=== PATIENT | male | born 1945 | race Caucasian/White ===

== ENCOUNTER → 2016-05-30 | Outpatient (CLI) | payer MEDICARE ==
[2016-05-30 09:57] LABS: Basophils % (A) 1 %; CH 32.1; CHCM 35.1; Eosinophils # (A) 0.1 k/uL (0-0.7); Eosinophils % (A) 2 %; HCT 46.6 % (39.0-53.0); HDW 2.97; HGB 15.7 gm/dL (13.0-17.5); Luc % (Auto) 1; Lymphocytes # (A) 0.8 k/uL (1.0-4.8); Lymphocytes % (A) 10 %; MCHC 33.7 g/dL (31.0-37.0); MCV 91.9 fL (80.0-100.0); Mean Platelet Volume 7.3; Monocytes # (A) 0.6 k/uL (0-1.0); Monocytes % (A) 8 %; Neutrophils # (A) 6.4 k/uL (1.3-7.7); Neutrophils % (A) 80 %; RBC 5.07 m/uL (4.30-5.90); RDW 12.8 % (11.5-15.5); WBC (Perox) 8.31
[2016-05-30 10:47] LABS: ALT 45 U/L (21-72); AST 29 U/L (17-59); Alkaline Phosphatase 106 U/L (38-126); Anion Gap 12 mmol/L; Blood Urea Nitrogen 11 mg/dL (9-20); Calcium 9.7 mg/dL (8.4-10.2); Carbon Dioxide 28 mmol/L (22-30); Chloride 104 mmol/L (98-107); Cholesterol 230 mg/dL (<200); Glucose 112 mg/dL (74-99); HDL Cholesterol 33 mg/dL (40-60); Non-African American GFR(MDRD) >60 (>60 ml/min/1.73 sqM); Potassium 4.7 mmol/L (3.5-5.1); Sodium 144 mmol/L (137-145); Total Bilirubin 1.1 mg/dL (0.2-1.3); Total Protein 6.9 g/dL (6.3-8.2); Triglycerides 235 mg/dL (<150)
[2016-05-30 10:53] LABS: Hemoglobin A1C 4.7 % (4.2-6.1)
[2016-05-30 11:18] LABS: Prostate Specific Antigen 2.89 ng/mL (0.00-4.00)
== END | disposition home or self-care (01) ==
LOC: LABWHC1 09:35
PROVIDERS: ATTEND Internal Medicine Critical Care Medicine
DX: Z00.00 Encounter for general adult medical examination without abnormal findings (principal); J45.909 Unspecified asthma, uncomplicated; Z12.5 Encounter for screening for malignant neoplasm of prostate
CPT/HCPCS: 36415; 80053; 80061; 82306; 83036; 84153; 84439; 84443; 84480; 85025

== ENCOUNTER → 2016-12-09 | Outpatient (CLI) | payer MEDICARE | END | disposition home or self-care (01) | LOC: LABWHC1 11:11 | PROVIDERS: ATTEND Internal Medicine Critical Care Medicine | DX: E03.9 Hypothyroidism, unspecified (principal) | CPT/HCPCS: 36415; 84439; 84443 ==

== ENCOUNTER → 2017-07-10 | Outpatient (CLI) | payer MEDICARE ==
[~2017-07-10] MED LIST: OMALIZUMAB 150 MG VIAL SQ NR
[2017-07-10 11:13] VITALS: BP 159/80; PULSE 73; RESP 16; TEMP 97.6
== END | disposition home or self-care (01) ==
LOC: PROCWHC3 10:57
PROVIDERS: ATTEND Internal Medicine Critical Care Medicine
DX: J45.40 Moderate persistent asthma, uncomplicated (principal)
CPT/HCPCS: 96372; J2357

== ENCOUNTER → 2017-08-21 | Outpatient (CLI) | payer MEDICARE ==
[2017-08-21 11:37] LABS: Basophils % (A) 0 %; Eosinophils # (A) 0.1 k/uL (0-0.7); Eosinophils % (A) 2 %; HCT 44.1 % (39.0-53.0); HGB 15.3 gm/dL (13.0-17.5); Lymphocytes # (A) 1.2 k/uL (1.0-4.8); Lymphocytes % (A) 15 %; MCHC 34.6 g/dL (31.0-37.0); MCV 86.9 fL (80.0-100.0); Mean Platelet Volume 6.9; Monocytes # (A) 0.5 k/uL (0-1.0); Monocytes % (A) 6 %; Neutrophils # (A) 6.2 k/uL (1.3-7.7); Neutrophils % (A) 76 %; Platelet Count 243 k/uL (150-450); RBC 5.08 m/uL (4.30-5.90); RDW 12.9 % (11.5-15.5); WBC 8.2 k/uL (3.8-10.6)
[2017-08-21 12:10] LABS: Albumin 4.2 g/dL (3.5-5.0); Calcium 9.9 mg/dL (8.4-10.2); Potassium 4.5 mmol/L (3.5-5.1); Total Bilirubin 0.9 mg/dL (0.2-1.3); Total Protein 6.8 g/dL (6.3-8.2)
[2017-08-21 12:19] LABS: T4, Free (Free Thyroxine) 1.18 ng/dL (0.78-2.19)
[2017-08-21 12:33] LABS: PSA Annual Screen 3.43 ng/mL (0.00-4.00)
== END | disposition home or self-care (01) ==
LOC: LABWHC1 10:44
PROVIDERS: ATTEND Internal Medicine Critical Care Medicine
DX: I10 Essential (primary) hypertension (principal); E55.9 Vitamin D deficiency, unspecified; E03.9 Hypothyroidism, unspecified; N40.1 Benign prostatic hyperplasia with lower urinary tract symptoms; J45.21 Mild intermittent asthma with (acute) exacerbation
CPT/HCPCS: 84439; 80061; 80053; 84443; 85025; 36415; G0103

== ENCOUNTER → 2017-08-21 | Outpatient (CLI) | payer MEDICARE ==
[2017-08-21 11:57] VITALS: BP 151/82; PULSE 76; RESP 18; TEMP 98.2
== END | disposition home or self-care (01) ==
LOC: PROCWHC3 11:02
PROVIDERS: ATTEND Internal Medicine Critical Care Medicine
DX: J45.40 Moderate persistent asthma, uncomplicated (principal)
CPT/HCPCS: 96372; J2357

== ENCOUNTER → 2017-10-02 | Outpatient (CLI) | payer MEDICARE ==
[2017-10-02 11:48] VITALS: BP 165/84; PULSE 68; RESP 16; TEMP 97.8
== END | disposition home or self-care (01) ==
LOC: PROCWHC3 11:03
PROVIDERS: ATTEND Internal Medicine Critical Care Medicine
DX: J45.40 Moderate persistent asthma, uncomplicated (principal)
CPT/HCPCS: 96372; J2357

== ENCOUNTER → 2017-10-22 | Outpatient (CLI) | payer MEDICARE ==
[2017-10-22 11:10] LABS: Albumin 4.3 g/dL (3.5-5.0); Potassium 4.6 mmol/L (3.5-5.1); Total Bilirubin 0.8 mg/dL (0.2-1.3); Total Protein 6.5 g/dL (6.3-8.2)
== END | disposition home or self-care (01) ==
LOC: LABWHC1 09:35
PROVIDERS: ATTEND Internal Medicine Clinical Cardiac Electrophysiology
DX: E78.5 Hyperlipidemia, unspecified (principal)
CPT/HCPCS: 36415; 80053; 80061; 84443

== ENCOUNTER → 2017-11-13 | Outpatient (CLI) | payer MEDICARE ==
[~2017-11-13] MED LIST changes: -OMALIZUMAB 150 MG VIAL SQ NR; +OMALIZUMAB 150 MG VIAL SQ ONE
[2017-11-13 11:37] VITALS: BP 162/86; PULSE 78; RESP 16; TEMP 98.1
== END | disposition home or self-care (01) ==
LOC: PROCWHC3 10:47
PROVIDERS: ATTEND Internal Medicine Critical Care Medicine
DX: J45.40 Moderate persistent asthma, uncomplicated (principal)
CPT/HCPCS: 96372; J2357

== ENCOUNTER → 2017-12-24 | Outpatient (CLI) | payer MEDICARE ==
[~2017-12-24] MED LIST changes: +OMALIZUMAB 150 MG VIAL SQ NR; -OMALIZUMAB 150 MG VIAL SQ ONE
[2017-12-24 15:38] VITALS: BP 157/78; PULSE 75; RESP 16; TEMP 97.8
== END | disposition home or self-care (01) ==
LOC: PROCWHC3 14:28
PROVIDERS: ATTEND Internal Medicine Critical Care Medicine
DX: J45.40 Moderate persistent asthma, uncomplicated (principal)
CPT/HCPCS: 96372; J2357

== ENCOUNTER → 2018-02-04 | Outpatient (CLI) | payer MEDICARE ==
[2018-02-04 11:24] VITALS: BP 157/75; PULSE 71; RESP 18; TEMP 98
== END | disposition home or self-care (01) ==
LOC: PROCWHC3 10:49
PROVIDERS: ATTEND Internal Medicine Critical Care Medicine
DX: J45.40 Moderate persistent asthma, uncomplicated (principal)
CPT/HCPCS: 96372; J2357

== ENCOUNTER → 2018-03-18 | Outpatient (CLI) | payer MEDICARE ==
[~2018-03-18] MED LIST changes: -OMALIZUMAB 150 MG VIAL SQ NR; +OMALIZUMAB 150 MG VIAL SQ ONE
[2018-03-18 11:36] VITALS: BP 157/78; PULSE 76; RESP 18; TEMP 98.2
== END | disposition home or self-care (01) ==
LOC: PROCWHC3 10:52
PROVIDERS: ATTEND Internal Medicine Critical Care Medicine
DX: J45.40 Moderate persistent asthma, uncomplicated (principal)
CPT/HCPCS: 96372; J2357

== ENCOUNTER → 2018-04-29 | Outpatient (CLI) | payer MEDICARE ==
[~2018-04-29] MED LIST changes: +OMALIZUMAB 150 MG VIAL SQ NR; -OMALIZUMAB 150 MG VIAL SQ ONE
[2018-04-29 11:28] VITALS: BP 163/76; PULSE 84; RESP 16; TEMP 97.9
== END | disposition home or self-care (01) ==
LOC: PROCWHC3 10:45
PROVIDERS: ATTEND Internal Medicine Critical Care Medicine
DX: J45.40 Moderate persistent asthma, uncomplicated (principal)
CPT/HCPCS: 96372; J2357

== ENCOUNTER → 2018-06-11 | Outpatient (CLI) | payer MEDICARE ==
[~2018-06-11] MED LIST changes: -OMALIZUMAB 150 MG VIAL SQ NR; +OMALIZUMAB 150 MG/ML SYRINGE SQ NR; +OMALIZUMAB SQ NR
[2018-06-11 14:44] VITALS: BP 145/84; PULSE 76; RESP 16; TEMP 98.2
== END ==
LOC: PROCWHC3 14:27
PROVIDERS: ATTEND Internal Medicine Critical Care Medicine
DX: J45.40 Moderate persistent asthma, uncomplicated (principal)
CPT/HCPCS: 96372; J2357

== ENCOUNTER → 2018-07-29 | Outpatient (CLI) | payer MEDICARE ==
[~2018-07-29] MED LIST changes: -OMALIZUMAB SQ NR
[2018-07-29 11:11] VITALS: BP 161/74; PULSE 84; RESP 18; TEMP 98
== END ==
LOC: PROCWHC3 10:54
PROVIDERS: ATTEND Internal Medicine Critical Care Medicine
DX: J45.40 Moderate persistent asthma, uncomplicated (principal)
CPT/HCPCS: 96372; J2357

== ENCOUNTER → 2018-08-26 | Outpatient (CLI) | payer MEDICARE | END | disposition home or self-care (01) | LOC: LABWHC1 11:12 | PROVIDERS: ATTEND Psychiatry & Neurology Neurology | DX: R25.1 Tremor, unspecified (principal) | CPT/HCPCS: 36415; 82565; 84520 ==

== ENCOUNTER → 2018-09-01 | Outpatient (CLI) | payer MEDICARE ==
--- NOTE | 2018-09-01 11:34 | MR ---
EXAMINATION TYPE: MR brain wo/w con DATE OF EXAM: 09/01/2018 11:29 AM COMPARISON: NONE HISTORY: Brain tumor / Tremors CONTRAST: Patient received 9 mL intravenous Gadavist gadolinium contrast. Multiplanar and multispin-echo imaging of the brain was performed . Pre and post contrast enhanced i mages are obtained. The ventricles, basal cisterns and sulci overlying the cerebral convexities are mildly enlarged. There is evidence of mild periventricular white matter ischemic demyelination. Remote deep white matter insults are also noted. No acute edema is seen on diffusion weighted imaging. There is no evidence for midline shift or mass effect. Acute intracranial hemorrhage or extra-axial collection is not evident. No enhancing lesions are seen. The paranasal sinuses and mastoid air cells are well-aerated. IMPRESSION: Age-related atrophic and chronic small vessel ischemic change. No acute intracranial process at this time. No enhancing lesions are seen.
== END | disposition home or self-care (01) ==
LOC: RADMRIMAIN 10:34
PROVIDERS: ATTEND Psychiatry & Neurology Neurology
DX: G31.1 Senile degeneration of brain, not elsewhere classified (principal); I67.82 Cerebral ischemia
CPT/HCPCS: 70553

== ENCOUNTER → 2018-09-14 | Outpatient (CLI) | payer MEDICARE ==
[2018-09-14 11:27] VITALS: BP 158/78; PULSE 77; RESP 16; TEMP 97.6
== END | disposition home or self-care (01) ==
LOC: PROCWHC3 11:20
PROVIDERS: ATTEND Internal Medicine Critical Care Medicine
DX: J45.40 Moderate persistent asthma, uncomplicated (principal)
CPT/HCPCS: 96372; J2357

== ENCOUNTER → 2018-10-28 | Outpatient (CLI) | payer MEDICARE ==
[2018-10-28 11:27] VITALS: BP 131/74; RESP 18; TEMP 98.3
== END | disposition home or self-care (01) ==
LOC: PROCWHC3 11:15
PROVIDERS: ATTEND Internal Medicine Critical Care Medicine
DX: J45.40 Moderate persistent asthma, uncomplicated (principal)
CPT/HCPCS: 96372; J2357

== ENCOUNTER → 2018-12-09 | Outpatient (CLI) | payer MEDICARE ==
[2018-12-09 11:34] VITALS: BP 155/83; PULSE 92; RESP 24; TEMP 98.2
== END | disposition home or self-care (01) ==
LOC: PROCWHC3 11:16
PROVIDERS: ATTEND Internal Medicine Critical Care Medicine
DX: J45.40 Moderate persistent asthma, uncomplicated (principal)
CPT/HCPCS: 96372; J2357

== ENCOUNTER 2019-01-07 06:54 | Emergency (ER) | payer MEDICARE ==
[2019-01-07 07:00] VITALS: TEMP 97.3
[2019-01-07] MEDS ORDERED: IPRATROPIUM 0.5 MG/2.5 ML NEBU INHALATION STA (07:25)
[2019-01-07] MEDS ORDERED: ALBUTEROL NEBULIZED 2.5 MG/3 ML INHALATION STA (07:25)
[2019-01-07] MEDS ORDERED: methylPREDNISolone SOD SUCCI 125 MG/2 ML VIAL IV STA (07:25)
--- NOTE | 2019-01-07 07:45 | ED ---
General Adult HPI - General Chief complaint: Chest Pain Stated complaint: SOB, chest tightness Time Seen by Provider: 01/07/19 07:00 Source: patient, family, RN notes reviewed Mode of arrival: ambulatory Limitations: no limitations - History of Present Illness Initial comments: This is a 73-year-old male with past medical history significant for asthma. Patient states he has been having intermittent exacerbations of asthma he has seen his electronic heat seal operator as well as visiting multiple ERs and he states every time he believes he feels a little better but it comes right back. Patient states he cannot continue to go in and out of ERs and/or doctor's offices without significant resolution of his symptoms. Patient denies any chest pain or pressure. Patient denies any fever chills or cough. Patient denies any leg swelling or calf tenderness. Patient denies any abdominal pain patient denies nausea vomiting diarrhea. Patient states being outside seems to exacerbate it. Patient states in his own home he has the symptoms as well as [place]. The reason I mention this is his thinks that somebody may be poisoning them. The patient himself says his has some mental illness and he does not believe that is occurring. - Related Data Home Medications Medication Instructions Recorded Confirmed Xolair 150 mg SQ DIRECTED 09/21/13 01/07/19 Albuterol Sulfate 1.25 mg INHALATION RT-TID PRN 03/18/18 01/07/19 ALPRAZolam [Xanax] 0.25 mg PO TID PRN 12/09/18 01/07/19 Atorvastatin [Lipitor] 20 mg PO DAILY 12/09/18 01/07/19 Gabapentin [Neurontin] 300 mg PO DAILY 12/09/18 01/07/19 Hydroxychloroquine Sulfate 200 mg PO BID 12/09/18 01/07/19 [Plaquenil] Irbesartan [Avapro] 150 mg PO DAILY 12/09/18 01/07/19 Levothyroxine Sodium [Synthroid] 100 mcg PO DAILY 12/09/18 01/07/19 amLODIPine [Norvasc] 5 mg PO DAILY 12/09/18 01/07/19 Fluticasone/Salmeterol [Advair 1 puff INHALATION RT-BID 01/07/19 01/07/19 500-50 Diskus] Montelukast [Singulair] 10 mg PO DAILY 01/07/19 01/07/19 Previous Rx's Medication Instructions Recorded predniSONE 40 mg PO DAILY #10 tab 01/07/19 Allergies Allergy/AdvReac Type Severity Reaction Status Date / Time No Known Allergies Allergy Verified 01/07/19 08:36 Review of Systems ROS Statement: Those systems with pertinent positive or pertinent negative responses have been documented in the HPI. ROS Other: All systems not noted in ROS Statement are negative. Past Medical History Past Medical History: Asthma Additional Past Medical History / Comment(s): Hx. "urination is slow" Dx. bronchitis november 2014 History of Any Multi-Drug Resistant Organisms: None Reported Past Surgical History: Orthopedic Surgery Additional Past Surgical History / Comment(s): Hx. Left knee arthroscopic, urethral surgery Past Anesthesia/Blood Transfusion Reactions: No Reported Reaction Past Psychological History: No Psychological Hx Reported Smoking Status: Never smoker Past Alcohol Use History: None Reported Past Drug Use History: None Reported General Exam - General Exam Comments Initial Comments: GENERAL: Patient is well-developed and well-nourished. Patient is nontoxic and well-hy drated and is in mild distress. ENT: Neck is soft and supple. No significant lymphadenopathy is noted. Oropharynx is clear. Moist mucous membranes. Neck has full range of motion without eliciting any pain. EYES: The sclera were anicteric and conjunctiva were pink and moist. Extraocular move ments were intact and pupils were equal round and reactive to light. Eyelids were unremarkable. PULMONARY: Unlabored respirations. Good breath sounds bilaterally. No audible rales rhonchi or wheezing was noted. CARDIOVASCULAR: There is a regular rate and rhythm without any murmurs gallops or rubs. ABDOMEN: Soft and nontender with normal bowel sounds. SKIN: Skin is clear with no lesions or rashes and otherwise unremarkable. NEUROLOGIC: Patient is alert and oriented x3. Cranial nerves II through XII are grossly intact. Motor and sensory are also intact. Normal speech, volume and content. Symmetrical smile. MUSCULOSKELETAL: Normal extremities with adequate strength and full range of motion. No lower extremity swelling or edema. No calf tenderness. LYMPHATICS: No significant lymphadenopathy is noted PSYCHIATRIC: Normal psychiatric evaluation. Limitations: no limitations Course Vital Signs 01/07/19 01/07/19 01/07/19 06:55 06:59 08:07 Temperature 97.3 F L Pulse Rate 97 79 Respiratory 18 20 Rate Blood Pressure 137/74 O2 Sat by Pulse 97 Oximetry 01/07/19 01/07/19 01/07/19 08:22 08:37 08:56 Temperature Pulse Rate 79 81 84 Respiratory Rate Blood Pressure O2 Sat by Pulse Oximetry Medical Decision Making - Medical Decision Making EKG shows normal sinus rhythm at 80 bpm NE interval 184 QRS is 86 QT interval 362 QTC is 417. Patient's EKG shows no ST segment elevation or depression. Patient's chest x-ray shows no acute abnormality. Patient received 3 breathing treatments and steroids I went back in to listen to home after the treatments were done and he was completely clear and stated he felt back to his baseline. Patient will be discharged home to follow-up with his electronic heat seal operator. - Lab Data Result diagrams: 01/07/19 07:30 01/07/19 07:30 Lab Results 01/07/19 01/07/19 01/07/19 Range/Units 07:30 07:30 07:30 WBC 8.2 (3.8-10.6) k/uL RBC 4.85 (4.30-5.90) m/uL Hgb 14.7 (13.0-17.5) gm/dL Hct 43.2 (39.0-53.0) % MCV 88.9 (80.0-100.0) fL MCH 30.4 (25.0-35.0) pg MCHC 34.2 (31.0-37.0) g/dL RDW 13.0 (11.5-15.5) % Plt Count 224 (150-450) k/uL Neutrophils % 76 % Lymphocytes % 13 % Monocytes % 7 % Eosinophils % 1 % Basophils % 0 % Neutrophils # 6.2 (1.3-7.7) k/uL Lymphocytes # 1.1 (1.0-4.8) k/uL Monocytes # 0.6 (0-1.0) k/uL Eosinophils # 0.1 (0-0.7) k/uL Basophils # 0.0 (0-0.2) k/uL PT 9.8 (9.0-12.0) sec INR 0.9 (<1.2) APTT 22.3 (22.0-30.0) sec D-Dimer 0.44 (<0.60) mg/L FEU Carbon Monoxide, Quant (<10.0) % Sodium 140 (137-145) mmol/L Potassium 4.4 (3.5-5.1) mmol/L Chloride 106 (98-107) mmol/L Carbon Dioxide 24 (22-30) mmol/L Anion Gap 10 mmol/L BUN 16 (9-20) mg/dL Creatinine 1.04 (0.66-1.25) mg/dL Est GFR (CKD-EPI)AfAm 82 (>60 ml/min/1.73 sqM) Est GFR (CKD-EPI)NonAf 71 (>60 ml/min/1.73 sqM) Glucose 107 H (74-99) mg/dL Calcium 9.9 (8.4-10.2) mg/dL Magnesium 2.1 (1.6-2.3) mg/dL Total Bilirubin 1.0 (0.2-1.3) mg/dL AST 22 (17-59) U/L ALT 32 (21-72) U/L Alkaline Phosphatase 74 (38-126) U/L Troponin I (0.000-0.034) ng/mL Total Protein 6.5 (6.3-8.2) g/dL Albumin 4.0 (3.5-5.0) g/dL 01/07/19 01/07/19 Range/Units 07:30 09:30 WBC (3.8-10.6) k/uL RBC (4.30-5.90) m/uL Hgb (13.0-17.5) gm/dL Hct (39.0-53.0) % MCV (80.0-100.0) fL MCH (25.0-35.0) pg MCHC (31.0-37.0) g/dL RDW (11.5-15.5) % Plt Count (150-450) k/uL Neutrophils % % Lymphocytes % % Monocytes % % Eosinophils % % Basophils % % Neutrophils # (1.3-7.7) k/uL Lymphocytes # (1.0-4.8) k/uL Monocytes # (0-1.0) k/uL Eosinophils # (0-0.7) k/uL Basophils # (0-0.2) k/uL PT (9.0-12.0) sec INR (<1.2) APTT (22.0-30.0) sec D-Dimer (<0.60) mg/L FEU Carbon Monoxide, Quant 2.0 (<10.0) % Sodium (137-145) mmol/L Potassium (3.5-5.1) mmol/L Chloride (98-107) mmol/L Carbon Dioxide (22-30) mmol/L Anion Gap mmol/L BUN (9-20) mg/dL Creatinine (0.66-1.25) mg/dL Est GFR (CKD-EPI)AfAm (>60 ml/min/1.73 sqM) Est GFR (CKD-EPI)NonAf (>60 ml/min/1.73 sqM) Glucose (74-99) mg/dL Calcium (8.4-10.2) mg/dL Magnesium (1.6-2.3) mg/dL Total Bilirubin (0.2-1.3) mg/dL AST (17-59) U/L ALT (21-72) U/L Alkaline Phosphatase (38-126) U/L Troponin I <0.012 (0.000-0.034) ng/mL Total Protein (6.3-8.2) g/dL Albumin (3.5-5.0) g/dL Disposition Clinical Impression: Exacerbation of asthma Disposition: HOME SELF-CARE Condition: Good Instructions (If sedation given, give patient instructions): Asthma (ED) Prescriptions: predniSONE 40 mg PO DAILY #10 tab Is patient prescribed a controlled substance at d/c from ED?: No Referrals: Chris Gatica DO [Primary Care Provider] - 1-2 days Time of Disposition: 11:05
[2019-01-07 07:54] LABS: Basophils % (A) 0 %; Eosinophils # (A) 0.1 k/uL (0-0.7); Eosinophils % (A) 1 %; HCT 43.2 % (39.0-53.0); HGB 14.7 gm/dL (13.0-17.5); Lymphocytes # (A) 1.1 k/uL (1.0-4.8); Lymphocytes % (A) 13 %; MCH 30.4 pg (25.0-35.0); MCHC 34.2 g/dL (31.0-37.0); MCV 88.9 fL (80.0-100.0); Mean Platelet Volume 6.2; Monocytes # (A) 0.6 k/uL (0-1.0); Monocytes % (A) 7 %; Neutrophils # (A) 6.2 k/uL (1.3-7.7); Neutrophils % (A) 76 %; Platelet Count 224 k/uL (150-450); RBC 4.85 m/uL (4.30-5.90); WBC 8.2 k/uL (3.8-10.6)
[2019-01-07 08:00] LABS: Calcium 9.9 mg/dL (8.4-10.2); Magnesium 2.1 mg/dL (1.6-2.3); Potassium 4.4 mmol/L (3.5-5.1); Total Protein 6.5 g/dL (6.3-8.2)
--- NOTE | 2019-01-07 08:02 | XR ---
EXAMINATION TYPE: XR chest 2V DATE OF EXAM: 01/07/2019 COMPARISON: NONE HISTORY: Shortness of breath with history of asthma. Cortical steroid use for 6 months TECHNIQUE: Frontal and lateral views of the chest are obtained. FINDINGS: There is no focal air space opacity, pleural effusion, or pneumothorax seen. There is red emonstration of elevation noted, chronicity unknown. Slight pulmonary hyperinflation is compatible wi th this patient's known asthma/COPD. The cardiac silhouette size is within normal limits. The osseo us structures are intact. Mild multilevel degenerative changes of the spine. IMPRESSION: 1. No acute cardiopulmonary process. 2. Unknown chronicity of an elevated right hemidiaphragm. If there is concern for diaphragmatic pares is fluoroscopic sniff test could be performed on a nonemergent basis.
[2019-01-07 08:09] LABS: D-Dimer 0.44 mg/L FEU (<0.60); INR 0.9 (<1.2); Partial Thromboplastin Time 22.3 sec (22.0-30.0); Prothrombin Time 9.8 sec (9.0-12.0)
[2019-01-07 11:20] VITALS: RESP 16
[2019-01-07 11:22] VITALS: BP 121/75; PULSE 88
== END 2019-01-07 11:10 | disposition home or self-care (01) ==
LOC: EC 06:54
DX: J45.901 Unspecified asthma with (acute) exacerbation (principal); Z79.890 Hormone replacement therapy; Z79.899 Other long term (current) drug therapy
CPT/HCPCS: 36415; 94644; 93005; 85379; 80053; 82375; 83735; 84484; 85025; 85610; 85730; 71046; 99285; 96374; J2930

== ENCOUNTER → 2019-01-20 | Outpatient (CLI) | payer MEDICARE ==
[2019-01-20 11:29] VITALS: BP 164/83; PULSE 85; RESP 18; TEMP 97.9
== END ==
LOC: PROCWHC3 11:17
PROVIDERS: ATTEND Internal Medicine Critical Care Medicine
DX: J45.40 Moderate persistent asthma, uncomplicated (principal)
CPT/HCPCS: 96372; J2357

== ENCOUNTER → 2019-03-03 | Outpatient (CLI) | payer MEDICARE ==
[2019-03-03 10:55] VITALS: BP 153/71; PULSE 90; RESP 18; TEMP 97.9
== END | disposition home or self-care (01) ==
LOC: PROCWHC3 10:38
PROVIDERS: ATTEND Internal Medicine Critical Care Medicine
DX: J45.40 Moderate persistent asthma, uncomplicated (principal)
CPT/HCPCS: 96372; J2357

== ENCOUNTER → 2019-04-06 | Outpatient (CLI) | payer MEDICARE ==
[2019-04-06 11:34] VITALS: BP 142/90; PULSE 81; RESP 16; TEMP 97.9
== END | disposition home or self-care (01) ==
LOC: PROCWHC3 11:17
PROVIDERS: ATTEND Internal Medicine Critical Care Medicine
DX: J45.40 Moderate persistent asthma, uncomplicated (principal)
CPT/HCPCS: 96372; J2357

== ENCOUNTER → 2019-06-27 | Outpatient (CLI) | payer MEDICARE ==
--- NOTE | 2019-06-27 22:49 | CT ---
EXAMINATION TYPE: CT chest w con DATE OF EXAM: 06/27/2019 COMPARISON: Chest x-ray January 07, 2019 HISTORY: followup lung nodule CT DLP: 441.9 mGycm. Automated Exposure Control for Dose Reduction was Utilized. TECHNIQUE: CT scan of the thorax is performed following with IV Contrast, patient injected with 80 m L of Isovue 300. FINDINGS: LUNGS: Redemonstration of elevated and eventrated anterior aspect right hemidiaphragm. Mild biapical pleural/parenchymal scarring. Mild right basilar linear scarring and/or atelectasis near diaphragm. N o suspicious greater than 4 mm pulmonary nodules or masses. No pleural effusion or pneumothorax curre ntly. MEDIASTINUM: There are no greater than 1 cm hilar or mediastinal lymph nodes. No cardiomegaly or pe ricardial effusion is seen. OTHER: Mild splenomegaly measuring 13.5 cm long axis coronal image 60. [id number] anomaly nonca lcified plaque in the thoracic aorta with more severe noncalcified plaque in the visualized portion o f abdominal aorta. Small degree of subareolar gynecomastia bilaterally. Moderate multilevel anterior and lateral spurring in the lower thoracic spine. IMPRESSION: No suspicious nodules or adenopathy.
== END | disposition home or self-care (01) ==
LOC: RADCTMAIN 16:05
PROVIDERS: ATTEND Internal Medicine Critical Care Medicine
DX: R06.02 Shortness of breath (principal)
CPT/HCPCS: 82565; 84520; 71260; 36415; Q9967

== ENCOUNTER → 2019-07-01 | Outpatient (CLI) | payer MEDICARE ==
[2019-07-01 10:49] VITALS: BP 153/80; PULSE 87; RESP 20; TEMP 97.9
== END | disposition home or self-care (01) ==
LOC: PROCWHC3 10:37
PROVIDERS: ATTEND Internal Medicine Critical Care Medicine
DX: J45.40 Moderate persistent asthma, uncomplicated (principal)
CPT/HCPCS: 96372; J2357

== ENCOUNTER → 2019-09-15 | Outpatient (CLI) | payer MEDICARE ==
[2019-09-15 10:40] VITALS: BP 146/81; PULSE 82; RESP 18; TEMP 98
== END | disposition home or self-care (01) ==
LOC: PROCWHC3 10:22
PROVIDERS: ATTEND Internal Medicine Critical Care Medicine
DX: J45.40 Moderate persistent asthma, uncomplicated (principal)
CPT/HCPCS: 96372; J2357

== ENCOUNTER → 2019-10-27 | Outpatient (CLI) | payer MEDICARE ==
[2019-10-27 10:22] VITALS: BP 159/83; PULSE 86; RESP 16; TEMP 98.3
== END | disposition home or self-care (01) ==
LOC: PROCWHC3 10:13
PROVIDERS: ATTEND Internal Medicine Critical Care Medicine
DX: J45.40 Moderate persistent asthma, uncomplicated (principal)
CPT/HCPCS: 96372; J2357

== ENCOUNTER → 2019-12-08 | Outpatient (CLI) | payer MEDICARE ==
[~2019-12-08] MED LIST changes: -OMALIZUMAB 150 MG/ML SYRINGE SQ NR; +OMALIZUMAB 150 MG/ML SYRINGE SQ ONE
[2019-12-08 14:42] VITALS: BP 152/76; PULSE 81; RESP 16; TEMP 98.1
== END | disposition home or self-care (01) ==
LOC: PROCWHC3 14:13
PROVIDERS: ATTEND Internal Medicine Critical Care Medicine
DX: J45.40 Moderate persistent asthma, uncomplicated (principal)
CPT/HCPCS: 96372; J2357

== ENCOUNTER → 2020-01-19 | Outpatient (CLI) | payer MEDICARE ==
[2020-01-19 10:32] VITALS: BP 155/85; PULSE 81; RESP 16; TEMP 98.2
== END | disposition home or self-care (01) ==
LOC: PROCWHC3 10:21
PROVIDERS: ATTEND Internal Medicine Critical Care Medicine
DX: J45.40 Moderate persistent asthma, uncomplicated (principal)
CPT/HCPCS: 96372; J2357

== ENCOUNTER → 2020-03-01 | Outpatient (CLI) | payer MEDICARE ==
[~2020-03-01] MED LIST changes: +OMALIZUMAB 150 MG/ML SYRINGE SQ NR; -OMALIZUMAB 150 MG/ML SYRINGE SQ ONE
[2020-03-01 10:21] VITALS: BP 163/86; PULSE 79; RESP 16; TEMP 98.6
== END | disposition home or self-care (01) ==
LOC: PROCWHC3 10:02
PROVIDERS: ATTEND Internal Medicine Critical Care Medicine
DX: J45.40 Moderate persistent asthma, uncomplicated (principal)
CPT/HCPCS: 96372; J2357

== ENCOUNTER → 2020-04-12 | Outpatient (CLI) | payer MEDICARE ==
[2020-04-12 09:20] VITALS: BP 168/83; PULSE 85; RESP 16; TEMP 97.8
== END | disposition home or self-care (01) ==
LOC: PROCWHC3 09:03
PROVIDERS: ATTEND Internal Medicine Critical Care Medicine
DX: J45.40 Moderate persistent asthma, uncomplicated (principal)
CPT/HCPCS: 96372; J2357

== ENCOUNTER 2020-05-07 14:50 | Inpatient (IN) | payer MEDICARE ==
[2020-05-07 15:12] LABS: Glucose,Whole Blood 94 mg/dL (75-99)
--- NOTE | 2020-05-07 15:31 | ED ---
Neuro HPI - General Chief Complaint: Neuro Symptoms/Deficit Stated Complaint: Back Pain/Pinched Nerve/Neuro Time Seen by Provider: 05/07/20 15:10 Source: patient, RN notes reviewed Mode of arrival: ambulatory Limitations: no limitations - History of Present Illness Is the patient presenting with stroke symptoms?: Yes Initial Comments: Is a 74-year-old male with no prior history of stroke. A long history of asthma who states he had the onset around 13:30 this afternoon of left-sided upper lower. Numbness and weakness. He states he was on a stool eating any trauma to go from his leg wouldn't support him. He was brought in by EMS. He states he now has resolution of the left upper extremity and left lower extremity weakness he still has a little bit of numbness and left leg. Note, no headache no loss of vision no other loss of function no fevers chills nausea vomiting sweats or other symptoms - Related Data Home Medications: Home Medications Medication Instructions Recorded Confirmed Xolair 150 mg SQ DIRECTED 09/21/13 04/12/20 Albuterol Sulfate 1.25 mg INHALATION RT-TID PRN 03/18/18 04/12/20 ALPRAZolam [Xanax] 0.25 mg PO TID PRN 12/09/18 04/12/20 Atorvastatin [Lipitor] 20 mg PO DAILY 12/09/18 04/12/20 Gabapentin [Neurontin] 150 mg PO DAILY 12/09/18 04/12/20 Hydroxychloroquine Sulfate 200 mg PO BID 12/09/18 04/12/20 [Plaquenil] Irbesartan [Avapro] 75 mg PO DAILY 12/09/18 04/12/20 Levothyroxine Sodium [Synthroid] 100 mcg PO DAILY 12/09/18 04/12/20 amLODIPine [Norvasc] 5 mg PO DAILY 12/09/18 04/12/20 Fluticasone/Salmeterol [Advair 1 puff INHALATION RT-BID 01/07/19 04/12/20 500-50 Diskus] Montelukast [Singulair] 10 mg PO DAILY 01/07/19 04/12/20 Fluticasone/Salmeterol [Advair 1 inhalation PO BID 01/20/19 04/12/20 500-50 Diskus] Allergies/Adverse Reactions: Allergies Allergy/AdvReac Type Severity Reaction Status Date / Time No Known Allergies Allergy Verified 05/07/20 14:57 Review of Systems ROS Statement: Those systems with pertinent positive or pertinent negative responses have been documented in the HPI. ROS Other: All systems not noted in ROS Statement are negative. General Exam - General Exam Comments Initial Comments: This is a well-developed well-nourished awake alert oriented times 3 male Limitations: no limitations General appearance: alert, in no apparent distress Head exam: Present: atraumatic, normocephalic, normal inspection Eye exam: Present: normal appearance, PERRL, EOMI. Absent: scleral icterus, conjunctival injection, periorbital swelling ENT exam: Present: normal exam, mucous membranes moist Neck exam: Present: normal inspection, full ROM, other (No stridor JVD or bruits). Absent: tenderness, meningismus, lymphadenopathy Respiratory exam: Present: normal lung sounds bilaterally. Absent: respiratory distress, wheezes, rales, rhonchi, stridor Cardiovascular Exam: Present: regular rate, normal rhythm, normal heart sounds. Absent: systolic murmur, diastolic murmur, rubs, gallop, clicks GI/Abdominal exam: Present: soft, normal bowel sounds. Absent: distended, tenderness, guarding, rebound, rigid Extremities exam: Present: normal inspection, full ROM, normal capillary refill. Absent: tenderness, pedal edema, joint swelling, calf tenderness Back exam: Present: normal inspection Neurological exam: Present: alert, oriented X3, CN II-XII intact Psychiatric exam: Present: normal affect, normal mood Skin exam: Present: warm, dry, intact, normal color. Absent: rash Stroke MDM - Lab Data Result diagrams: 05/07/20 15:34 05/07/20 15:34 Lab Results 05/07/20 05/07/20 05/07/20 Range/Units 15:10 15:34 15:34 WBC 10.7 H (3.8-10.6) k/uL RBC 5.23 (4.30-5.90) m/uL Hgb 16.3 (13.0-17.5) gm/dL Hct 46.3 (39.0-53.0) % MCV 88.5 (80.0-100.0) fL MCH 31.1 (25.0-35.0) pg MCHC 35.1 (31.0-37.0) g/dL RDW 12.0 (11.5-15.5) % Plt Count 233 (150-450) k/uL MPV 6.8 Neutrophils % 80 % Lymphocytes % 10 % Monocytes % 6 % Eosinophils % 2 % Basophils % 1 % Neutrophils # 8.6 H (1.3-7.7) k/uL Lymphocytes # 1.1 (1.0-4.8) k/uL Monocytes # 0.7 (0-1.0) k/uL Eosinophils # 0.2 (0-0.7) k/uL Basophils # 0.1 (0-0.2) k/uL PT 10.0 (9.0-12.0) sec INR 1.0 (<1.2) APTT 23.1 (22.0-30.0) sec Sodium (137-145) mmol/L Potassium (3.5-5.1) mmol/L Chloride (98-107) mmol/L Carbon Dioxide (22-30) mmol/L Anion Gap mmol/L BUN (9-20) mg/dL Creatinine (0.66-1.25) mg/dL Est GFR (CKD-EPI)AfAm (>60 ml/min/1.73 sqM) Est GFR (CKD-EPI)NonAf (>60 ml/min/1.73 sqM) Glucose (74-99) mg/dL POC Glucose (mg/dL) 94 (75-99) mg/dL POC Glu Weigh Box Tender ID Donnie Rosen Calcium (8.4-10.2) mg/dL Magnesium (1.6-2.3) mg/dL Total Bilirubin (0.2-1.3) mg/dL AST (17-59) U/L ALT (4-49) U/L Alkaline Phosphatase (38-126) U/L Creatine Kinase (55-170) U/L Troponin I (0.000-0.034) ng/mL Total Protein (6.3-8.2) g/dL Albumin (3.5-5.0) g/dL 05/07/20 05/07/20 Range/Units 15:34 15:34 WBC (3.8-10.6) k/uL RBC (4.30-5.90) m/uL Hgb (13.0-17.5) gm/dL Hct (39.0-53.0) % MCV (80.0-100.0) fL MCH (25.0-35.0) pg MCHC (31.0-37.0) g/dL RDW (11.5-15.5) % Plt Count (150-450) k/uL MPV Neutrophils % % Lymphocytes % % Monocytes % % Eosinophils % % Basophils % % Neutrophils # (1.3-7.7) k/uL Lymphocytes # (1.0-4.8) k/uL Monocytes # (0-1.0) k/uL Eosinophils # (0-0.7) k/uL Basophils # (0-0.2) k/uL PT (9.0-12.0) sec INR (<1.2) APTT (22.0-30.0) sec Sodium 138 (137-145) mmol/L Potassium 4.1 (3.5-5.1) mmol/L Chloride 107 (98-107) mmol/L Carbon Dioxide 25 (22-30) mmol/L Anion Gap 6 mmol/L BUN 16 (9-20) mg/dL Creatinine 1.24 (0.66-1.25) mg/dL Est GFR (CKD-EPI)AfAm 66 (>60 ml/min/1.73 sqM) Est GFR (CKD-EPI)NonAf 57 (>60 ml/min/1.73 sqM) Glucose 100 H (74-99) mg/dL POC Glucose (mg/dL) (75-99) mg/dL POC Glu Weigh Box Tender ID Calcium 9.8 (8.4-10.2) mg/dL Magnesium 2.1 (1.6-2.3) mg/dL Total Bilirubin 0.7 (0.2-1.3) mg/dL AST 28 (17-59) U/L ALT 26 (4-49) U/L Alkaline Phosphatase 99 (38-126) U/L Creatine Kinase 99 (55-170) U/L Troponin I <0.012 (0.000-0.034) ng/mL Total Protein 6.7 (6.3-8.2) g/dL Albumin 4.3 (3.5-5.0) g/dL - NIH Stroke Scale 1a. Level of Consciousness: (0) alert 1b. LOC Questions: (0) answers correctly 1c. LOC Commands: (0) performs tasks correctly 2. Best Gaze: (0) normal 3. Visual: (0) no visual loss 4. Facial Palsy: (0) normal symmetrical movement 5a. Motor Arm Left: (0) no drift 5b. Motor Arm Right: (0) no drift 6a. Motor Leg Left: (0) no drift 6b. Motor Leg Right: (0) no drift 7. Limb Ataxia: (0) absent 8. Sensory: (0) normal 9. Best Language: (0) no aphasia 10. Dysarthria: (0) normal 11. Extinction/Inattention: (0) no abnormality - Medical Decision Making Imaging reviewed no evidence of acute findings or is evidence of stenosis of the internal carotid arteries less than 50%. I did discuss findings the patient's as well as Dr. Fields the patient is seen by Dr. Ronald Tamez outpatient. Patient be admitted with neurology consultation also echocardiogram. - EKG Data -: EKG Interpreted by Me EKG shows normal: sinus rhythm, axis, intervals, QRS complexes, ST-T waves (Normal sinus rhythm a 79. Interval 198 QRS duration 82 QT since QTC 360/421 st-t wave changes) Past Medical History Past Medical History: Asthma Additional Past Medical History / Comment(s): Hx. "urination is slow" Dx. bronchitis november 2014 History of Any Multi-Drug Resistant Organisms: None Reported Past Surgical History: Orthopedic Surgery Additional Past Surgical History / Comment(s): Hx. Left knee arthroscopic, urethral surgery Past Anesthesia/Blood Transfusion Reactions: No Reported Reaction Past Psychological History: No Psychological Hx Reported Smoking Status: Never smoker, Second hand smoke exposure Course Vital Signs 05/07/20 14:52 Temperature 98.6 F Pulse Rate 82 Respiratory 16 Rate Blood Pressure 148/86 O2 Sat by Pulse 98 Oximetry - Reevaluation(s) Reevaluation #1: 05/07/20 16:54 I did reevaluate patient several occasions he is feeling back to he believes normal. Disposition Clinical Impression: Cerebrovascular accident (CVA) Disposition: ADMITTED IP TO THIS [facility] Condition: Fair Referrals: Nonstaff,Physician [Primary Care Provider] - 1-2 days
[2020-05-07 15:47] LABS: Basophils # (A) 0.1 k/uL (0-0.2); Basophils % (A) 1 %; Eosinophils # (A) 0.2 k/uL (0-0.7); Eosinophils % (A) 2 %; HCT 46.3 % (39.0-53.0); HGB 16.3 gm/dL (13.0-17.5); Lymphocytes # (A) 1.1 k/uL (1.0-4.8); Lymphocytes % (A) 10 %; MCH 31.1 pg (25.0-35.0); MCHC 35.1 g/dL (31.0-37.0); MCV 88.5 fL (80.0-100.0); Mean Platelet Volume 6.8; Monocytes # (A) 0.7 k/uL (0-1.0); Monocytes % (A) 6 %; Neutrophils # (A) 8.6 k/uL (1.3-7.7); Neutrophils % (A) 80 %; Platelet Count 233 k/uL (150-450); RBC 5.23 m/uL (4.30-5.90); WBC 10.7 k/uL (3.8-10.6)
[2020-05-07 15:55] LABS: Partial Thromboplastin Time 23.1 sec (22.0-30.0)
[2020-05-07 15:57] LABS: Albumin 4.3 g/dL (3.5-5.0); Calcium 9.8 mg/dL (8.4-10.2); Magnesium 2.1 mg/dL (1.6-2.3); Potassium 4.1 mmol/L (3.5-5.1); Total Bilirubin 0.7 mg/dL (0.2-1.3); Total Protein 6.7 g/dL (6.3-8.2)
--- NOTE | 2020-05-07 16:03 | XR ---
EXAMINATION TYPE: XR chest 2V DATE OF EXAM: 05/07/2020 COMPARISON: Chest x-ray January 07, 2019. CT chest June 27, 2019 HISTORY: Altered mental status and weakness. TECHNIQUE: Frontal and lateral views of the chest are obtained. FINDINGS: Elevated and eventrated anterior aspect right hemidiaphragm redemonstrated. There is no foc al air space opacity, pleural effusion, or pneumothorax seen. The cardiac silhouette size remains wi thin normal limits. The osseous structures are intact. IMPRESSION: No acute cardiopulmonary process. No significant change from prior studies.
--- NOTE | 2020-05-07 16:06 | CT ---
EXAMINATION TYPE: CT brain wo con for TPA DATE OF EXAM: 05/07/2020 HISTORY: Left sided tingling. CT DLP: 1089 mGycm. Automated Exposure Control for Dose Reduction was Utilized. TECHNIQUE: CT scan of the head is performed without contrast. COMPARISON: None. FINDINGS: There is no acute intracranial hemorrhage or midline shift identified. There is diffuse v entricular and sulcal prominence consistent with diffuse age-related cerebral atrophy. There is low- attenuation in the periventricular white matter consistent with chronic small vessel ischemic change. The globes are intact and the visualized sinuses are clear. IMPRESSION: No acute intracranial hemorrhage or midline shift. There is mild to moderate diffuse ag e-related cerebral atrophy and mild chronic small vessel ischemic change noted.
--- NOTE | 2020-05-07 16:12 | CT ---
EXAMINATION TYPE: CT angio head neck DATE OF EXAM: 05/07/2020 HISTORY: Left sided tingling. Acute onset neuro deficit. COMPARISON: None. CT DLP: 588.1 mGycm. Automated Exposure Control for Dose Reduction was Utilized. TECHNIQUE: CTA scan of the head and neck are performed with IV Contrast, patient injected with 75 mL of Isovue 370, axial images are obtained, coronal and sagittal reformatted images are reviewed. Thre e-D reconstructed images are created on an independent workstation and reviewed. FINDINGS: Carotid/Vascular Structures: Normal three-vessel origin from aortic arch. Normal origin right common carotid artery from brachiocephalic artery. Suboptimal evaluation right proximal common carotid arter y due to marked streak artifact from adjacent injected right brachiocephalic vein. Remainder right co mmon carotid artery shows no significant plaque or stenosis. There is moderate to severe noncalcified plaque in the proximal internal carotid artery just after carotid bulb causing stenosis approaching but under 50%. No significant plaque or stenosis in the right external carotid artery. Mild scattered plaque along the left common carotid artery without significant stenosis. Moderate mix ed plaque left carotid bulb extends into proximal internal carotid artery causing stenosis under 50%. Tortuous course to the internal carotid arteries bilaterally. No significant plaque or stenosis in t he left external carotid artery. Dominant left vertebral artery. Vertebral arteries are patent to basilar junction. Hypoplastic left P 1 segment with filling of the P2 segment due to patent left posterior communicating artery. Hypoplast ic right posterior communicating artery. No significant focal stenosis or aneurysm in the posterior c irculation. Patent anterior communicating artery. No significant focal stenosis or aneurysmal change in the anterior circulation Other: Moderate to severe disc space narrowing and spurring C3-C4 level. Moderate spurring and disc s pace narrowing C5-C6 and C6-C7 levels. Multilevel uncovertebral facet degenerative changes on axial i mages. IMPRESSION: Moderate to severe plaque proximal internal carotid arteries bilaterally without hemodyna mically significant stenosis in either common or internal carotid artery. No significant focal stenos is or aneurysm at the level of the [place].
[2020-05-07] MEDS ORDERED: ASPIRIN 325 MG TAB PO STA (17:20)
[2020-05-07] MEDS ORDERED: ALBUTEROL NEBULIZED 1.25 MG/3 ML INHALATION PRN (17:24)
--- NOTE | 2020-05-07 17:26 | ED ---
Medical Decision Making - Medical Decision Making Addendum to the physical exam the patient did not have clear lung sounds he did have bilateral wheezing which she states is normal for him. He is not dyspneic a more than his usual. - Lab Data Result diagrams: 05/07/20 15:34 05/07/20 15:34 Lab Results 05/07/20 05/07/20 05/07/20 Range/Units 15:10 15:34 15:34 WBC 10.7 H (3.8-10.6) k/uL RBC 5.23 (4.30-5.90) m/uL Hgb 16.3 (13.0-17.5) gm/dL Hct 46.3 (39.0-53.0) % MCV 88.5 (80.0-100.0) fL MCH 31.1 (25.0-35.0) pg MCHC 35.1 (31.0-37.0) g/dL RDW 12.0 (11.5-15.5) % Plt Count 233 (150-450) k/uL MPV 6.8 Neutrophils % 80 % Lymphocytes % 10 % Monocytes % 6 % Eosinophils % 2 % Basophils % 1 % Neutrophils # 8.6 H (1.3-7.7) k/uL Lymphocytes # 1.1 (1.0-4.8) k/uL Monocytes # 0.7 (0-1.0) k/uL Eosinophils # 0.2 (0-0.7) k/uL Basophils # 0.1 (0-0.2) k/uL PT 10.0 (9.0-12.0) sec INR 1.0 (<1.2) APTT 23.1 (22.0-30.0) sec Sodium (137-145) mmol/L Potassium (3.5-5.1) mmol/L Chloride (98-107) mmol/L Carbon Dioxide (22-30) mmol/L Anion Gap mmol/L BUN (9-20) mg/dL Creatinine (0.66-1.25) mg/dL Est GFR (CKD-EPI)AfAm (>60 ml/min/1.73 sqM) Est GFR (CKD-EPI)NonAf (>60 ml/min/1.73 sqM) Glucose (74-99) mg/dL POC Glucose (mg/dL) 94 (75-99) mg/dL POC Glu Automatic [employer] ID Donnie Rosen Calcium (8.4-10.2) mg/dL Magnesium (1.6-2.3) mg/dL Total Bilirubin (0.2-1.3) mg/dL AST (17-59) U/L ALT (4-49) U/L Alkaline Phosphatase (38-126) U/L Creatine Kinase (55-170) U/L Troponin I (0.000-0.034) ng/mL Total Protein (6.3-8.2) g/dL Albumin (3.5-5.0) g/dL 05/07/20 05/07/20 Range/Units 15:34 15:34 WBC (3.8-10.6) k/uL RBC (4.30-5.90) m/uL Hgb (13.0-17.5) gm/dL Hct (39.0-53.0) % MCV (80.0-100.0) fL MCH (25.0-35.0) pg MCHC (31.0-37.0) g/dL RDW (11.5-15.5) % Plt Count (150-450) k/uL MPV Neutrophils % % Lymphocytes % % Monocytes % % Eosinophils % % Basophils % % Neutrophils # (1.3-7.7) k/uL Lymphocytes # (1.0-4.8) k/uL Monocytes # (0-1.0) k/uL Eosinophils # (0-0.7) k/uL Basophils # (0-0.2) k/uL PT (9.0-12.0) sec INR (<1.2) APTT (22.0-30.0) sec Sodium 138 (137-145) mmol/L Potassium 4.1 (3.5-5.1) mmol/L Chloride 107 (98-107) mmol/L Carbon Dioxide 25 (22-30) mmol/L Anion Gap 6 mmol/L BUN 16 (9-20) mg/dL Creatinine 1.24 (0.66-1.25) mg/dL Est GFR (CKD-EPI)AfAm 66 (>60 ml/min/1.73 sqM) Est GFR (CKD-EPI)NonAf 57 (>60 ml/min/1.73 sqM) Glucose 100 H (74-99) mg/dL POC Glucose (mg/dL) (75-99) mg/dL POC Glu Automatic Riveting Machine Operator ID Calcium 9.8 (8.4-10.2) mg/dL Magnesium 2.1 (1.6-2.3) mg/dL Total Bilirubin 0.7 (0.2-1.3) mg/dL AST 28 (17-59) U/L ALT 26 (4-49) U/L Alkaline Phosphatase 99 (38-126) U/L Creatine Kinase 99 (55-170) U/L Troponin I <0.012 (0.000-0.034) ng/mL Total Protein 6.7 (6.3-8.2) g/dL Albumin 4.3 (3.5-5.0) g/dL Disposition Clinical Impression: Cerebrovascular accident (CVA) Disposition: ADMITTED IP TO THIS [facility] Condition: Fair Referrals: Nonstaff,Physician [Primary Care Provider] - 1-2 days
[2020-05-07] MEDS: SODIUM CHLORIDE 0.9% 1,000 ML IV SCH (18:39)
[2020-05-07] MEDS: SYMBICORT 160-4.5 MCG INHALER INHALATION SCH (20:42)
[2020-05-07] MEDS ORDERED: FLUTICASONE PO SCH (21:00)
[2020-05-07] MEDS ORDERED: SALMETEROL PO SCH (21:00)
[2020-05-07] MEDS: ALPRAZolam 0.25 MG TAB PO PRN (21:53)
[2020-05-07] MEDS ORDERED: ALBUTEROL NEBULIZED 2.5 MG/3 ML INHALATION PRN (22:43)
[2020-05-07] MEDS: HYDROXYCHLOROQUINE SULFATE 200 MG TAB PO SCH (22:50)
--- NOTE | 2020-05-07 22:57 | P.HPIM ---
History of Present Illness H&P Date: 05/07/20 Chief Complaint: CVA with left-sided weakness, hypertension, hyperlipidemia and severe asthm 74-year-old male who started seen Dr. Ronald Tamez recently was seen Dr. Randolph jones primary care physician for long time and switched recently to Dr. Clare abad. Patient presented to demurs department at [facility] an hour after developed to have significant sign and symptom of left-sided weakness according to him eating lunch add Dilantin his condition when he felt his left leg is going numb and sleep he tried tested up and almost lost his balance completely than he realizes he has having weakness of the left upper and lower extremity with severe weakness and burning sensation. His ended up bringing him to the emergency department where he was seen and evaluated his blood pressure was moderately elevated patient by the time was exam his left-sided weakness almost back to his normal baseline with slight residual left mostly in the upper extremity compared to the lower extremity. Patient described no episode like this in the past never been treated for stroke or mini stroke never had any cardiovascular event in the past who is known to have history of advance asthma with FEV1 50% only but has been under better control her medication. Review of Systems CONSTITUTIONAL: Well-developed no acute respiratory distress. EYES: No icterus sclerae, no conjunctivitis. EARS, NOSE, MOUTH, THROAT, and FACE: No sore throat, lymphadenopathy, carotid bruits or deformity. RESPIRATORY: Significant shortness of breath cough wheezes with history of asthma CARDIOVASCULAR: Positive CP, Palpitation, PND, Orthopnea, no angina. GASTROINTESTINAL: No Abd pain, Nausea or vomiting, no Diarrhea or constipation, No GI Bleed, no distention or masses. GENITOURINARY: Negative for Hematuria or UTI, no kidney stones. INTEGUMENT/BREAST: Negative for any muscular injury with mild osteoarthritis.. HEMATOLOGIC/LYMPHATIC: Negative for bleed or purpura. MUSCULOSKELTAL: Negative for Myalgia or arthralgia. Significant lower spine discomfort and left hip mild irritation and limitation NEURLOGICAL: No LOC, Sz or syncope, blurred vision dizziness or abnormality.. BEHAVIORAL/PSYCH: Negative. ENDOCRINE: Negative. Past Medical History Past Medical History: Asthma Additional Past Medical History / Comment(s): Hx. "urination is slow" Dx. bronchitis november 2014 History of Any Multi-Drug Resistant Organisms: None Reported Past Surgical History: Orthopedic Surgery Additional Past Surgical History / Comment(s): Hx. Left knee arthroscopic, urethral surgery Past Anesthesia/Blood Transfusion Reactions: No Reported Reaction Past Psychological History: No Psychological Hx Reported Smoking Status: Never smoker, Second hand smoke exposure Medications and Allergies Home Medications Medication Instructions Recorded Confirmed Type Xolair 150 mg SQ Q42D 09/21/13 05/07/20 History ALPRAZolam [Xanax] 0.25 mg PO BID PRN 12/09/18 05/07/20 History Gabapentin [Neurontin] 300 mg PO HS PRN 12/09/18 05/07/20 History Hydroxychloroquine Sulfate 200 mg PO BID 12/09/18 05/07/20 History [Plaquenil] amLODIPine [Norvasc] 5 mg PO DAILY 12/09/18 05/07/20 History Fluticasone/Salmeterol [Advair 1 puff INHALATION RT-BID 01/07/19 05/07/20 History 500-50 Diskus] Montelukast [Singulair] 10 mg PO DAILY 01/07/19 05/07/20 History Albuterol Inhaler [Ventolin Hfa 2 puff INHALATION RT-Q6H PRN 05/07/20 05/07/20 History Inhaler] Albuterol Nebulized [Ventolin 2.5 mg INHALATION RT-TID PRN 05/07/20 05/07/20 History Nebulized] Ascorbic Acid [Vitamin C] 1,500 mg PO DAILY 05/07/20 05/07/20 History Calcium Carbonate [Calcium] 1,200 mg PO DAILY 05/07/20 05/07/20 History Allergies Allergy/AdvReac Type Severity Reaction Status Date / Time No Known Allergies Allergy Verified 05/07/20 18:50 Physical Exam Vitals: Vital Signs Temp Pulse Resp BP Pulse Ox 05/07/20 17:30 78 19 156/94 98 05/07/20 17:00 72 22 143/86 05/07/20 16:30 75 20 162/87 98 05/07/20 16:00 75 19 149/83 98 05/07/20 15:30 75 17 144/93 97 05/07/20 15:04 81 22 05/07/20 14:52 98.6 F 82 16 148/86 98 Intake and Output 05/07/20 05/07/20 05/07/20 06:59 14:59 22:59 Other: Weight 90.718 kg General Appearance: Alert, cooperative, no distress, appears stated age. Neck HEENT: Supple, no lymphadenopathy, no thyroid enlargement, no carotid bruits. Lungs: Decrease breath sound bilaterally with fine rhonchi mild expiratory wheezes Chest Wall: Decrease expansion with deep inspiration no tenderness and no deformity was found on exam, no costochondral pain or discomfort. Heart: Regular rate and rhythm, S1, S2 normal, no murmur, rub or gallop. Back: Symmetric, no curvature, ROM normal, no CVA tenderness. Abdomen: Soft, non-tender, bowel sounds active all four quadrants, no masses, no organomegaly. Extremities: Extremities normal, atraumatic, no cyanosis or edema. Pulses: 2+ and symmetric. Skin: Skin color, texture, tugor normal, no rashes or lesions. Neurologic: Alert oriented x3 cranial nerves II through XII intact, significant weakness in the left side compared to the right side not been able to do gait exam or coordination. Results CBC & Chem 7: 05/07/20 15:34 05/07/20 15:34 Labs: Abnormal Lab Results - Last 24 Hours (Table) 05/07/20 05/07/20 Range/Units 15:34 15:34 WBC 10.7 H (3.8-10.6) k/uL Neutrophils # 8.6 H (1.3-7.7) k/uL Glucose 100 H (74-99) mg/dL Assessment and Plan Assessment: 1 CVA/TIA: With weakness in the left side with reverse mostly was still have slight residual only, CT of the neck failed to show any major abnormality of the carotid artery, heart monitor still showing sinus rhythm with no abnormal arrhythmia yet. We'll consult neurology refer patient for MRI of the brain also technicality of carotid ultrasound can be done for better view. 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 3 Hypertension: Remain on amlodipine 5 mg a day, irbesartan 75 mg a day with good result so far. 4 hypothyroidism: Remain on levothyroxine 100 g daily. 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 6 chronic neuropathy: Remain on gabapentin 150 mg daily. 7 GI prophylaxis: Patient can benefit from being on alprazolam. 8 DVT prophylaxis: Patient will continue early mobilization and knee-high MARLEN hose. CODE STATUS: Full code. Admit patient to the inpatient service for 1-2 nights stay.
[2020-05-08 03:26] LABS: Cholesterol 212 mg/dL (<200); HDL Cholesterol 29 mg/dL (40-60); LDL Cholesterol,Calculated 137 mg/dL (0-99); Triglycerides 230 mg/dL (<150)
[2020-05-08] MEDS: ALPRAZolam 0.25 MG TAB PO PRN ×2 (03:35→18:45)
[2020-05-08] MEDS: ALBUTEROL NEBULIZED 2.5 MG/3 ML INHALATION PRN ×2 (03:36→12:12)
[2020-05-08] MEDS: LEVOTHYROXINE 100 MCG TAB PO SCH (06:04)
[2020-05-08] MEDS: HYDROXYCHLOROQUINE SULFATE 200 MG TAB PO SCH ×2 (08:16→20:03)
[2020-05-08] MEDS: amLODIPine 5 MG TAB PO SCH (08:16)
[2020-05-08] MEDS: ATORVASTATIN 20 MG TAB PO SCH (08:17)
[2020-05-08] MEDS: MONTELUKAST 10 MG TAB PO SCH (08:17)
[2020-05-08] MEDS: CLOPIDOGREL 75 MG TAB PO SCH (08:17)
[2020-05-08] MEDS: LOSARTAN 25 MG TAB PO SCH (08:17)
[2020-05-08] MEDS: ASCORBIC ACID 500 MG TAB PO SCH (08:18)
[2020-05-08] MEDS: GABAPENTIN 150 MG PO SCH (08:20)
[2020-05-08] MEDS: SYMBICORT 160-4.5 MCG INHALER INHALATION SCH ×2 (08:43→21:58)
[2020-05-08] MEDS ORDERED: NON FORMULARY DRUG (Calcium Carbonate [Calcium] 600 MG Tablet) PO SCH (09:00)
[2020-05-08] MEDS ORDERED: ASPIRIN 325 MG TAB PO SCH (09:00)
--- NOTE | 2020-05-08 10:41 | P.PN ---
Subjective Progress Note Date: 05/08/20 HISTORY OF PRESENT ILLNESS 74-year-old male who started seen Dr. Ronald Tamez recently was seen Dr. Randolph jones primary care physician for long time and switched recently to Dr. Matt monterroso pulmonary. Patient presented to demurs department at [facility] an hour after developed to have significant sign and symptom of left-sided weakness according to him eating lunch add Dilantin his condition when he felt his left leg is going numb and sleep he tried tested up and almost lost his balance completely than he realizes he has having weakness of the left upper and lower extremity with severe weakness and burning sensation. His ended up bringing him to the emergency department where he was seen and evaluated his blood pressure was moderately elevated patient by the time was exam his left- sided weakness almost back to his normal baseline with slight residual left mostly in the upper extremity compared to the lower extremity. Patient described no episode like this in the past never been treated for stroke or mini stroke never had any cardiovascular event in the past who is known to have history of advance asthma with FEV1 50% only but has been under better control her medication. 05/08: Patient remains awake and alert, strength is equal. He is scheduled for MRI of the brain and will be seen by neurology today. athletic monitor has been a sinus rhythm with no arrhythmias. He has been afebrile, heart rate 82, blood pressure 163/82, pulse ox 97. Troponins have been negative on 3 draws. Triglycerides 230, cholesterol 212, LDL 137, HDL 29. Patient is currently on Plavix, full strength aspirin, Lipitor. REVIEW OF SYSTEMS CONSTITUTIONAL: Well-developed no acute respiratory distress. EYES: No icterus sclerae, no conjunctivitis. EARS, NOSE, MOUTH, THROAT, and FACE: No sore throat, lymphadenopathy, carotid bruits or deformity. RESPIRATORY: Significant shortness of breath cough wheezes with history of asthma CARDIOVASCULAR: Positive CP, Palpitation, PND, Orthopnea, no angina. GASTROINTESTINAL: No Abd pain, Nausea or vomiting, no Diarrhea or constipation, No GI Bleed, no distention or masses. GENITOURINARY: Negative for Hematuria or UTI, no kidney stones. INTEGUMENT/BREAST: Negative for any muscular injury with mild osteoarthritis.. HEMATOLOGIC/LYMPHATIC: Negative for bleed or purpura. MUSCULOSKELTAL: Negative for Myalgia or arthralgia. Significant lower spine discomfort and left hip mild irritation and limitation NEURLOGICAL: No LOC, Sz or syncope, blurred vision dizziness or abnormality.. BEHAVIORAL/PSYCH: Negative. ENDOCRINE: Negative. PHYSICAL EXAMINATION General Appearance: Alert, cooperative, no distress, appears stated age. Neck HEENT: Supple, no lymphadenopathy, no thyroid enlargement, no carotid bruits. Lungs: Decrease breath sound bilaterally with fine rhonchi mild expiratory wheezes Chest Wall: Decrease expansion with deep inspiration no tenderness and no de formity was found on exam, no costochondral pain or discomfort. Heart: Regular rate and rhythm, S1, S2 normal, no murmur, rub or gallop. Back: Symmetric, no curvature, ROM normal, no CVA tenderness. Abdomen: Soft, non-tender, bowel sounds active all four quadrants, no masses, no organomegaly. Extremities: Extremities normal, atraumatic, no cyanosis or edema. Pulses: 2+ and symmetric. Skin: Skin color, texture, tugor normal, no rashes or lesions. Neurologic: Alert oriented x3 cranial nerves II through XII intact, significant weakness in the left side compared to the right side not been able to do gait exam or coordination. ASSESSMENT AND PLAN 1 CVA/TIA: With weakness in the left side with reverse mostly was still have slight residual only. Consult neurology, MRI of the brain today. Continue full-strength aspirin, Plavix and Lipitor. 2 moderate intermittent asthma with FEV1 of 50% only: Patient remain on albuterol via nebulizer along with Advair continue Singulair as well and O2. 3 Hypertension: Remain on amlodipine 5 mg a day, irbesartan 75 mg a day with good result so far. 4 hypothyroidism: Remain on levothyroxine 100 g daily. 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 6 chronic neuropathy: Remain on gabapentin 150 mg daily. 7 GI prophylaxis: Patient can benefit from being on alprazolam. 8 DVT prophylaxis: Patient will continue early mobilization and knee-high MARLEN hose. CODE STATUS: Full code. DISCHARGE PLAN home on Thursday. Impression and plan of care have been directed as dictated by the signing physi cian. Josee Mayer nurse practitioner acting as scribe for signing physician. Objective - Vital Signs Vital signs: Vital Signs Temp 97.7 F 05/08/20 08:00 Pulse 82 05/08/20 08:00 Resp 16 05/08/20 08:00 BP 163/82 05/08/20 08:00 Pulse Ox 97 05/08/20 08:00 Intake & Output 05/07/20 05/08/20 05/08/20 18:59 06:59 18:59 Weight 90.718 kg 90.2 kg Other: Voiding Method Toilet # Voids 1 1 - Labs CBC & Chem 7: 05/07/20 15:34 05/07/20 15:34 Labs: Abnormal Lab Results - Last 24 Hours (Table) 05/07/20 05/07/20 05/07/20 Range/Units 15:34 15:34 15:34 WBC 10.7 H (3.8-10.6) k/uL Neutrophils # 8.6 H (1.3-7.7) k/uL Glucose 100 H (74-99) mg/dL Triglycerides 230 H (<150) mg/dL Cholesterol 212 H (<200) mg/dL LDL Cholesterol, Calc 137 H (0-99) mg/dL HDL Cholesterol 29 L (40-60) mg/dL
--- NOTE | 2020-05-08 13:54 | MR ---
EXAMINATION TYPE: MR brain wo/w con DATE OF EXAM: 05/08/2020 COMPARISON: CT brain from yesterday. MRI brain September 01, 2018 HISTORY: Left-sided weakness. Code stroke, acute onset no definite one day earlier. TECHNIQUE: Multiplanar, multisequence images of the brain and brainstem is performed without and with IV contras t, utilizing 9 mL intravenous Gadavist . FINDINGS: Exam is suboptimal due to motion artifact degradation. Diffusion weighted images demonstrat e no evidence of a recent infarct or other diffusion abnormality. There is no worrisome extra-axial fluid collection. Mild ventricular and sulcal prominence redemonstrated. Occasional scattered tiny fo cus of T2 hyperintensity throughout the white matter bilaterally. Midline structures demonstrate normal morphology. The craniocervical junction appears within normal limits. Post contrast images demonstrate no abnormal enhancement. The dural venous sinuses appear pa tent. The visualized sinuses are clear and the globes are intact. IMPRESSION: No MRI evidence for a recent infarct. Mild diffuse age-related cerebral atrophy and chron ic small vessel ischemic changes redemonstrated. No significant change from most recent MRI.
--- NOTE | 2020-05-08 14:55 | P.CNNES ---
History of Present Illness Consult date: 05/08/20 Requesting physician: Chris Rebolledo Reason for Consult: TIA History of Present Illness: Patient is a 74-year-old male came to the hospital yesterday at 2:50 PM for possible TIA. Patient states that at 1:30 PM he had his lunch, sitting in [place] and on a barstool. Once he was done, he got up from the stool, and not iced his left leg was not cooperating. It felt asleep, weak and uncontrollable. He stood there for a few seconds and then sat down in the chair. His left arm was also weak, not cooperating with him. He had no slurred speech or droopy face or problem with the vision. Patient lives 40 minutes away from the hospital. His family brought him to the hospital. Patient states that when he arrived to the hospital he still had symptoms, and was taken to computed tomography scan shortly afterwards. Once he came back from computed tomography scan, and all symptoms completely went away. He is now back to baseline. He was not a candidate for TPA as symptoms had resolved. Patient states that ove rall his symptoms lasted for about 2 hours. Patient's vitals on arrival was blood pressure 148/86, pulse rate [address] head showed no acute intracranial hemorrhage or midline shift. There is mild to moderate diffuse age-related cerebral atrophy and mild chronic small vessel ischemic change. CTA of head and neck showed moderate to severe plaque proximal internal carotid arteries bilaterally without hemodynamically significant stenosis in either common or internal carotid artery. No significant focal stenosis or aneurysm at the level of lower [place]. EKG shows normal sinus rhythm. CBC with WBC 10.7, normal hemoglobin. PT/PTT normal. Chem-20 is normal. Total cholesterol 212, LDL 137, HDL 29 and triglycerides 230. Patient's last hemoglobin A1c 4.7 on 05/30/2016. Telemetry monitoring so far showing normal sinus rhythm with PVCs and PACs. Patient has hypertension, denies diabetes. He does not take any antiplatelet medication at home. Patient has exposure to passive smoking and did bowl 3 times a week for long time. He does have asthma. Patient states that when he used to bowl, he is to drink heavily 3 times a week in the past. Denies any previous history of strokes TIA. Review of Systems Patient has asthma, some shortness of breath. Otherwise denies headache problem with the vision, hoarseness, sore throat, dysphagia. Denies chest pain, abdominal pain. Denies problem with control of bowels or bladder. Denies any r alirio, loss of hearing or loss of vision. Denies anxiety or depression. All other 14 review of systems unremarkable. Past Medical History Past Medical History: Asthma Additional Past Medical History / Comment(s): Hx. "urination is slow" Dx. bronchitis november 2014 History of Any Multi-Drug Resistant Organisms: None Reported Past Surgical History: Orthopedic Surgery Additional Past Surgical History / Comment(s): Hx. Left knee arthroscopic, urethral surgery Past Anesthesia/Blood Transfusion Reactions: No Reported Reaction Past Psychological History: No Psychological Hx Reported Smoking Status: Never smoker, Second hand smoke exposure Medications and Allergies Home Medications Medication Instructions Recorded Confirmed Type Xolair 150 mg SQ Q42D 09/21/13 05/07/20 History ALPRAZolam [Xanax] 0.25 mg PO BID PRN 12/09/18 05/07/20 History Gabapentin [Neurontin] 300 mg PO HS PRN 12/09/18 05/07/20 History Hydroxychloroquine Sulfate 200 mg PO BID 12/09/18 05/07/20 History [Plaquenil] amLODIPine [Norvasc] 5 mg PO DAILY 12/09/18 05/07/20 History Fluticasone/Salmeterol [Advair 1 puff INHALATION RT-BID 01/07/19 05/07/20 History 500-50 Diskus] Montelukast [Singulair] 10 mg PO DAILY 01/07/19 05/07/20 History Albuterol Inhaler [Ventolin Hfa 2 puff INHALATION RT-Q6H PRN 05/07/20 05/07/20 History Inhaler] Albuterol Nebulized [Ventolin 2.5 mg INHALATION RT-TID PRN 05/07/20 05/07/20 History Nebulized] Ascorbic Acid [Vitamin C] 1,500 mg PO DAILY 05/07/20 05/07/20 History Calcium Carbonate [Calcium] 1,200 mg PO DAILY 05/07/20 05/07/20 History Allergies Allergy/AdvReac Type Severity Reaction Status Date / Time No Known Allergies Allergy Verified 05/07/20 18:50 Physical Examination - Vital Signs Vital Signs: Vital Signs Temp Pulse Pulse Resp BP BP BP 05/08/20 08:00 97.7 F 82 16 163/82 05/08/20 03:50 72 05/08/20 03:37 72 05/08/20 03:14 75 20 162/87 191/73 05/08/20 02:00 79 20 05/07/20 23:14 79 20 179/86 05/07/20 21:30 98.2 F 75 18 168/91 05/07/20 20:54 73 18 132/87 05/07/20 20:00 98.6 F 76 18 05/07/20 17:30 78 19 156/94 05/07/20 17:00 72 22 143/86 05/07/20 16:30 75 20 162/87 05/07/20 16:00 75 19 149/83 05/07/20 15:30 75 17 144/93 05/07/20 15:04 81 22 05/07/20 14:52 98.6 F 82 16 148/86 Pulse Ox 05/08/20 08:00 97 05/08/20 03:50 05/08/20 03:37 05/08/20 03:14 97 05/08/20 02:00 05/07/20 23:14 97 05/07/20 21:30 98 05/07/20 20:54 96 05/07/20 20:00 97 05/07/20 17:30 98 05/07/20 17:00 05/07/20 16:30 98 05/07/20 16:00 98 05/07/20 15:30 97 05/07/20 15:04 05/07/20 14:52 98 Intake and Output 05/07/20 05/08/20 05/08/20 22:59 06:59 14:59 Other: Voiding Method Toilet Toilet # Voids 1 1 Weight 90.2 kg 90.2 kg On examination patient is an elderly male, in no acute distress. Patient is alert awake oriented to time place and person. Speech and language functions are normal. Attention, concentration and fund of knowledge is adequate. On cranial nerve examination pupils are round and reactive to light, visual baltazar are full on confrontation, extraocular muscles are intact with no nystagmus. Face is symmetric, tongue protrudes to the midline. Palatal elevation and sensation normal, hearing is slightly decreased and shoulder shrug normal. Facial sensation is normal. On muscle strength testing there is no pronator drift and the strength is normal in arms and legs distally and proximally. Reflexes are 1+ to 2+ and plantars downgoing. Sensory touch is equal. No ataxia for [id number] testing tone and bulk of muscles normal. Gait appears fairly steady and normal. On general exam, there no carotid bruit, S1 and S2 audible, abdomen soft nontender, chest is clear, peripheral pulses present. No edema. Results - Laboratory Findings CBC and BMP: 05/07/20 15:34 05/07/20 15:34 Abnormal Lab Findings: Abnormal Labs 05/07/20 05/07/20 05/07/20 15:34 15:34 15:34 WBC 10.7 H Neutrophils # 8.6 H Glucose 100 H Triglycerides 230 H Cholesterol 212 H LDL Cholesterol, Calc 137 H HDL Cholesterol 29 L Assessment and Plan Assessment: * TIA, manifesting with left arm and leg weakness, resolved in a couple hours. * Hypertension * Hyperlipidemia Plan: * Patient was not taking antiplatelet medication at home. Patient has been placed on dual antiplatelet medications Plavix 75 mg daily and aspirin 81 mg. After 3 weeks may maintain on single antiplatelet agent aspirin 325 mg. * 2-D echo has been completed, results pending. * Lipid panel with cholesterol 212, LDL 137, HDL 29 and triglycerides 230. Patient has been started on Lipitor 20 mg (previously not on statins at home). * MRI of brain negative for any acute stroke. Mild diffuse age-related cerebral atrophy and chronic small vessel ischemic changes. * Telemetry monitoring only showing sinus rhythm. * Check hemoglobin A1c.
[2020-05-08] MEDS: SODIUM CHLORIDE 0.9% 1,000 ML IV SCH (18:34)
[2020-05-09 01:18] LABS: Hemoglobin A1C 5.1 % (4.0-6.0)
[2020-05-09 04:09] VITALS: RESP 16
[2020-05-09] MEDS: ALBUTEROL NEBULIZED 2.5 MG/3 ML INHALATION PRN (04:22)
[2020-05-09] MEDS: LEVOTHYROXINE 100 MCG TAB PO SCH (06:11)
--- NOTE | 2020-05-09 07:48 | ECHOF ---
Referral Reason:Thrombus MEASUREMENTS -------- HEIGHT: 182.9 cm WEIGHT: 89.8 kg BP: IVSd: 0.8 cm (0.6 - 1.1) LVIDd: 4.7 cm (3.9 - 5.3) LVPWd: 0.9 cm (0.6 - 1.1) IVSs: 0.9 cm LVIDs: 2.9 cm LVPWs: 1.6 cm LAESV Index (A-L): 14.54 ml/m Ao Diam: 3.5 cm (2.0 - 3.7) AV Cusp: 1.7 cm (1.5 - 2.6) MV EXCURSION: 21.866 mm (> 18.000) MV EF SLOPE: 130 mm/s (70 - 150) EPSS: 0.8 cm MV E Tacho: 0.77 m/s MV DecT: 235 ms MV A Tacho: 1.02 m/s MV E/A Ratio: 0.76 RAP: 5.00 mmHg RVSP: 18.61 mmHg FINDINGS -------- Sinus rhythm. This was a technically good study. LV size, wall thickness and systolic function are normal, with an EF greater than 55%. The left yusef tricular size is normal. The right ventricle is normal in size. Normal LA size by volume 22+/-6 ml/m2. The right atrial size is normal. The aortic valve is trileaflet, and appears structurally normal. No aortic stenosis or regurgitation. Mild mitral regurgitation is present. Mild tricuspid regurgitation present. Right ventricular systolic pressure is normal at < 35 mmHg. There is no pulmonic regurgitation present. The aortic root size is normal. There is no pericardial effusion. CONCLUSIONS -------- 1. LV size, wall thickness and systolic function are normal, with an EF greater than 55%. 2. The left ventricular size is normal. 3. The right ventricle is normal in size. 4. Normal LA size by volume 22+/-6 ml/m2. 5. The right atrial size is normal. 6. Mild mitral regurgitation is present. 7. Mild tricuspid regurgitation present. 8. The aortic root size is normal. 9. There is no pericardial effusion. CARBONATOR: Flower Farris RDCS
[2020-05-09] MEDS: amLODIPine 5 MG TAB PO SCH (08:32)
[2020-05-09] MEDS: ASCORBIC ACID 500 MG TAB PO SCH (08:32)
[2020-05-09] MEDS: ATORVASTATIN 20 MG TAB PO SCH (08:32)
[2020-05-09] MEDS: HYDROXYCHLOROQUINE SULFATE 200 MG TAB PO SCH (08:32)
[2020-05-09] MEDS: MONTELUKAST 10 MG TAB PO SCH (08:32)
[2020-05-09] MEDS: LOSARTAN 25 MG TAB PO SCH (08:32)
[2020-05-09] MEDS: ALPRAZolam 0.25 MG TAB PO PRN (08:32)
[2020-05-09] MEDS: CLOPIDOGREL 75 MG TAB PO SCH (08:32)
[2020-05-09] MEDS: GABAPENTIN 150 MG PO SCH (08:33)
[2020-05-09 08:38] VITALS: PULSE 80; TEMP 98.1
[2020-05-09] MEDS ORDERED: ASPIRIN 81 MG PO SCH (09:00)
--- NOTE | 2020-05-09 09:13 | P.DS ---
Providers Date of admission: 05/07/20 17:20 Expected date of discharge: 05/09/20 Attending physician: Gee Fields Consults: 05/07/20 17:23 Consult Physician Routine Consulting Provider: Morris Gatica Consult Reason/Comments: TIA Do you want consulting provider notified?: Yes Primary care physician: Physician Nonstaff Hospital Course: HISTORY OF PRESENT ILLNESS 74-year-old male who started seen Dr. Ronald Tamez recently was seen Dr. Randolph jones primary care physician for long time and switched recently to Dr. Clare abad. Patient presented to demurs department at [facility] an hour after developed to have significant sign and symptom of left-sided weakness according to him eating lunch add Dilantin his condition when he felt his left leg is going numb and sleep he tried tested up and almost lost his balance completely than he realizes he has having weakness of the left upper and lower extremity with severe weakness and burning sensation. His ended up bringing him to the emergency department where he was seen and evaluated his blood pressure was moderately elevated patient by the time was exam his left- sided weakness almost back to his normal baseline with slight residual left mostly in the upper extremity compared to the lower extremity. Patient described no episode like this in the past never been treated for stroke or mini stroke never had any cardiovascular event in the past who is known to have history of advance asthma with FEV1 50% only but has been under better control her medication. 05/08: Patient remains awake and alert, strength is equal. He is scheduled for MRI of the brain and will be seen by neurology today. vice provost has been a sinus rhythm with no arrhythmias. He has been afebrile, heart rate 82, blood pressure 163/82, pulse ox 97. Troponins have been negative on 3 draws. Triglycerides 230, cholesterol 212, LDL 137, HDL 29. Patient is currently on Plavix, full strength aspirin, Lipitor. 05/09: Patient states he woke up this morning had nausea about 2 hours ago which subsequently resolved. He states he felt his abdomen was sore and did not feel like eating breakfast. Monitor has shown no episodes of atrial fibrillation. He denies having any fever or chills. Repeat carotid testing ordered and is negative. Neurology has recommended Plavix and aspirin 81 mg daily for 3 weeks and then aspirin 325 mg daily. Patient denies any new complaints. Symptoms have resolved. vice provost will be arranged prior to discharge. Patient will be discharged home today in stable condition. ASSESSMENT AND PLAN 1 TIA 2 moderate intermittent asthma with FEV1 of 50% 3 Hypertension 4 hypothyroidism 5 severe advance arthralgia most likely rheumatoid was seen rheumatology 6 chronic neuropathy DISCHARGE PLAN home Impression and plan of care have been directed as dictated by the signing physician. Josee Mayer nurse practitioner acting as scribe for signing physician. Patient Condition at Discharge: Good Plan - Discharge Summary Discharge Rx Participant: No New Discharge Prescriptions: New Aspirin 81 mg PO DAILY #21 chew Losartan [Cozaar] 25 mg PO DAILY #30 tab Atorvastatin [Lipitor] 20 mg PO DAILY #30 tab Clopidogrel [Plavix] 75 mg PO DAILY #21 tab Levothyroxine Sodium [Synthroid] 100 mcg PO DAILY@0630 #30 tab Continue Xolair 150 mg SQ Q42D amLODIPine [Norvasc] 5 mg PO DAILY Gabapentin [Neurontin] 300 mg PO HS PRN PRN Reason: Peripheral neuropathy ALPRAZolam [Xanax] 0.25 mg PO BID PRN PRN Reason: Anxiety Hydroxychloroquine Sulfate [Plaquenil] 200 mg PO BID Fluticasone/Salmeterol [Advair 500-50 Diskus] 1 puff INHALATION RT-BID Montelukast [Singulair] 10 mg PO DAILY Albuterol Nebulized [Ventolin Nebulized] 2.5 mg INHALATION RT-TID PRN PRN Reason: Shortness Of Breath Ascorbic Acid [Vitamin C] 1,500 mg PO DAILY Albuterol Inhaler [Ventolin Hfa Inhaler] 2 puff INHALATION RT-Q6H PRN PRN Reason: Shortness Of Breath Calcium Carbonate [Calcium] 1,200 mg PO DAILY Discharge Medication List Xolair 150 mg SQ Q42D 09/21/13 [History] ALPRAZolam [Xanax] 0.25 mg PO BID PRN 12/09/18 [History] Gabapentin [Neurontin] 300 mg PO HS PRN 12/09/18 [History] Hydroxychloroquine Sulfate [Plaquenil] 200 mg PO BID 12/09/18 [History] amLODIPine [Norvasc] 5 mg PO DAILY 12/09/18 [History] Fluticasone/Salmeterol [Advair 500-50 Diskus] 1 puff INHALATION RT-BID 01/07/19 [History] Montelukast [Singulair] 10 mg PO DAILY 01/07/19 [History] Albuterol Inhaler [Ventolin Hfa Inhaler] 2 puff INHALATION RT-Q6H PRN 05/07/20 [History] Albuterol Nebulized [Ventolin Nebulized] 2.5 mg INHALATION RT-TID PRN 05/07/20 [History] Ascorbic Acid [Vitamin C] 1,500 mg PO DAILY 05/07/20 [History] Calcium Carbonate [Calcium] 1,200 mg PO DAILY 05/07/20 [History] Aspirin 81 mg PO DAILY #21 chew 05/09/20 [Rx] Atorvastatin [Lipitor] 20 mg PO DAILY #30 tab 05/09/20 [Rx] Clopidogrel [Plavix] 75 mg PO DAILY #21 tab 05/09/20 [Rx] Levothyroxine Sodium [Synthroid] 100 mcg PO DAILY@0630 #30 tab 05/09/20 [Rx] Losartan [Cozaar] 25 mg PO DAILY #30 tab 05/09/20 [Rx] Follow up Appointment(s)/Referral(s): Ronald Tamez MD [REFERRING] - 05/15/20 10:30 am Roman Conway DO [STAFF PHYSICIAN] - 2 Weeks Patient Instructions/Handouts: Transient Ischemic Attack (DC) Discharge Disposition: HOME SELF-CARE
[2020-05-09 12:57] VITALS: BP 134/82
[2020-05-09] MEDS: SYMBICORT 160-4.5 MCG INHALER INHALATION SCH (13:05)
== END 2020-05-09 13:56 | disposition home or self-care (01) | DRG 69 ==
LOC: EC 14:50 → 3SCARD 17:20
PROVIDERS: ADMIT Internal Medicine Geriatric Medicine; ATTEND Internal Medicine Geriatric Medicine
DX: G45.9 Transient cerebral ischemic attack, unspecified (principal); G81.94 Hemiplegia, unspecified affecting left nondominant side; E03.9 Hypothyroidism, unspecified; E78.5 Hyperlipidemia, unspecified; I10 Essential (primary) hypertension; J44.9 Chronic obstructive pulmonary disease, unspecified; J45.20 Mild intermittent asthma, uncomplicated; Z20.828 Contact with and (suspected) exposure to other viral communicable diseases; I49.3 Ventricular premature depolarization; G58.9 Mononeuropathy, unspecified; M06.9 Rheumatoid arthritis, unspecified; Z79.899 Other long term (current) drug therapy; Z79.890 Hormone replacement therapy; Z98.890 Other specified postprocedural states
CPT/HCPCS: 36415; 70450; 70496; 70498; 70553; 71046; 80053; 80061; 82550; 83036; 83735; 84484; 85025; 85610; 85730; 87635; 93005; 93306; 94640; 99285

== ENCOUNTER → 2020-05-23 | Outpatient (CLI) | payer MEDICARE ==
[2020-05-23 09:47] VITALS: BP 158/85; PULSE 59; RESP 16; TEMP 97.9
== END | disposition home or self-care (01) ==
LOC: PROCWHC3 09:37
PROVIDERS: ATTEND Internal Medicine Critical Care Medicine
DX: J45.40 Moderate persistent asthma, uncomplicated (principal)
CPT/HCPCS: 96372; J2357

== ENCOUNTER → 2020-07-04 | Outpatient (CLI) | payer MEDICARE ==
[~2020-07-04] MED LIST changes: +OMALIZUMAB 150 MG VIAL SQ ONE; -OMALIZUMAB 150 MG/ML SYRINGE SQ NR
[2020-07-04 10:42] VITALS: BP 169/73; PULSE 79; RESP 16; TEMP 98.2
== END | disposition home or self-care (01) ==
LOC: PROCWHC3 09:57
PROVIDERS: ATTEND Internal Medicine Critical Care Medicine
DX: J45.40 Moderate persistent asthma, uncomplicated (principal)
CPT/HCPCS: 96372; J2357

== ENCOUNTER 2020-07-09 14:41 | Emergency (ER) | payer MEDICARE ==
[2020-07-09 14:48] VITALS: TEMP 98.9
[2020-07-09] MEDS ORDERED: methylPREDNISolone SOD SUCCI 125 MG/2 ML VIAL IV STA (14:58)
[2020-07-09] MEDS ORDERED: IPRATROPIUM-ALBUTEROL 3 ML NEB INHALATION STA ×2 (14:58→17:16)
[2020-07-09] MEDS ORDERED: ASPIRIN 81 MG PO STA (14:59)
--- NOTE | 2020-07-09 15:02 | ED ---
SOB HPI - General Chief Complaint: Shortness of Breath Stated Complaint: SOB Time Seen by Provider: 07/09/20 14:51 Source: patient Mode of arrival: ambulatory Limitations: no limitations - History of Present Illness Initial Comments: 74yo male with history of moderate persistent asthma with states "50% lung capacity" presenting today for cc of dyspnea. patient states since 4AM has had been short of breath, at times nauseated. He states he has done a total of 3 breathing treatments since 4am without much improvement in the dyspnea. Admits to wheezing, denies chest pain, pain with deep inspiration hemoptysis leg pain and swelling history of cancer denies fevers cough congestion. Patient denies jaw or arm pain, abdominal pain, back pain. patient has no additional complaints. upon arrival patient appears well nontoxic in no acute distress. Patient 98% on RA, initialy HR elevated however repeat performed personally while obtaining history and physical ~84BPM. - Related Data Home Medications Medication Instructions Recorded Confirmed Xolair 150 mg SQ Q42D 09/21/13 07/09/20 ALPRAZolam [Xanax] 0.25 mg PO BID PRN 12/09/18 07/09/20 Hydroxychloroquine Sulfate 200 mg PO BID 12/09/18 07/09/20 [Plaquenil] Montelukast [Singulair] 10 mg PO DAILY 01/07/19 07/09/20 Albuterol Nebulized [Ventolin 2.5 mg INHALATION RT-QID PRN 05/07/20 07/09/20 Nebulized] Aspirin 325 mg PO DAILY 07/04/20 07/09/20 Levothyroxine Sodium [Euthyrox] 100 mcg PO DAILY 07/04/20 07/09/20 Albuterol Sulfate [Proair Hfa] 1 - 2 puff INHALATION RT-Q6H PRN 07/09/20 07/09/20 amLODIPine [Norvasc] 5 mg PO DAILY 07/09/20 07/09/20 traZODone HCL [Desyrel] 50 mg PO HS 07/09/20 07/09/20 Previous Rx's Medication Instructions Recorded Atorvastatin [Lipitor] 20 mg PO DAILY #30 tab 05/09/20 Losartan [Cozaar] 25 mg PO DAILY #30 tab 05/09/20 predniSONE 50 mg PO DAILY 4 Days #4 tab 07/09/20 Allergies Allergy/AdvReac Type Severity Reaction Status Date / Time No Known Allergies Allergy Verified 07/09/20 16:37 Review of Systems ROS Statement: Those systems with pertinent positive or pertinent negative responses have been documented in the HPI. ROS Other: All systems not noted in ROS Statement are negative. Past Medical History Past Medical History: Asthma Additional Past Medical History / Comment(s): Hx. "urination is slow" Dx. bronchitis november 2014 History of Any Multi-Drug Resistant Organisms: None Reported Past Surgical History: Orthopedic Surgery Additional Past Surgical History / Comment(s): Hx. Left knee arthroscopic, urethral surgery Past Anesthesia/Blood Transfusion Reactions: No Reported Reaction Past Psychological History: No Psychological Hx Reported Smoking Status: Never smoker Past Alcohol Use History: None Reported Past Drug Use History: None Reported General Exam Limitations: no limitations Course Vital Signs 07/09/20 07/09/20 07/09/20 14:43 15:16 16:00 Temperature 98.9 F Pulse Rate 107 H Respiratory 24 Rate Blood Pressure 137/85 162/88 156/103 O2 Sat by Pulse 100 96 95 Oximetry 07/09/20 07/09/20 07/09/20 16:09 16:20 16:30 Temperature Pulse Rate 77 78 Respiratory Rate Blood Pressure 132/79 O2 Sat by Pulse 97 Oximetry 07/09/20 07/09/20 07/09/20 17:00 17:27 18:22 Temperature Pulse Rate 89 78 88 Respiratory 18 18 Rate Blood Pressure 148/96 158/86 O2 Sat by Pulse 98 95 Oximetry - Reevaluation(s) Reevaluation #1: On reevaluation after initial treatment significant improvement states he is starting to feel better 07/09/20 Reevaluation #2: After second treatment clear lungs sounds, no longer SOB 07/09/20 Medical Decision Making - Medical Decision Making 74-year-old male with history of moderate persistent asthma who sees chancery clerk outpatient presenting for dyspnea/wheezing. wheezing on exam, expiratory with diminished lung sounds. no leg swelling. Dimer (-). Troponin negative no chest pain. EKG no acute changes. Patient's neck improvement after 2 treatments as well as intravenous Solu-Medrol and at this time feel he stated for discharge with outpatient oral steroids pulmonology follow-up return for any increasing or worsening shortness of breath patient is agreeable to this care plan prefers discharge at this time. Case was discussed by attending pr darin Kern Ventricular rate 76 bpm, IA interval 194 ms, QRS duration 78 ms, QT/QTC 374/420 ms. This is normal sinus there is no ST elevation or depression appreciated. Normal R-wave progression. - Lab Data Result diagrams: 07/09/20 15:20 07/09/20 15:20 Lab Results 07/09/20 07/09/20 07/09/20 Range/Units 15:15 15:18 15:20 WBC 10.0 (3.8-10.6) k/uL RBC 4.89 (4.30-5.90) m/uL Hgb 14.8 (13.0-17.5) gm/dL Hct 43.6 (39.0-53.0) % MCV 89.1 (80.0-100.0) fL MCH 30.3 (25.0-35.0) pg MCHC 34.1 (31.0-37.0) g/dL RDW 12.3 (11.5-15.5) % Plt Count 227 (150-450) k/uL MPV 7.0 Neutrophils % 81 % Lymphocytes % 10 % Monocytes % 6 % Eosinophils % 2 % Basophils % 1 % Neutrophils # 8.0 H (1.3-7.7) k/uL Lymphocytes # 1.0 (1.0-4.8) k/uL Monocytes # 0.6 (0-1.0) k/uL Eosinophils # 0.2 (0-0.7) k/uL Basophils # 0.1 (0-0.2) k/uL PT (9.0-12.0) sec INR (<1.2) APTT (22.0-30.0) sec D-Dimer (<0.60) mg/L FEU Carbon Monoxide, Quant 2.1 (<10.0) % Sodium (137-145) mmol/L Potassium (3.5-5.1) mmol/L Chloride (98-107) mmol/L Carbon Dioxide (22-30) mmol/L Anion Gap mmol/L BUN (9-20) mg/dL Creatinine (0.66-1.25) mg/dL Est GFR (CKD-EPI)AfAm (>60 ml/min/1.73 sqM) Est GFR (CKD-EPI)NonAf (>60 ml/min/1.73 sqM) Glucose (74-99) mg/dL Plasma Lactic Acid Siva (0.7-2.0) mmol/L Calcium (8.4-10.2) mg/dL Magnesium (1.6-2.3) mg/dL Total Bilirubin (0.2-1.3) mg/dL AST (17-59) U/L ALT (4-49) U/L Alkaline Phosphatase (38-126) U/L Troponin I (0.000-0.034) ng/mL NT-Pro-B Natriuret Pep pg/mL Total Protein (6.3-8.2) g/dL Albumin (3.5-5.0) g/dL Coronavirus (PCR) Not Detected (Not Detectd) 07/09/20 07/09/20 07/09/20 Range/Units 15:20 15:20 15:20 WBC (3.8-10.6) k/uL RBC (4.30-5.90) m/uL Hgb (13.0-17.5) gm/dL Hct (39.0-53.0) % MCV (80.0-100.0) fL MCH (25.0-35.0) pg MCHC (31.0-37.0) g/dL RDW (11.5-15.5) % Plt Count (150-450) k/uL MPV Neutrophils % % Lymphocytes % % Monocytes % % Eosinophils % % Basophils % % Neutrophils # (1.3-7.7) k/uL Lymphocytes # (1.0-4.8) k/uL Monocytes # (0-1.0) k/uL Eosinophils # (0-0.7) k/uL Basophils # (0-0.2) k/uL PT 10.7 (9.0-12.0) sec INR 1.0 (<1.2) APTT 22.1 (22.0-30.0) sec D-Dimer 0.43 (<0.60) mg/L FEU Carbon Monoxide, Quant (<10.0) % Sodium 139 (137-145) mmol/L Potassium 4.7 (3.5-5.1) mmol/L Chloride 106 (98-107) mmol/L Carbon Dioxide 24 (22-30) mmol/L Anion Gap 9 mmol/L BUN 13 (9-20) mg/dL Creatinine 1.24 (0.66-1.25) mg/dL Est GFR (CKD-EPI)AfAm 66 (>60 ml/min/1.73 sqM) Est GFR (CKD-EPI)NonAf 57 (>60 ml/min/1.73 sqM) Glucose 104 H (74-99) mg/dL Plasma Lactic Acid Siva 1.5 (0.7-2.0) mmol/L Calcium 9.6 (8.4-10.2) mg/dL Magnesium 2.1 (1.6-2.3) mg/dL Total Bilirubin 0.7 (0.2-1.3) mg/dL AST 24 (17-59) U/L ALT 24 (4-49) U/L Alkaline Phosphatase 110 (38-126) U/L Troponin I (0.000-0.034) ng/mL NT-Pro-B Natriuret Pep pg/mL Total Protein 6.5 (6.3-8.2) g/dL Albumin 4.1 (3.5-5.0) g/dL Coronavirus (PCR) (Not Detectd) 07/09/20 07/09/20 Range/Units 15:20 15:20 WBC (3.8-10.6) k/uL RBC (4.30-5.90) m/uL Hgb (13.0-17.5) gm/dL Hct (39.0-53.0) % MCV (80.0-100.0) fL MCH (25.0-35.0) pg MCHC (31.0-37.0) g/dL RDW (11.5-15.5) % Plt Count (150-450) k/uL MPV Neutrophils % % Lymphocytes % % Monocytes % % Eosinophils % % Basophils % % Neutrophils # (1.3-7.7) k/uL Lymphocytes # (1.0-4.8) k/uL Monocytes # (0-1.0) k/uL Eosinophils # (0-0.7) k/uL Basophils # (0-0.2) k/uL PT (9.0-12.0) sec INR (<1.2) APTT (22.0-30.0) sec D-Dimer (<0.60) mg/L FEU Carbon Monoxide, Quant (<10.0) % Sodium (137-145) mmol/L Potassium (3.5-5.1) mmol/L Chloride (98-107) mmol/L Carbon Dioxide (22-30) mmol/L Anion Gap mmol/L BUN (9-20) mg/dL Creatinine (0.66-1.25) mg/dL Est GFR (CKD-EPI)AfAm (>60 ml/min/1.73 sqM) Est GFR (CKD-EPI)NonAf (>60 ml/min/1.73 sqM) Glucose (74-99) mg/dL Plasma Lactic Acid Siva (0.7-2.0) mmol/L Calcium (8.4-10.2) mg/dL Magnesium (1.6-2.3) mg/dL Total Bilirubin (0.2-1.3) mg/dL AST (17-59) U/L ALT (4-49) U/L Alkaline Phosphatase (38-126) U/L Troponin I <0.012 (0.000-0.034) ng/mL NT-Pro-B Natriuret Pep 54 pg/mL Total Protein (6.3-8.2) g/dL Albumin (3.5-5.0) g/dL Coronavirus (PCR) (Not Detectd) Disposition Clinical Impression: Reactive airway disease, Asthma exacerbation, Dyspnea Disposition: HOME SELF-CARE Condition: Good Instructions (If sedation given, give patient instructions): Asthma (ED) Additional Instructions: Please use medication as discussed. Please follow-up with family doctor in the next 2 days.. Please return to emergency room if the symptoms increase or worsen or for any other concerns. Prescriptions: predniSONE 50 mg PO DAILY 4 Days #4 tab Is patient prescribed a controlled substance at d/c from ED?: No Referrals: Ronald Tamez MD [Primary Care Provider] - 1-2 days Chris Gatica DO [Doctor of Osteopathic Medicine] - 1-2 days Time of Disposition: 18:01
[2020-07-09 15:32] LABS: Basophils # (A) 0.1 k/uL (0-0.2); Basophils % (A) 1 %; Eosinophils # (A) 0.2 k/uL (0-0.7); Eosinophils % (A) 2 %; HCT 43.6 % (39.0-53.0); HGB 14.8 gm/dL (13.0-17.5); Lymphocytes % (A) 10 %; MCH 30.3 pg (25.0-35.0); MCHC 34.1 g/dL (31.0-37.0); MCV 89.1 fL (80.0-100.0); Monocytes # (A) 0.6 k/uL (0-1.0); Monocytes % (A) 6 %; Neutrophils % (A) 81 %; Platelet Count 227 k/uL (150-450); RBC 4.89 m/uL (4.30-5.90); RDW 12.3 % (11.5-15.5)
--- NOTE | 2020-07-09 15:40 | XR ---
EXAMINATION TYPE: XR chest 2V DATE OF EXAM: 07/09/2020 COMPARISON: 05/07/2020 HISTORY: 74 year-old male shortness of breath, difficulty breathing TECHNIQUE: PA and lateral views FINDINGS: The cardiomediastinal silhouette, aorta, and pulmonary vasculature are within normal limits. Redemons trated is eventration anterior right hemidiaphragm. Otherwise, lungs and pleural spaces are clear. IMPRESSION: No acute cardiopulmonary process.
[2020-07-09 15:43] LABS: Albumin 4.1 g/dL (3.5-5.0); Calcium 9.6 mg/dL (8.4-10.2); Magnesium 2.1 mg/dL (1.6-2.3); Potassium 4.7 mmol/L (3.5-5.1); Total Bilirubin 0.7 mg/dL (0.2-1.3); Total Protein 6.5 g/dL (6.3-8.2)
[2020-07-09 15:45] LABS: D-Dimer 0.43 mg/L FEU (<0.60); Partial Thromboplastin Time 22.1 sec (22.0-30.0); Prothrombin Time 10.7 sec (9.0-12.0)
[2020-07-09 17:20] VITALS: RESP 18
--- NOTE | 2020-07-09 17:22 | XR ---
EXAMINATION TYPE: XR Hip Complete LT DATE OF EXAM: 07/09/2020 COMPARISON: NONE HISTORY: Left hip pain for 10 days TECHNIQUE: 2 views FINDINGS: I see no fracture nor dislocation. Joint spaces are normal. Sacroiliac joint appears normal . Proximal left femur is intact. IMPRESSION: Normal left hip exam.
[2020-07-09 18:24] VITALS: BP 158/86; PULSE 88
== END 2020-07-09 18:35 | disposition home or self-care (01) ==
LOC: EC 14:41
DX: J45.901 Unspecified asthma with (acute) exacerbation (principal); Z20.822 Contact with and (suspected) exposure to COVID-19; Z95.1 Presence of aortocoronary bypass graft; Z79.899 Other long term (current) drug therapy
CPT/HCPCS: 99285; 96374; 36415; 94640 ×2; 93005; 85379; 83880; 80053; 82375; 83605; 83735; 84484; 85025; 85610; 85730; 87635; 73502; 71046; J2930

== ENCOUNTER 2020-12-15 17:43 | Observation (INO) | payer MEDICARE ==
[2020-12-15] MEDS ORDERED: DEXAMETHASONE SOD PHOSPHATE 10 MG/ML 1 ML VIAL IV STA (18:13)
[2020-12-15] MEDS ORDERED: IPRATROPIUM-ALBUTEROL 3 ML NEB INHALATION STA (18:13)
--- NOTE | 2020-12-15 18:16 | ED ---
General Adult HPI - General Chief complaint: Chest Pain Stated complaint: SOB, chest discomfort Time Seen by Provider: 12/15/20 17:55 Source: patient Mode of arrival: ambulatory Limitations: no limitations - History of Present Illness Initial comments: Dictation was produced using [employer] dictation software. please excuse any grammatical, word or spelling errors. Chief Complaint: 75-year-old male presents to the emergency department for 1 week of chest ache, nausea and shortness of breath History of Present Illness: Is 75-year-old male who presents today with chest sensation. He refuses to call the pain. States that it's like a very mild ache without radiation to his jaw or arm. No associated nausea or diaphoresis. Patient has any history of coronary artery disease. Patient has a history of asthma, hypertension and dyslipidemia. States his been short of breath. No history of DVT. No loud from any swelling or symptoms. He states that his pain does not get worse with deep inspiration. It is not severe. The ROS documented in this emergency department record has been reviewed and confirmed by me. Those systems with pertinent positive or negative responses have been documented in the HPI. All other systems are other negative and/or noncontributory. PHYSICAL EXAM: General Impression: Alert and oriented x3, not in acute distress HEENT: Normocephalic atraumatic, extra-ocular movements intact, pupils equal and reactive to light bilaterally, mucous membranes moist. Cardiovascular: Heart regular rate and rhythm Chest: Able to complete full sentences, no retractions, no tachypnea Abdomen: abdomen soft, non-tender, non-distended, no organomegaly Musculoskeletal: Pulses present and equal in all extremities, no peripheral edema Motor: no focal deficits noted Neurological: CN II-XII grossly intact, no focal motor or sensory deficits noted Skin: Intact with no visualized rashes Psych: Normal affect and mood ED course: 75-year-old well-appearing male presents to the emergency department for chest discomfort, shortness of breath and nausea vital signs upon arrival are within acceptable limits. EKG shows no signs of ischemia or infarction. Laboratory evaluation obtained. CBC, coag panel, metabolic panel is unremarkable. First troponin is negative. Chest x-ray shows no acute processes. Disposition options were discussed with patient. Patient is agreeable for waiting in the emergency department for second troponin. He wants to be discharge if possible. Does not want to be admitted observation for serial troponins, cardiac monitoring or cardiology consultation. Patient care is signed out to Dr. Dobson. Patient states that he takes aspirin daily 360 mg. Patient refusing aspirin administration from nursing staff Patient reevaluated at bedside at 850. He now wants to be admitted for observation, cardiac technologist, surgeon for the cartilage consultation with possible stress tests tomorrow morning. Patient be admitted to Dr. Arroyo. EKG interpretation: Ventricular rate 74, normal sinus rhythm,. 192, care is 84, QTC 4:15. No IL prolongation, no QTC prolongation, no ST or T-wave changes noted. EKG compared to 07/09/2020 showing no changes. Overall, this EKG is unremarkable - Related Data Home Medications Medication Instructions Recorded Confirmed Xolair 150 mg SQ Q42D 09/21/13 07/09/20 ALPRAZolam [Xanax] 0.25 mg PO BID PRN 12/09/18 07/09/20 Hydroxychloroquine Sulfate 200 mg PO BID 12/09/18 07/09/20 [Plaquenil] Montelukast [Singulair] 10 mg PO DAILY 01/07/19 07/09/20 Albuterol Nebulized [Ventolin 2.5 mg INHALATION RT-QID PRN 05/07/20 07/09/20 Nebulized] Aspirin 325 mg PO DAILY 07/04/20 07/09/20 Levothyroxine Sodium [Euthyrox] 100 mcg PO DAILY 07/04/20 07/09/20 Albuterol Sulfate [Proair Hfa] 1 - 2 puff INHALATION RT-Q6H PRN 07/09/20 07/09/20 amLODIPine [Norvasc] 5 mg PO DAILY 07/09/20 07/09/20 traZODone HCL [Desyrel] 50 mg PO HS 07/09/20 07/09/20 Previous Rx's Medication Instructions Recorded Atorvastatin [Lipitor] 20 mg PO DAILY #30 tab 05/09/20 Losartan [Cozaar] 25 mg PO DAILY #30 tab 05/09/20 predniSONE 50 mg PO DAILY 4 Days #4 tab 07/09/20 Allergies Allergy/AdvReac Type Severity Reaction Status Date / Time No Known Allergies Allergy Verified 12/15/20 17:54 Review of Systems ROS Statement: Those systems with pertinent positive or pertinent negative responses have been documented in the HPI. ROS Other: All systems not noted in ROS Statement are negative. Past Medical History Past Medical History: Asthma Additional Past Medical History / Comment(s): Hx. "urination is slow" Dx. bronchitis november 2014 History of Any Multi-Drug Resistant Organisms: None Reported Past Surgical History: Orthopedic Surgery Additional Past Surgical History / Comment(s): Hx. Left knee arthroscopic, urethral surgery Past Anesthesia/Blood Transfusion Reactions: No Reported Reaction Past Psychological History: Depression Smoking Status: Never smoker Past Alcohol Use History: None Reported Past Drug Use History: None Reported General Exam Limitations: no limitations Course Vital Signs 12/15/20 12/15/20 12/15/20 17:51 18:46 19:19 Temperature 98.6 F Pulse Rate 71 69 79 Respiratory 16 18 Rate Blood Pressure 173/88 164/94 O2 Sat by Pulse 95 98 Oximetry 12/15/20 19:30 Temperature Pulse Rate 80 Respiratory Rate Blood Pressure O2 Sat by Pulse Oximetry Medical Decision Making - Lab Data Result diagrams: 12/15/20 18:36 12/15/20 18:36 Lab Results 12/15/20 12/15/20 12/15/20 Range/Units 18:36 18:36 18:36 WBC 9.2 (3.8-10.6) k/uL RBC 4.94 (4.30-5.90) m/uL Hgb 15.5 (13.0-17.5) gm/dL Hct 43.7 (39.0-53.0) % MCV 88.5 (80.0-100.0) fL MCH 31.4 (25.0-35.0) pg MCHC 35.5 (31.0-37.0) g/dL RDW 12.1 (11.5-15.5) % Plt Count 207 (150-450) k/uL MPV 7.2 Neutrophils % 76 % Lymphocytes % 13 % Monocytes % 6 % Eosinophils % 3 % Basophils % 1 % Neutrophils # 7.0 (1.3-7.7) k/uL Lymphocytes # 1.2 (1.0-4.8) k/uL Monocytes # 0.5 (0-1.0) k/uL Eosinophils # 0.3 (0-0.7) k/uL Basophils # 0.0 (0-0.2) k/uL PT 10.3 (9.0-12.0) sec INR 1.0 (<1.2) APTT 22.6 (22.0-30.0) sec Sodium 140 (137-145) mmol/L Potassium 4.3 (3.5-5.1) mmol/L Chloride 107 (98-107) mmol/L Carbon Dioxide 25 (22-30) mmol/L Anion Gap 8 mmol/L BUN 18 (9-20) mg/dL Creatinine 1.22 (0.66-1.25) mg/dL Est GFR (CKD-EPI)AfAm 66 (>60 ml/min/1.73 sqM) Est GFR (CKD-EPI)NonAf 58 (>60 ml/min/1.73 sqM) Glucose 104 H (74-99) mg/dL Calcium 10.1 (8.4-10.2) mg/dL Magnesium 2.3 (1.6-2.3) mg/dL Troponin I (0.000-0.034) ng/mL 12/15/20 Range/Units 18:36 WBC (3.8-10.6) k/uL RBC (4.30-5.90) m/uL Hgb (13.0-17.5) gm/dL Hct (39.0-53.0) % MCV (80.0-100.0) fL MCH (25.0-35.0) pg MCHC (31.0-37.0) g/dL RDW (11.5-15.5) % Plt Count (150-450) k/uL MPV Neutrophils % % Lymphocytes % % Monocytes % % Eosinophils % % Basophils % % Neutrophils # (1.3-7.7) k/uL Lymphocytes # (1.0-4.8) k/uL Monocytes # (0-1.0) k/uL Eosinophils # (0-0.7) k/uL Basophils # (0-0.2) k/uL PT (9.0-12.0) sec INR (<1.2) APTT (22.0-30.0) sec Sodium (137-145) mmol/L Potassium (3.5-5.1) mmol/L Chloride (98-107) mmol/L Carbon Dioxide (22-30) mmol/L Anion Gap mmol/L BUN (9-20) mg/dL Creatinine (0.66-1.25) mg/dL Est GFR (CKD-EPI)AfAm (>60 ml/min/1.73 sqM) Est GFR (CKD-EPI)NonAf (>60 ml/min/1.73 sqM) Glucose (74-99) mg/dL Calcium (8.4-10.2) mg/dL Magnesium (1.6-2.3) mg/dL Troponin I <0.012 (0.000-0.034) ng/mL Disposition Clinical Impression: Chest pain Disposition: ADMITTED IP TO THIS HOSP Condition: Fair Referrals: Ronald Tamez MD [Primary Care Provider] - 1-2 days
[2020-12-15] MEDS ORDERED: ASPIRIN 81 MG PO STA (18:26)
[2020-12-15 18:48] LABS: Basophils % (A) 1 %; Eosinophils # (A) 0.3 k/uL (0-0.7); Eosinophils % (A) 3 %; HCT 43.7 % (39.0-53.0); HGB 15.5 gm/dL (13.0-17.5); Lymphocytes # (A) 1.2 k/uL (1.0-4.8); Lymphocytes % (A) 13 %; MCH 31.4 pg (25.0-35.0); MCHC 35.5 g/dL (31.0-37.0); MCV 88.5 fL (80.0-100.0); Mean Platelet Volume 7.2; Monocytes # (A) 0.5 k/uL (0-1.0); Monocytes % (A) 6 %; Neutrophils % (A) 76 %; Platelet Count 207 k/uL (150-450); RBC 4.94 m/uL (4.30-5.90); RDW 12.1 % (11.5-15.5); WBC 9.2 k/uL (3.8-10.6)
[2020-12-15 18:58] LABS: Calcium 10.1 mg/dL (8.4-10.2); Magnesium 2.3 mg/dL (1.6-2.3); Potassium 4.3 mmol/L (3.5-5.1)
[2020-12-15 19:28] LABS: Partial Thromboplastin Time 22.6 sec (22.0-30.0); Prothrombin Time 10.3 sec (9.0-12.0)
--- NOTE | 2020-12-15 20:39 | XR ---
EXAMINATION TYPE: XR chest 2V DATE OF EXAM: 12/15/2020 COMPARISON: 07/09/2020 HISTORY: Short of breath TECHNIQUE: FINDINGS: Heart and mediastinum are normal. Lungs are clear. Costophrenic angles are clear. There are chest leads. IMPRESSION: Normal chest. No adverse change.
[2020-12-15] MEDS ORDERED: NITROGLYCERIN SL TABS 0.4 MG TAB SUBLINGUAL PRN (20:52)
[2020-12-15] MEDS ORDERED: IPRATROPIUM-ALBUTEROL 3 ML NEB INHALATION PRN (23:51)
[2020-12-16] MEDS: ACETAMINOPHEN TAB 500 MG TAB PO SCH ×4 (00:17→22:20)
[2020-12-16] MEDS: ALPRAZolam 0.5 MG TAB PO SCH ×3 (00:17→22:17)
[2020-12-16] MEDS: HYDROXYCHLOROQUINE SULFATE 200 MG TAB PO SCH ×3 (00:17→22:17)
[2020-12-16] MEDS: GABAPENTIN 300 MG CAP PO SCH ×2 (00:17→22:17)
[2020-12-16] MEDS: ONDANSETRON 4 MG/2 ML VIAL IVP PRN (00:29)
[2020-12-16] MEDS: LEVOTHYROXINE 100 MCG TAB PO SCH (06:14)
[2020-12-16] MEDS: ALBUTEROL NEBULIZED 2.5 MG/3 ML INHALATION SCH ×4 (08:06→20:08)
[2020-12-16] MEDS: SYMBICORT 160-4.5 MCG INHALER INHALATION SCH ×2 (08:06→20:08)
--- NOTE | 2020-12-16 08:50 | XR ---
EXAMINATION TYPE: XR KUB DATE OF EXAM: 12/16/2020 COMPARISON: Chest x-ray dated 12/15/2020 HISTORY: 75 years Male. STUDY INDICATION GIVEN: Abdominal discomfort TECHNIQUE: Upright abdominal radiographs FINDINGS AND IMPRESSION: Large amount of stool seen in the colon mostly on the right side with no evidence of bowel obstructio n. No evidence of free abdominal air or portal venous gas. No evidence of organomegaly. Right hemidiaphragm eventration. Lung bases are suboptimally evaluated. Degenerative changes are seen in the lower lumbar spine. No acute osseous abnormality seen.
[2020-12-16] MEDS ORDERED: IOPAMIDOL CONTRAST (ORAL USE) VIAL PO PRN (09:00)
[2020-12-16] MEDS ORDERED: ASPIRIN 325 MG TAB PO SCH (09:00)
[2020-12-16] MEDS ORDERED: bisacodyL 5 MG TABLET.DR PO STA (09:04)
[2020-12-16] MEDS ORDERED: polyethylene glycoL 3350 17 GM POWD.PACK PO STA (09:04)
[2020-12-16] MEDS: LOSARTAN 25 MG TAB PO SCH (09:15)
[2020-12-16] MEDS: amLODIPine 5 MG TAB PO SCH (09:16)
[2020-12-16] MEDS: SERTRALINE 25 MG TAB PO SCH (09:16)
[2020-12-16 10:10] LABS: Amylase 40 U/L (23-121); Lipase 34 U/L (14-60)
[2020-12-16 10:18] LABS: Chol/HDL Ratio 3.67
--- NOTE | 2020-12-16 10:32 | P.CRDCN ---
History of Present Illness Consult date: 12/16/20 Requesting physician: Meggan Arroyo Reason for Consult (text): chest pain Chief complaint: abdominal pain and bloating, nausea, chest tightness, shortness of breath History of present illness: This is a pleasant 75-year-old gentleman who previously followed with Dr. Hernandez in the office but has not been seen in a few years. He has a history of hypertension, COPD, asthma, hypothyroidism, TIA in April 2020 at which time he was found to have moderate to severe plaque bilateral internal carotid arteries without hemodynamically significant stenosis.. He's been experiencing some anxiety due to increased amounts of stress at home as his has schizophrenia and has a lot of difficulties at times. He has not been feeling well over the past week but delayed coming to the emergency room because he was out of town. He has been having multiple complaints. His main concern at this time is nausea with abdominal discomfort and bloating that seems to be unrelated to eating and at times he says eating actually makes him feel better. He's also been having some shortness of breath that may be somewhat worse compared to his baseline. He follows with Dr. carlson in and according to him has an FEV1 of 60% predicted which is up from 40% in the last year or so. He's also been having episodes of chest tightness that is unrelated to activity. He feels it may be related to the stress of dealing with his as he notices that when he is having difficulties with her and it is typically relieved when he takes his Xanax. Laboratory values on admission show normal CBC, potassium 4.3, BUN 18, creatinine 1.22 and troponins negative 3. Chest x-ray showed normal chest, no adverse change. EKG shows normal sinus rhythm with no evidence of ischemia. KUB x-ray showed large amount of stool seen in the colon mostly on the right side with no evidence of bowel obstruction. He is scheduled for computed tomography scan of the abdomen and pelvis to be done today. Amylase and lipase are pending. Upon examination patient is resting comfortably in bed he currently denies any complaints of chest discomfort, abdominal discomfort, nausea or shortness of breath. Past Medical History Past Medical History: Asthma, CVA/TIA, Hearing Disorder / Deafness, Hyperlipidemia, Hypertension, Prostate Disorder Additional Past Medical History / Comment(s): Hx. "urination is slow" Dx. bronchitis,TIA in april 2020. arthritis back, History of Any Multi-Drug Resistant Organisms: None Reported Past Surgical History: Orthopedic Surgery Additional Past Surgical History / Comment(s): Hx. Left knee arthroscopic, urethral surgery Past Anesthesia/Blood Transfusion Reactions: No Reported Reaction Past Psychological History: Depression Smoking Status: Never smoker Past Alcohol Use History: None Reported Past Drug Use History: None Reported - Past Family History Father History Unknown: Yes Medications and Allergies Home Medications Medication Instructions Recorded Confirmed Type Hydroxychloroquine Sulfate 200 mg PO BID 12/09/18 12/15/20 History [Plaquenil] Montelukast [Singulair] 10 mg PO DAILY@1200 01/07/19 12/15/20 History Losartan [Cozaar] 25 mg PO DAILY #30 tab 05/09/20 12/15/20 Rx Aspirin 325 mg PO DAILY@1200 07/04/20 12/15/20 History Levothyroxine Sodium [Euthyrox] 100 mcg PO DAILY 07/04/20 12/15/20 History Albuterol Sulfate [Proair Hfa] 2 puff INHALATION RT-BID 07/09/20 12/15/20 History amLODIPine [Norvasc] 5 mg PO DAILY 07/09/20 12/15/20 History ALPRAZolam [Xanax] 0.5 mg PO BID 12/15/20 12/15/20 History Acetaminophen Tab [Tylenol Tab] 500 mg PO TID 12/15/20 12/15/20 History Atorvastatin [Lipitor] 20 mg PO DAILY@1200 12/15/20 12/15/20 History Fluticasone/Salmeterol [Advair 1 puff INHALATION RT-BID 12/15/20 12/15/20 History 500-50 Diskus] Gabapentin 300 mg PO HS 12/15/20 12/15/20 History Ipratropium-Albuterol Nebulize 3 ml INHALATION RT-QID PRN 12/15/20 12/15/20 Hi story [Duoneb 0.5 mg-3 mg/3 ml Soln] Sertraline HCl [Zoloft] 25 mg PO DAILY 12/15/20 12/15/20 History Umeclidinium [place] [Incruse 1 puff INHALATION DAILY@1200 12/15/20 12/15/20 History Ellipta] Allergies Allergy/AdvReac Type Severity Reaction Status Date / Time No Known Allergies Allergy Verified 12/15/20 21:00 Physical Exam Vitals: Vital Signs Temp Pulse Pulse Pulse Resp BP BP 12/16/20 07:00 98.1 F 102 H 18 136/78 12/16/20 02:03 98.4 F 93 14 142/81 12/15/20 23:01 97.8 F 87 18 151/84 12/15/20 21:45 98.2 F 88 16 160/95 12/15/20 21:00 98.0 F 81 16 160/89 12/15/20 20:00 79 18 155/91 12/15/20 19:30 80 12/15/20 19:19 79 12/15/20 18:46 69 18 164/94 12/15/20 17:51 98.6 F 71 16 173/88 Pulse Ox 12/16/20 07:00 96 12/16/20 02:03 94 L 12/15/20 23:01 97 12/15/20 21:45 97 12/15/20 21:00 96 12/15/20 20:00 98 12/15/20 19:30 12/15/20 19:19 12/15/20 18:46 98 12/15/20 17:51 95 Intake and Output 12/15/20 12/16/20 12/16/20 22:59 06:59 14:59 Other: Voiding Method Toilet # Voids 1 # Bowel Movements 1 Weight 92.986 kg 92.986 kg PHYSICAL EXAMINATION: This is a 75-year-old gentleman in no apparent distress at the time of my examination. VITAL SIGNS: Blood pressure 136/78, heart rate 102, respirations 18, temp 98.1F. Patient is 96 % on room air. HEENT: Head is atraumatic, normocephalic. Pupils are equal, round. Sclerae anicteric. Conjunctivae are clear. Mucous membranes of the mouth are moist. Neck is supple. There is no elevated jugular venous pressure. Carotid bruit is heard. CHEST EXAMINATION: Lungs reveal diminished air entry bilaterally. No wheezes rales or rhonchi. Respirations even and nonlabored. HEART EXAMINATION: Heart regular, positive S1 and S2. No S3. No S4. No clicks, rubs or murmurs. ABDOMEN: Soft, nontender. Bowel sounds are heard. No organomegaly noted. EXTREMITIES: 2+ peripheral pulses with no evidence of peripheral edema and no calf tenderness noted. NEUROLOGIC EXAMINATION: Patient is awake, alert and oriented x3. Results 12/15/20 18:36 12/15/20 18:36 Cardiac Enzymes 12/15/20 12/15/20 12/16/20 Range/Units 18:36 21:31 00:50 Troponin I <0.012 <0.012 <0.012 (0.000-0.034) ng/mL Coagulation 12/15/20 Range/Units 18:36 PT 10.3 (9.0-12.0) sec APTT 22.6 (22.0-30.0) sec CBC 12/15/20 Range/Units 18:36 WBC 9.2 (3.8-10.6) k/uL RBC 4.94 (4.30-5.90) m/uL Hgb 15.5 (13.0-17.5) gm/dL Hct 43.7 (39.0-53.0) % Plt Count 207 (150-450) k/uL Comprehensive Metabolic Panel 12/15/20 Range/Units 18:36 Sodium 140 (137-145) mmol/L Potassium 4.3 (3.5-5.1) mmol/L Chloride 107 (98-107) mmol/L Carbon Dioxide 25 (22-30) mmol/L BUN 18 (9-20) mg/dL Creatinine 1.22 (0.66-1.25) mg/dL Glucose 104 H (74-99) mg/dL Calcium 10.1 (8.4-10.2) mg/dL Current Medications Generic Name Dose Route Start Last Admin Trade Name Freq PRN Reason Stop Dose Admin Acetaminophen 500 mg 12/15/20 23:45 12/16/20 09:15 Acetaminophen Tab 500 Mg Tab PO 500 mg TID MISAEL Administration Albuterol Sulfate 2.5 mg 12/16/20 08:00 Albuterol Nebulized 2.5 Mg/3 Ml INHALATION RT-BID MISAEL Albuterol/Ipratropium 3 ml 12/15/20 23:51 Ipratropium-Albuterol 3 Ml Neb INHALATION RT-QID PRN Shortness Of Breath Alprazolam 0.5 mg 12/15/20 23:45 12/16/20 09:16 Alprazolam 0.5 Mg Tab PO 0.5 mg BID MISAEL Administration Amlodipine Besylate 5 mg 12/16/20 09:00 12/16/20 09:16 Amlodipine 5 Mg Tab PO 5 mg DAILY MISAEL Administration Aspirin 325 mg 12/16/20 09:00 12/16/20 09:16 Aspirin 325 Mg Tab PO 325 mg DAILY MISAEL Administration Atorvastatin Calcium 20 mg 12/16/20 12:00 Atorvastatin 20 Mg Tab PO DAILY@1200 ON LICENSE OF [facility] Budesonide/Formoterol Fumarate 2 puff 12/16/20 08:00 12/16/20 08:06 Symbicort 160-4.5 Mcg Inhaler INHALATION 2 puff RT-BID MISAEL Administration Gabapentin 300 mg 12/15/20 23:45 12/16/20 00:17 Gabapentin 300 Mg Cap PO 300 mg HS MISAEL Administration Hydroxychloroquine Sulfate 200 mg 12/15/20 23:45 12/16/20 09:16 Hydroxychloroquine Sulfate 200 Mg Tab PO 200 mg BID MISAEL Administration Iopamidol 30 ml 12/16/20 09:00 Iopamidol Contrast (Oral Use) Vial PO 12/17/20 09:[address] Scan Levothyroxine Sodium 100 mcg 12/16/20 06:30 12/16/20 06:14 Levothyroxine 100 Mcg Tab PO 100 mcg DAILY@0630 ON LICENSE OF [facility] Administration Losartan Potassium 25 mg 12/16/20 09:00 12/16/20 09:15 Losartan 25 Mg Tab PO 25 mg DAILY MISAEL Administration Montelukast Sodium 10 mg 12/16/20 12:00 Montelukast 10 Mg Tab PO DAILY@1200 ON LICENSE OF [facility] Nitroglycerin 0.4 mg 12/15/20 20:52 Nitroglycerin Sl Tabs 0.4 Mg Tab SUBLINGUAL Q5M PRN Chest Pain Ondansetron HCl 4 mg 12/16/20 00:00 12/16/20 00:29 Ondansetron 4 Mg/2 Ml Vial IVP 4 mg Q6HR PRN Administration Nausea And Vomiting Sertraline HCl 25 mg 12/16/20 09:00 12/16/20 09:16 Sertraline 25 Mg Tab PO 25 mg DAILY MISAEL Administration Intake and Output 12/15/20 12/16/20 12/16/20 22:59 06:59 14:59 Other: Voiding Method Toilet # Voids 1 # Bowel Movements 1 Weight 92.986 kg 92.986 kg 12/15/20 18:36 12/15/20 18:36 Assessment and Plan Assessment: #1 symptoms of nausea, abdominal pain and bloating, computed tomography scan pending #2 symptoms of chest tightness, and acute coronary event has been ruled out, EKG shows no evidence of ischemia and troponins have been negative 3 #3 hypertension #4 history of TIA #5 bilateral carotid artery disease #6 hyperlipidemia #7 anxiety with increased stress at home #8 asthma and COPD Plan: From production shift supervisor perspective and acute coronary event has been ruled out. Will tentatively schedule the patient for echocardiogram with Doppler studies to assess cardiac structure and function as well as a Lexiscan Cardiolite to be done in the morning. Further recommendations to follow. [employer] note has been reviewed, I agree with a documented findings and plan of care. Patient was seen and examined.
--- NOTE | 2020-12-16 11:48 | P.HPIM ---
History of Present Illness H&P Date: 12/16/20 Chief Complaint: chest pain This is a 75-year-old male patient of Dr. Tamez with a past medical history of hypertension, hyperlipidemia, TIA, asthma, hypothyroidism, and polymyalgia rheumatica. Patient presented to the emergency department with intermittent chest pressure. Although he also complains of abdominal discomfort with bloating and nausea. Patient reports abdominal pain gets better after eating, he also has changes in bowel habits that has been occurring for the last week or so. He has never had a colonoscopy. He has occasional shortness of breath but h e does have an underlying history of asthma. Patient states he has episodes of chest tightness but has been under a great deal of stress at home. Laboratory values show WBC 9.2, hemoglobin 15.5, sodium 140, potassium 4.3, BUN 18, creatinine 1.2, serial troponins 3 have been all negative. Lipase was 34, amylase 40, cholesterol was total 158, LDL was 90, HDL 43. His vital signs are stable, he is afebrile temperature 98.1, pulse is 102, he is 96% on room air, blood pressure 136/78. Chest x-ray was clear. KUB x-ray showed large amount of stool on the right side with no evidence of bowel obstruction. Cardiology has been consulted, echocardiogram and Lexiscan scheduled for tomorrow morning. CT of the abdomen was ordered for his abdominal discomfort. Dulcolax along with MiraLAX have been ordered for the constipation. Review of Systems Constitutional: Denies chills, Denies chronic pain, Denies fever, Denies poor appetite, Denies weakness Ears, nose, mouth and throat: Denies dental pain, Denies dysphagia, Denies head ache, Denies nasal congestion, Denies nasal discharge, Denies sinus pain, Denies sinus pressure, Denies swelling in mouth, Denies swelling in throat, Denies sore throat, Denies voice changes Cardiovascular: Reports chest pain, Denies dyspnea on exertion, Denies edema, Denies irregular heart beat, Denies palpitations, Denies shortness of breath, Denies syncope Respiratory: Denies congestion, Denies cough, Denies dyspnea, Denies pain, Denies sleep apnea, Denies wheezing Gastrointestinal: Reports abdominal pain, Reports bloating, Reports dyspepsia, Reports nausea, Denies constipation, Denies diarrhea, Denies heartburn, Denies loss of appetite, Denies vomiting Genitourinary: Denies discharge, Denies dysuria, Denies hematuria, Denies urinary hesitancy, Denies urinary retention Neurological: Denies burning pain, Denies gait dysfunction, Denies headaches, Denies numbness, Denies paralysis, Denies paresthesias, Denies syncope, Denies vertigo Psychiatric: Reports anxiety, Denies confusion, Denies depression, Denies insomnia, Denies memory loss, Denies mood swings, Denies suicidal ideation Past Medical History Past Medical History: Asthma, CVA/TIA, Hearing Disorder / Deafness, Hyperlipidemia, Hypertension, Prostate Disorder Additional Past Medical History / Comment(s): Hx. "urination is slow" Dx. bronchitis,TIA in april 2020. arthritis back, History of Any Multi-Drug Resistant Organisms: None Reported Past Surgical History: Orthopedic Surgery Additional Past Surgical History / Comment(s): Hx. Left knee arthroscopic, urethral surgery Past Anesthesia/Blood Transfusion Reactions: No Reported Reaction Past Psychological History: Depression Smoking Status: Never smoker Past Alcohol Use History: None Reported Past Drug Use History: None Reported - Past Family History Father History Unknown: Yes Medications and Allergies Home Medications Medication Instructions Recorded Confirmed Type Hydroxychloroquine Sulfate 200 mg PO BID 12/09/18 12/15/20 History [Plaquenil] Montelukast [Singulair] 10 mg PO DAILY@1200 01/07/19 12/15/20 History Losartan [Cozaar] 25 mg PO DAILY #30 tab 05/09/20 12/15/20 Rx Aspirin 325 mg PO DAILY@1200 07/04/20 12/15/20 History Levothyroxine Sodium [Euthyrox] 100 mcg PO DAILY 07/04/20 12/15/20 History Albuterol Sulfate [Proair Hfa] 2 puff INHALATION RT-BID 07/09/20 12/15/20 History amLODIPine [Norvasc] 5 mg PO DAILY 07/09/20 12/15/20 History ALPRAZolam [Xanax] 0.5 mg PO BID 12/15/20 12/15/20 History Acetaminophen Tab [Tylenol Tab] 500 mg PO TID 12/15/20 12/15/20 History Atorvastatin [Lipitor] 20 mg PO DAILY@1200 12/15/20 12/15/20 History Fluticasone/Salmeterol [Advair 1 puff INHALATION RT-BID 12/15/20 12/15/20 History 500-50 Diskus] Gabapentin 300 mg PO HS 12/15/20 12/15/20 History Ipratropium-Albuterol Nebulize 3 ml INHALATION RT-QID PRN 12/15/20 12/15/20 History [Duoneb 0.5 mg-3 mg/3 ml Soln] Sertraline HCl [Zoloft] 25 mg PO DAILY 12/15/20 12/15/20 History Umeclidinium [place] [Incruse 1 puff INHALATION DAILY@1200 12/15/20 12/15/20 History Ellipta] Allergies Allergy/AdvReac Type Severity Reaction Status Date / Time No Known Allergies Allergy Verified 12/15/20 21:00 Physical Exam Vitals: Vital Signs Temp Pulse Pulse Pulse Resp BP BP 12/16/20 07:00 98.1 F 102 H 18 136/78 12/16/20 02:03 98.4 F 93 14 142/81 12/15/20 23:01 97.8 F 87 18 151/84 12/15/20 21:45 98.2 F 88 16 160/95 12/15/20 21:00 98.0 F 81 16 160/89 12/15/20 20:00 79 18 155/91 12/15/20 19:30 80 12/15/20 19:19 79 12/15/20 18:46 69 18 164/94 12/15/20 17:51 98.6 F 71 16 173/88 Pulse Ox 12/16/20 07:00 96 12/16/20 02:03 94 L 12/15/20 23:01 97 12/15/20 21:45 97 12/15/20 21:00 96 12/15/20 20:00 98 12/15/20 19:30 12/15/20 19:19 12/15/20 18:46 98 12/15/20 17:51 95 Intake and Output 12/15/20 12/16/20 12/16/20 22:59 06:59 14:59 Other: Voiding Method Toilet # Voids 1 # Bowel Movements 1 Weight 92.986 kg 92.986 kg - Constitutional General appearance: cooperative, no acute distress - EENT Eyes: EOMI, PERRLA, normal appearance ENT: hard of hearing, normal oropharynx, no pharyngeal erythema, no thrush - Neck Neck: no lymphadenopathy, normal ROM, no stridor, no thyromegaly - Respiratory Respiratory: right: CTA, bilateral: diminished, dullness, rales, rhonchi, wheezing - Cardiovascular Rhythm: regular Heart sounds: normal: S1, S2 Abnormal Heart Sounds: no systolic murmur, no diastolic murmur - Gastrointestinal General gastrointestinal: distended, no hepatomegaly, normal bowel sounds, no organomegaly, tenderness - Neurologic Neurologic: CNII-XII intact - Musculoskeletal Musculoskeletal: gait normal, strength equal bilaterally - Psychiatric Psychiatric: A&O x's 3, appropriate affect, intact judgment & insight Results CBC & Chem 7: 12/15/20 18:36 12/15/20 18:36 Labs: Abnormal Lab Results - Last 24 Hours (Table) 12/15/20 Range/Units 18:36 Glucose 104 H (74-99) mg/dL Thrombosis Risk Factor Assmnt - Choose All That Apply Any of the Below Risk Factors Present?: Yes Each Factor Represents 1 point: Obesity (BMI >25) Other Risk Factors: Yes Each Risk Factor Represents 3 Points: Age 75 years or older Other congenital or acquired thrombophilia - If yes, enter type in comment: No Thrombosis Risk Factor Assessment Total Risk Factor Score: 4 Thrombosis Risk Factor Assessment Level: Moderate Risk Assessment and Plan Plan: 1. Chest pain. Serial troponins were negative, cardiology on consult plans for Lexiscan and echocardiogram tomorrow 2. Abdominal pain and constipation. CT abdomen was ordered, Dulcolax along with MiraLAX and Zofran as needed 3. History of TIA. Continue aspirin 4. History of asthma. Continue albuterol and DuoNeb's, along with Symbicort and Singulair. 5. Hypertension. Continue losartan 25 mg daily and Norvasc 5 mg daily. 6. Polymyalgia rheumatica. Continue Plaquenil 200 mg twice a day along with Neurontin 300 mg at at bedtime. 7. Hypothyroidism. Continue levothyroxine 100 g daily. 8. Hyperlipidemia. Continue Lipitor 20 mg at at bedtime. 9. History of depression and anxiety. Continue Zoloft 25 mg daily along with Xanax as needed 10. DVT prophylaxis. Heparin subcu 11. GI prophylaxis. Pantoprazole The above impression and plan of care have been discussed and directed by signing physician. Africa Chadwick nurse practitioner acting as scribe for signing physician.
[2020-12-16] MEDS: MONTELUKAST 10 MG TAB PO SCH (14:45)
[2020-12-16] MEDS: ATORVASTATIN 20 MG TAB PO SCH (14:45)
--- NOTE | 2020-12-16 14:45 | CT ---
EXAMINATION TYPE: CT abdomen pelvis w con DATE OF EXAM: 12/16/2020 COMPARISON: None HISTORY: Abdominal pain CT DLP: 1111.50 mGycm, Automated Exposure Control for Dose Reduction was Utilized. CONTRAST: CT scan of the abdomen and pelvis is performed with oral and with IV Contrast, patient injected with 100 ml mL of Isovue 300. FINDINGS: LUNG BASES: No significant abnormality is appreciated. INCLUDED CARDIAC STRUCTURES: Unremarkable LIVER: No significant abnormality is appreciated. GALLBLADDER : Contracted gallbladder BILIARY TREE: No abnormal biliary tree dilation. PANCREAS: No significant abnormality is seen. SPLEEN: No significant abnormality is seen. ADRENALS: No significant abnormality is seen. KIDNEYS AND URETERS: No significant abnormality is seen. URINARY BLADDER: No significant abnormality is appreciated. PROSTATE: Prominent in size ESOPHAGUS: No significant abnormality is seen. STOMACH: No significant abnormality is seen. SMALL BOWEL: No significant abnormality is seen. LARGE BOWEL: There is significant circumferential thickening involving the cecum. There is descending and sigmoid diverticulosis, no evidence of acute diverticulitis. There is no evidence of bowel obstr uction. APPENDIX: Normal. HERNIAS: No significant herniation seen. PERITONEUM/MESENTRY: No pneumoperitoneum or ascites. LYMPH NODES: No enlarged retroperitoneal or pelvic lymph nodes are appreciated. MAJOR VASCULAR STRUCTURES: The aorta is nonaneurysmal. There is a soft plaque involving the supra and infrarenal abdominal aorta. There is a moderate degree of aortic lumen stenosis secondary to soft pl aque which extends into the bilateral common iliac arteries. OSSEOUS STRUCTURES: Mild scoliotic curvature is seen in the spine. There is generalized osteopenia. N o acute osseous abnormality. Moderate-severe degenerative changes seen in the lumbar spine. IMPRESSION: 1. Significant masslike circumferential thickening of the cecum, findings could be infectious, inflam matory or malignant clinical correlation with consideration for direct visualization recommended to r ule out underlying malignancy. 2. Left colonic diverticulosis with no evidence of acute diverticulitis. 3. Moderate narrowing of the renal abdominal aorta secondary to soft plaque.
[2020-12-16] MEDS: HEPARIN SODIUM,PORCINE/PF 5,000 UNIT/0.5 ML SYRINGE SQ SCH (22:16)
[2020-12-16 23:26] VITALS: RESP 18
[2020-12-17] MEDS: ONDANSETRON 4 MG/2 ML VIAL IVP PRN (02:50)
[2020-12-17 03:08] VITALS: TEMP 98
[2020-12-17] MEDS: LEVOTHYROXINE 100 MCG TAB PO SCH (05:58)
[2020-12-17] MEDS ORDERED: AMINOPHYLLINE 500 MG/20 ML VIAL IV PRN (06:00)
[2020-12-17] MEDS ORDERED: CAFFEINE CITRATE 60 MG/3 ML VIAL IV PRN (06:00)
[2020-12-17] MEDS ORDERED: REGADENOSON 0.4 MG/5 ML SYRINGE IV PRN (07:00)
[2020-12-17] MEDS ORDERED: PANTOPRAZOLE 40 MG TABLET PO SCH (07:30)
[2020-12-17] MEDS: ALBUTEROL NEBULIZED 2.5 MG/3 ML INHALATION SCH (07:54)
[2020-12-17] MEDS: SYMBICORT 160-4.5 MCG INHALER INHALATION SCH (07:54)
[2020-12-17 08:01] VITALS: BP 136/75
[2020-12-17] MEDS: HYDROXYCHLOROQUINE SULFATE 200 MG TAB PO SCH (08:28)
[2020-12-17] MEDS: SERTRALINE 25 MG TAB PO SCH (08:29)
[2020-12-17] MEDS: LOSARTAN 25 MG TAB PO SCH (08:29)
[2020-12-17] MEDS: ACETAMINOPHEN TAB 500 MG TAB PO SCH (08:29)
[2020-12-17] MEDS: ALPRAZolam 0.5 MG TAB PO SCH (08:29)
[2020-12-17] MEDS: amLODIPine 5 MG TAB PO SCH (08:29)
[2020-12-17] MEDS: HEPARIN SODIUM,PORCINE/PF 5,000 UNIT/0.5 ML SYRINGE SQ SCH (08:29)
[2020-12-17] MEDS ORDERED: ASPIRIN 81 MG PO SCH (09:00)
[2020-12-17 09:14] LABS: Basophils # (A) 0.02 X 10*3/uL (0.00-0.10); Basophils % (A) 0.1 %; Eosinophils # (A) 0.01 X 10*3/uL (0.04-0.35); Eosinophils % (A) 0.1 %; HCT 43.9 % (39.6-50.0); HGB 15.1 g/dL (13.0-17.0); Lymphocytes # (A) 1.08 X 10*3/uL (0.90-5.00); Lymphocytes % (A) 7.4 %; MCH 30.8 pg (27.0-32.0); MCHC 34.4 g/dL (32.0-37.0); MCV 89.6 fL (80.0-97.0); Mean Platelet Volume 9.7 fL (9.5-12.2); Monocytes # (A) 0.83 X 10*3/uL (0.20-1.00); Monocytes % (A) 5.7 %; Neutrophils # (A) 12.51 X 10*3/uL (1.80-7.70); Neutrophils % (A) 86.1 %; Platelet Count 222 X 10*3/uL (140-440); RDW 11.9 % (11.5-14.5); WBC 14.54 X 10*3/uL (4.50-10.00)
[2020-12-17 09:44] LABS: African American GFR (CKD) 61.4 (60.0-200.0); Albumin 4.3 g/dL (3.80-4.90); Albumin/Globulin Ratio 2.15 (1.60-3.17); Anion Gap 12.2 mmol/L (4.00-12.00); BUN/Creat Ratio 22.31 Ratio (12.00-20.00); Calcium 9.7 mg/dL (8.7-10.3); Carbon Dioxide 21.8 mmol/L (21.6-31.8); Potassium 4.6 mmol/L (3.5-5.5); Total Bilirubin 0.6 mg/dL (0.2-1.2); Total Protein 6.3 g/dL (6.2-8.2)
--- NOTE | 2020-12-17 09:53 | ECHOF ---
Referral Reason:chest tightness MEASUREMENTS -------- HEIGHT: 182.9 cm WEIGHT: 93.0 kg BP: 137/84 RVIDd: 4.1 cm (< 3.3) IVSd: 1.3 cm (0.6 - 1.1) LVIDd: 3.9 cm (3.9 - 5.3) LVPWd: 1.3 cm (0.6 - 1.1) IVSs: 1.8 cm LVIDs: 2.6 cm LVPWs: 1.4 cm LAESV Index (A-L): 18.52 ml/m Ao Diam: 3.6 cm (2.0 - 3.7) AV Cusp: 2.0 cm (1.5 - 2.6) LA Diam: 4.0 cm (2.7 - 3.8) MV EXCURSION: 21.333 mm (> 18.000) MV EF SLOPE: 110 mm/s (70 - 150) EPSS: 0.7 cm MV E Tacho: 0.86 m/s MV DecT: 215 ms MV A Tacho: 1.01 m/s MV E/A Ratio: 0.86 RAP: 5.00 mmHg RVSP: 14.17 mmHg FINDINGS -------- Sinus rhythm. This was a technically adequate study. The left ventricular size is normal. There is mild concentric left ventricular hypertrophy. Overa ll left ventricular systolic function is normal with, an EF between 55 - 60 %. The diastolic fillin g pattern is normal for the age of the patient 10.91. The right ventricle is normal in size. Normal LA size by volume 22+/-6 ml/m2. The right atrial size is normal. Interatrial and interventricular septum intact. The aortic valve is trileaflet and appears structurally normal. There is no evidence of aortic regu rgitation. There is no evidence of aortic stenosis. No mitral regurgitation. Mild tricuspid regurgitation present. There is no evidence of pulmonary hypertension. The right v entricular systolic pressure, as measured by Doppler, is 14.17mmHg. There is no pulmonic regurgitation present. The aortic root size is normal. Normal inferior vena cava with normal inspiratory collapse consistent with estimated right atrial pre ssure of 5 mmHg. There is no pericardial effusion. CONCLUSIONS -------- 1. The left ventricular size is normal. 2. There is mild concentric left ventricular hypertrophy. 3. Overall left ventricular systolic function is normal with, an EF between 55 - 60 %. 4. The diastolic filling pattern is normal for the age of the patient 10.91 5. Mild tricuspid regurgitation present. [employer]: Marilu Styles RDCS
--- NOTE | 2020-12-17 10:45 | NM ---
EXAMINATION TYPE: NM stress lexiscan cardiolite DATE OF EXAM: 12/17/2020 COMPARISON: None HISTORY: 75-year-old male with chest pain TECHNIQUE: After the intravenous administration of 10.3 mCi Tc 99m Sestamibi - Cardiolite resting SP ECT images acquired 45 minutes post injection. The patient received 0.4mg Lexiscan, 24.4 mCi Tc 99m Sestamibi - Stress images obtained [address] injection FINDINGS: Review of stress and rest SPECT images demonstrates a large fixed defect along the inferior wall. The re is some additional decreased perfusion along the mid to basal anterior wall that accentuates sligh tly on stress images into the mid segment. Polar maps only show a small fixed defect along the mid in ferior wall. Gated analysis shows overall normal wall motion with an estimated left ventricular eject ion fraction of 60 %. TID is calculated at 1.09, upper limits of normal. IMPRESSION: Large fixed defect along the inferior wall. Additional fixed defect along the mid to basal anterior w all that accentuates on stress images. However, the corresponding polar maps show only a small fixed defect within the mid inferior wall raising the possibility of extensive attenuation artifact on the SPECT images. We are unable to exclude areas of old infarct and some ra-infarct ischemia along the mid anterior wall. Further workup as clinically indicated.
--- NOTE | 2020-12-17 12:00 | EST ---
EXERCISE STRESS AGE: 75 SEX: M HT: 6" WT: 205 lbs. PROTOCOL: Lexiscan STAGE: N/A DURATION OF EXERCISE: 5 minutes HEART RATE REST: 77 BLOOD PRESSURE REST: 148/81 MAXIMUM HEART RATE ACHIEVED: 89 MAXIMUM BLOOD PRESSURE: 148/81 85% MPHR: 122 100% MPHR: 144 METS: N/A INDICATIONS: Chest pain STRESS DATA: Heart rate is 77, pressure is 148/81 mmHg. Baseline EKG showed sinus mechanism 0.4 mg of Lexiscan given over 15 seconds per protocol. Max heart rate was 88 beats per minute. Maximum pressure was 148/81 mmHg. Clinically, the patient did not have any symptoms of chest pain or chest discomfort and the EKG did not show any significant ST or T-wave abnormalities concerning for ischemia. CONCLUSION: 1. Nondiagnostic electrocardiogram stress testing in response to Lexiscan. 2. Please follow up on the Cardiolite portion on separate report from radiology department. MMODL / IJN: [id number] /
[2020-12-17 12:05] VITALS: PULSE 92
--- NOTE | 2020-12-17 12:17 | P.PN ---
Subjective Progress Note Date: 12/17/20 HISTORY OF PRESENT ILLNESS: This is a pleasant 75-year-old gentleman who previously followed with Dr. Hernandez in the office but has not been seen in a few years. He has a history of hypertension, COPD, asthma, hypothyroidism, TIA in April 2020 at which time he was found to have moderate to severe plaque bilateral internal carotid arteries without hemodynamically significant stenosis.. He's been experiencing some anxiety due to increased amounts of stress at home as his has schizophrenia and has a lot of difficulties at times. He has not been feeling well over the past week but delayed coming to the emergency room because he was out of town. He has been having multiple complaints. His main concern at this time is nausea with abdominal discomfort and bloating that seems to be unrelated to eating and at times he says eating actually makes him feel better. He's also been having some shortness of breath that may be somewhat worse compared to his baseline. He follows with Dr. carlson in and according to him has an FEV1 of 60% predicted which is up from 40% in the last year or so. He's also been having episodes of chest tightness that is unrelated to activity. He feels it may be related to the stress of dealing with his as he notices that when he is having difficulties with her and it is typically relieved when he takes his Xanax. Laboratory values on admission show normal CBC, potassium 4.3, BUN 18, creatinine 1.22 and troponins negative 3. Chest x-ray showed normal chest, no adverse change. EKG shows normal sinus rhythm with no evidence of ischemia. KUB x-ray showed large amount of stool seen in the colon mostly on the right side with no evidence of bowel obstruction. He is scheduled for computed tomography scan of the abdomen and pelvis to be done today. Amylase and lipase are pending. Upon examination patient is resting comfortably in bed he currently denies any complaints of chest discomfort, abdominal discomfort, nausea or shortness of breath. 12/17/2020 Patient examined this morning. He denies chest pain or pressure. Denies SOB. Patient underwent CT abdomen and pelvis significant masslike circumferential thickening of the cecum. Direct visualization recommended to rule out underlying malignancy. Left colonic diverticulosis with no evidence of acute diverticulitis. Moderate narrowing of the renal abdominal aorta secondary to soft plaque. Echocardiogram completed revealed ejection fraction 55-60% with mild tricuspid regurgitation. Lexiscan stress test performed today reveals large fixed defect along the inferior wall. Additional fixed defect along the mid to basal anterior wall that essentially gone stress images. However the corresponding pulmonary after only a small fixed defect within the mid inferior wall raising the possibility of extensive attenuation artifact on the SPECT images. Unable to exclude areas of old infarct and some. Infarct ischemia along the mid anterior wall. PHYSICAL EXAM: VITAL SIGNS: Reviewed. GENERAL: Well-developed in no acute distress. NECK: Supple. No JVD or thyromegaly LUNGS: Respirations even and unlabored. Lungs essentially clear to auscultation bilaterally. HEART: Regular rate and rhythm. S1 and S2 heard. EXTREMITIES: Normal range of motion. No clubbing or cyanosis. Peripheral pulses intact. No lower extremity edema ASSESSMENT: Abdominal pain, nausea, and bloating, CT reveals possible mass Chest tightness, ACS ruled out Hypertension History of TIA Bilateral carotid artery disease Hyperlipidemia Anxiety Asthma COPD PLAN: Continue current cardiac medications Per Dr. Schmidt, no plans for cardiac cath at this time. Surgery is planning colonoscopy tomorrow. No absolute contraindications to undergo colonoscopy from a cardiac standpoint Further recommendations pending patient course Nurse practitioner note has been reviewed by physician. Signing provider agrees with the documented findings, assessment, and plan of care. Objective - Vital Signs Vital signs: Vital Signs Temp 98.0 F 12/17/20 07:00 Pulse 92 12/17/20 12:04 Resp 18 12/17/20 07:00 BP 136/75 12/17/20 07:00 Pulse Ox 96 12/17/20 07:00 Intake & Output 12/16/20 12/17/20 12/17/20 18:59 06:59 18:59 Weight 92.99 kg Other: # Voids 2 1 - Labs CBC & Chem 7: 12/17/20 05:59 12/17/20 05:59 Labs: Abnormal Lab Results - Last 24 Hours (Table) 12/17/20 12/17/20 Range/Units 05:59 05:59 WBC 14.54 H (4.50-10.00) X 10*3/uL Immature Gran # 0.09 H (0.00-0.04) X 10*3/uL Neutrophils # 12.51 H (1.80-7.70) X 10*3/uL Eosinophils # 0.01 L (0.04-0.35) X 10*3/uL Anion Gap 12.20 H (4.00-12.00) mmol/L BUN 29.0 H (9.0-27.0) mg/dL Est GFR (CKD-EPI)NonAf 53.0 L (60.0-200.0) BUN/Creatinine Ratio 22.31 H (12.00-20.00) Ratio Glucose 114 H (70-110) mg/dL
--- NOTE | 2020-12-17 13:06 | P.PN ---
Subjective Progress Note Date: 12/17/20 HISTORY OF PRESENT ILLNESS This is a 75-year-old male patient of Dr. Tamez with a past medical history of hypertension, hyperlipidemia, TIA, asthma, hypothyroidism, and polymyalgia rheumatica. Patient presented to the emergency department with intermittent chest pressure. Although he also complains of abdominal discomfort with bloating and nausea. Patient reports abdominal pain gets better after eating, he also has changes in bowel habits that has been occurring for the last week or so. He has never had a colonoscopy. He has occasional shortness of breath but he does have an underlying history of asthma. Patient states he has episodes of chest tightness but has been under a great deal of stress at home. Laboratory values show WBC 9.2, hemoglobin 15.5, sodium 140, potassium 4.3, BUN 18, creatinine 1.2, serial troponins 3 have been all negative. Lipase was 34, amylase 40, cholesterol was total 158, LDL was 90, HDL 43. His vital signs are stable, he is afebrile temperature 98.1, pulse is 102, he is 96% on room air, blood pressure 136/78. Chest x-ray was clear. KUB x-ray showed large amount of stool on the right side with no evidence of bowel obstruction. Cardiology has been consulted, echocardiogram and Lexiscan scheduled for tomorrow morning. CT of the abdomen was ordered for his abdominal discomfort. Dulcolax along with MiraLAX have been ordered for the constipation. 12/17: Patient is seen in the stress lab is currently having no complaints of chest pain. Patient states that he did have a decent bowel movement after medications yesterday. He has been seen by Dr. Carrera with plan for colonoscopy tomorrow. Dr. Schmidt has reviewed the stress test and cleared for colonoscopy. Patient denies having any chest pain or shortness of breath. No lightheadedness or dizziness. He has been afebrile, heart rate 74, blood pressure 136/75, pulse ox 96% on room air. Repeat blood work reveals WBC 14.5, hemoglobin 15.1, platelet count 222. Electrolytes are normal. BUN 29 and creatinine 1.3. Blood sugar 114. Liver function tests were normal. CEA 0.6. Most likely, patient will be ready for discharge tomorrow following colonoscopy. Review of Systems Constitutional: Denies chills, Denies chronic pain, Denies fever, Denies poor appetite, Denies weakness Ears, nose, mouth and throat: Denies dental pain, Denies dysphagia, Denies headache, Denies nasal congestion, Denies nasal discharge, Denies sinus pain, Denies sinus pressure, Denies swelling in mouth, Denies swelling in throat, Denies sore throat, Denies voice changes Cardiovascular: Reports chest pain, Denies dyspnea on exertion, Denies edema, Denies irregular heart beat, Denies palpitations, Denies shortness of breath, Denies syncope Respiratory: Denies congestion, Denies cough, Denies dyspnea, Denies pain, Denies sleep apnea, Denies wheezing Gastrointestinal: Reports abdominal pain, Reports bloating, Reports dyspepsia, Reports nausea, Denies constipation, Denies diarrhea, Denies heartburn, Denies loss of appetite, Denies vomiting Genitourinary: Denies discharge, Denies dysuria, Denies hematuria, Denies urinary hesitancy, Denies urinary retention Neurological: Denies burning pain, Denies gait dysfunction, Denies headaches, Denies numbness, Denies paralysis, Denies paresthesias, Denies syncope, Denies v ertigo Psychiatric: Reports anxiety, Denies confusion, Denies depression, Denies insomnia, Denies memory loss, Denies mood swings, Denies suicidal ideation PHYSICAL EXAMINATION Gen: This is a 75-year-old male. HEENT: Head is atraumatic, normocephalic. Pupils equal, round. Sclerae is anicteric. NECK: Supple. No JVD. No lymphadenopathy. No thyromegaly. LUNGS: Clear to auscultation. No wheezes or rhonchi. No intercostal retractions. HEART: Regular rate and rhythm. No murmur. ABDOMEN: Soft. Bowel sounds are present. No masses. No tenderness. EXTREMITIES: No pedal edema. No calf tenderness. NEUROLOGICAL: Patient is awake, alert and oriented x3. Cranial nerves 2 through 12 are grossly intact. ASSESSMENT AND PLAN 1. Chest pain. Status post Lexiscan stress test. Echocardiogram report is pending. 2. Abdominal pain and constipation with mass found at the cecum on CAT scan. Consult with Dr. Carrera appreciated. Patient is scheduled for colonoscopy tomorrow. 3. History of TIA. Continue aspirin 4. History of asthma. Continue albuterol and DuoNeb's, along with Symbicort and Singulair. 5. Hypertension. Continue losartan 25 mg daily and Norvasc 5 mg daily. 6. Polymyalgia rheumatica. Continue Plaquenil 200 mg twice a day along with Neurontin 300 mg at at bedtime. 7. Hypothyroidism. Continue levothyroxine 100 g daily. 8. Hyperlipidemia. Continue Lipitor 20 mg at at bedtime. 9. History of depression and anxiety. Continue Zoloft 25 mg daily along with Xanax as needed 10. DVT prophylaxis. Heparin subcu 11. GI prophylaxis. Pantoprazole DISCHARGE PLAN Home tomorrow following colonoscopy. Impression and plan of care have been directed as dictated by the signing physician. Josee Mayer nurse practitioner acting as scribe for signing physician. Objective - Vital Signs Vital signs: Vital Signs Temp 98.0 F 12/17/20 07:00 Pulse 92 12/17/20 12:04 Resp 18 12/17/20 07:00 BP 136/75 12/17/20 07:00 Pulse Ox 96 12/17/20 07:00 Intake & Output 12/16/20 12/17/20 12/17/20 18:59 06:59 18:59 Weight 92.99 kg Other: # Voids 2 1 - Labs CBC & Chem 7: 12/17/20 05:59 12/17/20 05:59 Labs: Abnormal Lab Results - Last 24 Hours (Table) 12/17/20 12/17/20 Range/Units 05:59 05:59 WBC 14.54 H (4.50-10.00) X 10*3/uL Immature Gran # 0.09 H (0.00-0.04) X 10*3/uL Neutrophils # 12.51 H (1.80-7.70) X 10*3/uL Eosinophils # 0.01 L (0.04-0.35) X 10*3/uL Anion Gap 12.20 H (4.00-12.00) mmol/L BUN 29.0 H (9.0-27.0) mg/dL Est GFR (CKD-EPI)NonAf 53.0 L (60.0-200.0) BUN/Creatinine Ratio 22.31 H (12.00-20.00) Ratio Glucose 114 H (70-110) mg/dL
[2020-12-17] MEDS: ATORVASTATIN 20 MG TAB PO SCH (13:26)
[2020-12-17] MEDS: MONTELUKAST 10 MG TAB PO SCH (13:26)
--- NOTE | 2020-12-17 14:22 | P.DS ---
<EnidDebi abarcay A - Last Filed: 12/17/20 14:20> Providers Expected date of discharge: 12/17/20 Hospital Course: HISTORY OF PRESENT ILLNESS This is a 75-year-old male patient of Dr. Tamez with a past medical history of hypertension, hyperlipidemia, TIA, asthma, hypothyroidism, and polymyalgia rheumatica. Patient presented to the emergency department with intermittent chest pressure. Although he also complains of abdominal discomfort with bloating and nausea. Patient reports abdominal pain gets better after eating, he also has changes in bowel habits that has been occurring for the last week or so. He has never had a colonoscopy. He has occasional shortness of breath but he does have an underlying history of asthma. Patient states he has episodes of chest tightness but has been under a great deal of stress at home. Laboratory values show WBC 9.2, hemoglobin 15.5, sodium 140, potassium 4.3, BUN 18, creatinine 1.2, serial troponins 3 have been all negative. Lipase was 34, amylase 40, cholesterol was total 158, LDL was 90, HDL 43. His vital signs are stable, he is afebrile temperature 98.1, pulse is 102, he is 96% on room air, blood pressure 136/78. Chest x-ray was clear. KUB x-ray showed large amount of stool on the right side with no evidence of bowel obstruction. Cardiology has been consulted, echocardiogram and Lexiscan scheduled for tomorrow morning. CT of the abdomen was ordered for his abdominal discomfort. Dulcolax along with MiraLAX have been ordered for the constipation. 12/17: Patient is seen in the stress lab is currently having no complaints of chest pain. Patient states that he did have a decent bowel movement after medications yesterday. He has been seen by Dr. Carrera with plan for colonoscopy tomorrow. Dr. Schmidt has reviewed the stress test and cleared for colonoscopy. Patient denies having any chest pain or shortness of breath. No lightheadedness or dizziness. He has been afebrile, heart rate 74, blood pressure 136/75, pulse ox 96% on room air. Repeat blood work reveals WBC 14.5, hemoglobin 15.1, platelet count 222. Electrolytes are normal. BUN 29 and creatinine 1.3. Blood sugar 114. Liver function tests were normal. CEA 0.6. Most likely, patient will be ready for discharge tomorrow following colonoscopy. Plans have been changed to outpatient colonoscopy. Patient will be discharged home today in stable condition. ASSESSMENT AND PLAN 1. Chest pain. 2. Abdominal pain and constipation with mass found at the cecum on CAT scan. 3. History of TIA. 4. Mild intermittent asthma. 5. Hypertension. 6. Polymyalgia rheumatica. 7. Hypothyroidism. 8. Hyperlipidemia. 9. Recurrent depression and generalized anxiety disorder DISCHARGE PLAN Home Impression and plan of care have been directed as dictated by the signing physician. Josee Mayer nurse practitioner acting as scribe for signing garry mendozaian. Patient Condition at Discharge: Fair Plan - Discharge Summary New Discharge Prescriptions: New Metoclopramide HCl [Reglan] 10 mg PO BID 1 Days #2 tablet Sodium, Potassium,Mag Sulfates [Suprep Bowel Prep Kit] 354 ml PO DIRECTED #1 kit Continue Hydroxychloroquine Sulfate [Plaquenil] 200 mg PO BID Montelukast [Singulair] 10 mg PO DAILY@1200 Losartan [Cozaar] 25 mg PO DAILY #30 tab Aspirin 325 mg PO DAILY@1200 Levothyroxine Sodium [Euthyrox] 100 mcg PO DAILY Albuterol Sulfate [Proair Hfa] 2 puff INHALATION RT-BID amLODIPine [Norvasc] 5 mg PO DAILY Fluticasone/Salmeterol [Advair 500-50 Diskus] 1 puff INHALATION RT-BID Acetaminophen Tab [Tylenol] 500 mg PO TID Sertraline HCl [Zoloft] 25 mg PO DAILY Ipratropium-Albuterol Nebulize [Duoneb 0.5 mg-3 mg/3 ml Soln] 3 ml INHALATION RT-QID PRN PRN Reason: Shortness Of Breath Gabapentin 300 mg PO HS Atorvastatin [Lipitor] 20 mg PO DAILY@1200 ALPRAZolam [Xanax] 0.5 mg PO BID Umeclidinium Spade [Incruse Ellipta] 1 puff INHALATION DAILY@1200 Discharge Medication List Hydroxychloroquine Sulfate [Plaquenil] 200 mg PO BID 12/09/18 [History] Montelukast [Singulair] 10 mg PO DAILY@1200 01/07/19 [History] Losartan [Cozaar] 25 mg PO DAILY #30 tab 05/09/20 [Rx] Aspirin 325 mg PO DAILY@1200 07/04/20 [History] Levothyroxine Sodium [Euthyrox] 100 mcg PO DAILY 07/04/20 [History] Albuterol Sulfate [Proair Hfa] 2 puff INHALATION RT-BID 07/09/20 [History] amLODIPine [Norvasc] 5 mg PO DAILY 07/09/20 [History] ALPRAZolam [Xanax] 0.5 mg PO BID 12/15/20 [History] Acetaminophen Tab [Tylenol] 500 mg PO TID 12/15/20 [History] Atorvastatin [Lipitor] 20 mg PO DAILY@1200 12/15/20 [History] Fluticasone/Salmeterol [Advair 500-50 Diskus] 1 puff INHALATION RT-BID 12/15/20 [History] Gabapentin 300 mg PO HS 12/15/20 [History] Ipratropium-Albuterol Nebulize [Duoneb 0.5 mg-3 mg/3 ml Soln] 3 ml INHALATION RT-QID PRN 12/15/20 [History] Sertraline HCl [Zoloft] 25 mg PO DAILY 12/15/20 [History] Umeclidinium Spade [Incruse Ellipta] 1 puff INHALATION DAILY@1200 12/15/20 [History] Metoclopramide HCl [Reglan] 10 mg PO BID 1 Days #2 tablet 12/17/20 [Rx] Sodium, Potassium,Mag Sulfates [Suprep Bowel Prep Kit] 354 ml PO DIRECTED #1 kit 12/17/20 [Rx] Follow up Appointment(s)/Referral(s): Luis Hernandez MD [STAFF PHYSICIAN] - 1 Week (Office will call with appointment and time.) Zenaida Carrera DO [Doctor of Osteopathic Medicine] - 1 Week (Scheduled colonoscopy for Thursday12/18/[address] [facility] ) Ronald Tamez MD [Primary Care Provider] - 1 Week Patient Instructions/Handouts: Chest Pain (GEN), Acute Abdominal Pain (GEN) Discharge Disposition: HOME SELF-CARE <Meggan Arroyo - Last Filed: 12/27/20 19:14> Providers Date of admission: 12/15/20 20:52 Attending physician: Meggan Arroyo Consults: 12/15/20 20:52 Consult Physician Urgent Consulting Provider: Ravinder Winters Consult Reason/Comments: chest pain Do you want consulting provider notified?: Yes 12/16/20 17:41 Consult Physician Routine Consulting Provider: Shane Jay Consult Reason/Comments: ct results of abd, possible malignancy cecum area, diverticulosis Do you want consulting provider notified?: Yes Primary care physician: Ronald Tamez
--- NOTE | 2020-12-17 14:30 | P.GSCN ---
History of Present Illness Consult date: 12/17/20 Reason for Consult: Abnormal CT scan of the cecum History of present illness: The patient is a 75-year-old man who presented to the emergency department because of chest pain and concerns of heart issues . He has had some nausea and shortness of breath. Some abdominal pain after eating. He is admitted for a cardiac work-up. Because of the abdominal discomfort a CT scan of the abdomen was performed showing thickening of the cecum. His abdominal discomfort is nonspecific. He has no vomiting. He has been eating fairly normally. Stooling normally. No evidence of blood in the stool or dark tarry stool. Denies any prior colonoscopies. No family history of GI malignancy or inflammatory bowel disease. Review of Systems All systems: negative - Genitourinary Genitourinary Comment(s): Cyst on his testicle for many years Past Medical History Past Medical History: Asthma, CVA/TIA, Hearing Disorder / Deafness, Hyperlipidemia, Hypertension, Prostate Disorder Additional Past Medical History / Comment(s): Hx. "urination is slow" Dx. bronchitis,TIA in april 2020. arthritis back, History of Any Multi-Drug Resistant Organisms: None Reported Past Surgical History: Orthopedic Surgery Additional Past Surgical History / Comment(s): Hx. Left knee arthroscopic, urethral surgery Past Anesthesia/Blood Transfusion Reactions: No Reported Reaction Past Psychological History: Depression Smoking Status: Never smoker Past Alcohol Use History: None Reported Past Drug Use History: None Reported - Past Family History Father History Unknown: Yes Medications and Allergies Home Medications Medication Instructions Recorded Confirmed Type Hydroxychloroquine Sulfate 200 mg PO BID 12/09/18 12/15/20 History [Plaquenil] Montelukast [Singulair] 10 mg PO DAILY@1200 01/07/19 12/15/20 History Losartan [Cozaar] 25 mg PO DAILY #30 tab 05/09/20 12/15/20 Rx Aspirin 325 mg PO DAILY@1200 07/04/20 12/15/20 History Levothyroxine Sodium [Euthyrox] 100 mcg PO DAILY 07/04/20 12/15/20 History Albuterol Sulfate [Proair Hfa] 2 puff INHALATION RT-BID 07/09/20 12/15/20 History amLODIPine [Norvasc] 5 mg PO DAILY 07/09/20 12/15/20 History ALPRAZolam [Xanax] 0.5 mg PO BID 12/15/20 12/15/20 History Acetaminophen Tab [Tylenol Tab] 500 mg PO TID 12/15/20 12/15/20 History Atorvastatin [Lipitor] 20 mg PO DAILY@1200 12/15/20 12/15/20 History Fluticasone/Salmeterol [Advair 1 puff INHALATION RT-BID 12/15/20 12/15/20 History 500-50 Diskus] Gabapentin 300 mg PO HS 12/15/20 12/15/20 History Ipratropium-Albuterol Nebulize 3 ml INHALATION RT-QID PRN 12/15/20 12/15/20 History [Duoneb 0.5 mg-3 mg/3 ml Soln] Sertraline HCl [Zoloft] 25 mg PO DAILY 12/15/20 12/15/20 History Umeclidinium [place]ube [Incruse 1 puff INHALATION DAILY@1200 12/15/20 12/15/20 History Ellipta] Allergies Allergy/AdvReac Type Severity Reaction Status Date / Time No Known Allergies Allergy Verified 12/15/20 21:00 Surgical - Exam Osteopathic Statement: *. No significant issues noted on an osteopathic structural exam other than those noted in the History and Physical/Consult. Vital Signs Temp Pulse Resp BP Pulse Ox 98.6 F 71 16 173/88 95 12/15/20 17:51 12/15/20 17:51 12/15/20 17:51 12/15/20 17:51 12/15/20 17:51 - General well developed, well nourished, no distress - Eyes normal ocular movement - Neck trachea midline - Respiratory normal expansion, clear to auscultation - Cardiovascular Rhythm: regular - Abdomen Abdomen: soft, non tender, bowel sounds, no guarding, no rigid, no rebound, no distended - Genitourinary Right hydrocele which is soft Results - Labs 12/17/20 05:59 12/17/20 05:59 Abnormal Lab Results - Last 24 Hours (Table) 12/17/20 12/17/20 Range/Units 05:59 05:59 WBC 14.54 H (4.50-10.00) X 10*3/uL Immature Gran # 0.09 H (0.00-0.04) X 10*3/uL Neutrophils # 12.51 H (1.80-7.70) X 10*3/uL Eosinophils # 0.01 L (0.04-0.35) X 10*3/uL Anion Gap 12.20 H (4.00-12.00) mmol/L BUN 29.0 H (9.0-27.0) mg/dL Est GFR (CKD-EPI)NonAf 53.0 L (60.0-200.0) BUN/Creatinine Ratio 22.31 H (12.00-20.00) Ratio Glucose 114 H (70-110) mg/dL Diabetes panel 12/17/20 Range/Units 05:59 Sodium 140 (135-145) mmol/L Potassium 4.6 (3.5-5.5) mmol/L Chloride 106 (96-109) mmol/L Carbon Dioxide 21.8 (21.6-31.8) mmol/L BUN 29.0 H (9.0-27.0) mg/dL Creatinine 1.3 (0.6-1.5) mg/dL Glucose 114 H (70-110) mg/dL Calcium 9.7 (8.7-10.3) mg/dL AST 23 (14-35) U/L ALT 29 (10-49) U/L Alkaline Phosphatase 101 (41-126) U/L Total Protein 6.3 (6.2-8.2) g/dL Albumin 4.30 (3.80-4.90) g/dL Calcium panel 12/17/20 Range/Units 05:59 Calcium 9.7 (8.7-10.3) mg/dL Albumin 4.30 (3.80-4.90) g/dL Pituitary panel 12/17/20 Range/Units 05:59 Sodium 140 (135-145) mmol/L Potassium 4.6 (3.5-5.5) mmol/L Chloride 106 (96-109) mmol/L Carbon Dioxide 21.8 (21.6-31.8) mmol/L BUN 29.0 H (9.0-27.0) mg/dL Creatinine 1.3 (0.6-1.5) mg/dL Glucose 114 H (70-110) mg/dL Calcium 9.7 (8.7-10.3) mg/dL Adrenal panel 12/17/20 Range/Units 05:59 Sodium 140 (135-145) mmol/L Potassium 4.6 (3.5-5.5) mmol/L Chloride 106 (96-109) mmol/L Carbon Dioxide 21.8 (21.6-31.8) mmol/L BUN 29.0 H (9.0-27.0) mg/dL Creatinine 1.3 (0.6-1.5) mg/dL Glucose 114 H (70-110) mg/dL Calcium 9.7 (8.7-10.3) mg/dL Total Bilirubin 0.6 (0.2-1.2) mg/dL AST 23 (14-35) U/L ALT 29 (10-49) U/L Alkaline Phosphatase 101 (41-126) U/L Total Protein 6.3 (6.2-8.2) g/dL Albumin 4.30 (3.80-4.90) g/dL - Imaging CT scan - abdomen: report reviewed, image reviewed Assessment and Plan (1) Abnormal CT scan, colon Current Visit: Yes Status: Acute Code(s): R93.3 - ABNORMAL FINDINGS ON DX IMAGING OF PRT DIGESTIVE TRACT SNOMED Code(s): 594579118 (2) Hydrocele Current Visit: Yes Status: Acute Code(s): N43.3 - HYDROCELE, UNSPECIFIED SNOMED Code(s): 71583831 (3) Chest pain Current Visit: Yes Status: Acute Code(s): R07.9 - CHEST PAIN, UNSPECIFIED SNOMED Code(s): 78937550 (4) History of TIA (transient ischemic attack) Current Visit: Yes Status: Acute Code(s): Z86.73 - PRSNL HX OF TIA (TIA), AND CEREB INFRC W/O RESID DEFICITS SNOMED Code(s): 306632145 (5) Hypertension Current Visit: Yes Status: Acute Code(s): I10 - ESSENTIAL (PRIMARY) HYPERTENSION SNOMED Code(s): 96984851 (6) Polymyalgia rheumatica Current Visit: Yes Status: Acute Code(s): M35.3 - POLYMYALGIA RHEUMATICA SNOMED Code(s): 19814376 (7) Hypothyroidism Current Visit: Yes Status: Acute Code(s): E03.9 - HYPOTHYROIDISM, UNSPECIFIED SNOMED Code(s): 10841760 (8) Hyperlipidemia Current Visit: Yes Status: Acute Code(s): E78.5 - HYPERLIPIDEMIA, UNSPECIFIED SNOMED Code(s): 50431786 Plan: I discussed the case with Dr. Arroyo via phone. The patient will be set up for an outpatient colonoscopy. Discussed the procedure, risk and complications with patient and his . Further recommendations will be based on colonoscopy findings. Questions were encouraged and answered.
== END 2020-12-17 15:41 | disposition home or self-care (01) ==
LOC: EC 17:43 → 6NMEDSUR 20:52
PROVIDERS: ADMIT Family Medicine; ATTEND Family Medicine
DX: R07.89 Other chest pain (principal); R10.9 Unspecified abdominal pain; R93.3 Abnormal findings on diagnostic imaging of other parts of digestive tract; R11.0 Nausea; K59.00 Constipation, unspecified; E78.5 Hyperlipidemia, unspecified; F06.4 Anxiety disorder due to known physiological condition; F33.9 Major depressive disorder, recurrent, unspecified; E03.9 Hypothyroidism, unspecified; F41.1 Generalized anxiety disorder; H91.90 Unspecified hearing loss, unspecified ear; I10 Essential (primary) hypertension; I25.10 Atherosclerotic heart disease of native coronary artery without angina pectoris; J44.9 Chronic obstructive pulmonary disease, unspecified; J45.20 Mild intermittent asthma, uncomplicated; K57.30 Diverticulosis of large intestine without perforation or abscess without bleeding; M35.3 Polymyalgia rheumatica; N43.3 Hydrocele, unspecified; Z79.82 Long term (current) use of aspirin; Z79.890 Hormone replacement therapy; Z79.899 Other long term (current) drug therapy; Z86.73 Personal history of transient ischemic attack (TIA), and cerebral infarction without residual deficits
CPT/HCPCS: 93306; 78452; 93017; 99285; 96376; 96372 ×2; 96375; 96374; 36415; 94640 ×4; 93005; 80061; 80053; 80048; 82378; 82150; 83690; 83735; 84484 ×2; 85025 ×2; 85610; 85730; 71046; 74018; 74177; G0378 ×3; A9500; J1100; J2405 ×2; Q9967; J1644 ×2

== ENCOUNTER 2020-12-29 07:30 | Inpatient (IN) | payer MEDICARE ==
[2020-12-29] MEDS ORDERED: SODIUM CHLORIDE 0.9% 500 ML 500 ML IV STA (08:06)
--- NOTE | 2020-12-29 08:28 | ED ---
General Adult HPI - General Chief complaint: Abdominal Pain Stated complaint: abd pain, nausea, chest tightness Time Seen by Provider: 12/29/20 07:40 Source: patient, RN notes reviewed, old records reviewed Mode of arrival: wheelchair Limitations: no limitations - History of Present Illness Initial comments: 75-year-old male presenting for evaluation of epigastric abdominal pain. Patient has some associated nausea without vomiting. No fever. He had a colonoscopy approximately 2 weeks ago. He was told at that time that he would need an evaluation of his gallbladder. He denies current chest pain. States that he did have some dark stools recently but his had this in the past. - Related Data Home Medications Medication Instructions Recorded Confirmed Hydroxychloroquine Sulfate 200 mg PO BID 12/09/18 12/29/20 [Plaquenil] Montelukast [Singulair] 10 mg PO AC-LUNCH 01/07/19 12/29/20 Aspirin 325 mg PO AC-LUNCH 07/04/20 12/29/20 Levothyroxine Sodium [Euthyrox] 100 mcg PO AC-BRKFST 07/04/20 12/29/20 Albuterol Sulfate [Proair Hfa] 2 puff INHALATION RT-BID 07/09/20 12/29/20 amLODIPine [Norvasc] 5 mg PO DAILY 07/09/20 12/29/20 ALPRAZolam [Xanax] 0.5 mg PO BID 12/15/20 12/29/20 Acetaminophen Tab [Tylenol] 500 mg PO TID 12/15/20 12/29/20 Atorvastatin [Lipitor] 20 mg PO AC-LUNCH 12/15/20 12/29/20 Fluticasone/Salmeterol [Advair 1 puff INHALATION RT-BID 12/15/20 12/29/20 500-50 Diskus] Gabapentin 300 mg PO HS 12/15/20 12/29/20 Ipratropium-Albuterol Nebulize 3 ml INHALATION RT-QID PRN 12/15/20 12/29/20 [Duoneb 0.5 mg-3 mg/3 ml Soln] Sertraline HCl [Zoloft] 25 mg PO DAILY 12/15/20 12/29/20 Umeclidinium [place] [Incruse 1 puff INHALATION RT-DAILY@1200 12/15/20 12/29/20 Ellipta] Previous Rx's Medication Instructions Recorded Losartan [Cozaar] 25 mg PO DAILY #30 tab 05/09/20 Allergies Allergy/AdvReac Type Severity Reaction Status Date / Time No Known Allergies Allergy Verified 12/15/20 21:00 Review of Systems ROS Statement: Those systems with pertinent positive or pertinent negative responses have been documented in the HPI. ROS Other: All systems not noted in ROS Statement are negative. Past Medical History Past Medical History: Asthma, CVA/TIA, Hearing Disorder / Deafness, Hyperlipidemia, Hypertension, Prostate Disorder Additional Past Medical History / Comment(s): Hx. "urination is slow" Dx. bronchitis,TIA in april 2020. arthritis back, History of Any Multi-Drug Resistant Organisms: None Reported Past Surgical History: Orthopedic Surgery Additional Past Surgical History / Comment(s): Hx. Left knee arthroscopic, urethral surgery Past Anesthesia/Blood Transfusion Reactions: No Reported Reaction Past Psychological History: Depression Smoking Status: Never smoker Past Alcohol Use History: None Reported Past Drug Use History: None Reported - Past Family History Father History Unknown: Yes General Exam Limitations: no limitations General appearance: alert, in no apparent distress Head exam: Present: atraumatic, normocephalic Eye exam: Present: normal appearance, PERRL ENT exam: Present: normal exam Neck exam: Present: normal inspection. Absent: tenderness, meningismus Respiratory exam: Present: normal lung sounds bilaterally. Absent: respiratory distress, wheezes Cardiovascular Exam: Present: regular rate, normal rhythm GI/Abdominal exam: Present: soft, tenderness (Mild epigastric). Absent: distended Extremities exam: Present: normal inspection, normal capillary refill. Absent: pedal edema Neurological exam: Present: alert, oriented X3, CN II-XII intact. Absent: motor sensory deficit Psychiatric exam: Present: normal affect, normal mood Skin exam: Present: warm, dry, intact. Absent: cyanosis, diaphoretic Course Vital Signs 12/29/20 07:35 Temperature 98.2 F Pulse Rate 83 Respiratory 18 Rate Blood Pressure 151/90 O2 Sat by Pulse 96 Oximetry EKG Findings - EKG Comments: EKG Findings:: EKG: Normal sinus rhythm, rate of 75 [place] interval 190, QRS duration 80, QTC 419, no ST segment elevation. Medical Decision Making - Medical Decision Making 75 presenting with epigastric pain, right upper quadrant pain, nausea. He was told by Dr. Carrera that he should have an outpatient ultrasound to rule out his gallbladder. Given the worsening of his symptoms ultrasound is obtained and does have a positive Man sign as well as cholelithiasis. There is concern that his abdominal pain may be related to a acute cholecystitis. I discussed case with Dr. Jay covering for Dr. Carrera. We will admit to Dr. Fields with surgery on consult. IV antibiotics have been initiated. - Lab Data Result diagrams: 12/29/20 08:15 12/29/20 08:15 Lab Results 12/29/20 12/29/20 12/29/20 Range/Units 08:15 08:15 08:15 WBC 11.4 H (3.8-10.6) k/uL RBC 5.08 (4.30-5.90) m/uL Hgb 16.3 (13.0-17.5) gm/dL Hct 45.4 (39.0-53.0) % MCV 89.4 (80.0-100.0) fL MCH 32.1 (25.0-35.0) pg MCHC 35.9 (31.0-37.0) g/dL RDW 11.9 (11.5-15.5) % Plt Count 232 (150-450) k/uL MPV 7.1 Neutrophils % 85 % Lymphocytes % 8 % Monocytes % 5 % Eosinophils % 1 % Basophils % 0 % Neutrophils # 9.7 H (1.3-7.7) k/uL Lymphocytes # 0.9 L (1.0-4.8) k/uL Monocytes # 0.5 (0-1.0) k/uL Eosinophils # 0.1 (0-0.7) k/uL Basophils # 0.0 (0-0.2) k/uL PT 10.7 (9.0-12.0) sec INR 1.0 (<1.2) APTT 22.4 (22.0-30.0) sec Sodium (137-145) mmol/L Potassium (3.5-5.1) mmol/L Chloride (98-107) mmol/L Carbon Dioxide (22-30) mmol/L Anion Gap mmol/L BUN (9-20) mg/dL Creatinine (0.66-1.25) mg/dL Est GFR (CKD-EPI)AfAm (>60 ml/min/1.73 sqM) Est GFR (CKD-EPI)NonAf (>60 ml/min/1.73 sqM) Glucose (74-99) mg/dL POC Glucose (mg/dL) (75-99) mg/dL POC Glu Instrument Lens Generator ID Calcium (8.4-10.2) mg/dL Total Bilirubin (0.2-1.3) mg/dL AST (17-59) U/L ALT (4-49) U/L Alkaline Phosphatase (38-126) U/L Troponin I (0.000-0.034) ng/mL Total Protein (6.3-8.2) g/dL Albumin (3.5-5.0) g/dL Amylase (30-110) U/L Lipase (23-300) U/L Urine Color Yellow Urine Appearance Clear (Clear) Urine pH 7.0 (5.0-8.0) Ur Specific [place] 1.015 (1.001-1.035) Urine Protein Trace H (Negative) Urine Glucose (UA) Negative (Negative) Urine Ketones Negative (Negative) Urine Blood Negative (Negative) Urine Nitrite Negative (Negative) Urine Bilirubin Negative (Negative) Urine Urobilinogen <2.0 (<2.0) mg/dL Ur Leukocyte Esterase Negative (Negative) 12/29/20 12/29/20 12/29/20 Range/Units 08:15 08:15 09:47 WBC (3.8-10.6) k/uL RBC (4.30-5.90) m/uL Hgb (13.0-17.5) gm/dL Hct (39.0-53.0) % MCV (80.0-100.0) fL MCH (25.0-35.0) pg MCHC (31.0-37.0) g/dL RDW (11.5-15.5) % Plt Count (150-450) k/uL MPV Neutrophils % % Lymphocytes % % Monocytes % % Eosinophils % % Basophils % % Neutrophils # (1.3-7.7) k/uL Lymphocytes # (1.0-4.8) k/uL Monocytes # (0-1.0) k/uL Eosinophils # (0-0.7) k/uL Basophils # (0-0.2) k/uL PT (9.0-12.0) sec INR (<1.2) APTT (22.0-30.0) sec Sodium 140 (137-145) mmol/L Potassium 4.3 (3.5-5.1) mmol/L Chloride 110 H (98-107) mmol/L Carbon Dioxide 18 L (22-30) mmol/L Anion Gap 12 mmol/L BUN 12 (9-20) mg/dL Creatinine 1.05 (0.66-1.25) mg/dL Est GFR (CKD-EPI)AfAm 80 (>60 ml/min/1.73 sqM) Est GFR (CKD-EPI)NonAf 69 (>60 ml/min/1.73 sqM) Glucose 124 H (74-99) mg/dL POC Glucose (mg/dL) 111 H (75-99) mg/dL POC Glu Instrument Lens Generator ID Jaquelin Renee Calcium 10.2 (8.4-10.2) mg/dL Total Bilirubin 1.1 (0.2-1.3) mg/dL AST 24 (17-59) U/L ALT 26 (4-49) U/L Alkaline Phosphatase 112 (38-126) U/L Troponin I <0.012 (0.000-0.034) ng/mL Total Protein 6.5 (6.3-8.2) g/dL Albumin 4.3 (3.5-5.0) g/dL Amylase 53 (30-110) U/L Lipase 126 (23-300) U/L Urine Color Urine Appearance (Clear) Urine pH (5.0-8.0) Ur Specific [place] (1.001-1.035) Urine Protein (Negative) Urine Glucose (UA) (Negative) Urine Ketones (Negative) Urine Blood (Negative) Urine Nitrite (Negative) Urine Bilirubin (Negative) Urine Urobilinogen (<2.0) mg/dL Ur Leukocyte Esterase (Negative) Disposition Clinical Impression: Abdominal pain Disposition: ADMITTED IP TO THIS HOSP Condition: Stable Is patient prescribed a controlled substance at d/c from ED?: No Referrals: Ronald Tamez MD [Primary Care Provider] - 1-2 days Decision to Admit Reason: Admit from EC Decision Date: 12/29/20 Decision Time: 10:19
[2020-12-29] MEDS ORDERED: ONDANSETRON 4 MG/2 ML VIAL IVP STA (08:37)
[2020-12-29 08:41] LABS: Basophils % (A) 0 %; Eosinophils # (A) 0.1 k/uL (0-0.7); Eosinophils % (A) 1 %; HCT 45.4 % (39.0-53.0); HGB 16.3 gm/dL (13.0-17.5); Lymphocytes # (A) 0.9 k/uL (1.0-4.8); Lymphocytes % (A) 8 %; MCH 32.1 pg (25.0-35.0); MCHC 35.9 g/dL (31.0-37.0); MCV 89.4 fL (80.0-100.0); Mean Platelet Volume 7.1; Monocytes # (A) 0.5 k/uL (0-1.0); Monocytes % (A) 5 %; Neutrophils # (A) 9.7 k/uL (1.3-7.7); Neutrophils % (A) 85 %; Platelet Count 232 k/uL (150-450); RBC 5.08 m/uL (4.30-5.90); RDW 11.9 % (11.5-15.5); WBC 11.4 k/uL (3.8-10.6)
[2020-12-29 08:46] LABS: Albumin 4.3 g/dL (3.5-5.0); Calcium 10.2 mg/dL (8.4-10.2); Potassium 4.3 mmol/L (3.5-5.1); Total Bilirubin 1.1 mg/dL (0.2-1.3); Total Protein 6.5 g/dL (6.3-8.2)
[2020-12-29 08:50] LABS: Appearance,Urine Clear (Clear); Bilirubin,Urine Negative (Negative); Blood,Urine Negative (Negative); Color,Urine Yellow; Glucose,Urine (UA) Negative (Negative); Ketones,Urine Negative (Negative); Leukocyte Esterase,Urine Negative (Negative); Nitrite,Urine Negative (Negative); Protein,Urine Trace (Negative); Specific Gravity,Urine 1.015 (1.001-1.035); Urobilinogen,Urine <2.0 mg/dL (<2.0)
[2020-12-29 08:56] LABS: Partial Thromboplastin Time 22.4 sec (22.0-30.0); Prothrombin Time 10.7 sec (9.0-12.0)
--- NOTE | 2020-12-29 09:26 | XR ---
EXAMINATION TYPE: XR KUB DATE OF EXAM: 12/29/2020 COMPARISON: 12/16/2020 INDICATION: Abdomen pain with nausea TECHNIQUE: Single view abdomen upright view FINDINGS: There is elevation of the right diaphragm. Normal colonic bowel gas is present. Some fecal debris is in the ascending colon. No suspicious air-fluid levels or differential air-fluid levels are present. No free air is evident. Psoas margins are normal. No organomegaly is present. IMPRESSION: 1. Unremarkable Abdomen
--- NOTE | 2020-12-29 09:28 | US ---
EXAMINATION TYPE: US gallbladder DATE OF EXAM: 12/29/2020 COMPARISON: NONE CLINICAL HISTORY: ab pain. Nausea, abd and chest pain EXAM MEASUREMENTS: Liver Length: 16.4 cm Gallbladder Wall: 0.2 cm CBD: 0.4 cm Right Kidney: 10.6 x 4.3 x 4.8 cm bowel gas limits exam Pancreas: wnl Liver: intercostal imaging due to bowel gas, wnl Gallbladder: mobile debris noted with some possible small stones, no wall thickening Evidence for sonographic Man's sign: YES CBD: wnl Right Kidney: wnl IMPRESSION: 1. Hepatomegaly 2. Cholelithiasis. There is a positive Man's sign. Correlate for acute cholecystitis.
[2020-12-29] MEDS ORDERED: cefTRIAXone IN SWFI 1,000 MG/10 ML SYRINGE IVP STA (09:39)
[2020-12-29] MEDS ORDERED: METOCLOPRAMIDE 5 MG/ML 2 ML VIAL IVP STA (09:45)
[2020-12-29 09:50] LABS: Glucose,Whole Blood 111 mg/dL (75-99)
[2020-12-29] MEDS ORDERED: HYDROmorphone 0.5 MG/0.5 ML SYRINGE IVP PRN ×2 (09:54→10:13)
[2020-12-29] MEDS ORDERED: ACETAMINOPHEN TAB 325 MG TAB PO PRN (10:13)
[2020-12-29] MEDS ORDERED: NALOXONE 0.4 MG/ML 1 ML VIAL IV PRN (10:13)
[2020-12-29] MEDS ORDERED: metroNIDAZOLE-NS PMX 500 MG in SALINE 1 100ML.BAG IVPB STA (10:13)
[2020-12-29] MEDS: SODIUM CHLORIDE 0.9% 1,000 ML IV SCH ×2 (11:03→20:10)
[2020-12-29] MEDS ORDERED: IPRATROPIUM-ALBUTEROL 3 ML NEB INHALATION PRN (12:12)
--- NOTE | 2020-12-29 12:18 | P.HPIM ---
History of Present Illness H&P Date: 12/29/20 History of present illness: This is a 75-year-old male who presented to the emergency department for epigastric abdominal pain. This is a patient of Dr. Brown'lora with a past medical history of hypertension, hyperlipidemia, TIA, asthma, hypothyroidism, and polymyalgia rheumatica. the epigastric pain is associated with nausea without vomiting. No fever. Patient underwent a: Yosef approximately 2 weeks ago. He is followed with Dr. Carrera. Dr. Carrera told the patient that he would need to have an evaluation of his gallbladder. Patient is denying any current chest pain. He does have some dark stools however this was in the past and nothing recently. Patient was previously hospitalized approximately 2 weeks ago for atypical chest pain. At that time patient was co mplaining of intermittent chest pain and abdominal discomfort with bloating and nausea. He reported that the abdominal pain would get better after eating. He did have a change in bowel movement over the last few weeks. Patient did have occasional shortness of breath at that time. He was evaluated CT of the abdomen showed thickening of the cecum during his last admission. Ultrasound of the gallbladder shows hepatomegaly, cholelithiasis with positive Man's sign. At this time patient is found resting comfortably in bed with the at the bedside. Continues to have some abdominal discomfort however it has improved with the pain control. Patient denies any chest pain or shortness of breath at this time. Consult for Dr. Carrera to evaluate for possible cholecystectomy. Review Of Systems: Constitutional: No fever, no chills, no night sweats. No weight change. No weakness, fatigue or lethargy. No daytime sleepiness. EENT: No headache. No blurred vision or double vision, no loss of vision. No loss of Hearing, no ringing in the ears, no dizziness. No nasal drainage or congestion. No epistaxis. No sore throat. Lungs: No shortness of breath, cough, no sputum production. No wheezing. Cardiovascular: No chest pain, no lower extremity edema. No palpitations. No paroxysmal nocturnal dyspnea. No orthopnea. No lightheadedness or dizziness. No syncopal episodes. Abdominal: Reports abdominal discomfort. Reports nausea, no vomiting. no diarrhea. No constipation. No bloody or tarry stools. no loss of appetite. Genitourinary: No dysuria, increased frequency, urgency. No urinary retention. Musculoskeletal: No myalgias. No muscle weakness, no gait dysfunction, no frequent falls. No back pain. No neck pain. Integumentary: No wounds, no lesions. No rash or pruritus. No unusual bruising. No change in hair or nails. Neurologic: No aphasia. No facial droop. No change in mentation. No head injury. No headache. No paralysis. No paresthesia. Psychiatric: No depression. No anxiety. No mood swings. Endocrine: No abnormal blood sugars. No weight change. No excessive sweating or thirst. Social history: Lifelong nonsmoker, denies EtOH or recreational drug use. She is retired. Physical examination General Appearance: Alert, cooperative, no distress, appears stated age. Neck HEENT: Supple, no lymphadenopathy, no thyroid enlargement, no carotid bruits. Lungs: Clear to auscultation without crackles or wheezes no rhonchi, no deformity. Chest Wall: Chest wall normal expansion with deep inspiration no tenderness and no deformity was found on exam, no costochondral pain or discomfort. Heart: Regular rate and rhythm, S1, S2 normal, no murmur, rub or gallop. Back: Symmetric, no curvature, ROM normal, no CVA tenderness. Abdomen: Soft, non-tender, no rebound or rigidity, no hepatosplenomegaly. Extremities: Extremities normal, atraumatic, no cyanosis or edema. Pulses: 2+ and symmetric. Skin: Skin color, texture, tugor normal, no rashes or lesions. Neurologic: Alert oriented x3 cranial nerves II through XII intact, no motor deficit, no abnormal balance or gait Assessment and plan 1. Acute abdominal pain with nausea no vomiting: Ultrasound of gallbladder noted above, consult surgery, continue with pain control, 2. Cholelithiasis possible Cholecystitis. Consult Dr. Carrera, ultrasound positive cholelithiasis with positive Man sign, as noted above 3. Hypertension: Norvasc 5 mg by mouth daily, Cozaar 25 mg by mouth daily 4. Hyperlipidemia; Lipitor 20 mg by mouth at lunch 5. History of CVA/TIA, stable. 6. Arthritis: Continue plaquenil, Alupent 10 300 mg by mouth at bedtime 7. Hypothyroidism: Levothyroxine 100 MCG's by mouth before breakfast 8. Depression: Continue Zoloft 25 mg by mouth daily, Xanax 0.5 mg by mouth twice a day 9. Asthma: Continue DuoNeb, Singulair, pro-air, Advair 10. DVT prophylaxis: Protonix 11. GI prophylaxis: Subcu CODE STATUS: Full code Patient be admitted to the hospital minimum 2 nights day. Discharge plan: To be determined more than likely home Impression and plan of care have been directed as dictated by the signing physician. Amna Way nurse practitioner acting as scribe for signing physician. Past Medical History Past Medical History: Asthma, CVA/TIA, Hearing Disorder / Deafness, Hyperlipidemia, Hypertension, Prostate Disorder Additional Past Medical History / Comment(s): Hx. "urination is slow" Dx. bronchitis,TIA in april 2020. arthritis back, History of Any Multi-Drug Resistant Organisms: None Reported Past Surgical History: Orthopedic Surgery Additional Past Surgical History / Comment(s): Hx. Left knee arthroscopic, urethral surgery Past Anesthesia/Blood Transfusion Reactions: No Reported Reaction Past Psychological History: Depression Smoking Status: Never smoker Past Alcohol Use History: None Reported Past Drug Use History: None Reported - Past Family History Father History Unknown: Yes Family Medical History: CVA/TIA Medications and Allergies Home Medications Medication Instructions Recorded Confirmed Type Hydroxychloroquine Sulfate 200 mg PO BID 12/09/18 12/29/20 History [Plaquenil] Montelukast [Singulair] 10 mg PO AC-LUNCH 01/07/19 12/29/20 History Losartan [Cozaar] 25 mg PO DAILY #30 tab 05/09/20 12/29/20 Rx Aspirin 325 mg PO AC-LUNCH 07/04/20 12/29/20 History Levothyroxine Sodium [Euthyrox] 100 mcg PO AC-BRKFST 07/04/20 12/29/20 History Albuterol Sulfate [Proair Hfa] 2 puff INHALATION RT-BID 07/09/20 12/29/20 Hist ory amLODIPine [Norvasc] 5 mg PO DAILY 07/09/20 12/29/20 History ALPRAZolam [Xanax] 0.5 mg PO BID 12/15/20 12/29/20 History Acetaminophen Tab [Tylenol] 500 mg PO TID 12/15/20 12/29/20 History Atorvastatin [Lipitor] 20 mg PO AC-LUNCH 12/15/20 12/29/20 History Fluticasone/Salmeterol [Advair 1 puff INHALATION RT-BID 12/15/20 12/29/20 History 500-50 Diskus] Gabapentin 300 mg PO HS 12/15/20 12/29/20 History Ipratropium-Albuterol Nebulize 3 ml INHALATION RT-QID PRN 12/15/20 12/29/20 History [Duoneb 0.5 mg-3 mg/3 ml Soln] Sertraline HCl [Zoloft] 25 mg PO DAILY 12/15/20 12/29/20 History Umeclidinium [place] [Incruse 1 puff INHALATION RT-DAILY@1200 12/15/20 12/29/20 History Ellipta] Allergies Allergy/AdvReac Type Severity Reaction Status Date / Time No Known Allergies Allergy Verified 12/15/20 21:00 Physical Exam Vitals: Vital Signs Temp Pulse Pulse Resp BP BP Pulse Ox 12/29/20 11:22 98.1 F 80 18 152/75 97 12/29/20 11:18 98.2 F 87 18 144/88 96 12/29/20 10:51 87 18 144/88 96 12/29/20 07:35 98.2 F 83 18 151/90 96 Intake and Output 12/28/20 12/29/20 12/29/20 22:59 06:59 14:59 Other: Weight 88.451 kg Results CBC & Chem 7: 12/29/20 08:15 12/29/20 08:15 Labs: Abnormal Lab Results - Last 24 Hours (Table) 12/29/20 12/29/20 12/29/20 Range/Units 08:15 08:15 08:15 WBC 11.4 H (3.8-10.6) k/uL Neutrophils # 9.7 H (1.3-7.7) k/uL Lymphocytes # 0.9 L (1.0-4.8) k/uL Chloride 110 H (98-107) mmol/L Carbon Dioxide 18 L (22-30) mmol/L Glucose 124 H (74-99) mg/dL POC Glucose (mg/dL) (75-99) mg/dL Urine Protein Trace H (Negative) 12/29/20 Range/Units 09:47 WBC (3.8-10.6) k/uL Neutrophils # (1.3-7.7) k/uL Lymphocytes # (1.0-4.8) k/uL Chloride (98-107) mmol/L Carbon Dioxide (22-30) mmol/L Glucose (74-99) mg/dL POC Glucose (mg/dL) 111 H (75-99) mg/dL Urine Protein (Negative) Thrombosis Risk Factor Assmnt - Choose All That Apply Any of the Below Risk Factors Present?: Yes Each Factor Represents 1 point: Obesity (BMI >25) Other Risk Factors: Yes Each Risk Factor Represents 3 Points: Age 75 years or older Thrombosis Risk Factor Assessment Total Risk Factor Score: 4 Thrombosis Risk Factor Assessment Level: Moderate Risk
[2020-12-29] MEDS ORDERED: ASPIRIN 325 MG TAB PO SCH (12:30)
[2020-12-29] MEDS: HYDROXYCHLOROQUINE SULFATE 200 MG TAB PO SCH ×2 (12:47→20:09)
[2020-12-29] MEDS: MONTELUKAST 10 MG TAB PO SCH (12:48)
[2020-12-29] MEDS: ATORVASTATIN 20 MG TAB PO SCH (12:48)
[2020-12-29] MEDS: amLODIPine 5 MG TAB PO SCH (12:48)
--- NOTE | 2020-12-29 13:34 | P.GSCN ---
History of Present Illness Consult date: 12/29/20 History of present illness: 75yo Male presents to the ED with complaints of nausea/bloating and upper abdominal discomfort. He has had a recent admission fro atypical chest pain and has had a cardiology workup. Dr. Carrera did evaluate the patient at that time and did perform a colonoscopy with no significant acute findings. He was supposed to have gallbladder workup as an outpatient. He did have US performed in the ED today and was found to have small cholelithiasis and positive Man's sign. He does not have wall thickening or pericholecystic fluid. Currently on exam his abdominal pain is somewhat improved. He states that he did have a TIA/CVA in April of 2020 and was on P{lavix for a short period of time and is currently on full dose aspirin. He states he last took this yesterday. Review of Systems All systems: negative Past Medical History Past Medical History: Asthma, CVA/TIA, Hearing Disorder / Deafness, Hyperlipidemia, Hypertension, Prostate Disorder Additional Past Medical History / Comment(s): Hx. "urination is slow" Dx. bronchitis,TIA in april 2020. arthritis back, History of Any Multi-Drug Resistant Organisms: None Reported Past Surgical History: Orthopedic Surgery Additional Past Surgical History / Comment(s): Hx. Left knee arthroscopic, urethral surgery Past Anesthesia/Blood Transfusion Reactions: No Reported Reaction Past Psychological History: Depression Smoking Status: Never smoker Past Alcohol Use History: None Reported Past Drug Use History: None Reported - Past Family History Father History Unknown: Yes Family Medical History: CVA/TIA Medications and Allergies Home Medications Medication Instructions Recorded Confirmed Type Hydroxychloroquine Sulfate 200 mg PO BID 12/09/18 12/29/20 History [Plaquenil] Montelukast [Singulair] 10 mg PO AC-LUNCH 01/07/19 12/29/20 History Losartan [Cozaar] 25 mg PO DAILY #30 tab 05/09/20 12/29/20 Rx Aspirin 325 mg PO AC-LUNCH 07/04/20 12/29/20 History Levothyroxine Sodium [Euthyrox] 100 mcg PO AC-BRKFST 07/04/20 12/29/20 History Albuterol Sulfate [Proair Hfa] 2 puff INHALATION RT-BID 07/09/20 12/29/20 History amLODIPine [Norvasc] 5 mg PO DAILY 07/09/20 12/29/20 History ALPRAZolam [Xanax] 0.5 mg PO BID 12/15/20 12/29/20 History Acetaminophen Tab [Tylenol] 500 mg PO TID 12/15/20 12/29/20 History Atorvastatin [Lipitor] 20 mg PO AC-LUNCH 12/15/20 12/29/20 History Fluticasone/Salmeterol [Advair 1 puff INHALATION RT-BID 12/15/20 12/29/20 History 500-50 Diskus] Gabapentin 300 mg PO HS 12/15/20 12/29/20 History Ipratropium-Albuterol Nebulize 3 ml INHALATION RT-QID PRN 12/15/20 12/29/20 History [Duoneb 0.5 mg-3 mg/3 ml Soln] Sertraline HCl [Zoloft] 25 mg PO DAILY 12/15/20 12/29/20 History Umeclidinium [place] [Incruse 1 puff INHALATION RT-DAILY@1200 12/15/20 12/29/20 History Ellipta] Allergies Allergy/AdvReac Type Severity Reaction Status Date / Time No Known Allergies Allergy Verified 12/15/20 21:00 Surgical - Exam Osteopathic Statement: *. No significant issues noted on an osteopathic structural exam other than those noted in the History and Physical/Consult. Vital Signs Temp Pulse Resp BP Pulse Ox 98.2 F 83 18 151/90 96 12/29/20 07:35 12/29/20 07:35 12/29/20 07:35 12/29/20 07:35 12/29/20 07:35 - General well nourished, no distress - Eyes normal ocular movement - Neck trachea midline - Respiratory normal respiratory effort - Abdomen soft, some tenderness to palpation in the RUQ, nondistended, no rebound, no guarding - Psychiatric oriented to time, oriented to person, oriented to place Results - Labs 12/29/20 08:15 12/29/20 08:15 Abnormal Lab Results - Last 24 Hours (Table) 12/29/20 12/29/20 12/29/20 Range/Units 08:15 08:15 08:15 WBC 11.4 H (3.8-10.6) k/uL Neutrophils # 9.7 H (1.3-7.7) k/uL Lymphocytes # 0.9 L (1.0-4.8) k/uL Chloride 110 H (98-107) mmol/L Carbon Dioxide 18 L (22-30) mmol/L Glucose 124 H (74-99) mg/dL POC Glucose (mg/dL) (75-99) mg/dL Urine Protein Trace H (Negative) 12/29/20 Range/Units 09:47 WBC (3.8-10.6) k/uL Neutrophils # (1.3-7.7) k/uL Lymphocytes # (1.0-4.8) k/uL Chloride (98-107) mmol/L Carbon Dioxide (22-30) mmol/L Glucose (74-99) mg/dL POC Glucose (mg/dL) 111 H (75-99) mg/dL Urine Protein (Negative) Diabetes panel 12/29/20 Range/Units 08:15 Sodium 140 (137-145) mmol/L Potassium 4.3 (3.5-5.1) mmol/L Chloride 110 H (98-107) mmol/L Carbon Dioxide 18 L (22-30) mmol/L BUN 12 (9-20) mg/dL Creatinine 1.05 (0.66-1.25) mg/dL Glucose 124 H (74-99) mg/dL Calcium 10.2 (8.4-10.2) mg/dL AST 24 (17-59) U/L ALT 26 (4-49) U/L Alkaline Phosphatase 112 (38-126) U/L Total Protein 6.5 (6.3-8.2) g/dL Albumin 4.3 (3.5-5.0) g/dL Calcium panel 12/29/20 Range/Units 08:15 Calcium 10.2 (8.4-10.2) mg/dL Albumin 4.3 (3.5-5.0) g/dL Pituitary panel 12/29/20 Range/Units 08:15 Sodium 140 (137-145) mmol/L Potassium 4.3 (3.5-5.1) mmol/L Chloride 110 H (98-107) mmol/L Carbon Dioxide 18 L (22-30) mmol/L BUN 12 (9-20) mg/dL Creatinine 1.05 (0.66-1.25) mg/dL Glucose 124 H (74-99) mg/dL Calcium 10.2 (8.4-10.2) mg/dL Adrenal panel 12/29/20 Range/Units 08:15 Sodium 140 (137-145) mmol/L Potassium 4.3 (3.5-5.1) mmol/L Chloride 110 H (98-107) mmol/L Carbon Dioxide 18 L (22-30) mmol/L BUN 12 (9-20) mg/dL Creatinine 1.05 (0.66-1.25) mg/dL Glucose 124 H (74-99) mg/dL Calcium 10.2 (8.4-10.2) mg/dL Total Bilirubin 1.1 (0.2-1.3) mg/dL AST 24 (17-59) U/L ALT 26 (4-49) U/L Alkaline Phosphatase 112 (38-126) U/L Total Protein 6.5 (6.3-8.2) g/dL Albumin 4.3 (3.5-5.0) g/dL Assessment and Plan Plan: 75yo male with concern for acute cholecystitis. He has been started on IV abx. He currently is being followed by cardiology with a monitor in place for 30 days. He is also on full dose aspirin because of hx of TIA/CVA in April 2020. We will obtain cardiology risk stratification prior to surgical planning and hold the full dose aspirin for a few days. Will continue to follow and make recommendations based on patient's clinical progress.
[2020-12-29] MEDS: ONDANSETRON 4 MG/2 ML VIAL IVP PRN ×2 (14:22→21:18)
[2020-12-29] MEDS: ALBUTEROL NEBULIZED 2.5 MG/3 ML INHALATION SCH ×2 (16:48→20:42)
[2020-12-29] MEDS: SYMBICORT 160-4.5 MCG INHALER INHALATION SCH (16:56)
[2020-12-29] MEDS: HEPARIN SODIUM,PORCINE/PF 5,000 UNIT/0.5 ML SYRINGE SQ SCH (20:09)
[2020-12-29] MEDS: GABAPENTIN 300 MG CAP PO SCH (20:09)
[2020-12-29] MEDS: ALPRAZolam 0.5 MG TAB PO SCH (20:09)
[2020-12-30] MEDS: SODIUM CHLORIDE 0.9% 1,000 ML IV SCH ×3 (03:07→19:04)
[2020-12-30] MEDS: LEVOTHYROXINE 100 MCG TAB PO SCH (07:18)
[2020-12-30] MEDS: ONDANSETRON 4 MG/2 ML VIAL IVP PRN ×3 (07:19→23:26)
[2020-12-30] MEDS: SYMBICORT 160-4.5 MCG INHALER INHALATION SCH ×2 (08:04→20:41)
[2020-12-30] MEDS: ALBUTEROL NEBULIZED 2.5 MG/3 ML INHALATION SCH ×2 (08:04→20:41)
[2020-12-30] MEDS: ALPRAZolam 0.5 MG TAB PO SCH ×2 (08:12→19:31)
[2020-12-30] MEDS: LOSARTAN 25 MG TAB PO SCH (08:12)
[2020-12-30] MEDS: amLODIPine 5 MG TAB PO SCH (08:12)
[2020-12-30] MEDS: HYDROXYCHLOROQUINE SULFATE 200 MG TAB PO SCH ×2 (08:12→19:31)
[2020-12-30] MEDS: PANTOPRAZOLE 40 MG/10 ML VIAL IVP SCH (08:12)
[2020-12-30] MEDS: HEPARIN SODIUM,PORCINE/PF 5,000 UNIT/0.5 ML SYRINGE SQ SCH ×2 (08:12→19:31)
[2020-12-30] MEDS: SERTRALINE 25 MG TAB PO SCH (08:12)
--- NOTE | 2020-12-30 11:02 | P.PN ---
Subjective Progress Note Date: 12/30/20 Patient seen and examined at bedside. Complains of some abdominal bloating that has improved. Denies nausea or vomiting. Objective - Vital Signs Vital signs: Vital Signs Temp 98.1 F 12/30/20 07:00 Pulse 84 12/30/20 08:18 Resp 18 12/30/20 07:00 BP 139/87 12/30/20 07:00 Pulse Ox 95 12/30/20 07:00 Intake & Output 12/29/20 12/30/20 12/30/20 18:59 06:59 18:59 Intake Total 260 Balance 260 Weight 88.451 kg Intake: Intake, IV Titration 260 Amount Sodium Chloride 0.9% 1, 260 000 ml @ 130 mls/hr IV . Q7H42M [facility] Rx#:[id number] Other: Voiding Method Toilet Toilet # Voids 1 3 - Constitutional General appearance: Present: cooperative, no acute distress - Gastrointestinal Gastrointestinal Comment(s): Soft, nontender, mildly distended, no rebound, no guarding - Psychiatric Psychiatric: Present: A&O x's 3 - Labs CBC & Chem 7: 12/29/20 08:15 12/29/20 08:15 Assessment and Plan Plan: 75-year-old male with concern for cholecystitis. He is on IV antibiotics. Okay to continue clear liquid diet today and n.p.o. after midnight. Awaiting cardiac risk stratification. Continue to hold full dose aspirin. Case was discussed with Dr. Carrera, plan is for surgical intervention tomorrow, pending cardiology evaluation.
[2020-12-30] MEDS: MONTELUKAST 10 MG TAB PO SCH (11:52)
[2020-12-30] MEDS: ATORVASTATIN 20 MG TAB PO SCH (11:52)
--- NOTE | 2020-12-30 12:02 | P.PN ---
Subjective Progress Note Date: 12/30/20 History of present illness: This is a 75-year-old male who presented to the emergency department for epigastric abdominal pain. This is a patient of Dr. Brown'lora with a past medical history of hypertension, hyperlipidemia, TIA, asthma, hypothyroidism, and polymyalgia rheumatica. the epigastric pain is associated with nausea without vomiting. No fever. Patient underwent a: Yosef approximately 2 weeks ago. He is followed with Dr. Carrera. Dr. Carrera told the patient that he would need to have an evaluation of his gallbladder. Patient is denying any current chest pain. He does have some dark stools however this was in the past and nothing recently. Patient was previously hospitalized approximately 2 weeks ago for atypical chest pain. At that time patient was complaining of intermittent chest pain and abdominal discomfort with bloating and nausea. He reported that the abdominal pain would get better after eating. He did have a change in bowel movement over the last few weeks. Patient did have occasional shortness of breath at that time. He was evaluated CT of the abdomen showed thickening of the cecum during his last admission. Ultrasound of the gallbladder shows hepatomegaly, cholelithiasis with positive Man's sign. At this time patient is found resting comfortably in bed with the at the bedside. Continues to have some abdominal discomfort however it has improved with the pain control. Patient denies any chest pain or shortness of breath at this time. Consult for Dr. Carrera to evaluate for possible cholecystectomy. 12/30: Patient continues to have complaints of nausea and gas. Is being treated with Protonix and Zofran. Patient states that it helps a bit but he is still having episodes of it. He is scheduled to have surgery tomorrow. Clear liquids will be added for today. Continue with IV antibiotics. By mouth after midnigh t. Plan is for patient to have surgical intervention tomorrow pending cardiology evaluation. Patient remained afebrile, pulse rate 79, respirations 18, blood pressure 139/87 pulse ox a 95% on room air. Chen 11.4, potassium 4.3, BUN 12, creatinine 1.05. Review Of Systems: Constitutional: No fever, no chills, no night sweats. No weight change. No weakness, fatigue or lethargy. No daytime sleepiness. EENT: No headache. No blurred vision or double vision, no loss of vision. No loss of Hearing, no ringing in the ears, no dizziness. No nasal drainage or congestion. No epistaxis. No sore throat. Lungs: No shortness of breath, cough, no sputum production. No wheezing. Cardiovascular: No chest pain, no lower extremity edema. No palpitations. No paroxysmal nocturnal dyspnea. No orthopnea. No lightheadedness or dizziness. No syncopal episodes. Abdominal: Reports abdominal discomfort. Reports nausea, no vomiting. no diarrhea. No constipation. No bloody or tarry stools. no loss of appetite. Genitourinary: No dysuria, increased frequency, urgency. No urinary retention. Musculoskeletal: No myalgias. No muscle weakness, no gait dysfunction, no frequent falls. No back pain. No neck pain. Integumentary: No wounds, no lesions. No rash or pruritus. No unusual bruising. No change in hair or nails. Neurologic: No aphasia. No facial droop. No change in mentation. No head injury. No headache. No paralysis. No paresthesia. Psychiatric: No depression. No anxiety. No mood swings. Endocrine: No abnormal blood sugars. No weight change. No excessive sweating or thirst. Physical examination General Appearance: Alert, cooperative, no distress, appears stated age. Neck HEENT: Supple, no lymphadenopathy, no thyroid enlargement, no carotid bruits. Lungs: Clear to auscultation without crackles or wheezes no rhonchi, no deformity. Chest Wall: Chest wall normal expansion with deep inspiration no tenderness and no deformity was found on exam, no costochondral pain or discomfort. Heart: Regular rate and rhythm, S1, S2 normal, no murmur, rub or gallop. Back: Symmetric, no curvature, ROM normal, no CVA tenderness. Abdomen: Soft, non-tender, no rebound or rigidity, no hepatosplenomegaly. Extremities: Extremities normal, atraumatic, no cyanosis or edema. Pulses: 2+ and symmetric. Skin: Skin color, texture, tugor normal, no rashes or lesions. Neurologic: Alert oriented x3 cranial nerves II through XII intact, no motor deficit, no abnormal balance or gait Assessment and plan 1. Acute abdominal pain with nausea no vomiting: Ultrasound of gallbladder noted above, consult surgery - surgical intervention is scheduled for tomorrow once cleared by cardiology., continue with pain control, Levaquin 500 mg and Flagyl. 2. Cholelithiasis possible Cholecystitis. Consult Dr. Carrera pre-sheeted., ultrasound positive cholelithiasis with positive Man sign, as noted above, continue Zofran and Protonix. Advance to clear liquids today nothing by mouth after midnight. 3. Hypertension: Norvasc 5 mg by mouth daily, Cozaar 25 mg by mouth daily 4. Hyperlipidemia; Lipitor 20 mg by mouth at lunch 5. History of CVA/TIA, stable. 6. Arthritis: Continue plaquenil, Alupent 10 300 mg by mouth at bedtime 7. Hypothyroidism: Levothyroxine 100 MCG's by mouth before breakfast 8. Depression: Continue Zoloft 25 mg by mouth daily, Xanax 0.5 mg by mouth twice a day 9. Asthma: Continue DuoNeb, Singulair, pro-air, Advair 10. DVT prophylaxis: Protonix 11. GI prophylaxis: Subcu CODE STATUS: Full code Patient be admitted to the hospital minimum 2 nights day. Discharge plan: To be determined more than likely home Impression and plan of care have been directed as dictated by the signing physician. Amna Way nurse practitioner acting as scribe for signing physician. Objective - Vital Signs Vital signs: Vital Signs Temp 98.1 F 12/30/20 07:00 Pulse 84 12/30/20 08:18 Resp 18 12/30/20 07:00 BP 139/87 12/30/20 07:00 Pulse Ox 95 12/30/20 07:00 Intake & Output 12/29/20 12/30/20 12/30/20 18:59 06:59 18:59 Intake Total 260 Balance 260 Weight 88.451 kg Intake: Intake, IV Titration 260 Amount Sodium Chloride 0.9% 1, 260 000 ml @ 130 mls/hr IV . Q7H42M [facility] Rx#:[id number] Other: Voiding Method Toilet Toilet # Voids 1 3 - Labs CBC & Chem 7: 12/29/20 08:15 12/29/20 08:15
[2020-12-30] MEDS: LEVOFLOXACIN 500MG-D5W PMX 500 MG in DEXTROSE/WATER 1 100ML.BAG IVPB SCH (12:20)
--- NOTE | 2020-12-30 12:32 | P.CRDCN ---
History of Present Illness Consult date: 12/30/20 History of present illness: HISTORY OF PRESENT ILLNESS: This is a 75-year-old male with a past medical history significant for CVA, hypertension, hyperlipidemia, and anxiety. Patient follows in the office with Dr. Wallace. We have been asked to see the patient in consultation for cardiac clearance. Patient examined at the bedside. Patient presented to the hospital with abdominal pain. He was found to have acute cholecystitis. He is scheduled for surgical intervention tomorrow. The patient continues to report abdominal discomfort this morning. He denies any chest pain or pressure. He denies any shortness of breath. Patient states he is able to lay flat in bed without any dyspnea. Patient has been ambulating in his room without difficulty. He denies dizziness or lightheadedness. Patient does have an event monitor on [facility] Per patient, Dr. Wallace wanted to rule out a-fib due to history of TIA/CVA. Patient had an echocardiogram performed on 12/17/2020 revealing ejection fraction 55-60%. Mild tricuspid regurgitation. Lexiscan stress test performed on 12/17/2020 revealed large fixed defect along the inferior wall. Additional fixed defect along the mid to basal anterior wall that essentially done stress images. However the corresponding polar maps only show a small fixed defect within the mid anterior wall raising the possibility of extensive attenuation artifact on the SPECT images. We are unable to exclude areas of old infarct and some ra infarct ischemia along the mid anterior wall. EKG reveals sinus mechanism with no signs of acute ischemia Gallbladder ultrasound: Hepatomegaly. Cholelithiasis. Positive Man sign. Correlate for acute cholecystitis Laboratory data: WBC 11.4. Hemoglobin 16.3. Platelet count 232. Sodium 140. Potassium 4.3. BUN 12. Creatinine 1.05. Troponin negative 1. Current home cardiac medications include Norvasc 5 mg daily, losartan 25 mg daily, Lipitor 20mg daily, aspirin 325 mg daily REVIEW OF SYSTEMS: At the time of my exam: CONSTITUTIONAL: Denies fever or chills. HEENT: Denies blurred vision, vision changes, or eye pain. Denies hemoptysis CARDIOVASCULAR: Denies chest pain. Denies orthopnea. Denies PND. Denies palpitations RESPIRATORY: Denies shortness of breath. GASTROINTESTINAL: Denies abdominal pain. Denies nausea or vomiting. HEMATOLOGIC: Denies bleeding disorders. GENITOURINARY: Denies any blood in urine. SKIN: Denies pruitis. Denies rash. PHYSICAL EXAM: VITAL SIGNS: Reviewed. GENERAL: Well-developed in no acute distress. HEENT: Head is normocephalic. Pupils are equal, round. Sclerae anicteric. Mucous membranes of the mouth are moist. Neck supple. No JVD or thyromegaly LUNGS: Respirations even and unlabored. Lungs essentially clear to auscultation bilaterally. HEART: Regular rate and rhythm. S1 and S2 heard. ABDOMEN: Soft. Nondistended. Mild tenderness. EXTREMITIES: Normal range of motion. No clubbing or cyanosis. Peripheral pulses intact. No lower extremity edema NEUROLOGIC: Awake and alert. Oriented x 3. ASSESSMENT: Acute cholecystitis History of CVA, April 2020 Hypertension Hyperlipidemia PLAN: Patient has no complaints of angina. He is clinically euvolemic with no signs of heart failure Patient had recent Lexiscan stress test and echocardiogram performed last month There are no absolute contraindications from a cardiac standpoint to undergo surgical intervention Resume aspirin postoperatively when okay with general surgery Further recommendations pending patient course Nurse practitioner note has been reviewed by physician. Signing provider agrees with the documented findings, assessment, and plan of care. Past Medical History Past Medical History: Asthma, CVA/TIA, Hearing Disorder / Deafness, Hy perlipidemia, Hypertension, Prostate Disorder Additional Past Medical History / Comment(s): Hx. "urination is slow" Dx. bronchitis,TIA in april 2020. arthritis back, History of Any Multi-Drug Resistant Organisms: None Reported Past Surgical History: Orthopedic Surgery Additional Past Surgical History / Comment(s): Hx. Left knee arthroscopic, urethral surgery Past Anesthesia/Blood Transfusion Reactions: No Reported Reaction Past Psychological History: Depression Smoking Status: Never smoker Past Alcohol Use History: None Reported Past Drug Use History: None Reported - Past Family History Father History Unknown: Yes Family Medical History: CVA/TIA Medications and Allergies Home Medications Medication Instructions Recorded Confirmed Type Hydroxychloroquine Sulfate 200 mg PO BID 12/09/18 12/29/20 History [Plaquenil] Montelukast [Singulair] 10 mg PO AC-LUNCH 01/07/19 12/29/20 History Losartan [Cozaar] 25 mg PO DAILY #30 tab 05/09/20 12/29/20 Rx Aspirin 325 mg PO AC-LUNCH 07/04/20 12/29/20 History Levothyroxine Sodium [Euthyrox] 100 mcg PO AC-BRKFST 07/04/20 12/29/20 History Albuterol Sulfate [Proair Hfa] 2 puff INHALATION RT-BID 07/09/20 12/29/20 History amLODIPine [Norvasc] 5 mg PO DAILY 07/09/20 12/29/20 History ALPRAZolam [Xanax] 0.5 mg PO BID 12/15/20 12/29/20 History Acetaminophen Tab [Tylenol] 500 mg PO TID 12/15/20 12/29/20 History Atorvastatin [Lipitor] 20 mg PO AC-LUNCH 12/15/20 12/29/20 History Fluticasone/Salmeterol [Advair 1 puff INHALATION RT-BID 12/15/20 12/29/20 History 500-50 Diskus] Gabapentin 300 mg PO HS 12/15/20 12/29/20 History Ipratropium-Albuterol Nebulize 3 ml INHALATION RT-QID PRN 12/15/20 12/29/20 History [Duoneb 0.5 mg-3 mg/3 ml Soln] Sertraline HCl [Zoloft] 25 mg PO DAILY 12/15/20 12/29/20 History Umeclidinium [place] [Incruse 1 puff INHALATION RT-DAILY@1200 12/15/20 12/29/20 History Ellipta] Allergies Allergy/AdvReac Type Severity Reaction Status Date / Time No Known Allergies Allergy Verified 12/15/20 21:00 Physical Exam Vitals: Vital Signs Temp Pulse Pulse Resp BP Pulse Ox 12/30/20 08:18 84 12/30/20 08:04 84 12/30/20 07:00 98.1 F 79 18 139/87 95 12/30/20 02:00 98.3 F 82 17 136/80 98 12/29/20 20:00 97.9 F 86 17 150/84 98 12/29/20 16:58 86 12/29/20 14:49 98.1 F 75 18 136/77 99 Intake and Output 12/29/20 12/30/20 12/30/20 22:59 06:59 14:59 Other: Voiding Method Toilet # Voids 2 3 Results 12/29/20 08:15 08/07/21 08:15 Current Medications Generic Name Dose Route Start Last Admin Trade Name Freq PRN Reason Stop Dose Admin Acetaminophen 650 mg 12/29/20 10:13 Acetaminophen Tab 325 Mg Tab PO Q6HR PRN Mild Pain or Fever > 100.5 Albuterol Sulfate 2.5 mg 12/29/20 20:00 12/30/20 08:04 Albuterol Nebulized 2.5 Mg/3 Ml INHALATION 2.5 mg RT-BID [facility] Administration Albuterol/Ipratropium 3 ml 12/29/20 12:12 Ipratropium-Albuterol 3 Ml Neb INHALATION RT-QID PRN Shortness Of Breath Alprazolam 0.5 mg 12/29/20 21:00 12/30/20 08:12 Alprazolam 0.5 Mg Tab PO 0.5 mg BID [facility]EL Administration Amlodipine Besylate 5 mg 12/29/20 09:00 12/30/20 08:12 Amlodipine 5 Mg Tab PO 5 mg DAILY [facility] Administration Atorvastatin Calcium 20 mg 12/29/20 12:30 12/29/20 12:48 Atorvastatin 20 Mg Tab PO 20 mg AC-LUNCH [facility] Administration Budesonide/Formoterol Fumarate 2 puff 12/29/20 20:00 12/30/20 08:04 Symbicort 160-4.5 Mcg Inhaler INHALATION 2 puff RT-BID [facility] Administration Gabapentin 300 mg 12/29/20 21:00 12/29/20 20:09 Gabapentin 300 Mg Cap PO 300 mg HS [facility] Administration Heparin Sodium (Porcine) 5,000 unit 12/29/20 21:00 12/30/20 08:12 Heparin Sodium,Porcine/Pf 5,000 Unit/0.5 Ml Syringe SQ 5,000 unit Q12HR [facility] Administration Hydromorphone HCl 0.5 mg 12/29/20 09:54 12/29/20 09:54 Hydromorphone 0.5 Mg/0.5 Ml Syringe IVP 0.5 mg ONCE PRN Administration Pain Hydromorphone HCl 0.5 mg 12/29/20 10:13 Hydromorphone 0.5 Mg/0.5 Ml Syringe IVP Q3HR PRN Moderate Pain Hydroxychloroquine Sulfate 200 mg 12/29/20 12:15 12/30/20 08:12 Hydroxychloroquine Sulfate 200 Mg Tab PO 200 mg BID [facility]EL Administration Sodium Chloride 1,000 mls @ 130 mls/hr 12/29/20 10:15 12/30/20 03:07 Saline 0.9% IV 130 mls/hr .Q7H42M [facility] Administration Levothyroxine Sodium 100 mcg 12/30/20 07:30 12/30/20 07:18 Levothyroxine 100 Mcg Tab PO 100 mcg AC-BRKFST [facility] Administration Losartan Potassium 25 mg 12/30/20 09:00 12/30/20 08:12 Losartan 25 Mg Tab PO 25 mg DAILY [facility] Administration Montelukast Sodium 10 mg 12/29/20 12:30 12/29/20 12:48 Montelukast 10 Mg Tab PO 10 mg AC-LUNCH [facility] Administration Naloxone HCl 0.2 mg 12/29/20 10:13 Naloxone 0.4 Mg/Ml 1 Ml Vial IV Q2M PRN Opioid Reversal Ondansetron HCl 4 mg 12/29/20 10:13 12/30/20 07:19 Ondansetron 4 Mg/2 Ml Vial IVP 4 mg Q8HR PRN Administration Nausea And Vomiting Pantoprazole Sodium 40 mg 12/30/20 09:00 12/30/20 08:12 Pantoprazole 40 Mg/10 Ml Vial IVP 40 mg DAILY [facility] Administration Sertraline HCl 25 mg 12/30/20 09:00 12/30/20 08:12 Sertraline 25 Mg Tab PO 25 mg DAILY [facility]EL Administration Intake and Output 12/29/20 12/30/20 12/30/20 22:59 06:59 14:59 Other: Voiding Method Toilet # Voids 2 3 12/29/20 08:15 12/29/20 08:15
[2020-12-30] MEDS: metroNIDAZOLE-NS PMX 500 MG in SALINE 1 100ML.BAG IVPB SCH (15:12)
[2020-12-30] MEDS: GABAPENTIN 300 MG CAP PO SCH (19:31)
[2020-12-31] MEDS: metroNIDAZOLE-NS PMX 500 MG in SALINE 1 100ML.BAG IVPB SCH ×3 (00:12→16:01)
[2020-12-31] MEDS: SODIUM CHLORIDE 0.9% 1,000 ML IV SCH ×3 (02:44→15:57)
[2020-12-31] MEDS: SYMBICORT 160-4.5 MCG INHALER INHALATION SCH ×2 (07:22→18:55)
[2020-12-31] MEDS: ALBUTEROL NEBULIZED 2.5 MG/3 ML INHALATION SCH ×2 (07:23→18:55)
[2020-12-31] MEDS: LEVOTHYROXINE 100 MCG TAB PO SCH (07:43)
[2020-12-31] MEDS: amLODIPine 5 MG TAB PO SCH (07:44)
[2020-12-31] MEDS: HYDROXYCHLOROQUINE SULFATE 200 MG TAB PO SCH ×2 (07:44→21:08)
[2020-12-31] MEDS: LOSARTAN 25 MG TAB PO SCH (07:44)
[2020-12-31] MEDS: ALPRAZolam 0.5 MG TAB PO SCH ×2 (07:44→21:07)
[2020-12-31] MEDS: PANTOPRAZOLE 40 MG/10 ML VIAL IVP SCH (07:44)
[2020-12-31] MEDS: SERTRALINE 25 MG TAB PO SCH (07:44)
[2020-12-31] MEDS: HEPARIN SODIUM,PORCINE/PF 5,000 UNIT/0.5 ML SYRINGE SQ SCH ×2 (07:48→21:07)
[2020-12-31 09:35] LABS: Basophils # (A) 0.04 X 10*3/uL (0.00-0.10); Basophils % (A) 0.6 %; Eosinophils # (A) 0.08 X 10*3/uL (0.04-0.35); Eosinophils % (A) 1.2 %; HCT 40.7 % (39.6-50.0); HGB 14.2 g/dL (13.0-17.0); Lymphocytes % (A) 11.8 %; MCHC 34.9 g/dL (32.0-37.0); MCV 88.9 fL (80.0-97.0); Mean Platelet Volume 9.5 fL (9.5-12.2); Monocytes # (A) 0.52 X 10*3/uL (0.20-1.00); Monocytes % (A) 7.7 %; Neutrophils % (A) 78.3 %; Platelet Count 195 X 10*3/uL (140-440); RBC 4.58 X 10*6/uL (4.40-5.60); RDW 11.7 % (11.5-14.5); WBC 6.77 X 10*3/uL (4.50-10.00)
--- NOTE | 2020-12-31 10:01 | P.PN ---
Subjective This is a 75-year-old male with a past medical history significant for CVA, hypertension, hyperlipidemia, and anxiety. Patient follows in the office with Dr. Wallace. We have been asked to see the patient in consultation for cardiac clearance. Patient examined at the bedside. Patient presented to the hospital with abdominal pain. He was found to have acute cholecystitis. He is scheduled for surgical intervention today. Patient does have an event monitor on that [facility]. Per patient, Dr. Wallace wanted to rule out a-fib due to history of TIA/CVA. Patient had an echocardiogram performed on 12/17/2020 revealing ejection fraction 55-60%. Mild tricuspid regurgitation. Lexiscan stress test performed on 12/17/2020 revealed large fixed defect along the inferior wall. Additional fixed defect along the mid to basal anterior wall that essentially done stress images. However the corresponding polar maps only show a small fixed defect within the mid anterior wall raising the possibility of extensive attenuation artifact on the SPECT images. We are unable to exclude areas of old infarct and some ra infarct ischemia along the mid anterior wall. EKG reveals sinus mechanism with no signs of acute ischemia PHYSICAL EXAM: VITAL SIGNS: Reviewed. GENERAL: Well-developed in no acute distress. HEENT: Neck supple. No JVD LUNGS: Respirations even and unlabored. Lungs essentially clear to auscultation bilaterally. HEART: Regular rate and rhythm. S1 and S2 heard. ABDOMEN: Soft. Nondistended. Mild tenderness. EXTREMITIES: Normal range of motion. No clubbing or cyanosis. Peripheral pulses intact. No lower extremity edema NEUROLOGIC: Awake and alert. Oriented x 3. ASSESSMENT: Acute cholecystitis History of CVA, April 2020 Hypertension Hyperlipidemia PLAN: From a cardiology perspective, no further cardiac workup needed at this time. There are no absolute contraindiciations from a cardiac standpoint to undergo surgery. We will follow the patient as needed, please reach out with any questions or concerns. Patient to follow up as an outpatient with Dr. Wallace. Resume aspirin postoperatively when okay with general surgery Nurse practitioner note has been reviewed by physician. Signing provider agrees with the documented findings, assessment, and plan of care. Objective - Vital Signs Vital signs: Vital Signs Temp 98.1 F 12/31/20 07:00 Pulse 77 12/31/20 07:00 Resp 17 12/31/20 07:00 BP 157/68 12/31/20 07:00 Pulse Ox 98 12/31/20 07:00 Intake & Output 12/30/20 12/31/20 12/31/20 18:59 06:59 18:59 Intake Total 1240 200 Balance 1240 200 Intake: Intake, IV Titration 1240 Amount Levofloxacin 500Mg-D5w 100 Pmx 500 mg In Dextrose/ Water 1 100ml.bag @ 100 mls/hr IVPB Q24H [facility] Rx#: [id number] Sodium Chloride 0.9% 1, 1040 000 ml @ 130 mls/hr IV . Q7H42M [facility] Rx#:[id number] metroNIDAZOLE-NS PMX 500 100 mg In Saline 1 100ml.bag @ 100 mls/hr IVPB Q8HR [facility] Rx#:[id number] Oral 200 Other: Voiding Method Toilet # Voids 1 2 - Labs CBC & Chem 7: 12/31/20 06:26 12/29/20 08:15 Labs: Abnormal Lab Results - Last 24 Hours (Table) 12/31/20 Range/Units 06:26 Lymphocytes # 0.80 L (0.90-5.00) X 10*3/uL
[2020-12-31 10:03] LABS: African American GFR (CKD) 84.4 (60.0-200.0); Calcium 9.4 mg/dL (8.7-10.3); Non-African American GFR(CKD) 72.8 (60.0-200.0); Potassium 4.1 mmol/L (3.5-5.5)
[2020-12-31] MEDS: MONTELUKAST 10 MG TAB PO SCH (12:34)
[2020-12-31] MEDS: ATORVASTATIN 20 MG TAB PO SCH (12:35)
[2020-12-31] MEDS: LEVOFLOXACIN 500MG-D5W PMX 500 MG in DEXTROSE/WATER 1 100ML.BAG IVPB SCH (12:35)
[2020-12-31] MEDS: ONDANSETRON 4 MG/2 ML VIAL IVP PRN (12:50)
--- NOTE | 2020-12-31 15:21 | P.PN ---
Subjective Progress Note Date: 12/31/20 History of present illness: This is a 75-year-old male who presented to the emergency department for epigastric abdominal pain. This is a patient of Dr. Brown'lora with a past medical history of hypertension, hyperlipidemia, TIA, asthma, hypothyroidism, and polymyalgia rheumatica. the epigastric pain is associated with nausea without vomiting. No fever. Patient underwent a: Yosef approximately 2 weeks ago. He is followed with Dr. Carrera. Dr. Carrera told the patient that he would need to have an evaluation of his gallbladder. Patient is denying any current chest pain. He does have some dark stools however this was in the past and nothing recently. Patient was previously hospitalized approximately 2 weeks ago for atypical chest pain. At that time patient was complaining of intermittent chest pain and abdominal discomfort with bloating and nausea. He reported that the abdominal pain would get better after eating. He did have a change in bowel movement over the last few weeks. Patient did have occasional shortness of breath at that time. He was evaluated CT of the abdomen showed thickening of the cecum during his last admission. Ultrasound of the gallbladder shows hepatomegaly, cholelithiasis with positive Man's sign. At this time patient is found resting comfortably in bed with the at the bedside. Continues to have some abdominal discomfort however it has improved with the pain control. Patient denies any chest pain or shortness of breath at this time. Consult for Dr. Carrera to evaluate for possible cholecystectomy. 12/30: Patient continues to have complaints of nausea and gas. Is being treated with Protonix and Zofran. Patient states that it helps a bit but he is still having episodes of it. He is scheduled to have surgery tomorrow. Clear liquids will be added for today. Continue with IV antibiotics. By mouth after midnigh t. Plan is for patient to have surgical intervention tomorrow pending cardiology evaluation. Patient remained afebrile, pulse rate 79, respirations 18, blood pressure 139/87 pulse ox a 95% on room air. Chen 11.4, potassium 4.3, BUN 12, creatinine 1.05. 12/31: Patient is scheduled for gallbladder surgery today. He states he had a bowel movement this morning which was normal. He has been afebrile, heart rate in the 80s, blood pressure 157/68, pulse ox 90% on room air. Repeat blood work reveals normal WBC. If patient is cleared for discharge by Dr. Carrera, we will discharge patient home later today. Review Of Systems: Constitutional: No fever, no chills, no night sweats. No weight change. No weakness, fatigue or lethargy. No daytime sleepiness. EENT: No headache. No blurred vision or double vision, no loss of vision. No loss of Hearing, no ringing in the ears, no dizziness. No nasal drainage or congestion. No epistaxis. No sore throat. Lungs: No shortness of breath, cough, no sputum production. No wheezing. Cardiovascular: No chest pain, no lower extremity edema. No palpitations. No paroxysmal nocturnal dyspnea. No orthopnea. No lightheadedness or dizziness. No syncopal episodes. Abdominal: Reports abdominal discomfort improved . No nausea, no vomiting. no diarrhea. No constipation. No bloody or tarry stools. no loss of appetite. Genitourinary: No dysuria, increased frequency, urgency. No urinary retention. Musculoskeletal: No myalgias. No muscle weakness, no gait dysfunction, no frequent falls. No back pain. No neck pain. Integumentary: No wounds, no lesions. No rash or pruritus. No unusual bruising. No change in hair or nails. Neurologic: No aphasia. No facial droop. No change in mentation. No head injury. No headache. No paralysis. No paresthesia. Psychiatric: No depression. No anxiety. No mood swings. Endocrine: No abnormal blood sugars. No weight change. No excessive sweating or thirst. Physical examination General Appearance: Alert, cooperative, no distress, appears stated age. Neck HEENT: Supple, no lymphadenopathy, no thyroid enlargement, no carotid bruits. Lungs: Clear to auscultation without crackles or wheezes no rhonchi, no deformity. Chest Wall: Chest wall normal expansion with deep inspiration no tenderness and no deformity was found on exam, no costochondral pain or discomfort. Heart: Regular rate and rhythm, S1, S2 normal, no murmur, rub or gallop. Back: Symmetric, no curvature, ROM normal, no CVA tenderness. Abdomen: Soft, non-tender, no rebound or rigidity, no hepatosplenomegaly. Extremities: Extremities normal, atraumatic, no cyanosis or edema. Pulses: 2+ and symmetric. Skin: Skin color, texture, tugor normal, no rashes or lesions. Neurologic: Alert oriented x3 cranial nerves II through XII intact, no motor deficit, no abnormal balance or gait Assessment and plan 1. Acute abdominal pain with nausea no vomiting: Ultrasound of gallbladder noted above, consult surgery - cholecystectomy scheduled for today, continue with pain control, Levaquin 500 mg and Flagyl. 2. Cholelithiasis possible Cholecystitis. Consult Dr. Carrera pre-sheeted., ultrasound positive cholelithiasis with positive Man sign, as noted above, continue Zofran and Protonix. Advance to clear liquids today nothing by mouth after midnight. 3. Hypertension: Norvasc 5 mg by mouth daily, Cozaar 25 mg by mouth daily 4. Hyperlipidemia; Lipitor 20 mg by mouth at lunch 5. History of CVA/TIA, stable. 6. Arthritis: Continue plaquenil, Alupent 10 300 mg by mouth at bedtime 7. Hypothyroidism: Levothyroxine 100 MCG's by mouth before breakfast 8. Depression: Continue Zoloft 25 mg by mouth daily, Xanax 0.5 mg by mouth twice a day 9. Asthma: Continue DuoNeb, Singulair, pro-air, Advair 10. DVT prophylaxis: Protonix 11. GI prophylaxis: Subcu CODE STATUS: Full code Discharge plan: home Impression and plan of care have been directed as dictated by the signing physician. Josee Mayer nurse practitioner acting as scribe for signing physician. Objective - Vital Signs Vital signs: Vital Signs Temp 98.1 F 12/31/20 07:00 Pulse 77 12/31/20 07:00 Resp 17 12/31/20 07:00 BP 157/68 12/31/20 07:00 Pulse Ox 98 12/31/20 07:00 Intake & Output 12/30/20 12/31/20 12/31/20 18:59 06:59 18:59 Intake Total 1240 200 Balance 1240 200 Intake: Intake, IV Titration 1240 Amount Levofloxacin 500Mg-D5w 100 Pmx 500 mg In Dextrose/ Water 1 100ml.bag @ 100 mls/hr IVPB Q24H [facility] Rx#: [id number] Sodium Chloride 0.9% 1, 1040 000 ml @ 130 mls/hr IV . Q7H42M [facility] Rx#:[id number] metroNIDAZOLE-NS PMX 500 100 mg In Saline 1 100ml.bag @ 100 mls/hr IVPB Q8HR [facility] Rx#:[id number] Oral 200 Other: Voiding Method Toilet # Voids 1 2 - Labs CBC & Chem 7: 12/31/20 06:26 12/31/20 06:26
--- NOTE | 2020-12-31 15:28 | P.DS ---
Providers Date of admission: 12/31/20 10:06 Expected date of discharge: 01/01/21 Attending physician: Gee Fields Consults: 12/29/20 10:13 Consult Physician Routine Consulting Provider: Zenaida Carrera Consult Reason/Comments: Abdominal pain, rule out acute cholecystitis Do you want consulting provider notified?: Already Contacted 12/29/20 10:50 Consult Physician Routine Consulting Provider: Phil Wallace Consult Reason/Comments: Surgical clearance Do you want consulting provider notified?: Yes Primary care physician: [facility] Course: History of present illness: This is a 75-year-old male who presented to the emergency department for epigastric abdominal pain. This is a patient of Dr. Maxwell Tamez with a past medical history of hypertension, hyperlipidemia, TIA, asthma, hypothyroidism, and polymyalgia rheumatica. the epigastric pain is associated with nausea without vomiting. No fever. Patient underwent a: Yosef approximately 2 weeks ago. He is followed with Dr. Carrera. Dr. Carrera told the patient that he would need to have an evaluation of his gallbladder. Patient is denying any current chest pain. He does have some dark stools however this was in the past and nothing recently. Patient was previously hospitalized approximately 2 weeks ago for atypical chest pain. At that time patient was complaining of intermittent chest pain and abdominal discomfort with bloating and nausea. He reported that the abdominal pain would get better after eating. He did have a change in bowel movement over the last few weeks. Patient did have occasional shortness of breath at that time. He was evaluated CT of the abdomen showed thickening of the cecum during his last admission. Ultrasound of the gallbladder shows hepatomegaly, cholelithiasis with positive Man's sign. At this time patient is found resting comfortably in bed with the at the bedside. Continues to have some abdominal discomfort however it has improved with the pain control. Patient denies any chest pain or shortness of breath at this time. Consult for Dr. Carrera to evaluate for possible cholecystectomy. 12/30: Patient continues to have complaints of nausea and gas. Is being treated with Protonix and Zofran. Patient states that it helps a bit but he is still having episodes of it. He is scheduled to have surgery tomorrow. Clear liquids will be added for today. Continue with IV antibiotics. By mouth after midnight. Plan is for patient to have surgical intervention tomorrow pending cardiology evaluation. Patient remained afebrile, pulse rate 79, respirations 18, blood pressure 139/87 pulse ox a 95% on room air. Chen 11.4, potassium 4.3, BUN 12, creatinine 1.05. 12/31: Patient is scheduled for gallbladder surgery today. He states he had a bowel movement this morning which was normal. He has been afebrile, heart rate in the 80s, blood pressure 157/68, pulse ox 90% on room air. Repeat blood work reveals normal WBC. 01/01: Patient is status post left scopic cholecystectomy. He has had no postop complications. He is concerned that he may have difficulty urinating but does not wish for prescription for Flomax at this point. He has eaten breakfast this morning, no nausea or vomiting. He has been afebrile, heart rate 82, blood pressure 152/81, pulse ox 97% on room air. Patient will be discharged home today in stable condition Assessment and plan 1. Acute abdominal pain with nausea no vomiting 2. Cholelithiasis possible Cholecystitis status post laparoscopic cholecyste ctomy 3. Hypertension 4. Hyperlipidemia 5. History of CVA/TIA, stable. 6. Arthritis, generalized 7. Hypothyroidism 8. Recurrent Depression 9. Asthma, mild intermittent Discharge plan: home Impression and plan of care have been directed as dictated by the signing physician. Josee Mayer nurse practitioner acting as scribe for signing physician. Patient Condition at Discharge: Good Plan - Discharge Summary New Discharge Prescriptions: New traMADol HCL 1 - 2 mg PO Q6HR PRN #15 tablet PRN Reason: Pain Continue Hydroxychloroquine Sulfate [Plaquenil] 200 mg PO BID Montelukast [Singulair] 10 mg PO AC-LUNCH Losartan [Cozaar] 25 mg PO DAILY #30 tab Aspirin 325 mg PO AC-LUNCH Levothyroxine Sodium [Euthyrox] 100 mcg PO AC-BRKFST Albuterol Sulfate [Proair Hfa] 2 puff INHALATION RT-BID amLODIPine [Norvasc] 5 mg PO DAILY Fluticasone/Salmeterol [Advair 500-50 Diskus] 1 puff INHALATION RT-BID Acetaminophen Tab [Tylenol] 500 mg PO TID Sertraline HCl [Zoloft] 25 mg PO DAILY Ipratropium-Albuterol Nebulize [Duoneb 0.5 mg-3 mg/3 ml Soln] 3 ml INHALATION RT-QID PRN PRN Reason: Shortness Of Breath Gabapentin 300 mg PO HS Atorvastatin [Lipitor] 20 mg PO AC-LUNCH ALPRAZolam [Xanax] 0.5 mg PO BID Umeclidinium [place] [Incruse Ellipta] 1 puff INHALATION RT-DAILY@1200 Discharge Medication List Hydroxychloroquine Sulfate [Plaquenil] 200 mg PO BID 12/09/18 [History] Montelukast [Singulair] 10 mg PO AC-LUNCH 01/07/19 [History] Losartan [Cozaar] 25 mg PO DAILY #30 tab 05/09/20 [Rx] Aspirin 325 mg PO AC-LUNCH 07/04/20 [History] Levothyroxine Sodium [Euthyrox] 100 mcg PO AC-BRKFST 07/04/20 [History] Albuterol Sulfate [Proair Hfa] 2 puff INHALATION RT-BID 07/09/20 [History] amLODIPine [Norvasc] 5 mg PO DAILY 07/09/20 [History] ALPRAZolam [Xanax] 0.5 mg PO BID 12/15/20 [History] Acetaminophen Tab [Tylenol] 500 mg PO TID 12/15/20 [History] Atorvastatin [Lipitor] 20 mg PO AC-LUNCH 12/15/20 [History] Fluticasone/Salmeterol [Advair 500-50 Diskus] 1 puff INHALATION RT-BID 12/15/20 [History] Gabapentin 300 mg PO HS 12/15/20 [History] Ipratropium-Albuterol Nebulize [Duoneb 0.5 mg-3 mg/3 ml Soln] 3 ml INHALATION RT-QID PRN 12/15/20 [History] Sertraline HCl [Zoloft] 25 mg PO DAILY 12/15/20 [History] Umeclidinium [place] [Incruse Ellipta] 1 puff INHALATION RT-DAILY@1200 12/15/20 [History] traMADol HCL 1 - 2 mg PO Q6HR PRN #15 tablet 12/31/20 [Rx] Follow up Appointment(s)/Referral(s): Phil Wallace MD [STAFF PHYSICIAN] - 01/08/21 1:30 pm (Appointment will be at the [facility] [place]) Zenaida Carrera DO [Doctor of Osteopathic Medicine] - 01/15/21 9:45 am Ronald Tamez MD [Primary Care Provider] - 1 Week Patient Instructions/Handouts: *Surgery [facility] - Laparoscopic Cholecystectomy Discharge Instructions Activity/Diet/Wound Care/Special Instructions: Placed to the incision for 24 hours. Leave the bandages on until Thursday. They made then be removed and you may shower. No tub baths or swimming for 1 week. The butterfly Band-Aid should stay on for 1 week. Expect some bruising by the bellybutton. Low-fat diet for [address] Carrera in the office in 2 weeks. Call if questions or concerns Discharge Disposition: HOME SELF-CARE
[2020-12-31] MEDS ORDERED: LACTATED RINGERS 1,000 ML IV ONE ×2 (17:14→18:58)
[2020-12-31] MEDS ORDERED: DEXAMETHASONE SOD PHOSPHATE 4 MG/ML 1 ML VIAL IVP ONE (17:23)
[2020-12-31] MEDS ORDERED: LIDOCAINE 1% INJ 10MG/ML (20 ML MDV) ONE (18:02)
[2020-12-31] MEDS ORDERED: NEOSTIGMINE 1 MG/ML 10 ML VIAL ONE (18:02)
[2020-12-31] MEDS ORDERED: fentaNYL (PF) 50 MCG/ML 2 ML AMP ONE (18:02)
[2020-12-31] MEDS ORDERED: ROCURONIUM 10 MG/ML (5 ML VIAL) IV ONE (18:02)
[2020-12-31] MEDS ORDERED: HYDROmorphone (PF) 1 MG/ML ONE (18:02)
[2020-12-31] MEDS ORDERED: GLYCOPYRROLATE 0.2 MG/ML 2 ML VIAL ONE (18:02)
[2020-12-31] MEDS ORDERED: PROPOFOL 10 MG/ML 20 ML VIAL IV ONE (18:02)
[2020-12-31] MEDS ORDERED: SUCCINYLCHOLINE CHLORIDE 100 MG/5 ML SYR IV ONE (18:02)
--- NOTE | 2020-12-31 18:13 | P.PN ---
Subjective Progress Note Date: 12/31/20 The patient came in with abdominal pain and is found to have symptomatic cholelithiasis. His aspirin was held over the weekend. He was given medical clearance and now presents for surgery. Objective - Vital Signs Vital signs: Vital Signs Temp 97.6 F 12/31/20 17:08 Pulse 81 12/31/20 17:08 Resp 18 12/31/20 17:08 BP 168/81 12/31/20 17:08 Pulse Ox 97 12/31/20 17:08 Intake & Output 12/30/20 12/31/20 12/31/20 18:59 06:59 18:59 Intake Total 1240 200 Balance 1240 200 Intake: Intake, IV Titration 1240 Amount Levofloxacin 500Mg-D5w 100 Pmx 500 mg In Dextrose/ Water 1 100ml.bag @ 100 mls/hr IVPB Q24H [facility] Rx#: [id number] Sodium Chloride 0.9% 1, 1040 000 ml @ 130 mls/hr IV . Q7H42M [facility] Rx#:[id number] metroNIDAZOLE-NS PMX 500 100 mg In Saline 1 100ml.bag @ 100 mls/hr IVPB Q8HR [facility] Rx#:[id number] Oral 200 Other: Voiding Method Toilet # Voids 1 2 5 # Bowel Movements 3 - Constitutional General appearance: Present: cooperative, no acute distress - Gastrointestinal General gastrointestinal: Present: soft. Absent: tenderness - Labs CBC & Chem 7: 12/31/20 06:26 12/31/20 06:26 Labs: Abnormal Lab Results - Last 24 Hours (Table) 12/31/20 12/31/20 Range/Units 06:26 06:26 Lymphocytes # 0.80 L (0.90-5.00) X 10*3/uL Chloride 112 H (96-109) mmol/L BUN/Creatinine Ratio 10.00 L (12.00-20.00) Ratio Assessment and Plan (1) Cholelithiasis Current Visit: Yes Status: Acute Code(s): K80.20 - CALCULUS OF GALLBLADDER W/O CHOLECYSTITIS W/O OBSTRUCTION SNOMED Code(s): 421944945 (2) Cholecystitis Current Visit: Yes Status: Acute Code(s): K81.9 - CHOLECYSTITIS, UNSPECIFIED SNOMED Code(s): 69173547 Plan: Laparoscopic cholecystectomy possible open. The procedure, risk and complications were discussed. Usual postoperative course was discussed. Questions were encouraged and answered. We'll proceed with laparoscopic cholecystectomy. Due to the surgery being later in the day, we'll monitor him overnight and likely he can be discharged tomorrow
[2020-12-31] MEDS ORDERED: BUPIVACAINE (PF) 0.25% 30 ML VIAL SQ ONE (18:33)
[2020-12-31] MEDS ORDERED: LIDOCAINE 1%-EPI 1:100,000 20 ML VIAL SQ ONE (18:34)
--- NOTE | 2020-12-31 19:05 | P.OP ---
Date of Procedure: 12/31/20 Preoperative Diagnosis: Cholelithiasis, abdominal pain Postoperative Diagnosis: Cholelithiasis, abdominal pain Procedure(s) Performed: Laparoscopic cholecystectomy Anesthesia: HARESH Surgeon: Zenaida Carrera Estimated Blood Loss (ml): 10 Pathology: other Condition: stable Disposition: PACU Operative Findings: There were a few filmy adhesions of the omentum to the gallbladder. Otherwise the liver, diaphragm, large and small bowel were normal where they were seen. Description of Procedure: The patient is a 75-year-old male with abdominal pain. Ultrasound showed multiple gallstones. He received cardiac clearance and presents for surgery. This taken to the OR worrisome prepped and draped in the usual sterile manner under general endotracheal anesthetic. An infraumbilical incision was made and a Veress needle was placed into the abdominal cavity. Pneumoperitoneum was established with CO2 gas. Sites are chosen for accessory trochars needs are placed through small skin incisions. The gallbladder has some filmy adhesions of the omentum which were easily taken down. The cystic artery and cystic duct are dissected free they're triply clipped and cut. The gallbladder is then dissected free from the liver bed. Small bleeding points are controlled with electrocautery. The gallbladder is removed through the umbilical port site. The liver bed is reexamined and noted to be hemostatic. The pneumoperitoneum was released and the trochars were removed. At the umbilicus the fascia was closed with 0 Vicryl. The skin excisions were closed with 4-0 Vicryl in a subcuticular manner. Steri-Strips and Band-Aids were applied. He tolerated the procedure without difficulty and was taken to recovery room in satisfactory condition. According to or personnel, WERE correct.
[2020-12-31] MEDS ORDERED: KETOROLAC 15 MG/ML 1 ML VIAL IVP PRN (19:08)
[2020-12-31] MEDS ORDERED: traMADol 50 MG TAB PO PRN (19:09)
[2020-12-31] MEDS ORDERED: ALBUTEROL NEBULIZED 2.5 MG/3 ML INHALATION ONE (19:20)
[2020-12-31] MEDS: GABAPENTIN 300 MG CAP PO SCH (21:09)
[2021-01-01] MEDS: SODIUM CHLORIDE 0.9% 1,000 ML IV SCH ×2 (00:41→07:35)
[2021-01-01] MEDS: metroNIDAZOLE-NS PMX 500 MG in SALINE 1 100ML.BAG IVPB SCH ×2 (00:54→07:37)
[2021-01-01] MEDS: HYDROXYCHLOROQUINE SULFATE 200 MG TAB PO SCH ×2 (00:54→07:46)
[2021-01-01] MEDS: GABAPENTIN 300 MG CAP PO SCH (00:54)
[2021-01-01] MEDS: ALBUTEROL NEBULIZED 2.5 MG/3 ML INHALATION SCH (07:29)
[2021-01-01] MEDS: SYMBICORT 160-4.5 MCG INHALER INHALATION SCH (07:29)
[2021-01-01] MEDS: LEVOTHYROXINE 100 MCG TAB PO SCH (07:34)
[2021-01-01] MEDS: HEPARIN SODIUM,PORCINE/PF 5,000 UNIT/0.5 ML SYRINGE SQ SCH (07:45)
[2021-01-01] MEDS: LOSARTAN 25 MG TAB PO SCH (07:46)
[2021-01-01] MEDS: PANTOPRAZOLE 40 MG/10 ML VIAL IVP SCH (07:46)
[2021-01-01] MEDS: amLODIPine 5 MG TAB PO SCH (07:46)
[2021-01-01] MEDS: SERTRALINE 25 MG TAB PO SCH (07:47)
[2021-01-01] MEDS: ALPRAZolam 0.5 MG TAB PO SCH (07:47)
[2021-01-01 07:59] VITALS: BP 152/81; PULSE 82; RESP 18; TEMP 98.2
== END 2021-01-01 11:05 | disposition home or self-care (01) | DRG 418 ==
LOC: EC 07:30 → 6NMEDSUR 10:13 → OBSVTOIN 12-31 10:06
PROVIDERS: ADMIT Internal Medicine Geriatric Medicine; ATTEND Internal Medicine Geriatric Medicine
PROC: 0FT44ZZ Resection of Gallbladder, Percutaneous Endoscopic Approach (ICD-10-PCS; principal; 2020-12-31 08:55)
DX: K80.00 Calculus of gallbladder with acute cholecystitis without obstruction (principal); F33.9 Major depressive disorder, recurrent, unspecified; E03.9 Hypothyroidism, unspecified; E78.5 Hyperlipidemia, unspecified; H91.90 Unspecified hearing loss, unspecified ear; I10 Essential (primary) hypertension; J45.20 Mild intermittent asthma, uncomplicated; K66.0 Peritoneal adhesions (postprocedural) (postinfection); R07.89 Other chest pain; J40 Bronchitis, not specified as acute or chronic; R19.5 Other fecal abnormalities; M19.90 Unspecified osteoarthritis, unspecified site; M35.3 Polymyalgia rheumatica; Z79.890 Hormone replacement therapy; Z79.899 Other long term (current) drug therapy; Z86.73 Personal history of transient ischemic attack (TIA), and cerebral infarction without residual deficits; R16.0 Hepatomegaly, not elsewhere classified
CPT/HCPCS: 36415; 74018; 76705; 80048; 80053; 81003; 82150; 83690; 84484; 85025; 85610; 85730; 88304; 93005; 94640

== ENCOUNTER 2021-01-04 18:07 | Emergency (ER) | payer MEDICARE ==
[2021-01-04] MEDS ORDERED: IPRATROPIUM-ALBUTEROL 3 ML NEB INHALATION STA ×3 (18:49→22:03)
[2021-01-04] MEDS ORDERED: methylPREDNISolone SOD SUCCI 125 MG/2 ML VIAL IV STA (18:49)
--- NOTE | 2021-01-04 18:52 | ED ---
Chest Pain HPI - General Source: patient, family, RN notes reviewed Mode of arrival: wheelchair Limitations: no limitations - History of Present Illness MD Complaint: chest pain, other <Chris Rebolledo - Last Filed: 01/04/21 21:00> <Miguel A Judd - Last Filed: 01/04/21 22:43> - General Chief Complaint: Chest Pain Stated Complaint: SOB Time Seen by Provider: 01/04/21 18:26 - History of Present Illness Initial Comments: 75-year-old male who is status post cholecystectomy in the ninth of this month was a long history of asthmatic bronchitis with 60% lung function who presents with complaints of dizziness and lightheadedness today may be vertiginous in nature he did take some medication they get better but he now has shortness of breath exertional dyspnea and chest tightness. He states he's unable clear his throat he did start having a cough of white phlegm after the cholecystectomy. No other complaints or modifying factors at this time (Chris Rebolledo) - Related Data Home Medications Medication Instructions Recorded Confirmed Hydroxychloroquine Sulfate 200 mg PO BID 12/09/18 01/04/21 [Plaquenil] Montelukast [Singulair] 10 mg PO AC-LUNCH 01/07/19 01/04/21 Aspirin 325 mg PO AC-LUNCH 07/04/20 01/04/21 Levothyroxine Sodium [Euthyrox] 100 mcg PO AC-BRKFST 07/04/20 01/04/21 Albuterol Sulfate [Proair Hfa] 2 puff INHALATION RT-BID PRN 07/09/20 01/04/21 amLODIPine [Norvasc] 5 mg PO DAILY 07/09/20 01/04/21 ALPRAZolam [Xanax] 0.5 mg PO BID 12/15/20 01/04/21 Acetaminophen Tab [Tylenol] 500 mg PO TID 12/15/20 01/04/21 Atorvastatin [Lipitor] 20 mg PO AC-LUNCH 12/15/20 01/04/21 Fluticasone/Salmeterol [Advair 1 puff INHALATION RT-BID 12/15/20 01/04/21 500-50 Diskus] Gabapentin 300 mg PO HS 12/15/20 01/04/21 Ipratropium-Albuterol Nebulize 3 ml INHALATION RT-QID PRN 12/15/20 01/04/21 [Duoneb 0.5 mg-3 mg/3 ml Soln] Sertraline HCl [Zoloft] 25 mg PO DAILY 12/15/20 01/04/21 Umeclidinium [place] [Incruse 1 puff INHALATION RT-DAILY@1200 12/15/20 01/04/21 Ellipta] Previous Rx's Medication Instructions Recorded Losartan [Cozaar] 25 mg PO DAILY #30 tab 05/09/20 traMADol HCL 1 - 2 mg PO Q6HR PRN #15 tablet 12/31/20 Allergies Allergy/AdvReac Type Severity Reaction Status Date / Time No Known Allergies Allergy Verified 01/04/21 19:42 Review of Systems ROS Other: All systems not noted in ROS Statement are negative. <Chris Rebolledo - Last Filed: 01/04/21 21:00> ROS Other: All systems not noted in ROS Statement are negative. <Miguel A Judd - Last Filed: 01/04/21 22:43> ROS Statement: Those systems with pertinent positive or pertinent negative responses have been documented in the HPI. EKG Findings - EKG Results: EKG: interpreted by ERMD, sinus rhythm (Sinus rhythm a 76. Ago 188 QRS duration 80 daily since QTC 386/434 is a normal-appearing EKG), normal axis, normal QRS, normal ST/T, no acute changes <Chris Rebolledo - Last Filed: 01/04/21 21:00> Past Medical History Past Medical History: Asthma, CVA/TIA, Hearing Disorder / Deafness, Hyperlipidemia, Hypertension, Prostate Disorder Additional Past Medical History / Comment(s): Hx. "urination is slow" Dx. bronchitis,TIA in april 2020. arthritis back, History of Any Multi-Drug Resistant Organisms: None Reported Past Surgical History: Cholecystectomy, Orthopedic Surgery Additional Past Surgical History / Comment(s): Hx. Left knee arthroscopic, urethral surgery Past Anesthesia/Blood Transfusion Reactions: No Reported Reaction Past Psychological History: Depression Smoking Status: Never smoker Past Alcohol Use History: None Reported Past Drug Use History: None Reported - Past Family History Father History Unknown: Yes Family Medical History: CVA/TIA <Chris Rebolledo - Last Filed: 01/04/21 21:00> General Exam Limitations: no limitations General appearance: alert, anxious Head exam: Present: atraumatic, normocephalic, normal inspection Eye exam: Present: normal appearance, PERRL, EOMI. Absent: scleral icterus, conjunctival injection, periorbital swelling ENT exam: Present: normal exam, mucous membranes moist Neck exam: Present: normal inspection, full ROM, other (No stridor JVD or bruits). Absent: tenderness, meningismus, lymphadenopathy Respiratory exam: Present: wheezes, decreased breath sounds. Absent: respiratory distress, rales, rhonchi, stridor Cardiovascular Exam: Present: regular rate, normal rhythm, normal heart sounds. Absent: systolic murmur, diastolic murmur, rubs, gallop, clicks GI/Abdominal exam: Present: soft, normal bowel sounds. Absent: distended, tenderness, guarding, rebound, rigid Extremities exam: Present: normal inspection, full ROM, normal capillary refill. Absent: tenderness, pedal edema, joint swelling, calf tenderness Back exam: Present: normal inspection Neurological exam: Present: alert, oriented X3, CN II-XII intact Psychiatric exam: Present: normal affect, normal mood Skin exam: Present: warm, dry, intact, normal color. Absent: rash <Chris Rebolledo - Last Filed: 01/04/21 21:00> General appearance: alert, in no apparent distress Head exam: Present: atraumatic, normocephalic, normal inspection Eye exam: Present: normal appearance, PERRL, EOMI. Absent: scleral icterus, conjunctival injection, periorbital swelling ENT exam: Present: normal exam, mucous membranes moist Neck exam: Present: normal inspection. Absent: tenderness, meningismus, lymphadenopathy Respiratory exam: Present: normal lung sounds bilaterally. Absent: respiratory distress, wheezes, rales, rhonchi, stridor Cardiovascular Exam: Present: regular rate, normal rhythm, normal heart sounds. Absent: systolic murmur, diastolic murmur, rubs, gallop, clicks GI/Abdominal exam: Present: soft, normal bowel sounds. Absent: distended, tenderness, guarding, rebound, rigid Extremities exam: Present: normal inspection, full ROM, normal capillary refill. Absent: tenderness, pedal edema, joint swelling, calf tenderness Back exam: Present: normal inspection Neurological exam: Present: alert, oriented X3, CN II-XII intact Psychiatric exam: Present: normal affect, normal mood Skin exam: Present: warm, dry, intact, normal color. Absent: rash <Miguel A Judd - Last Filed: 01/04/21 22:43> - General Exam Comments Initial Comments: This is a well-developed well-nourished awake alert oriented 3 male (Chris Rebolledo) Course <Chris Rebolledo - Last Filed: 01/04/21 21:00> <Miguel A Judd - Last Filed: 01/04/21 22:43> Vital Signs 01/04/21 01/04/21 01/04/21 18:17 19:35 19:41 Temperature 98.9 F Pulse Rate 79 77 78 Respiratory 20 Rate Blood Pressure 147/87 O2 Sat by Pulse 98 Oximetry 01/04/21 01/04/21 01/04/21 20:19 21:14 21:21 Temperature Pulse Rate 97 84 84 Respiratory 17 Rate Blood Pressure 169/73 O2 Sat by Pulse 98 Oximetry 01/04/21 22:37 Temperature Pulse Rate 84 Respiratory Rate Blood Pressure O2 Sat by Pulse Oximetry - Reevaluation(s) Reevaluation #1: 01/04/21 20:49 Reevaluation reveals no improvement in his aeration or how he feels with respect to breathing. No chest pain. (Chris Rebolledo) Reevaluation #2: 01/04/21 20:50 Patient does demonstrate elevated d-dimer in light of the recent surgery CT angios was ordered. (Chris Rebolledo) Reevaluation #3: 01/04/21 21:00 Reevaluation the patient does believe he is getting better aeration at this time. CAT scan is pending to rule out PE. Case will be discussing endorsed to Dr. Judd at shift change (Chris Rebolledo) Reevaluation #4: 01/04/21 22:41 medical record is reviewed 01/04/21 22:42 Patient symptoms are significantly improved (Miguel A Judd) Reevaluation #5: 01/04/21 22:42 Reevaluation patient continues to be improved feels good for discharge home states he has been too much time in the hospital lately (Miguel A Judd) Chest Pain MDM <Miguel A Judd - Last Filed: 01/04/21 22:43> - MDM 75 male DF for evaluation patient presents today for evaluation of shortness of breath and chest pain concern for blood clot with recent surgery. Patient at this time feels well feels good for discharge home. (Miguel A Judd) Disposition <Chris Rebolledo - Last Filed: 01/04/21 21:00> Is patient prescribed a controlled substance at d/c from ED?: No <Miguel A Judd - Last Filed: 01/04/21 22:43> Clinical Impression: Acute asthma exacerbation Disposition: HOME SELF-CARE Condition: Good Instructions (If sedation given, give patient instructions): Asthma (ED) Referrals: Ronald Tamez MD [Primary Care Provider] - 1-2 days
--- NOTE | 2021-01-04 19:30 | XR ---
EXAMINATION TYPE: XR chest 2V DATE OF EXAM: 01/04/2021 COMPARISON: 12/15/2020. HISTORY: Chest pain. TECHNIQUE: Frontal and lateral views of the chest are obtained. FINDINGS: There is no focal air space opacity, pleural effusion, or pneumothorax seen. The cardiac silhouette size is within normal limits. The osseous structures are intact. IMPRESSION: No acute cardiopulmonary process.
[2021-01-04 19:41] LABS: Basophils % (A) 0 %; Eosinophils # (A) 0.2 k/uL (0-0.7); Eosinophils % (A) 2 %; HCT 42.5 % (39.0-53.0); HGB 14.9 gm/dL (13.0-17.5); Lymphocytes # (A) 1.2 k/uL (1.0-4.8); Lymphocytes % (A) 14 %; MCH 31.2 pg (25.0-35.0); MCV 89.2 fL (80.0-100.0); Mean Platelet Volume 7.3; Monocytes # (A) 0.5 k/uL (0-1.0); Monocytes % (A) 6 %; Neutrophils # (A) 6.2 k/uL (1.3-7.7); Neutrophils % (A) 75 %; Platelet Count 219 k/uL (150-450); RBC 4.77 m/uL (4.30-5.90); RDW 12.5 % (11.5-15.5); WBC 8.2 k/uL (3.8-10.6)
[2021-01-04 19:53] LABS: Calcium 9.9 mg/dL (8.4-10.2); Magnesium 2.1 mg/dL (1.6-2.3); Total Bilirubin 0.9 mg/dL (0.2-1.3)
[2021-01-04 19:54] LABS: Potassium 3.4 mmol/L (3.5-5.1)
[2021-01-04 20:14] LABS: Prothrombin Time 10.3 sec (9.0-12.0)
[2021-01-04 20:20] VITALS: RESP 17
[2021-01-04 20:31] LABS: Partial Thromboplastin Time 21.4 sec (22.0-30.0)
[2021-01-04] MEDS ORDERED: LORazepam 2 MG/ML INJ IV STA (20:53)
--- NOTE | 2021-01-04 21:51 | CT ---
EXAMINATION TYPE: CT angio chest DATE OF EXAM: 01/04/2021 9:19 PM COMPARISON: Same-day radiographs. HISTORY: Cholecystectomy 4 days ago. Chest pressure, shortness of breath, elevated d-dimer. CT DLP: 420.2 mGycm Automated exposure control for dose reduction was used. CONTRAST: CTA scan of the thorax is performed with IV Contrast, patient injected with 80 mL of Isovue 300, pulm onary embolism protocol. MIP images are created and reviewed. FINDINGS: LUNGS: The lungs are grossly clear, there is no concerning parenchymal mass or nodule identified. T here is no pleural effusion or pneumothorax seen. The tracheobronchial tree is patent. MEDIASTINUM: There is suboptimal evaluation of the pulmonary artery and its branches. There are no g reater than 1 cm hilar or mediastinal lymph nodes. No pericardial effusion is seen. Mild thoracic a rosita atherosclerotic disease. Otherwise the great vessels are unremarkable. OTHER: Cholecystectomy seen. No additional significant abnormality is seen. IMPRESSION: SUBOPTIMAL EVALUATION OF THE PULMONARY ARTERIES. NO CONVINCING EVIDENCE OF CENTRAL EMBOLUS. IF THERE IS CONTINUED CLINICAL CONCERN RECOMMEND REPEAT IMAGING WHEN FEASIBLE. NO ACUTE CARDIOPULMONARY ABNORMALITY.
[2021-01-04] MEDS ORDERED: ONDANSETRON 4 MG ODT STARTER PACK 2 TAB BTL PO STA (22:43)
[2021-01-04 23:04] VITALS: BP 152/70; PULSE 87; TEMP 97.8
== END 2021-01-04 23:04 | disposition home or self-care (01) ==
LOC: EC 18:07
DX: J45.901 Unspecified asthma with (acute) exacerbation (principal); I10 Essential (primary) hypertension; E78.5 Hyperlipidemia, unspecified; F32.9 Major depressive disorder, single episode, unspecified; Z79.82 Long term (current) use of aspirin; Z86.73 Personal history of transient ischemic attack (TIA), and cerebral infarction without residual deficits; Z90.49 Acquired absence of other specified parts of digestive tract
CPT/HCPCS: 99285; 96374; 96375; 36415; 94640 ×2; 93005; 85379; 83880; 80053; 82550; 83735; 84484; 85025; 85610; 85730; 71046; 71275; J2060; J2930; S0119; Q9967

== ENCOUNTER 2021-01-29 18:57 | Emergency (ER) | payer MEDICARE ==
[2021-01-29 19:21] VITALS: BP 160/86; RESP 20; TEMP 98.4
[2021-01-29] MEDS ORDERED: LORazepam 2 MG/ML INJ IV STA (20:20)
[2021-01-29] MEDS ORDERED: methylPREDNISolone SOD SUCCI 125 MG/2 ML VIAL IV STA (20:20)
[2021-01-29] MEDS ORDERED: IPRATROPIUM-ALBUTEROL 3 ML NEB INHALATION STA (20:20)
--- NOTE | 2021-01-29 20:25 | ED ---
General Adult HPI - General Chief complaint: Shortness of Breath Stated complaint: asthma issue, vomiting Time Seen by Provider: 01/29/21 19:52 Source: patient, family, RN notes reviewed Mode of arrival: wheelchair Limitations: no limitations - History of Present Illness Initial comments: This a 75-year-old male presents emergency Department with chief complaint of asthma issue. Patient states she's been having issues with asthma. Patient states that he sees Dr. Boston to see Dr. Gatica. Patient states he was difficulty breathing earlier but is very anxious walking around his house cannot sit down, his states he was pacing. Patient denies any chest pain. Patient states his been in another hospital recently. Patient denies any fevers or chills patient states she just feels like he has a chest cold denies any sick contacts denies any other complaints. - Related Data Home Medications Medication Instructions Recorded Confirmed Hydroxychloroquine Sulfate 200 mg PO BID 12/09/18 01/04/21 [Plaquenil] Montelukast [Singulair] 10 mg PO AC-LUNCH 01/07/19 01/04/21 Aspirin 325 mg PO AC-LUNCH 07/04/20 01/04/21 Levothyroxine Sodium [Euthyrox] 100 mcg PO AC-BRKFST 07/04/20 01/04/21 Albuterol Sulfate [Proair Hfa] 2 puff INHALATION RT-BID PRN 07/09/20 01/04/21 amLODIPine [Norvasc] 5 mg PO DAILY 07/09/20 01/04/21 ALPRAZolam [Xanax] 0.5 mg PO BID 12/15/20 01/04/21 Acetaminophen Tab [Tylenol] 500 mg PO TID 12/15/20 01/04/21 Atorvastatin [Lipitor] 20 mg PO AC-LUNCH 12/15/20 01/04/21 Fluticasone/Salmeterol [Advair 1 puff INHALATION RT-BID 12/15/20 01/04/21 500-50 Diskus] Gabapentin 300 mg PO HS 12/15/20 01/04/21 Ipratropium-Albuterol Nebulize 3 ml INHALATION RT-QID PRN 12/15/20 01/04/21 [Duoneb 0.5 mg-3 mg/3 ml Soln] Sertraline HCl [Zoloft] 25 mg PO DAILY 12/15/20 01/04/21 Umeclidinium [place] [Incruse 1 puff INHALATION RT-DAILY@1200 12/15/20 01/04/21 Ellipta] Previous Rx's Medication Instructions Recorded Losartan [Cozaar] 25 mg PO DAILY #30 tab 05/09/20 traMADol HCL 1 - 2 mg PO Q6HR PRN #15 tablet 12/31/20 predniSONE 50 mg PO DAILY #4 tab 01/29/21 Allergies Allergy/AdvReac Type Severity Reaction Status Date / Time No Known Allergies Allergy Verified 01/29/21 19:21 Review of Systems ROS Statement: Those systems with pertinent positive or pertinent negative responses have been documented in the HPI. ROS Other: All systems not noted in ROS Statement are negative. Past Medical History Past Medical History: Asthma, CVA/TIA, Hearing Disorder / Deafness, Hyperlipide ifeoma, Hypertension, Prostate Disorder Additional Past Medical History / Comment(s): Hx. "urination is slow" Dx. bronchitis,TIA in april 2020. arthritis back, History of Any Multi-Drug Resistant Organisms: None Reported Past Surgical History: Cholecystectomy, Orthopedic Surgery Additional Past Surgical History / Comment(s): Hx. Left knee arthroscopic, urethral surgery Past Anesthesia/Blood Transfusion Reactions: No Reported Reaction Past Psychological History: Depression Smoking Status: Never smoker Past Alcohol Use History: None Reported Past Drug Use History: None Reported - Past Family History Father History Unknown: Yes Family Medical History: CVA/TIA General Exam Limitations: no limitations General appearance: alert, in no apparent distress, anxious Head exam: Present: atraumatic, normocephalic, normal inspection Eye exam: Present: normal appearance, PERRL, EOMI. Absent: scleral icterus, conjunctival injection, periorbital swelling Neck exam: Present: normal inspection, full ROM. Absent: tenderness, meningismus, lymphadenopathy Respiratory exam: Present: wheezes (Force expiratory). Absent: normal lung sounds bilaterally, respiratory distress, rales, rhonchi, stridor Cardiovascular Exam: Present: regular rate, normal rhythm, normal heart sounds. Absent: systolic murmur, diastolic murmur, rubs, gallop, clicks GI/Abdominal exam: Present: soft, normal bowel sounds. Absent: distended, tenderness, guarding, rebound, rigid Neurological exam: Present: alert Skin exam: Present: warm, dry, intact, normal color. Absent: rash Course Vital Signs 01/29/21 01/29/21 01/29/21 19:16 20:50 21:08 Temperature 98.4 F Pulse Rate 78 78 80 Respiratory 20 Rate Blood Pressure 160/86 O2 Sat by Pulse 98 Oximetry EKG Findings - EKG Comments: EKG Findings:: EKG performed at 19:23 normal sinus rhythm rate of 81 ND 198 QRS 80 QTC is QTC 374/434 Medical Decision Making - Medical Decision Making 75-year-old presented after having mild anxiety attack, asthma issues. Patient is improved after dose steroids, breathing treatment. X-rays unremarkable patient will be discharged in stable condition. - Lab Data Result diagrams: 01/29/21 20:44 01/29/21 20:44 Lab Results 01/29/21 01/29/21 01/29/21 Range/Units 20:44 20:44 20:44 WBC 7.2 (3.8-10.6) k/uL RBC 4.52 (4.30-5.90) m/uL Hgb 14.5 (13.0-17.5) gm/dL Hct 40.6 (39.0-53.0) % MCV 89.9 (80.0-100.0) fL MCH 32.1 (25.0-35.0) pg MCHC 35.7 (31.0-37.0) g/dL RDW 12.2 (11.5-15.5) % Plt Count 197 (150-450) k/uL MPV 7.1 Neutrophils % 65 % Lymphocytes % 20 % Monocytes % 6 % Eosinophils % 7 % Basophils % 0 % Neutrophils # 4.7 (1.3-7.7) k/uL Lymphocytes # 1.4 (1.0-4.8) k/uL Monocytes # 0.4 (0-1.0) k/uL Eosinophils # 0.5 (0-0.7) k/uL Basophils # 0.0 (0-0.2) k/uL Sodium 139 (137-145) mmol/L Potassium 3.7 (3.5-5.1) mmol/L Chloride 107 (98-107) mmol/L Carbon Dioxide 22 (22-30) mmol/L Anion Gap 10 mmol/L BUN 10 (9-20) mg/dL Creatinine 1.00 (0.66-1.25) mg/dL Est GFR (CKD-EPI)AfAm 84 (>60 ml/min/1.73 sqM) Est GFR (CKD-EPI)NonAf 73 (>60 ml/min/1.73 sqM) Glucose 95 (74-99) mg/dL Calcium 9.9 (8.4-10.2) mg/dL Total Bilirubin 0.8 (0.2-1.3) mg/dL AST 26 (17-59) U/L ALT 23 (4-49) U/L Alkaline Phosphatase 104 (38-126) U/L Troponin I <0.012 (0.000-0.034) ng/mL Total Protein 6.2 L (6.3-8.2) g/dL Albumin 4.3 (3.5-5.0) g/dL Disposition Clinical Impression: Acute asthma exacerbation Disposition: HOME SELF-CARE Condition: Stable Instructions (If sedation given, give patient instructions): Asthma (ED) Additional Instructions: Please return to the Emergency Department if symptoms worsen or any other concerns. Prescriptions: predniSONE 50 mg PO DAILY #4 tab Is patient prescribed a controlled substance at d/c from ED?: No Referrals: Ronald Tamez MD [Primary Care Provider] - 1-2 days Time of Disposition: 21:52
[2021-01-29 20:55] LABS: Basophils % (A) 0 %; Eosinophils # (A) 0.5 k/uL (0-0.7); Eosinophils % (A) 7 %; HCT 40.6 % (39.0-53.0); HGB 14.5 gm/dL (13.0-17.5); Lymphocytes # (A) 1.4 k/uL (1.0-4.8); Lymphocytes % (A) 20 %; MCH 32.1 pg (25.0-35.0); MCHC 35.7 g/dL (31.0-37.0); MCV 89.9 fL (80.0-100.0); Mean Platelet Volume 7.1; Monocytes # (A) 0.4 k/uL (0-1.0); Monocytes % (A) 6 %; Neutrophils # (A) 4.7 k/uL (1.3-7.7); Neutrophils % (A) 65 %; Platelet Count 197 k/uL (150-450); RBC 4.52 m/uL (4.30-5.90); RDW 12.2 % (11.5-15.5); WBC 7.2 k/uL (3.8-10.6)
[2021-01-29 21:02] LABS: Albumin 4.3 g/dL (3.5-5.0); Calcium 9.9 mg/dL (8.4-10.2); Potassium 3.7 mmol/L (3.5-5.1); Total Bilirubin 0.8 mg/dL (0.2-1.3); Total Protein 6.2 g/dL (6.3-8.2)
[2021-01-29 21:08] VITALS: PULSE 80
--- NOTE | 2021-01-29 21:38 | XR ---
EXAMINATION TYPE: XR chest 2V DATE OF EXAM: 01/29/2021 COMPARISON: 01/04/2021 HISTORY: Difficulty breathing TECHNIQUE: Frontal and lateral views of the chest are obtained. FINDINGS: There is no focal air space opacity, pleural effusion, or pneumothorax seen. The cardiac silhouette size is within normal limits. The osseous structures are intact. IMPRESSION: No acute cardiopulmonary process.
== END 2021-01-29 22:21 | disposition home or self-care (01) ==
LOC: EC 18:57
DX: J45.901 Unspecified asthma with (acute) exacerbation (principal); E78.5 Hyperlipidemia, unspecified; I10 Essential (primary) hypertension; F32.9 Major depressive disorder, single episode, unspecified; Z79.82 Long term (current) use of aspirin; Z79.51 Long term (current) use of inhaled steroids; Z79.52 Long term (current) use of systemic steroids; Z79.890 Hormone replacement therapy; Z79.899 Other long term (current) drug therapy; Z86.73 Personal history of transient ischemic attack (TIA), and cerebral infarction without residual deficits
CPT/HCPCS: 36415; 94640; 93005; 80053; 84484; 85025; 71046; 96374; 96375; 99285; J2060; J2930

== ENCOUNTER 2021-02-18 10:31 | Emergency (ER) | payer MEDICARE ==
[2021-02-18 11:37] VITALS: RESP 18; TEMP 98.7
--- NOTE | 2021-02-18 11:37 | ED ---
Asthma HPI - General Source: patient Mode of arrival: wheelchair Limitations: no limitations <Sandie Rivers - Last Filed: 02/18/21 11:36> <Chris Kern - Last Filed: 02/18/21 12:27> - General Chief Complaint: Shortness of Breath Stated Complaint: asthma attack Time Seen by Provider: 02/18/21 11:36 - History of Present Illness Initial Comments: Patient is a 75-year-old male with history of asthma, hypertension, presenting to the emergency Department with complaints of feeling like he is having an as thma attack. There was shortness of breath started yesterday. No fevers or chills. No chest pains. Patient does see Dr. Sparks, has an appointment in 2 weeks. He is no abdominal pain, nausea or vomiting, no diarrhea. Denies any dizziness. (Sandie Rivers) - Related Data Home Medications Medication Instructions Recorded Confirmed Hydroxychloroquine Sulfate 200 mg PO BID 12/09/18 01/04/21 [Plaquenil] Montelukast [Singulair] 10 mg PO AC-LUNCH 01/07/19 01/04/21 Aspirin 325 mg PO AC-LUNCH 07/04/20 01/04/21 Levothyroxine Sodium [Euthyrox] 100 mcg PO AC-BRKFST 07/04/20 01/04/21 Albuterol Sulfate [Proair Hfa] 2 puff INHALATION RT-BID PRN 07/09/20 01/04/21 amLODIPine [Norvasc] 5 mg PO DAILY 07/09/20 01/04/21 ALPRAZolam [Xanax] 0.5 mg PO BID 12/15/20 01/04/21 Acetaminophen Tab [Tylenol] 500 mg PO TID 12/15/20 01/04/21 Atorvastatin [Lipitor] 20 mg PO AC-LUNCH 12/15/20 01/04/21 Fluticasone/Salmeterol [Advair 1 puff INHALATION RT-BID 12/15/20 01/04/21 500-50 Diskus] Gabapentin 300 mg PO HS 12/15/20 01/04/21 Ipratropium-Albuterol Nebulize 3 ml INHALATION RT-QID PRN 12/15/20 01/04/21 [Duoneb 0.5 mg-3 mg/3 ml Soln] Sertraline HCl [Zoloft] 25 mg PO DAILY 12/15/20 01/04/21 Umeclidinium [place] [Incruse 1 puff INHALATION RT-DAILY@1200 12/15/20 01/04/21 Ellipta] Previous Rx's Medication Instructions Recorded Losartan [Cozaar] 25 mg PO DAILY #30 tab 05/09/20 traMADol HCL 1 - 2 mg PO Q6HR PRN #15 tablet 12/31/20 predniSONE 50 mg PO DAILY #4 tab 01/29/21 predniSONE 50 mg PO DAILY #5 tab 02/18/21 Allergies Allergy/AdvReac Type Severity Reaction Status Date / Time No Known Allergies Allergy Verified 02/18/21 11:37 Review of Systems ROS Other: All systems not noted in ROS Statement are negative. <Sandie Rivers - Last Filed: 02/18/21 11:36> ROS Other: All systems not noted in ROS Statement are negative. <Chris Kern - Last Filed: 02/18/21 12:27> ROS Statement: Those systems with pertinent positive or pertinent negative responses have been documented in the HPI. Past Medical History Past Medical History: Asthma, CVA/TIA, Hearing Disorder / Deafness, Hyperlipidemia, Hypertension, Prostate Disorder Additional Past Medical History / Comment(s): Hx. "urination is slow" Dx. bronchitis,TIA in april 2020. arthritis back, History of Any Multi-Drug Resistant Organisms: None Reported Past Surgical History: Cholecystectomy, Orthopedic Surgery Additional Past Surgical History / Comment(s): Hx. Left knee arthroscopic, urethral surgery Past Anesthesia/Blood Transfusion Reactions: No Reported Reaction Past Psychological History: Depression Smoking Status: Never smoker Past Alcohol Use History: None Reported Past Drug Use History: None Reported - Past Family History Father History Unknown: Yes Family Medical History: CVA/TIA <Sandie Rivers - Last Filed: 02/18/21 11:36> General Exam Limitations: no limitations General appearance: alert, in no apparent distress Head exam: Present: atraumatic Eye exam: Present: normal appearance <Sandie Rivers - Last Filed: 02/18/21 11:36> ENT exam: Present: normal exam Neck exam: Present: normal inspection Respiratory exam: Present: decreased breath sounds. Absent: respiratory distress, wheezes, accessory muscle use Cardiovascular Exam: Present: regular rate, normal rhythm GI/Abdominal exam: Present: soft. Absent: distended, tenderness, guarding Extremities exam: Present: normal inspection, normal capillary refill. Absent: pedal edema, calf tenderness Neurological exam: Present: alert, oriented X3, CN II-XII intact. Absent: motor sensory deficit Psychiatric exam: Present: normal affect, normal mood Skin exam: Present: warm, dry, intact. Absent: cyanosis, diaphoretic <Chris Kern - Last Filed: 02/18/21 12:27> Course Vital Signs 02/18/21 11:34 Temperature 98.7 F Pulse Rate 86 Respiratory 18 Rate Blood Pressure 153/84 O2 Sat by Pulse 96 Oximetry Medical Decision Making <Chris Kern - Last Filed: 02/18/21 12:27> - Medical Decision Making 75 yo male history of asthma presenting with what he states is an asthma exacerbation. He denies fever. He denies central chest pain. Denies lower extremity pain or swelling. He has a minor cough. 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 He states that this combined with oral steroids typically works well for him. He has albuterol both rescue inhaler and nebulized albuterol at home. Return parameters are discussed. (Chris Kern) Disposition <Sandie Rivers - Last Filed: 02/18/21 11:36> Is patient prescribed a controlled substance at d/c from ED?: No Time of Disposition: 12:26 <Chris Kern - Last Filed: 02/18/21 12:27> Clinical Impression: Asthma with acute exacerbation Disposition: HOME SELF-CARE Condition: Good Instructions (If sedation given, give patient instructions): Asthma (ED) Prescriptions: predniSONE 50 mg PO DAILY #5 tab Referrals: Ronald Tamez MD [Primary Care Provider] - 1-2 days Foster Sparks MD [STAFF PHYSICIAN] - 1-2 days
[2021-02-18] MEDS ORDERED: DEXAMETHASONE SOD PHOSPHATE 10 MG/ML 1 ML VIAL IM STA (12:24)
[2021-02-18 13:13] VITALS: BP 143/84; PULSE 85
[2021-02-18] MEDS ORDERED: ONDANSETRON 4 MG TAB PO STA (13:19)
== END 2021-02-18 13:29 | disposition home or self-care (01) ==
LOC: EC 10:31
DX: J45.901 Unspecified asthma with (acute) exacerbation (principal); I10 Essential (primary) hypertension; E78.5 Hyperlipidemia, unspecified; F32.9 Major depressive disorder, single episode, unspecified; Z86.73 Personal history of transient ischemic attack (TIA), and cerebral infarction without residual deficits; Z79.82 Long term (current) use of aspirin; Z79.899 Other long term (current) drug therapy
CPT/HCPCS: 99284; 96372; J1100

== ENCOUNTER → 2021-04-29 | Outpatient (CLI) | payer MEDICARE | END | disposition home or self-care (01) | LOC: LABWHC1 12:34 | PROVIDERS: ATTEND Internal Medicine Critical Care Medicine | DX: J45.50 Severe persistent asthma, uncomplicated (principal) | CPT/HCPCS: 36415; 85008 ==

== ENCOUNTER 2021-10-24 16:05 | Emergency (ER) | payer MEDICARE ==
[2021-10-24 16:15] VITALS: TEMP 98.2
[2021-10-24] MEDS ORDERED: ONDANSETRON 4 MG/2 ML VIAL IVP STA (18:49)
[2021-10-24] MEDS ORDERED: SIMETHICONE 80 MG CHEWABLE PO STA (19:03)
[2021-10-24 20:15] LABS: Basophils # (A) 0.1 k/uL (0-0.2); Basophils % (A) 1 %; Eosinophils # (A) 0.2 k/uL (0-0.7); Eosinophils % (A) 2 %; HCT 43.7 % (39.0-53.0); HGB 14.5 gm/dL (13.0-17.5); Lymphocytes # (A) 1.1 k/uL (1.0-4.8); Lymphocytes % (A) 14 %; MCH 30.3 pg (25.0-35.0); MCHC 33.2 g/dL (31.0-37.0); MCV 91.4 fL (80.0-100.0); Mean Platelet Volume 6.7; Monocytes # (A) 0.5 k/uL (0-1.0); Monocytes % (A) 6 %; Neutrophils # (A) 6.2 k/uL (1.3-7.7); Neutrophils % (A) 76 %; Platelet Count 197 k/uL (150-450); RBC 4.78 m/uL (4.30-5.90); RDW 12.6 % (11.5-15.5); WBC 8.2 k/uL (3.8-10.6)
[2021-10-24 20:33] LABS: Albumin 4.2 g/dL (3.5-5.0); Calcium 9.6 mg/dL (8.4-10.2); Potassium 4.2 mmol/L (3.5-5.1); Total Bilirubin 0.5 mg/dL (0.2-1.3); Total Protein 6.3 g/dL (6.3-8.2)
--- NOTE | 2021-10-24 20:44 | ED ---
General Adult HPI - General Chief complaint: Abdominal Pain Stated complaint: Nausea,abd bloating Time Seen by Provider: 10/24/21 18:33 Source: patient Mode of arrival: ambulatory Limitations: no limitations - History of Present Illness Initial comments: Patient is a 76-year-old male who presents to the emergency department with a chief complaint of abdominal bloating and nausea. Patient states he had a cholecystectomy 10-[address] Garcia and since then has endorsed consistent abdominal bloating and nausea. Patient states his abdomen currently feels full of gas. States he takes Pepto-Bismol which only works for a short period of time. Patient denies abdominal pain and vomiting. He reports daily bowel movements, last one was today which was normal. Admits to flatulence. Denies fever, chills, burning with urination,and blood in the urine. Patient also reports dizziness which he states was told by his neurologist that it was not vertigo. Patient states he sees neurologist for mild hand tremor. Patient currently denies dizziness or vertigo describes as intermittent feelings as if he is spinning. Patient has never taken medication for his dizziness. Denies chest pain, shortness of breath, and other concerns. - Related Data Home Medications Medication Instructions Recorded Confirmed Hydroxychloroquine Sulfate 200 mg PO BID 12/09/18 01/04/21 [Plaquenil] Montelukast [Singulair] 10 mg PO AC-LUNCH 01/07/19 01/04/21 Aspirin 325 mg PO AC-LUNCH 07/04/20 01/04/21 Levothyroxine Sodium [Euthyrox] 100 mcg PO AC-BRKFST 07/04/20 01/04/21 Albuterol Sulfate [Proair Hfa] 2 puff INHALATION RT-BID PRN 07/09/20 01/04/21 amLODIPine [Norvasc] 5 mg PO DAILY 07/09/20 01/04/21 ALPRAZolam [Xanax] 0.5 mg PO BID 12/15/20 01/04/21 Acetaminophen Tab [Tylenol] 500 mg PO TID 12/15/20 01/04/21 Atorvastatin [Lipitor] 20 mg PO AC-LUNCH 12/15/20 01/04/21 Fluticasone/Salmeterol [Advair 1 puff INHALATION RT-BID 12/15/20 01/04/21 500-50 Diskus] Gabapentin 300 mg PO HS 12/15/20 01/04/21 Ipratropium-Albuterol Nebulize 3 ml INHALATION RT-QID PRN 12/15/20 01/04/21 [Duoneb 0.5 mg-3 mg/3 ml Soln] Sertraline HCl [Zoloft] 25 mg PO DAILY 12/15/20 01/04/21 Umeclidinium [place] [Incruse 1 puff INHALATION RT-DAILY@1200 12/15/20 01/04/21 Ellipta] Previous Rx's Medication Instructions Recorded Losartan [Cozaar] 25 mg PO DAILY #30 tab 05/09/20 traMADol HCL 1 - 2 mg PO Q6HR PRN #15 tablet 12/31/20 predniSONE 50 mg PO DAILY #4 tab 01/29/21 predniSONE 50 mg PO DAILY #5 tab 02/18/21 Meclizine [Antivert] 25 mg PO TID 7 Days #21 tablet 10/24/21 Ondansetron Odt [Zofran Odt] 4 mg PO Q8HR PRN #42 tab 10/24/21 Simethicone Chew [Mylicon Chew] 160 mg PO TID PRN 14 Days #42 tab 10/24/21 Allergies Allergy/AdvReac Type Severity Reaction Status Date / Time No Known Allergies Allergy Verified 02/18/21 11:37 Review of Systems ROS Statement: Those systems with pertinent positive or pertinent negative responses have been documented in the HPI. ROS Other: All systems not noted in ROS Statement are negative. Past Medical History Past Medical History: Asthma, CVA/TIA, Hearing Disorder / Deafness, Hyperlipidemia, Hypertension, Prostate Disorder Additional Past Medical History / Comment(s): Hx. "urination is slow" Dx. bronchitis,TIA in april 2020. arthritis back, History of Any Multi-Drug Resistant Organisms: None Reported Past Surgical History: Cholecystectomy, Orthopedic Surgery Additional Past Surgical History / Comment(s): Hx. Left knee arthroscopic, urethral surgery Past Anesthesia/Blood Transfusion Reactions: No Reported Reaction Past Psychological History: Depression Smoking Status: Never smoker Past Alcohol Use History: None Reported Past Drug Use History: None Reported - Past Family History Father History Unknown: Yes Family Medical History: CVA/TIA General Exam Limitations: no limitations General appearance: alert, in no apparent distress Head exam: Present: atraumatic, normocephalic, normal inspection Eye exam: Present: normal appearance, PERRL, EOMI. Absent: scleral icterus, conjunctival injection, periorbital swelling ENT exam: Present: normal oropharynx Respiratory exam: Present: normal lung sounds bilaterally. Absent: respiratory distress, wheezes, rales, rhonchi, stridor Cardiovascular Exam: Present: regular rate, normal rhythm, normal heart sounds. Absent: systolic murmur, diastolic murmur, rubs, gallop, clicks GI/Abdominal exam: Present: soft, distended (mild ), normal bowel sounds. Absent: tenderness, guarding, rebound, rigid Back exam: Present: normal inspection, full ROM Neurological exam: Present: alert, oriented X3, CN II-XII intact Psychiatric exam: Present: normal affect, normal mood Skin exam: Present: warm, dry, intact, normal color. Absent: rash Course Vital Signs 10/24/21 10/24/21 16:11 21:38 Temperature 98.2 F Pulse Rate 78 74 Respiratory 18 16 Rate Blood Pressure 160/83 158/90 O2 Sat by Pulse 98 96 Oximetry Medical Decision Making - Medical Decision Making This is a 76-year-old male who presents for evaluation of abdominal bloating and nausea. Thorough history and examination were performed. Patient states he has been experiencing these symptoms consistently since his cholecystectomy less than a year ago. He has not followed up with his surgeon. Denies abdominal pain and vomiting. Normal bowel movements. The abdomen is mildly distended and entirely nontender. I spoke with my supervising physician Dr. Rosen about the case in detail and at this time he does not feel that imaging is warranted as presentation is not consistent with obstruction or other acute process. I will obtain laboratory studies for further evaluation and management patient's symptoms. Laboratory studies are within normal limits. Patient given Gas X and zofran. On reevaluation patient states his abdomen bloating is markedly better. It appears to be quite less distended. States his nausea did improve some. Patient informed that he will need to follow-up with his surgeon regarding his postsurgical symptoms. He is also encouraged to follow up with his primary care provider. In the meantime I will prescribe him Gas-X and Zofran for his symptoms as these medications improve symptoms in the emergency department. I will also prescribe him meclizine which he may trial for his dizziness. Return parameters discussed. Patient verbalizes understanding and is agreeable to this plan. Dr. Rosen is my attending. - Lab Data Result diagrams: 10/24/21 19:55 10/24/21 19:55 Lab Results 10/24/21 10/24/21 Range/Units 19:55 19:55 WBC 8.2 (3.8-10.6) k/uL RBC 4.78 (4.30-5.90) m/uL Hgb 14.5 (13.0-17.5) gm/dL Hct 43.7 (39.0-53.0) % MCV 91.4 (80.0-100.0) fL MCH 30.3 (25.0-35.0) pg MCHC 33.2 (31.0-37.0) g/dL RDW 12.6 (11.5-15.5) % Plt Count 197 (150-450) k/uL MPV 6.7 Neutrophils % 76 % Lymphocytes % 14 % Monocytes % 6 % Eosinophils % 2 % Basophils % 1 % Neutrophils # 6.2 (1.3-7.7) k/uL Lymphocytes # 1.1 (1.0-4.8) k/uL Monocytes # 0.5 (0-1.0) k/uL Eosinophils # 0.2 (0-0.7) k/uL Basophils # 0.1 (0-0.2) k/uL Sodium 138 (137-145) mmol/L Potassium 4.2 (3.5-5.1) mmol/L Chloride 107 (98-107) mmol/L Carbon Dioxide 26 (22-30) mmol/L Anion Gap 5 mmol/L BUN 19 (9-20) mg/dL Creatinine 1.24 (0.66-1.25) mg/dL Est GFR (CKD-EPI)AfAm 65 (>60 ml/min/1.73 sqM) Est GFR (CKD-EPI)NonAf 56 (>60 ml/min/1.73 sqM) Glucose 96 (74-99) mg/dL Calcium 9.6 (8.4-10.2) mg/dL Total Bilirubin 0.5 (0.2-1.3) mg/dL AST 29 (17-59) U/L ALT 30 (4-49) U/L Alkaline Phosphatase 77 (38-126) U/L Total Protein 6.3 (6.3-8.2) g/dL Albumin 4.2 (3.5-5.0) g/dL Lipase 112 (23-300) U/L Disposition Clinical Impression: Abdominal bloating, Nausea, Dizziness Disposition: HOME SELF-CARE Condition: Good Additional Instructions: Please take medication as directed. Please schedule an appointment with your surgeon at earliest availability. Please follow up with the primary care provider in one to 2 days. Return to the emergency department if you experience new, concerning, or worsening symptoms. Prescriptions: Meclizine [Antivert] 25 mg PO TID 7 Days #21 tablet Simethicone Chew [Mylicon Chew] 160 mg PO TID PRN 14 Days #42 tab PRN Reason: Abdominal Distention Ondansetron Odt [Zofran Odt] 4 mg PO Q8HR PRN #42 tab PRN Reason: Nausea Is patient prescribed a controlled substance at d/c from ED?: No Referrals: Ronald Tamez MD [Primary Care Provider] - 1-2 days Time of Disposition: 20:43
[2021-10-24 21:39] VITALS: BP 158/90; PULSE 74; RESP 16
== END 2021-10-24 21:39 | disposition home or self-care (01) ==
LOC: EC 16:05
DX: R14.0 Abdominal distension (gaseous) (principal); R11.2 Nausea with vomiting, unspecified; R42 Dizziness and giddiness; E78.5 Hyperlipidemia, unspecified; I10 Essential (primary) hypertension; J45.909 Unspecified asthma, uncomplicated; Z79.51 Long term (current) use of inhaled steroids; Z86.73 Personal history of transient ischemic attack (TIA), and cerebral infarction without residual deficits; Z79.899 Other long term (current) drug therapy; Z79.82 Long term (current) use of aspirin
CPT/HCPCS: 36415; 80053; 83690; 85025; 99284; 96374; J2405

== ENCOUNTER → 2021-11-29 | Outpatient (CLI) | payer MEDICARE ==
[~2021-11-29] MED LIST changes: +IODINE/POTASS IOD (LUGOLS) BOTTLE ONE; -OMALIZUMAB 150 MG VIAL SQ ONE
--- NOTE | 2021-12-01 11:34 | NM ---
EXAMINATION TYPE: NM DatScan Brain SPECT DATE OF EXAM: 11/29/2021 COMPARISON: NONE HISTORY: Tremor. TECHNIQUE: 10 drops of Lugol's solution was administered 1 hour prior to injection as a thyroid bloc divine agent. After the administration of 4.64 mCi I-123 Ioflupane DaTscan. Images obtained 3 hours p ost injection. SPECT images of the brain were acquired with axial and coronal reconstructions. FINDINGS: The DaTSCAN demonstrates marked reduced uptake of tracer throughout the striata. This appearance is consistent with the bilateral loss of the pre-synaptic dopaminergic terminals. IMPRESSION: This abnormal appearance would be supportive of a clinical diagnosis of either DLB, idiop athic PD, PS or Parkinson?s dementia disease.
== END | disposition home or self-care (01) ==
LOC: RADNMMAIN 10:51
PROVIDERS: ATTEND Psychiatry & Neurology Neurology
DX: R93.0 Abnormal findings on diagnostic imaging of skull and head, not elsewhere classified (principal)
CPT/HCPCS: 78803; A9584

== ENCOUNTER 2023-03-19 15:32 | Emergency (ER) | payer MEDICARE ==
[2023-03-19 15:46] VITALS: TEMP 97.8
--- NOTE | 2023-03-19 16:04 | XR ---
EXAMINATION TYPE: XR chest 2V DATE OF EXAM: 03/19/2023 3:58 PM COMPARISON: Chest radiographs from 04/15/2022 TECHNIQUE: XR chest 2V Frontal and lateral views of the chest. CLINICAL INDICATION:Male, 77 years old with history of short of breath wheezes; FINDINGS: Lungs/Pleura: There is no evidence of pleural effusion, focal consolidation, or pneumothorax. Elevat ion of the right hemidiaphragm redemonstrated. Pulmonary vascularity: Unremarkable. Heart/mediastinum: Cardiomediastinal silhouette is unremarkable. Atherosclerotic calcifications are seen in the aorta. Musculoskeletal: No acute osseous pathology. Mild degenerative changes of the midthoracic spine. IMPRESSION: Chronic changes without acute pulmonary process.
--- NOTE | 2023-03-19 16:26 | ED ---
SOB HPI - General Source: patient, RN notes reviewed Mode of arrival: ambulatory Limitations: no limitations - History of Present Illness MD Complaint: shortness of breath <Maribell Blair - Last Filed: 03/19/23 16:24> <Tierra Mahan - Last Filed: 03/19/23 23:20> - General Chief Complaint: Shortness of Breath Stated Complaint: asthma nausea Time Seen by Provider: 03/19/23 16:22 - History of Present Illness Initial Comments: This is a 77-year-old male who presents to the emergency department for shortness of breath and wheezing. Denies any chest pain. Also denies any fevers or chills. Reports a history of asthma. (Maribell Blair) Quick note reviewed: This is a 77-year-old male with past medical history significant for asthma department with multiple complaints. Patient verbalizes that he has had worsening nausea and right-sided throat pain for the last. He reports that he will occasionally have dizziness however this will resolve after eating food. He is also complaining of worsening shortness of breath and feels like he can get a good breath in however is unable to get a good breath out. He reports using his rescue inhaler more frequently at home. He denies any recent sick contacts. Patient denies any known fever, chills, vomiting, chest pain, chest discomfort, dyspnea, melena, hematochezia. Patient reports he has attempted to see multiple specialist however has been a unable to due to long wait times. (Tierra Mahan) - Related Data Home Medications Medication Instructions Recorded Confirmed Hydroxychloroquine Sulfate 200 mg PO BID@0600,199912/09/18 03/19/23 [Plaquenil] Montelukast [Singulair] 10 mg PO HS 01/07/19 03/19/23 Aspirin 325 mg PO DAILY@1200 07/04/20 03/19/23 Levothyroxine Sodium [Euthyrox] 100 mcg PO DAILY@0600 07/04/20 03/19/23 Albuterol Sulfate [Proair Hfa] 2 puff INHALATION RT-QID PRN 07/09/20 03/19/23 ALPRAZolam [Xanax] 0.5 mg PO BID@0600,199912/15/20 03/19/23 Atorvastatin [Lipitor] 20 mg PO DAILY@1200 12/15/20 03/19/23 Fluticasone Propion/Salmeterol 1 puff INHALATION RT-BID@0600,2100 12/15/20 03/19/23 [Advair 500-50 Diskus] Umeclidinium [place] [Incruse 1 puff INHALATION RT-DAILY@1200 12/15/20 03/19/23 Ellipta] Albuterol Nebulized [Ventolin 2.5 mg INHALATION RT-QID PRN 03/19/23 03/19/23 Nebulized] Carbidopa-Levodopa 25-100 mg 0.5 tab PO DAILY@1800 03/19/23 03/19/23 [Sinemet 25-100] Carbidopa-Levodopa 25-100 mg 1 tab PO TID@0600,1400,2200 03/19/23 03/19/23 [Sinemet 25-100] Gabapentin [Neurontin] 400 mg PO HS 03/19/23 03/19/23 Ipratropium Nebulized [Atrovent 0.5 mg INHALATION RT-QID PRN 03/19/23 03/19/23 Nebulized 0.2 MG/ML] Losartan [Cozaar] 25 mg PO DAILY@0600 03/19/23 03/19/23 Sertraline [Zoloft] 100 mg PO DAILY@1200 03/19/23 03/19/23 Tezepelumab-Ekko [Tezspire] 1 dose SQ Q30D 03/19/23 03/19/23 Previous Rx's Medication Instructions Recorded Ondansetron Odt [Zofran Odt] 4 mg PO Q8HR PRN #10 tab 03/19/23 Allergies Allergy/AdvReac Type Severity Reaction Status Date / Time No Known Allergies Allergy Verified 03/19/23 21:51 Review of Systems ROS Other: All systems not noted in ROS Statement are negative. <Maribell Blair - Last Filed: 03/19/23 16:24> ROS Other: All systems not noted in ROS Statement are negative. <Tierra Mahan - Last Filed: 03/19/23 23:20> ROS Statement: Those systems with pertinent positive or pertinent negative responses have been documented in the HPI. Past Medical History Past Medical History: Asthma, CVA/TIA, Hearing Disorder / Deafness, Hyperlipidemia, Hypertension, Prostate Disorder Additional Past Medical History / Comment(s): Hx. "urination is slow" Dx. bronchitis,TIA in april 2020. arthritis back, parkinsons History of Any Multi-Drug Resistant Organisms: None Reported Past Surgical History: Cholecystectomy, Orthopedic Surgery Additional Past Surgical History / Comment(s): Hx. Left knee arthroscopic, urethral surgery Past Anesthesia/Blood Transfusion Reactions: No Reported Reaction Past Psychological History: Depression Smoking Status: Never smoker Past Alcohol Use History: None Reported Past Drug Use History: None Reported - Past Family History Father History Unknown: Yes Family Medical History: CVA/TIA <Maribell Blair - Last Filed: 03/19/23 16:24> General Exam Limitations: no limitations <Maribell Blair - Last Filed: 03/19/23 16:24> <Tierra Mahan - Last Filed: 03/19/23 23:20> - General Exam Comments Initial Comments: Visual Physical Exam Vital signs reviewed General: Well-appearing, nontoxic, no acute distress. Head: Normocephalic, atraumatic Eyes: PERRLA, EOMI ENT: Airway patent Chest: Nonlabored breathing Skin: No visual rash, normal skin tone Neuro: Alert and oriented 3 Musculoskeletal: No gross abnormalities I performed the QuickNote portion of this chart. Signed Maribell Blair PA-C. (Maribell Blair) General: Alert, in no acute distress Head: atraumatic normocephalic. Eyes PERRL, EOMI intact, mucous membranes moist Respiratory: , inspiratory and expiratory wheezing all lung baltazar Cardiovascular: Heart rate regular rate and rhythm Abdominal: Soft without guarding or rebound Extremities: Normal inspection with full range of motion and normal capillary refill Neuroogic: alert and oriented 3, CN II-XII intact, able to ambulate with steady gait Skin: warm dry and intact with normal color (Tierra Mahan) Course <Tierra Mahan - Last Filed: 03/19/23 23:20> Vital Signs 03/19/23 03/19/23 03/19/23 15:42 18:58 19:33 Temperature 97.8 F Pulse Rate 89 84 82 Respiratory 16 18 Rate Blood Pressure 171/94 168/89 O2 Sat by Pulse 98 98 Oximetry 03/19/23 03/19/23 19:43 22:34 Temperature Pulse Rate 88 86 Respiratory 20 Rate Blood Pressure 142/87 O2 Sat by Pulse 97 Oximetry - Reevaluation(s) Reevaluation #1: 03/19/23 21:11 Dr. Sparks at the bedside to evaluate the patient. (Tierra Mahan) Medical Decision Making - Lab Data Result diagrams: 03/19/23 18:48 03/19/23 18:48 <Tierra Mahan - Last Filed: 03/19/23 23:20> - Medical Decision Making Was pt. sent in by a medical professional or institution (, PA, DIAZO TECHNICIAN, urgent care, hospital, or custodial...) When possible be specific @ -[No] Did you speak to anyone other than the patient for history (EMS, parent, family, police, friend...)? What history was obtained from this source @ -[No] Did you review nursing and triage notes (agree or disagree)? Why? @ -[I reviewed and agree with nursing and triage notes] Were old charts reviewed (outside hosp., previous admission, EMS record, old EKG, old radiological studies, urgent care reports/EKG's, custodial records)? Report findings @ -[No old charts were reviewed] Differential Diagnosis (chest pain, altered mental status, abdominal pain women, abdominal pain men, vaginal bleeding, weakness, fever, dyspnea, syncope, headache, dizziness, GI bleed, back pain, seizure, CVA, palpatations, mental health, musculoskeletal)? @ -[not applicable] EKG interpreted by me (3pts min.). @ -[As above] X-rays interpreted by me (1pt min.). @ -Yes CT interpreted by me (1pt min.). @ -[None done] U/S interpreted by me (1pt. min.). @ -[None done] What testing was considered but not performed or refused? (CT, X-rays, U/S, la bs)? Why? @ -[None] What meds were considered but not given or refused? Why? @ -[None] Did you discuss the management of the patient with other professionals (professionals i.e. , PA, DIAZO TECHNICIAN, lab, RT, psych nurse, social services assistant, char house supervisor, teacher, dog license officer supervisor, complex case manager)? Give summary @ -Dr. Sparks Was smoking cessation discussed for >3mins.? @ -[No] Was critical care preformed (if so, how long)? @ -[No] Were there social determinants of health that impacted care today? How? (Homelessness, low income, unemployed, alcoholism, drug addiction, transportation, low edu. Level, literacy, decrease access to med. care, [facility], rehab)? @ -[No] Was there de-escalation of care discussed even if they declined (Discuss DNR or withdrawal of care, Hospice)? DNR status @ -[No] What co-morbidities impacted this encounter? (DM, HTN, Smoking, COPD, CAD, Cancer, CVA, ARF, Chemo, Hep., AIDS, mental health diagnosis, sleep apnea, morbid obesity)? @ -[None] Was patient admitted / discharged? Hospital course, mention meds given and route, prescriptions, significant lab abnormalities, going to OR and other pertinent info. @ -Discharge. This is a 69-year-old male presents emergency Department with nausea. Patient had a thorough history and physical exam performed. Heart rate regular rate and rhythm, lungs reveal wheezing in all lung baltazar. Abdomen is soft and nontender. Vital signs stable. Patient's oxygen saturation 98% during her course of ED care. Patient was given 2 DuoNeb treatments with mild symptomatic improvement. Patient laboratory studies that revealed WBC 12.6, hemoglobin 15.6, coagulation studies unremarkable CMP unremarkable Covid or influenza RSV negative. Chest x-ray does not reveal any acute pulmonary process Dr. Sparks in the department to evaluate the patient, he does not believe the patient needs to be admitted at this time. I discussed results in detail the patient verbalized understanding all questions were addressed. Strict return parameters were discussed. Patient discharged in stable condition with prescription for Zofran. Case discussed with ADRIENNE Pinon who agrees with plan of care Undiagnosed new problem with uncertain prognosis? @ -[No] Drug Therapy requiring intensive monitoring for toxicity (Heparin, Nitro, Insulin, Cardizem)? @ -[No] Were any procedures done? @ -[No] Diagnosis/symptom? @ -Nausea - Right throat pain - Asthma Acute, or Chronic, or Acute on Chronic? @ -[Acute Uncomplicated (without systemic symptoms) or Complicated (systemic symptoms)? @ -Uncomplicated Side effects of treatment? @ -[No] Exacerbation, Progression, or Severe Exacerbation? @ -[No] Poses a threat to life or bodily function? How? (Chest pain, [place], [place], pneumonia, PE, COPD, DKA, ARF, appy, cholecystitis, CVA, Diverticulitis, Homicidal, Suicidal, threat to staff... and all critical care pts) @ -Low likelihood (Tierra Mahan) - Lab Data Lab Results 03/19/23 03/19/23 03/19/23 Range/Units 15:45 18:48 18:48 WBC 12.6 H (3.8-10.6) k/uL RBC 4.64 (4.30-5.90) m/uL Hgb 15.6 (13.0-17.5) gm/dL Hct 43.9 (39.0-53.0) % MCV 94.6 (80.0-100.0) fL MCH 33.6 (25.0-35.0) pg MCHC 35.6 (31.0-37.0) g/dL RDW 13.7 (11.5-15.5) % Plt Count 131 L (150-450) k/uL MPV 8.7 Neutrophils % 82 % Lymphocytes % 10 % Monocytes % 5 % Eosinophils % 2 % Basophils % 0 % Neutrophils # 10.3 H (1.3-7.7) k/uL Lymphocytes # 1.3 (1.0-4.8) k/uL Monocytes # 0.6 (0-1.0) k/uL Eosinophils # 0.3 (0-0.7) k/uL Basophils # 0.0 (0-0.2) k/uL PT (10.0-12.5) sec INR (<1.2) APTT (22.0-30.0) sec Sodium 138 (137-145) mmol/L Potassium 4.1 (3.5-5.1) mmol/L Chloride 106 (98-107) mmol/L Carbon Dioxide 22 (22-30) mmol/L Anion Gap 10 mmol/L BUN 18 (9-20) mg/dL Creatinine 1.16 (0.66-1.25) mg/dL Est GFR (CKD-EPI)AfAm 70 (>60 ml/min/1.73 sqM) Est GFR (CKD-EPI)NonAf 60 (>60 ml/min/1.73 sqM) Glucose 132 H (74-99) mg/dL Calcium 10.5 H (8.4-10.2) mg/dL Total Bilirubin 0.8 (0.2-1.3) mg/dL AST 27 (17-59) U/L ALT 10 (4-49) U/L Alkaline Phosphatase 105 (38-126) U/L Troponin I (0.000-0.034) ng/mL Total Protein 6.3 (6.3-8.2) g/dL Albumin 4.1 (3.5-5.0) g/dL Influenza Type A (PCR) Not Detected (Not Detectd) Influenza Type B (PCR) Not Detected (Not Detectd) RSV (PCR) Not Detected (Not Detectd) SARS-CoV-2 (PCR) Not Detected (Not Detectd) 03/19/23 03/19/23 Range/Units 18:48 19:00 WBC (3.8-10.6) k/uL RBC (4.30-5.90) m/uL Hgb (13.0-17.5) gm/dL Hct (39.0-53.0) % MCV (80.0-100.0) fL MCH (25.0-35.0) pg MCHC (31.0-37.0) g/dL RDW (11.5-15.5) % Plt Count (150-450) k/uL MPV Neutrophils % % Lymphocytes % % Monocytes % % Eosinophils % % Basophils % % Neutrophils # (1.3-7.7) k/uL Lymphocytes # (1.0-4.8) k/uL Monocytes # (0-1.0) k/uL Eosinophils # (0-0.7) k/uL Basophils # (0-0.2) k/uL PT 10.3 (10.0-12.5) sec INR 0.9 (<1.2) APTT 22.3 (22.0-30.0) sec Sodium (137-145) mmol/L Potassium (3.5-5.1) mmol/L Chloride (98-107) mmol/L Carbon Dioxide (22-30) mmol/L Anion Gap mmol/L BUN (9-20) mg/dL Creatinine (0.66-1.25) mg/dL Est GFR (CKD-EPI)AfAm (>60 ml/min/1.73 sqM) Est GFR (CKD-EPI)NonAf (>60 ml/min/1.73 sqM) Glucose (74-99) mg/dL Calcium (8.4-10.2) mg/dL Total Bilirubin (0.2-1.3) mg/dL AST (17-59) U/L ALT (4-49) U/L Alkaline Phosphatase (38-126) U/L Troponin I <0.012 (0.000-0.034) ng/mL Total Protein (6.3-8.2) g/dL Albumin (3.5-5.0) g/dL Influenza Type A (PCR) (Not Detectd) Influenza Type B (PCR) (Not Detectd) RSV (PCR) (Not Detectd) SARS-CoV-2 (PCR) (Not Detectd) Disposition <Maribell Blair - Last Filed: 03/19/23 16:24> Is patient prescribed a controlled substance at d/c from ED?: No Time of Disposition: 22:09 <Tierra Mahan - Last Filed: 03/19/23 23:20> Clinical Impression: Nausea, Throat pain Disposition: HOME SELF-CARE Condition: Stable Prescriptions: Ondansetron Odt [Zofran Odt] 4 mg PO Q8HR PRN #10 tab PRN Reason: Nausea Referrals: Ronald Tamez MD [Primary Care Provider] - 1-2 days
[2023-03-19] MEDS ORDERED: IPRATROPIUM-ALBUTEROL 3 ML NEB INHALATION STA ×2 (18:42→19:25)
[2023-03-19 19:07] LABS: Basophils % (A) 0 %; Eosinophils # (A) 0.3 k/uL (0-0.7); Eosinophils % (A) 2 %; HCT 43.9 % (39.0-53.0); HGB 15.6 gm/dL (13.0-17.5); Lymphocytes # (A) 1.3 k/uL (1.0-4.8); Lymphocytes % (A) 10 %; MCH 33.6 pg (25.0-35.0); MCHC 35.6 g/dL (31.0-37.0); MCV 94.6 fL (80.0-100.0); Mean Platelet Volume 8.7; Monocytes # (A) 0.6 k/uL (0-1.0); Monocytes % (A) 5 %; Neutrophils # (A) 10.3 k/uL (1.3-7.7); Neutrophils % (A) 82 %; Platelet Count 131 k/uL (150-450); RBC 4.64 m/uL (4.30-5.90); RDW 13.7 % (11.5-15.5); WBC 12.6 k/uL (3.8-10.6)
[2023-03-19 19:10] LABS: ALT 10 U/L (4-49); AST 27 U/L (17-59); African American GFR (CKD) 70 (>60 ml/min/1.73 sqM); Albumin 4.1 g/dL (3.5-5.0); Alkaline Phosphatase 105 U/L (38-126); Anion Gap 10 mmol/L; Blood Urea Nitrogen 18 mg/dL (9-20); Calcium 10.5 mg/dL (8.4-10.2); Carbon Dioxide 22 mmol/L (22-30); Chloride 106 mmol/L (98-107); Glucose 132 mg/dL (74-99); Non-African American GFR(CKD) 60 (>60 ml/min/1.73 sqM); Potassium 4.1 mmol/L (3.5-5.1); Sodium 138 mmol/L (137-145); Total Bilirubin 0.8 mg/dL (0.2-1.3); Total Protein 6.3 g/dL (6.3-8.2)
[2023-03-19 20:11] LABS: INR 0.9 (<1.2); Partial Thromboplastin Time 22.3 sec (22.0-30.0); Prothrombin Time 10.3 sec (10.0-12.5)
[2023-03-19] MEDS ORDERED: ONDANSETRON 4 MG/2 ML VIAL IVP STA (21:00)
[2023-03-19 22:50] VITALS: BP 142/87; PULSE 86; RESP 20
== END 2023-03-19 22:35 | disposition home or self-care (01) ==
LOC: EC 15:32 → SUPCPDRO 15:32 → EC 22:35
DX: J45.909 Unspecified asthma, uncomplicated (principal); R11.2 Nausea with vomiting, unspecified; R07.0 Pain in throat; I10 Essential (primary) hypertension; E78.5 Hyperlipidemia, unspecified; F32.A Depression, unspecified; G20.A1 Parkinson's disease without dyskinesia, without mention of fluctuations; Z79.51 Long term (current) use of inhaled steroids; Z79.82 Long term (current) use of aspirin; Z79.899 Other long term (current) drug therapy; Z20.822 Contact with and (suspected) exposure to COVID-19; Z90.49 Acquired absence of other specified parts of digestive tract; Z86.73 Personal history of transient ischemic attack (TIA), and cerebral infarction without residual deficits
CPT/HCPCS: 36415; 94640; 80053; 84484; 85025; 85610; 85730; 87636; 71046; 99285; 96374; J2405

== ENCOUNTER 2023-04-14 11:29 | Inpatient (IN) | payer MEDICARE ==
[2023-04-14 12:09] LABS: Glucose,Whole Blood 119 mg/dL (70-110)
[2023-04-14 12:09] LABS: Basophils % (A) 0 %; Eosinophils # (A) 0.2 k/uL (0-0.7); Eosinophils % (A) 2 %; HGB 15.2 gm/dL (13.0-17.5); Lymphocytes # (A) 1.1 k/uL (1.0-4.8); Lymphocytes % (A) 11 %; MCH 32.8 pg (25.0-35.0); MCHC 34.6 g/dL (31.0-37.0); MCV 94.6 fL (80.0-100.0); Mean Platelet Volume 7.2; Monocytes # (A) 0.5 k/uL (0-1.0); Monocytes % (A) 5 %; Neutrophils # (A) 7.8 k/uL (1.3-7.7); Neutrophils % (A) 81 %; Platelet Count 225 k/uL (150-450); RBC 4.65 m/uL (4.30-5.90); RDW 12.4 % (11.5-15.5); WBC 9.6 k/uL (3.8-10.6)
--- NOTE | 2023-04-14 12:13 | ED ---
General Adult HPI - General Chief complaint: Neuro Symptoms/Deficit Stated complaint: TIA Time Seen by Provider: 04/14/23 11:50 Source: patient, RN notes reviewed, old records reviewed Mode of arrival: wheelchair Limitations: no limitations - History of Present Illness Initial comments: Patient is a 77-year-old male with past medical history remarkable for TIAs, asthma, hypertension, Parkinson's disease who presents emergency Department complaining of left arm tingling and facial tingling starting partly 2 hours ago. Last Tylenol was 10 AM. States that he was sitting when he suddenly began experiencing left-sided numbness of the left arm, left face. States is mostly in the hand and cheek denies any lower extremity weakness or numbness. His no other symptoms. Has a history of TIAs and wanted to be evaluated over concern for possible TIA. Takes aspirin. No other blood thinners. Denies trauma. Has no other acute complaints at this time. Presents for further evaluation at this time. Patient does have chronic weakness in his left lower extremity which is at baseline per patient as well as family. - Related Data Home Medications Medication Instructions Recorded Confirmed Hydroxychloroquine Sulfate 200 mg PO BID@0600,199912/09/18 03/19/23 [Plaquenil] Montelukast [Singulair] 10 mg PO HS 01/07/19 03/19/23 Aspirin 325 mg PO DAILY@1200 07/04/20 03/19/23 Levothyroxine Sodium [Euthyrox] 100 mcg PO DAILY@0600 07/04/20 03/19/23 Albuterol Sulfate [Proair Hfa] 2 puff INHALATION RT-QID PRN 07/09/20 03/19/23 ALPRAZolam [Xanax] 0.5 mg PO BID@0600,199912/15/20 03/19/23 Atorvastatin [Lipitor] 20 mg PO DAILY@1200 12/15/20 03/19/23 Fluticasone Propion/Salmeterol 1 puff INHALATION RT-BID@0600,209912/15/20 03/19/23 [Advair 500-50 Diskus] Umeclidinium [place] [Incruse 1 puff INHALATION RT-DAILY@1200 12/15/20 03/19/23 Ellipta] Albuterol Nebulized [Ventolin 2.5 mg INHALATION RT-QID PRN 03/19/23 03/19/23 Nebulized] Carbidopa-Levodopa 25-100 mg 0.5 tab PO DAILY@1800 03/19/23 03/19/23 [Sinemet 25-100] Carbidopa-Levodopa 25-100 mg 1 tab PO TID@0600,1400,2200 03/19/23 03/19/23 [Sinemet 25-100] Gabapentin [Neurontin] 400 mg PO HS 03/19/23 03/19/23 Ipratropium Nebulized [Atrovent 0.5 mg INHALATION RT-QID PRN 03/19/23 03/19/23 Nebulized 0.2 MG/ML] Losartan [Cozaar] 25 mg PO DAILY@0600 03/19/23 03/19/23 Sertraline [Zoloft] 100 mg PO DAILY@1200 03/19/23 03/19/23 Tezepelumab-Ekko [Tezspire] 1 dose SQ Q30D 03/19/23 03/19/23 Previous Rx's Medication Instructions Recorded Ondansetron Odt [Zofran Odt] 4 mg PO Q8HR PRN #10 tab 03/19/23 Allergies Allergy/AdvReac Type Severity Reaction Status Date / Time No Known Allergies Allergy Verified 04/14/23 11:34 Review of Systems ROS Statement: Those systems with pertinent positive or pertinent negative responses have been documented in the HPI. Review of Systems: CONST: Denies fever EYES: Denies blurry vision ENT: Denies nasal congestion C/V: Denies Chest pain RESP: Denies shortness of breath GI: Denies abdominal pain : Denies dysuria SKIN: Denies rash. MSK: Denies joint pain. NEURO: Denies headache ROS Other: All systems not noted in ROS Statement are negative. Past Medical History Past Medical History: Asthma, CVA/TIA, Hearing Disorder / Deafness, Hyperlipidemia, Hypertension, Prostate Disorder Additional Past Medical History / Comment(s): Hx. "urination is slow" Dx. bronchitis,TIA in april 2020. arthritis back, parkinsons History of Any Multi-Drug Resistant Organisms: None Reported Past Surgical History: Cholecystectomy, Orthopedic Surgery Additional Past Surgical History / Comment(s): Hx. Left knee arthroscopic, urethral surgery Past Anesthesia/Blood Transfusion Reactions: No Reported Reaction Past Psychological History: Depression Smoking Status: Never smoker Past Alcohol Use History: None Reported Past Drug Use History: None Reported - Past Family History Father History Unknown: Yes Family Medical History: CVA/TIA General Exam - General Exam Comments Initial Comments: General: Appears in no acute distress. HEAD: Normal with no signs of head trauma. EYES: PERRLA, EOMI, conjunctiva normal, no discharge. Pupils are 3 mm and equal bilaterally. ENT: Hearing grossly intact, normal oropharynx. RESPIRATORY: Clear breath sounds bilaterally. No wheezes, rales, or rhonchi. C/V: Regular rate and rhythm. S1 and S2 auscultated, no edema, peripheral pulses 2+ and intact throughout ABD: Abd is soft, nontender, nondistended EXT: Normal range of motion, no obvious deformity SKIN: No rashes or lesions observed on exposed skin. NEURO: Alert and oriented 4. NIH is 1 for decreased sensation to light touch along the entire left arm below the elbow as well as hand as well as the left lower face. Last known normal was 10 AM. GCS of 15. Limitations: no limitations Course Vital Signs 04/14/23 04/14/23 04/14/23 11:34 11:36 12:00 Temperature 97.8 F Pulse Rate 83 79 80 Respiratory 16 20 16 Rate Blood Pressure 189/90 164/82 164/82 O2 Sat by Pulse 96 96 96 Oximetry 04/14/23 04/14/23 13:36 14:00 Temperature Pulse Rate 78 70 Respiratory 16 16 Rate Blood Pressure 130/70 130/70 O2 Sat by Pulse 98 98 Oximetry Medical Decision Making - Medical Decision Making Was pt. sent in by a medical professional or institution (, PA, HEALTH AND WELLNESS MANAGER, urgent care, hospital, or fpc...) When possible be specific @ -No Did you speak to anyone other than the patient for history (EMS, parent, family, police, friend...)? What history was obtained from this source @ -Spoke with patient's family member who aided with patient's past medical history and current presentation. Did you review nursing and triage notes (agree or disagree)? Why? @ -I reviewed and agree with nursing and triage notes Were old charts reviewed (outside hosp., previous admission, EMS record, old EK G, old radiological studies, urgent care reports/EKG's, fpc records)? Report findings @ -No old charts were reviewed Differential Diagnosis (chest pain, altered mental status, abdominal pain women, abdominal pain men, vaginal bleeding, weakness, fever, dyspnea, syncope, headache, dizziness, GI bleed, back pain, seizure, CVA, palpatations, mental health, musculoskeletal)? @ -Differential CVA Ischemic stroke, hemorrhagic stroke, brain tumor, atypical migraine, Wernicke's encephalopathy, seizure, multiple sclerosis, meningitis, encephalitis, hypoglycemia, Guillain-Josue, electrolytes disturbance, myasthenia gravis.... This is not meant to be an all-inclusive list EKG interpreted by me (3pts min.). @ -As above X-rays interpreted by me (1pt min.). @ -Patient's chest x-ray reveals no obvious acute cardiopulmonary process, possible asthma. CT interpreted by me (1pt min.). @ -CT brain, CT angiogram of the head and neck negative for any obvious acute stroke, significant occlusion or blockage. Patient does have. Stenosis of various arteries as well as plaques located in bilateral carotids. U/S interpreted by me (1pt. min.). @ -None done What testing was considered but not performed or refused? (CT, X-rays, U/S, labs)? Why? @ -None What meds were considered but not given or refused? Why? @ -None Did you discuss the management of the patient with other professionals (silvano reina i.e. , PA, HEALTH AND WELLNESS MANAGER, lab, RT, psych nurse, social work specialist, toll relief operator, teacher, sports development officer, field nurse case manager)? Give summary @ -Discussed with neuro critical care doctor Juan C who recommended medical admission and medical management. Recommended MRI, neuro consult, aspirin P lavix. Discussed the case with the admitting physician, Dr. Gaming who accepted the patient. Was smoking cessation discussed for >3mins.? @ -No Was critical care preformed (if so, how long)? @ -Yes, 36 minutes Were there social determinants of health that impacted care today? How? (Homelessness, low income, unemployed, alcoholism, drug addiction, transportation, low edu. Level, literacy, decrease access to med. care, correction, rehab)? @ -No Was there de-escalation of care discussed even if they declined (Discuss DNR or withdrawal of care, Hospice)? DNR status @ -No What co-morbidities impacted this encounter? (DM, HTN, Smoking, COPD, CAD, Cancer, CVA, ARF, Chemo, Hep., AIDS, mental health diagnosis, sleep apnea, morbid obesity)? @ -None Was patient admitted / discharged? Hospital course, mention meds given and route, prescriptions, significant lab abnormalities, going to OR and other pertinent info. @ -Based on patient's presentation and physical exam, concern for possible stroke. Last known well was at 10 AM which was approximately 2 hours ago. NIH is 1 for decreased sensation to light touch over the left upper extremity and left face. Due to the time of onset, patient was made a code alteplase. However I did discuss at length the patient, and due to the low NIH without any significant neurological deficit other than the lack of sensation which is mild, we both agreed that the risks outweigh the benefits of administering TPA at this time. I will discuss with the neuro critical care physician. Vital signs within except for limits. Code alteplase at 1156.Discussed the case with Dr. Irizarry of [facility] who was in agreement with plan that patient should not receive TPA based on his current presentation. Was in agreement with the workup. Recommended admission if imaging is normal for neuro evaluation, possible MRI. Recommended patient be placed on aspirin and Plavix. Patient's imaging returned negative for any obvious large vessel occlusion or stroke. Patient's labs are within acceptable limits. EKG within acceptable limits. I discussed results with the patient. At this time NIH is 0. Symptoms have resolved. Likely had a TIA. We will admit the patient for neurology evaluation and he was in agreement this plan. Neurology consulted. Patient started on aspirin and Plavix. There agreement this plan. I spoke admitting physician, Dr. Gaming who accepted the patient. Undiagnosed new problem with uncertain prognosis? @ -No Drug Therapy requiring intensive monitoring for toxicity (Heparin, Nitro, Insulin, Cardizem)? @ -No Were any procedures done? @ -No Diagnosis/symptom? @ -TIA Acute, or Chronic, or Acute on Chronic? @ -Acute Uncomplicated (without systemic symptoms) or Complicated (systemic symptoms)? @ -Uncomplicated Side effects of treatment? @ -none Exacerbation, Progression, or Severe Exacerbation] @ -no Poses a threat to life or bodily function? @ -Possibly, yes - Lab Data Result diagrams: 04/14/23 11:54 04/14/23 11:54 Lab Results 04/14/23 04/14/23 04/14/23 Range/Units 11:54 11:54 11:54 WBC 9.6 (3.8-10.6) k/uL RBC 4.65 (4.30-5.90) m/uL Hgb 15.2 (13.0-17.5) gm/dL Hct 44.0 (39.0-53.0) % MCV 94.6 (80.0-100.0) fL MCH 32.8 (25.0-35.0) pg MCHC 34.6 (31.0-37.0) g/dL RDW 12.4 (11.5-15.5) % Plt Count 225 (150-450) k/uL MPV 7.2 Neutrophils % 81 % Lymphocytes % 11 % Monocytes % 5 % Eosinophils % 2 % Basophils % 0 % Neutrophils # 7.8 H (1.3-7.7) k/uL Lymphocytes # 1.1 (1.0-4.8) k/uL Monocytes # 0.5 (0-1.0) k/uL Eosinophils # 0.2 (0-0.7) k/uL Basophils # 0.0 (0-0.2) k/uL PT 10.3 (10.0-12.5) sec INR 0.9 (<1.2) APTT 23.8 (22.0-30.0) sec Sodium 139 (137-145) mmol/L Potassium 5.1 (3.5-5.1) mmol/L Chloride 104 (98-107) mmol/L Carbon Dioxide 24 (22-30) mmol/L Anion Gap 11 mmol/L BUN 14 (9-20) mg/dL Creatinine 1.06 (0.66-1.25) mg/dL Est GFR (CKD-EPI)AfAm 78 (>60 ml/min/1.73 sqM) Est GFR (CKD-EPI)NonAf 67 (>60 ml/min/1.73 sqM) Glucose 104 H (74-99) mg/dL POC Glucose (mg/dL) (70-110) mg/dL POC Glu Professor [employer] ID Calcium 9.5 (8.4-10.2) mg/dL Total Bilirubin 0.7 (0.2-1.3) mg/dL AST 36 (17-59) U/L ALT 19 (4-49) U/L Alkaline Phosphatase 77 (38-126) U/L Creatine Kinase 100 (55-170) U/L Troponin I (0.000-0.034) ng/mL Total Protein 6.6 (6.3-8.2) g/dL Albumin 4.0 (3.5-5.0) g/dL 04/14/23 04/14/23 Range/Units 11:54 11:58 WBC (3.8-10.6) k/uL RBC (4.30-5.90) m/uL Hgb (13.0-17.5) gm/dL Hct (39.0-53.0) % MCV (80.0-100.0) fL MCH (25.0-35.0) pg MCHC (31.0-37.0) g/dL RDW (11.5-15.5) % Plt Count (150-450) k/uL MPV Neutrophils % % Lymphocytes % % Monocytes % % Eosinophils % % Basophils % % Neutrophils # (1.3-7.7) k/uL Lymphocytes # (1.0-4.8) k/uL Monocytes # (0-1.0) k/uL Eosinophils # (0-0.7) k/uL Basophils # (0-0.2) k/uL PT (10.0-12.5) sec INR (<1.2) APTT (22.0-30.0) sec Sodium (137-145) mmol/L Potassium (3.5-5.1) mmol/L Chloride (98-107) mmol/L Carbon Dioxide (22-30) mmol/L Anion Gap mmol/L BUN (9-20) mg/dL Creatinine (0.66-1.25) mg/dL Est GFR (CKD-EPI)AfAm (>60 ml/min/1.73 sqM) Est GFR (CKD-EPI)NonAf (>60 ml/min/1.73 sqM) Glucose (74-99) mg/dL POC Glucose (mg/dL) 119 H (70-110) mg/dL POC Glu Professor [employer] ID Bailey, Taz Calcium (8.4-10.2) mg/dL Total Bilirubin (0.2-1.3) mg/dL AST (17-59) U/L ALT (4-49) U/L Alkaline Phosphatase (38-126) U/L Creatine Kinase (55-170) U/L Troponin I <0.012 (0.000-0.034) ng/mL Total Protein (6.3-8.2) g/dL Albumin (3.5-5.0) g/dL Disposition Clinical Impression: TIA (transient ischemic attack) Disposition: ADMITTED IP TO THIS HOSP Condition: Stable Time of Disposition: 14:24
--- NOTE | 2023-04-14 12:24 | CT ---
EXAMINATION TYPE: CT brain wo con DATE OF EXAM: 04/14/2023 COMPARISON: 05/07/2020 HISTORY: 69-year-old male Neuro deficits, acute, stroke suspected. TECHNIQUE: Examination was done in axial plane without intravenous contrast. Coronal and sagittal r econstructions performed. CT DLP: 1074.6 mGycm Automated exposure control for dose reduction was used. FINDINGS: There is no evidence of acute intracranial hemorrhage, acute ischemic changes, mass, mass-effect, or extra-axial fluid collection. There is no effacement of cerebral sulci or basal subarachnoid cister ns. There is no hydrocephalus. There is no midline shift. Ovalle-white matter distinction is preserv ed. Paranasal sinuses and mastoid air cells well pneumatized. Orbits and globes are intact. IMPRESSION: No acute intracranial abnormality seen.
[2023-04-14 12:25] LABS: ALT 19 U/L (4-49); AST 36 U/L (17-59); African American GFR (CKD) 78 (>60 ml/min/1.73 sqM); Alkaline Phosphatase 77 U/L (38-126); Anion Gap 11 mmol/L; Blood Urea Nitrogen 14 mg/dL (9-20); Calcium 9.5 mg/dL (8.4-10.2); Carbon Dioxide 24 mmol/L (22-30); Chloride 104 mmol/L (98-107); Creatine Kinase 100 U/L (55-170); Glucose 104 mg/dL (74-99); Non-African American GFR(CKD) 67 (>60 ml/min/1.73 sqM); Sodium 139 mmol/L (137-145); Total Bilirubin 0.7 mg/dL (0.2-1.3); Total Protein 6.6 g/dL (6.3-8.2)
[2023-04-14 12:35] LABS: Potassium 5.1 mmol/L (3.5-5.1)
--- NOTE | 2023-04-14 12:47 | CT ---
EXAMINATION TYPE: CT angio head neck DATE OF EXAM: 04/14/2023 COMPARISON: Brain same day HISTORY: 77-year-old male Neuro deficits acute, stroke suspected. TECHNIQUE: Contiguous axial scanning of the head and neck performed with IV Contrast, patient injecte d with 65ml mL of Isovue 370. Coronal/sagittal MIP reconstructions performed. 3-D reconstructions gen erated on a dedicated independent workstation. CT DLP: 555 mGycm Automated exposure control for dose reduction was used. FINDINGS: Neck: Mild to moderate atherosclerotic plaque aortic arch. Ectatic upper descending thoracic aorta 3.5 cm. There is conventional arch vessel branching anatomy. Vertebral arteries are codominant and patent throughout the course. Right common carotid artery is patent. Some noncalcified atherosclerotic plaque is present in the rig ht carotid bifurcation. Changes result in moderate to severe, approximately 70% proximal ICA stenosis both at the origin of t he ICA and just above the level of the carotid bulb. NASCET criteria was utilized. Left common carotid artery is patent. Moderate noncalcified plaque at the left carotid bifurcation wi th mild, less than 20% proximal left ICA narrowing. Head: Dominant left vertebral artery showing moderate focal stenosis mid V4 segment. Vertebral artery is patent. There is persistent origin of the left posterior cerebral artery. Posterior circulation otherwi se patent. The bilateral internal carotid arteries are patent. Tiny 2 mm protuberance from the supraclinoid right ICA projecting posteriorly, probably a tiny infund ibulum of the posterior communicating artery. Anterior circulation otherwise patent. IMPRESSION: NECK: 1. MODERATE NONCALCIFIED PLAQUE AT BOTH CAROTID BIFURCATIONS. THERE IS MODERATE TO SEVERE, APPROXIMAT GREGORIO 70% PROXIMAL RIGHT ICA STENOSIS BOTH AT THE ORIGIN OF THE RIGHT ICA AND JUST ABOVE THE LEVEL OF T HE RIGHT CAROTID BULB. 2. MILD, LESS THAN 20% PROXIMAL LEFT ICA NARROWING. HEAD: 3. No large vessel intracranial arterial occlusion. 4. There is moderate focal stenosis involving the midportion of the dominant V4 segment left vertebra l artery. 5. Tiny 2 mm protuberance projecting posteriorly from the supraclinoid right ICA suspected represent a tiny infundibulum (rather than a tiny aneurysm) at the expected PCOM origin. Consider 6 month follo w-up to reassess. 6. Persistent origin left [employer].
[2023-04-14 13:34] LABS: INR 0.9 (<1.2); Partial Thromboplastin Time 23.8 sec (22.0-30.0); Prothrombin Time 10.3 sec (10.0-12.5)
--- NOTE | 2023-04-14 13:59 | XR ---
EXAMINATION TYPE: XR chest 2V DATE OF EXAM: 04/14/2023 COMPARISON: 03/19/2023 HISTORY: 77-year-old male confusion, altered mental status TECHNIQUE: PA and lateral views FINDINGS: Heart normal size. Aorta and pulmonary vasculature within normal limits. Mild interstitial prominence without consolidation or pleural effusion. Eventration anterior right hemidiaphragm redemonstrated. IMPRESSION: Correlate for possible bronchitis or asthma. No focal infiltrate seen.
[2023-04-14] MEDS ORDERED: ALBUTEROL HFA INHALER INHALATION PRN (14:51)
[2023-04-14] MEDS ORDERED: ALBUTEROL NEBULIZED 2.5 MG/3 ML INHALATION PRN (14:51)
--- NOTE | 2023-04-14 15:02 | P.HPIM ---
History of Present Illness H&P Date: 04/14/23 Chief Complaint: Left hand numbness * 77-year-old gentleman with past medical history significant for CVA, hypertension, hyperlipidemia, anxiety, Parkinson, asthma presented to the emergency department with complains of left numbness that started earlier today * Symptom onset was 2 hours prior to arrival. Patient was sitting in eating breakfast when he started having left-sided numbness, along with left arm and left face numbness. Patient was accompanied with his who assisted with history taking. Per patient did not have slurred speech or facial droop. Patient by the time presented to the emergency department with symptoms have resolved. While in ER, neurology was contacted and CT head CT angina head and neck was completed. Findings were discussed with neurology who recommended aspirin and Plavix. Patient was not considered a candidate for TPA * Vitals in ER showed systolic blood pressure in 1:30, blood work obtained showed WBC 9.6 hemoglobin 15 platelet 225 * Serum chemistry showed sodium 139, potassium 5.1 and carbon dioxide 24 BUN 14 creatinine 1.06 blood glucose 104, troponin negative REVIEW OF SYSTEMS: left sided weakness, paresthesia CONSTITUTIONAL: No fever, no malaise, no fatigue. HEENT: No recent visual problems or hearing problems. Denied any sore throat. CARDIOVASCULAR: No chest pain, orthopnea, PND, no palpitations, no syncope. PULMONARY: No shortness of breath, no cough, no hemoptysis. GASTROINTESTINAL: No diarrhea, no nausea, no vomiting, no abdominal pain. NEUROLOGICAL: No headaches, no weakness, no numbness. HEMATOLOGICAL: Denies any bleeding or petechiae. GENITOURINARY: Denies any burning micturition, frequency, or urgency. MUSCULOSKELETAL/RHEUMATOLOGICAL: Denies any joint pain, swelling, or any muscle pain. ENDOCRINE: Denies any polyuria or polydipsia. PHYSICAL EXAMINATION: GENERAL: The patient is alert and oriented x3, not in any acute distress. Well developed, well nourished. HEENT: Pupils are round and equally reacting to light. EOMI. CARDIOVASCULAR: S1 and S2 present. No murmurs, rubs, or gallops. PULMONARY: Chest is clear to auscultation, no wheezing or crackles. ABDOMEN: Soft, nontender, nondistended, normoactive bowel sounds. No palpable organomegaly. MUSCULOSKELETAL: No joint swelling or deformity. EXTREMITIES: No cyanosis, clubbing, or pedal edema. NEUROLOGICAL: Patient alert and oriented 3, motor strength is 5 over 5 bilateral upper and lower extremity . Past Medical History Past Medical History: Asthma, CVA/TIA, Hearing Disorder / Deafness, Hyperlipidemia, Hypertension, Prostate Disorder Additional Past Medical History / Comment(s): Hx. "urination is slow" Dx. bronchitis,TIA in april 2020. arthritis back, parkinsons History of Any Multi-Drug Resistant Organisms: None Reported Past Surgical History: Cholecystectomy, Orthopedic Surgery Additional Past Surgical History / Comment(s): Hx. Left knee arthroscopic, urethral surgery Past Anesthesia/Blood Transfusion Reactions: No Reported Reaction Past Psychological History: Depression Smoking Status: Never smoker Past Alcohol Use History: None Reported Past Drug Use History: None Reported - Past Family History Father History Unknown: Yes Family Medical History: CVA/TIA Medications and Allergies Home Medications Medication Instructions Recorded Confirmed Type Hydroxychloroquine Sulfate 200 mg PO BID@0600,199912/09/18 03/19/23 History [Plaquenil] Montelukast [Singulair] 10 mg PO HS 01/07/19 03/19/23 History Aspirin 325 mg PO DAILY@1200 07/04/20 03/19/23 History Levothyroxine Sodium [Euthyrox] 100 mcg PO DAILY@0600 07/04/20 03/19/23 History Albuterol Sulfate [Proair Hfa] 2 puff INHALATION RT-QID PRN 07/09/20 03/19/23 H istory ALPRAZolam [Xanax] 0.5 mg PO BID@0600,199912/15/20 03/19/23 History Atorvastatin [Lipitor] 20 mg PO DAILY@1200 12/15/20 03/19/23 History Fluticasone Propion/Salmeterol 1 puff INHALATION RT-BID@0600,209912/15/20 03/19/23 History [Advair 500-50 Diskus] Umeclidinium [place] [Incruse 1 puff INHALATION RT-DAILY@1200 12/15/20 03/19/23 History Ellipta] Albuterol Nebulized [Ventolin 2.5 mg INHALATION RT-QID PRN 03/19/23 03/19/23 History Nebulized] Carbidopa-Levodopa 25-100 mg 0.5 tab PO DAILY@1800 03/19/23 03/19/23 History [Sinemet 25-100] Carbidopa-Levodopa 25-100 mg 1 tab PO TID@0600,1400,2200 03/19/23 03/19/23 History [Sinemet 25-100] Gabapentin [Neurontin] 400 mg PO HS 03/19/23 03/19/23 History Ipratropium Nebulized [Atrovent 0.5 mg INHALATION RT-QID PRN 03/19/23 03/19/23 History Nebulized 0.2 MG/ML] Losartan [Cozaar] 25 mg PO DAILY@0600 03/19/23 03/19/23 History Ondansetron Odt [Zofran Odt] 4 mg PO Q8HR PRN #10 tab 03/19/23 Rx Sertraline [Zoloft] 100 mg PO DAILY@1200 03/19/23 03/19/23 History Tezepelumab-Ekko [Tezspire] 1 dose SQ Q30D 03/19/23 03/19/23 History Allergies Allergy/AdvReac Type Severity Reaction Status Date / Time No Known Allergies Allergy Verified 04/14/23 11:34 Physical Exam Vitals: Vital Signs Temp Pulse Resp BP Pulse Ox 04/14/23 14:00 70 16 130/70 98 04/14/23 13:36 78 16 130/70 98 04/14/23 12:00 80 16 164/82 96 04/14/23 11:36 79 20 164/82 96 04/14/23 11:34 97.8 F 83 16 189/90 96 Intake and Output 04/13/23 04/14/23 04/14/23 22:59 06:59 14:59 Other: Weight 90.718 kg Results CBC & Chem 7: 04/14/23 11:54 04/14/23 11:54 Labs: Abnormal Lab Results - Last 24 Hours (Table) 04/14/23 04/14/23 04/14/23 Range/Units 11:54 11:54 11:58 Neutrophils # 7.8 H (1.3-7.7) k/uL Glucose 104 H (74-99) mg/dL POC Glucose (mg/dL) 119 H (70-110) mg/dL Assessment and Plan Assessment: Assessment and plan * Left-sided weakness rule out CVA * Right internal carotid artery stenosis approximately 70% * History of Parkinson * Rheumatoid arthritis history * History of hyperlipidemia * History of severe asthma * History of CVA no residual deficit * In regards to left arm weakness and paresthesia, that has resolved patient back at baseline upon admission however MRI brain ordered to rule out CVA, neurology consulted continue neuro checks every 4 hours * In regards to right internal carotid artery stenosis, continue aspirin, Plavix, Lipitor * In regards to history of Parkinson continue patient on Sinemet * In regards to history of rheumatoid arthritis, hold hydroxychloroquine, c ontinue gabapentin at night * In regards to history of asthma continue breathing treatments as ordered * CODE STATUS is full code Time with Patient: Greater than 30
[2023-04-14] MEDS: ASPIRIN 81 MG PO SCH (15:16)
[2023-04-14] MEDS: CARBIDOPA-LEVODOPA 25-100 MG 1 EACH TAB PO SCH ×4 (15:16→21:13)
[2023-04-14] MEDS: CLOPIDOGREL 75 MG TAB PO SCH (15:16)
[2023-04-14] MEDS: SODIUM CHLORIDE 0.9% 1,000 ML IV SCH (15:17)
--- NOTE | 2023-04-14 18:38 | P.CNNES ---
History of Present Illness Consult date: 04/14/23 Requesting physician: Jesus Corado Reason for Consult: stroke/tia History of Present Illness: This is a 77-year-old gentleman who presents the hospital because of numbness over the left side including the left side of the face. Patient stated that he woke up at the 6:30 AM and he was doing well but at around 8:00 he knows that he is having numbness on the left hand that progressed all the way involving the left upper extremity left lower extremity and less on the face. He feels somewhat better but has not resolved. She feels the left upper extremity somewhat weaker. Denies of any radicular pain on the neck. He does take aspirin 325 daily. He has a history of TIA about 4 years ago. Denies of any A. fib. Patient denies history of diabetes. Denies of tobacco use but he does have remote tobacco use in the past. Some of the workup during his hospital visit consisted of: Initial serum glucose is 104. Sodium, calcium, ACL 3, BUN and creatinine are within normal limits. NIH stroke scale was a 1 by the ED team. A code stroke was activated. CT of the head was reported as no acute intracranial abnormality seen. I personally reviewed the CT of the head and I agree with the report. CT angiography of the neck is reported as moderate noncalcified plaque at both carotid bifurcation. There is moderate to severe proximally 70% proximal right ICA stenosis both at the origin of the right ICA and just above the level of the right carotid bulb. Mild less than 20% proximal left ICA narrowing. CT angiography of the head is reported as no large vessel intracranial artery occlusion. There is moderate focal stenosis involving the midportion of the dominant V4 segment left vertebral artery. Tiny 2 mm protuberant projecting posterior from the supraclinoid right ICA suspect represent a tiny infundibulum rather than a tiny and years him at the expected that P, origin. Consider 6 month follow-up to reassess. Persistent origin left THERAPEUTIC STRATEGY LEAD. No IV TPA since NIH stroke scale was a 0. The ED team spoke with stroke attending Dr. Irizarry. Review of Systems Review of system: The 12 point system was reviewed and apparent positive and negative per HPI. Past Medical History Past Medical History: Asthma, CVA/TIA, Hearing Disorder / Deafness, Hyperlipidemia, Hypertension, Prostate Disorder Additional Past Medical History / Comment(s): Hx. "urination is slow" Dx. bronchitis,TIA in april 2020. arthritis back, parkinsons History of Any Multi-Drug Resistant Organisms: None Reported Past Surgical History: Cholecystectomy, Orthopedic Surgery Additional Past Surgical History / Comment(s): Hx. Left knee arthroscopic, urethral surgery Past Anesthesia/Blood Transfusion Reactions: No Reported Reaction Past Psychological History: Depression Smoking Status: Never smoker Past Alcohol Use History: None Reported Past Drug Use History: None Reported - Past Family History Father History Unknown: Yes Family Medical History: CVA/TIA Medications and Allergies Home Medications Medication Instructions Recorded Confirmed Type Hydroxychloroquine Sulfate 200 mg PO BID@0600,199912/09/18 03/19/23 History [Plaquenil] Montelukast [Singulair] 10 mg PO HS 01/07/19 03/19/23 History Aspirin 325 mg PO DAILY@1200 07/04/20 03/19/23 History Levothyroxine Sodium [Euthyrox] 100 mcg PO DAILY@0600 07/04/20 03/19/23 History Albuterol Sulfate [Proair Hfa] 2 puff INHALATION RT-QID PRN 07/09/20 03/19/23 History ALPRAZolam [Xanax] 0.5 mg PO BID@0600,199912/15/20 03/19/23 History Atorvastatin [Lipitor] 20 mg PO DAILY@1200 12/15/20 03/19/23 History Fluticasone Propion/Salmeterol 1 puff INHALATION RT-BID@0600,209912/15/20 03/19/23 History [Advair 500-50 Diskus] Umeclidinium [place] [Incruse 1 puff INHALATION RT-DAILY@1200 12/15/20 03/19/23 History Ellipta] Albuterol Nebulized [Ventolin 2.5 mg INHALATION RT-QID PRN 03/19/23 03/19/23 History Nebulized] Carbidopa-Levodopa 25-100 mg 0.5 tab PO DAILY@1800 03/19/23 03/19/23 History [Sinemet 25-100] Carbidopa-Levodopa 25-100 mg 1 tab PO TID@0600,1400,2200 03/19/23 03/19/23 History [Sinemet 25-100] Gabapentin [Neurontin] 400 mg PO HS 03/19/23 03/19/23 History Ipratropium Nebulized [Atrovent 0.5 mg INHALATION RT-QID PRN 03/19/23 03/19/23 History Nebulized 0.2 MG/ML] Losartan [Cozaar] 25 mg PO DAILY@0600 03/19/23 03/19/23 History Ondansetron Odt [Zofran Odt] 4 mg PO Q8HR PRN #10 tab 03/19/23 Rx Sertraline [Zoloft] 100 mg PO DAILY@1200 03/19/23 03/19/23 History Tezepelumab-Ekko [Tezspire] 1 dose SQ Q30D 03/19/23 03/19/23 History Allergies Allergy/AdvReac Type Severity Reaction Status Date / Time No Known Allergies Allergy Verified 04/14/23 18:22 Physical Examination - Vital Signs Vital Signs: Vital Signs Temp Pulse Resp BP Pulse Ox 04/14/23 16:24 98.1 F 87 18 141/77 96 04/14/23 14:00 70 16 130/70 98 04/14/23 13:36 78 16 130/70 98 04/14/23 12:00 80 16 164/82 96 04/14/23 11:36 79 20 164/82 96 04/14/23 11:34 97.8 F 83 16 189/90 96 Intake and Output 04/14/23 04/14/23 04/14/23 06:59 14:59 22:59 Other: Weight 90.718 kg GENERAL: The patient is lying in bed and is not in acute distress. NEUROLOGICAL: Higher mental function: The patient is awake, alert, oriented to self, place and time. Patient is following commands. No aphasia and no neglect. Cranial nerves: The pupils are round, equal and reactive to light and accommodation. Visual batlazar are full to confrontation throughout. Extraocular movement is intact no nystagmus is noted. Facial sensation is normal to touch throughout. The facial strength is mild left nasolabial flattening. Hearing is moderate to severe decrease hearing bilaterally to hand rub. Tongue is midline and moved [id number] without any difficulty. No dysarthria is noted. Shoulder shrug is normal bilaterally. Motor: The strength is left forearm extension and flexion is 4+. Otherwise 5 over 5 throughout. Normal tone and bulk. Has resting tremor of left upper extremity. Cerebellum: Normal finger to nose bilaterally. Sensation: Subtle decrease touch on the left side. Reflexes (right/left): 2+ throughout. Plantars are mute bilaterally. Results - Laboratory Findings CBC and BMP: 04/14/23 11:54 04/14/23 11:54 Abnormal Lab Findings: Abnormal Labs 04/14/23 04/14/23 04/14/23 11:54 11:54 11:58 Neutrophils # 7.8 H Glucose 104 H POC Glucose (mg/dL) 119 H Assessment and Plan Assessment: This is a 77-year-old gentleman who presented emergency department because of the numbness entire left side including the face and the weakness of the left upper extremity. Per the ED his NIH stroke scale was 1 for the numbness and the improved to 0. CT head is negative. CT angiography shows right ICA stenosis of about 70%. My examination I felt the patient had the subtle decrease sensation over the left side with left nasolabial flattening and mild weakness over the left upper extremity over the forearm. Likely acute ischemic stroke with symptoms of: Acute numbness over the left side including the face, left forearm weakness with mild left nasolabial flattening. No IV TPA because of low NIH stroke scale and the risk outweighed the benefits Symptomatic right ICA stenosis of about at least 70% on the CT drug History of TIA about 4 years ago Parkinson's disease on Sinemet Remote tobacco use Plan: In addition to his aspirin patient was also started on Plavix 75 mg daily. Patient is on aspirin 81 mg daily. He is on Lipitor 40 mg daily at bedtime. I consulted vascular surgery team regarding the significant right ICA stenosis. I ordered 2-D echo and carotid duplex. Hemoglobin A1c and lipid panel are ordered pending Continue neuro checks Cardiac monitoring PT OT and HOME HEALTH CARE PHYSICIAN are consulted Recommend permissive hypertension for 48 hours We'll defer the rest of the medical measure the primary team For DVT prophylaxis the patient is on the Lovenox. Thank you for the consultation. Time with Patient: Greater than 30
[2023-04-14] MEDS: ALPRAZolam 0.5 MG TAB PO SCH (19:05)
[2023-04-14] MEDS: GABAPENTIN 400 MG CAP PO SCH (21:13)
[2023-04-14] MEDS: ATORVASTATIN 40 MG TAB PO SCH (21:14)
[2023-04-14] MEDS: MONTELUKAST 10 MG TAB PO SCH (21:14)
--- NOTE | 2023-04-14 21:26 | US ---
EXAMINATION TYPE: US carotid duplex BILAT DATE OF EXAM: 04/14/2023 COMPARISON: CTA: Today CLINICAL INDICATION: Male, 77 years old with history of right carotid stenosis with stroke; TIA today . Pt states he has had a TIA before TECHNIQUE: Carotid duplex ultrasound examination. Indirect Doppler criteria was utilized. FINDINGS: EXAM MEASUREMENTS: RIGHT: Peak Systolic Velocity (PSV) cm/sec ----- Right CCA: 56.0 ----- Right ICA: 76.2 ----- Right ECA: 114.5 ICA/CCA ratio: 1.4 RIGHT: End Diastole cm/sec ----- Right CCA: 16.8 ----- Right ICA: 20.6 ----- Right ECA: 16.0 LEFT: Peak Systolic Velocity (PSV) cm/sec ----- Left CCA: 62.2 ----- Left ICA: 72.6 ----- Left ECA: 83.4 ICA/CCA ratio: 1.2 LEFT: End Diastole cm/sec ----- Left CCA: 15.0 ----- Left ICA: 16.0 ----- Left ECA: 14.2 VERTEBRALS (direction of flow): Right Vertebral: Antegrade Left Vertebral: Antegrade Rhythm: Normal CATERING CHEF NOTES: Mild plaque seen in bilateral bulbs and prox ICA's IMPRESSION: Less than 50% stenosis of the bilateral carotid bifurcations. Criteria for Assigning % of Stenosis / Diameter reduction (Estimation based on the indirect measurements of the internal carotid artery velocities (ICA PSV). 1. Normal (no stenosis)=ICA PSV < 125 cm/s: ratio < 2.0: ICA EDV<40 cm/s. 2. Less than 50% stenosis=ICA PSV < 125 cm/s: ratio < 2.0: ICA EDV<40 cm/s. 3. 50 to 69% stenosis=ICA PSV of 125 to 230 cm/s: ration 2.0 ? 4.0: ICA EDV 40-100 cm/s. 4. Greater than 70% stenosis to near occlusion= ICA PSV > 230 cm/s: ratio > 4.0: ICA EDV > 100 cm/s. 5. Near occlusion= ICA PSV velocities may be low or undetectable: variable ratio and ICA EDV. 6. Total occlusion=unable to detect flow.
[2023-04-14] MEDS: SYMBICORT 160-4.5 MCG INHALER INHALATION SCH (21:31)
[2023-04-15] MEDS: ALPRAZolam 0.5 MG TAB PO SCH ×2 (06:09→20:03)
[2023-04-15] MEDS: CARBIDOPA-LEVODOPA 25-100 MG 1 EACH TAB PO SCH ×4 (06:09→22:23)
[2023-04-15] MEDS: CLOPIDOGREL 75 MG TAB PO SCH (07:57)
[2023-04-15] MEDS: ASPIRIN 81 MG PO SCH (07:57)
[2023-04-15] MEDS: ENOXAPARIN 40 MG/0.4 ML SYRINGE SQ SCH (07:57)
[2023-04-15] MEDS: SYMBICORT 160-4.5 MCG INHALER INHALATION SCH ×2 (08:58→19:43)
[2023-04-15] MEDS: SERTRALINE 100 MG TAB PO SCH (10:51)
[2023-04-15 11:09] LABS: LDL Cholesterol,Calculated 65.4 mg/dL (0.0-131.0)
--- NOTE | 2023-04-15 11:37 | P.PN ---
Subjective Progress Note Date: 04/15/23 * 77-year-old gentleman with past medical history significant for CVA, hypertension, hyperlipidemia, anxiety, Parkinson, asthma presented to the emergency department with complains of left numbness that started earlier today * Symptom onset was 2 hours prior to arrival. Patient was sitting in eating breakfast when he started having left-sided numbness, along with left arm and left face numbness. Patient was accompanied with his who assisted with history taking. Per patient did not have slurred speech or facial droop. Patient by the time presented to the emergency department with symptoms have resolved. While in ER, neurology was contacted and CT head CT angina head and neck was completed. Findings were discussed with neurology who recommended aspirin and Plavix. Patient was not considered a candidate for TPA * Vitals in ER showed systolic blood pressure in 1:30, blood work obtained showed WBC 9.6 hemoglobin 15 platelet 225 * Serum chemistry showed sodium 139, potassium 5.1 and carbon dioxide 24 BUN 14 creatinine 1.06 blood glucose 104, troponin negative * 04/15/23: Patient seen and evaluated bedside, left arm weakness has improved, appreciate recommendations from neurology and vascular surgery, MRI brain pending REVIEW OF SYSTEMS: left sided weakness, paresthesia CONSTITUTIONAL: No fever, no malaise, no fatigue. HEENT: No recent visual problems or hearing problems. Denied any sore throat. CARDIOVASCULAR: No chest pain, orthopnea, PND, no palpitations, no syncope. PULMONARY: No shortness of breath, no cough, no hemoptysis. GASTROINTESTINAL: No diarrhea, no nausea, no vomiting, no abdominal pain. NEUROLOGICAL: No headaches, no weakness, no numbness. HEMATOLOGICAL: Denies any bleeding or petechiae. GENITOURINARY: Denies any burning micturition, frequency, or urgency. MUSCULOSKELETAL/RHEUMATOLOGICAL: Denies any joint pain, swelling, or any muscle pain. ENDOCRINE: Denies any polyuria or polydipsia. PHYSICAL EXAMINATION: GENERAL: The patient is alert and oriented x3, not in any acute distress. Well developed, well nourished. HEENT: Pupils are round and equally reacting to light. EOMI. CARDIOVASCULAR: S1 and S2 present. No murmurs, rubs, or gallops. PULMONARY: Chest is clear to auscultation, no wheezing or crackles. ABDOMEN: Soft, nontender, nondistended, normoactive bowel sounds. No palpable organomegaly. MUSCULOSKELETAL: No joint swelling or deformity. EXTREMITIES: No cyanosis, clubbing, or pedal edema. NEUROLOGICAL: Patient alert and oriented 3, motor strength is 5 over 5 bilateral upper and lower extremity Objective - Vital Signs Vital signs: Vital Signs Temp 97.7 F 04/15/23 08:00 Pulse 78 04/15/23 08:00 Resp 18 04/15/23 08:00 BP 135/90 04/15/23 08:00 Pulse Ox 94 L 04/15/23 08:00 FiO2 Intake & Output 04/14/23 04/15/23 04/15/23 18:59 06:59 18:59 Weight 90.718 kg 90.718 kg - Labs CBC & Chem 7: 04/14/23 11:54 04/14/23 11:54 Labs: Abnormal Lab Results - Last 24 Hours (Table) 04/14/23 04/14/23 04/14/23 Range/Units 11:54 11:54 11:58 Neutrophils # 7.8 H (1.3-7.7) k/uL Glucose 104 H (74-99) mg/dL POC Glucose (mg/dL) 119 H (70-110) mg/dL Triglycerides (0.00-149.00) mg/dL 04/15/23 Range/Units 06:51 Neutrophils # (1.3-7.7) k/uL Glucose (74-99) mg/dL POC Glucose (mg/dL) (70-110) mg/dL Triglycerides 161.00 H (0.00-149.00) mg/dL Assessment and Plan Assessment: Assessment and plan * Left-sided weakness rule out CVA * Right internal carotid artery stenosis approximately 70% * History of Parkinson * Rheumatoid arthritis history * History of hyperlipidemia * History of severe asthma * History of CVA no residual deficit * In regards to left arm weakness and paresthesia, that has resolved patient back at baseline upon admission however MRI brain ordered to rule out CVA, neurology consulted continue neuro checks every 4 hours * In regards to right internal carotid artery stenosis, continue aspirin, Plavix, Lipitor, vascular surgery consulted * In regards to history of Parkinson continue patient on Sinemet * In regards to history of rheumatoid arthritis, hold hydroxychloroquine, continue gabapentin at night * In regards to history of asthma continue breathing treatments as ordered * CODE STATUS is full code
[2023-04-15] MEDS: SODIUM CHLORIDE 0.9% 1,000 ML IV SCH (12:45)
--- NOTE | 2023-04-15 13:23 | P.PN ---
Subjective Progress Note Date: 04/15/23 I am following the patient and he feels about the same. Denies of any new neurological issues. Objective - Vital Signs Vital signs: Vital Signs Temp 97.7 F 04/15/23 08:00 Pulse 79 04/15/23 11:40 Resp 16 04/15/23 11:40 BP 137/94 04/15/23 11:40 Pulse Ox 99 04/15/23 11:40 FiO2 Intake & Output 04/14/23 04/15/23 04/15/23 18:59 06:59 18:59 Intake Total 540 Balance 540 Weight 90.718 kg 90.718 kg Intake: Oral 540 Other: # Voids 3 - Exam GENERAL: The patient is lying in bed and is not in acute distress. NEUROLOGICAL: Higher mental function: The patient is awake, alert, oriented to self, place and time. Patient is following commands. No aphasia and no neglect. Cranial nerves: The pupils are round, equal and reactive to light and accommodation. Visual baltazar are full to confrontation throughout. Extraocular movement is intact no nystagmus is noted. Facial sensation is normal to touch throughout. The facial strength is mild left nasolabial flattening. Hearing is moderate to severe decrease hearing bilaterally to hand rub. Tongue is midline and moved [id number] without any difficulty. No dysarthria is noted. Shoulder shrug is normal bilaterally. Motor: The strength is left forearm extension and flexion is 4+. Otherwise 5 over 5 throughout. Normal tone and bulk. Has resting tremor of left upper extremity. Cerebellum: Normal finger to nose bilaterally. Sensation: Subtle decrease touch on the left side. Reflexes (right/left): 2+ throughout. Plantars are mute bilaterally. Some of the workup during his hospital visit consisted of: Lipid panel is triglyceride 161, cholesterol is 142, LDL is 65 and age TL is 44. Hemoglobin A1c is 5.3. CT of the head was reported as no acute intracranial abnormality seen. I personally reviewed the CT of the head and I agree with the report. CT angiography of the neck is reported as moderate noncalcified plaque at both carotid bifurcation. There is moderate to severe proximally 70% proximal right ICA stenosis both at the origin of the right ICA and just above the level of the right carotid bulb. Mild less than 20% proximal left ICA narrowing. CT angiography of the head is reported as no large vessel intracranial artery occlusion. There is moderate focal stenosis involving the midportion of the dominant V4 segment left vertebral artery. Tiny 2 mm protuberant projecting posterior from the supraclinoid right ICA suspect represent a tiny infundibulum rather than a tiny and years him at the expected that P, origin. Consider 6 month follow-up to reassess. Persistent origin left LENS MOUNTER. Carotid duplex: It is reported as less than 50% stenosis bilateral carotid bifurcation. - Labs CBC & Chem 7: 04/14/23 11:54 04/14/23 11:54 Labs: Abnormal Lab Results - Last 24 Hours (Table) 04/15/23 Range/Units 06:51 Triglycerides 161.00 H (0.00-149.00) mg/dL Assessment and Plan Assessment: This is a 77-year-old gentleman who presented emergency department because of the numbness entire left side including the face and the weakness of the left upper extremity. Per the ED his NIH stroke scale was 1 for the numbness and the improved to 0. CT head is negative. CT angiography shows right ICA stenosis of about 70%. My examination I felt the patient had the subtle decrease sensation over the left side with left nasolabial flattening and mild weakness over the left upper extremity over the forearm. Likely acute ischemic stroke with symptoms of: Acute numbness over the left side including the face, left forearm weakness with mild left nasolabial flattening. No IV TPA because of low NIH stroke scale and the risk outweighed the benefits Symptomatic right ICA stenosis of about at least 70% on the CTA but on carotid duplex it is <50%. History of TIA about 4 years ago Parkinson's disease on Sinemet Remote tobacco use Plan: In addition to his aspirin patient was also started on Plavix 75 mg daily. Patient is on aspirin 81 mg daily. He is on Lipitor 40 mg daily at bedtime. I consulted vascular surgery team regarding the significant right ICA stenosis. Pending 2D echo and MRI Brain. Continue neuro checks Cardiac monitoring PT OT and SHIP KEEPER are consulted Recommend permissive hypertension for 48 hours We'll defer the rest of the medical measure the primary team For DVT prophylaxis the patient is on the Lovenox. The plan is discussed with patient and his nurse. Dr. Gaviria will resume neurology service tomorrow A.M. Time with Patient: Less than 30
[2023-04-15] MEDS: ACETAMINOPHEN TAB 325 MG TAB PO PRN ×2 (13:59→20:03)
[2023-04-15] MEDS ORDERED: ONDANSETRON 4 MG/2 ML VIAL IVP PRN (14:12)
--- NOTE | 2023-04-15 15:48 | P.GSCN ---
History of Present Illness Consult date: 04/15/23 History of present illness: Gary a 77-year-old male with Parkinson's who came to the hospital due to weakness of his left side and hand. He was doing fine and well he was sitting to have a bowl of cereal noticed some left arm numbness and sensation changes a long with left side of his face he denied any notable weakness. He says this is different Parkinson's issues. On workup and evaluation, he is found to have a CT angiogram with 70% stenosis of the right internal carotid artery on imaging. A an ultrasound was performed with noted less than 50% stenosis. He previously has already taken aspirin. He was initiated on Plavix upon admission Past Medical History Past Medical History: Asthma, CVA/TIA, Hearing Disorder / Deafness, Hyperlipidemia, Hypertension, Prostate Disorder Additional Past Medical History / Comment(s): Hx. "urination is slow" Dx. bronchitis,TIA in april 2020. arthritis back, parkinsons History of Any Multi-Drug Resistant Organisms: None Reported Past Surgical History: Cholecystectomy, Orthopedic Surgery Additional Past Surgical History / Comment(s): Hx. Left knee arthroscopic, urethral surgery Past Anesthesia/Blood Transfusion Reactions: No Reported Reaction Past Psychological History: Depression Smoking Status: Never smoker Past Alcohol Use History: None Reported Past Drug Use History: None Reported - Past Family History Father History Unknown: Yes Family Medical History: CVA/TIA Medications and Allergies Home Medications Medication Instructions Recorded Confirmed Type Hydroxychloroquine Sulfate 200 mg PO BID@0600,199912/09/18 04/14/23 History [Plaquenil] Montelukast [Singulair] 10 mg PO HS 01/07/19 04/14/23 History Levothyroxine Sodium [Euthyrox] 100 mcg PO DAILY@0600 07/04/20 04/14/23 History Albuterol Sulfate [Proair Hfa] 2 puff INHALATION RT-QID PRN 07/09/20 04/14/23 History ALPRAZolam [Xanax] 0.5 mg PO BID@0600,199912/15/20 04/14/23 History Atorvastatin [Lipitor] 20 mg PO DAILY@1200 12/15/20 04/14/23 History Fluticasone Propion/Salmeterol 1 puff INHALATION RT-BID@0600,209912/15/20 04/14/23 History [Advair 500-50 Diskus] Umeclidinium [place] [Incruse 1 puff INHALATION RT-DAILY@1200 12/15/20 04/14/23 History Ellipta] Albuterol Nebulized [Ventolin 2.5 mg INHALATION RT-QID PRN 03/19/23 04/14/23 History Nebulized] Carbidopa-Levodopa 25-100 mg 0.5 tab PO DAILY@1800 03/19/23 04/14/23 History [Sinemet 25-100] Carbidopa-Levodopa 25-100 mg 1 tab PO TID@0600,1400,2200 03/19/23 04/14/23 History [Sinemet 25-100] Gabapentin [Neurontin] 400 mg PO HS 03/19/23 04/14/23 History Ipratropium Nebulized [Atrovent 0.5 mg INHALATION RT-QID PRN 03/19/23 04/14/23 History Nebulized 0.2 MG/ML] Losartan [Cozaar] 25 mg PO DAILY@0600 03/19/23 04/14/23 History Ondansetron Odt [Zofran Odt] 4 mg PO Q8HR PRN #10 tab 03/19/23 04/14/23 Rx Sertraline [Zoloft] 100 mg PO DAILY@1200 03/19/23 04/14/23 History Tezepelumab-Ekko [Tezspire] 1 dose SQ Q30D 03/19/23 04/14/23 History Aspirin EC [Ecotrin Low Dose] 81 mg PO DAILY 04/14/23 04/14/23 History Allergies Allergy/AdvReac Type Severity Reaction Status Date / Time No Known Allergies Allergy Verified 04/14/23 18:22 Surgical - Exam Vital Signs Temp Pulse Resp BP Pulse Ox 97.8 F 83 16 189/90 96 04/14/23 11:34 04/14/23 11:34 04/14/23 11:34 04/14/23 11:34 04/14/23 11:34 GENERAL: The patient is alert and oriented x3, not in any acute distress. HEENT: EOMI. CARDIOVASCULAR: Regular rate and rhythm PULMONARY: No respiratory distress. ABDOMEN: Soft, nontender, nondistended. MUSCULOSKELETAL: No joint swelling or deformity. EXTREMITIES: No cyanosis, clubbing, or pedal edema. NEUROLOGICAL: Patient alert and oriented 3, motor strength is 5 over 5 bilateral upper and lower extremity Results CT angiogram is reviewed. There is evidence of right internal carotid artery stenosis and agree that there is significant stenosis - Labs 04/14/23 11:54 04/14/23 11:54 Abnormal Lab Results - Last 24 Hours (Table) 04/15/23 Range/Units 06:51 Triglycerides 161.00 H (0.00-149.00) mg/dL Diabetes panel 04/15/23 04/15/23 Range/Units 06:51 06:51 Hemoglobin A1c 5.3 (<=6.0) % Triglycerides 161.00 H (0.00-149.00) mg/dL HDL Cholesterol 44.40 (40.00-60.00) mg/dL Assessment and Plan Assessment: Right internal carotid artery stenosis Left sided weakness, rule out TIA Plan: Long discussion had with the patient, discussed with the neurologist as well, is likely the patient has potentially symptomatic right internal carotid artery stenosis causing his issues. He is awaiting his MRI currently. He was initiated on antiplatelet therapy at this time. We discussed indications for surgical intervention with his greater than 50% stenosis and likely symptomatic nature. A CT angiogram is being reviewed for potential trans-carotid artery revascularization stent placement. We discussed briefly transfemoral and carotid endarterectomy. From my standpoint this is not emergent, the patient will need to be on antiplatelet therapy for 1 week prior to intervention. Hopeful he may be able to go home and follow-up for intervention with the next 2 weeks.
--- NOTE | 2023-04-15 16:11 | MR ---
EXAMINATION TYPE: MR brain wo con DATE OF EXAM: 04/15/2023 3:57 PM CLINICAL INDICATION:Male, 77 years old with history of Left-sided weakness rule out CVA; PHH, Left-si ded weakness, evaluate for CVA, Hx Parkinson's disease COMPARISON: 05/08/2020. TECHNIQUE: Multi planar, multi sequence imaging was performed through the brain including: T1, T2, In version recovery, Diffusion weighted imaging, and gradient echo imaging. No gadolinium was given. FINDINGS: Scattered high DWI signal within the right parietal and right frontal lobe compatible with CVA. The menard-white junctions, ventricular system, and cisterns appear unremarkable. Scattered foci of high T2 signal intensity are seen within the periventricular white matter. Midline structures show no abnormality. The susceptibility weighted images do not reveal any evidence for micro-hemorrhage. Blooming artifact within the left frontal lobe compatible with developmental venous anomaly. The bone marrow signal is within normal limits. Paranasal sinuses and mastoid air cells: No significant paranasal sinus disease. Visualized orbits: Orbital contents are intact. IMPRESSION: 1. Acute/subacute CVA involving the right parietal lobe. Other scattered areas of subtle restricted d iffusion noted within the right frontal lobe. Findings are new from 05/08/2020. 2. Nonspecific white matter changes, likely secondary to small vessel ischemic disease. 3. Left frontal lobe developmental venous anomaly.
[2023-04-15] MEDS: GABAPENTIN 400 MG CAP PO SCH (20:03)
[2023-04-15] MEDS: ATORVASTATIN 40 MG TAB PO SCH (20:03)
[2023-04-15] MEDS: MONTELUKAST 10 MG TAB PO SCH (20:03)
[2023-04-16] MEDS: CARBIDOPA-LEVODOPA 25-100 MG 1 EACH TAB PO SCH ×2 (05:56→13:54)
[2023-04-16] MEDS: ALPRAZolam 0.5 MG TAB PO SCH (05:56)
[2023-04-16] MEDS: SYMBICORT 160-4.5 MCG INHALER INHALATION SCH (08:09)
[2023-04-16] MEDS: CLOPIDOGREL 75 MG TAB PO SCH (10:08)
[2023-04-16] MEDS: ENOXAPARIN 40 MG/0.4 ML SYRINGE SQ SCH (10:08)
[2023-04-16] MEDS: ASPIRIN 81 MG PO SCH (10:08)
[2023-04-16 10:43] VITALS: BP 157/95; PULSE 78; RESP 18; TEMP 97.9
--- NOTE | 2023-04-16 12:09 | P.PN ---
Subjective Progress Note Date: 04/16/23 Patient seen and examined. Overall doing well. No significant complaints. Did fill little bit dizzy upon sitting up after getting out of a nap Objective - Vital Signs Vital signs: Vital Signs Temp 97.9 F 04/16/23 10:05 Pulse 78 04/16/23 10:05 Resp 18 04/16/23 10:05 BP 157/95 04/16/23 10:05 Pulse Ox 98 04/16/23 10:05 FiO2 Intake & Output 04/15/23 04/16/23 04/16/23 18:59 06:59 18:59 Intake Total 720 350 180 Balance 720 350 180 Weight 90.718 kg Intake: Oral 720 350 180 Other: # Voids 3 1 - Exam No acute distress sitting comfortably. Normal mood and affect. Cranial nerves II through XII grossly intact. Mild upper extremity tremors. - Labs CBC & Chem 7: 04/14/23 11:54 04/14/23 11:54 Assessment and Plan Assessment: Right internal carotid artery stenosis, symptomatic Left sided weakness, rule out TIA Evidence of ischemia on MRI Plan: Patient seen and examined. Imaging reviewed. The right side MRI does show evidence of ischemic changes. He was initiated on antiplatelet therapy and is continue. We again discussed the modes of intervention including carotid endarterectomy, trans-carotid artery revascularization and transfemoral stenting. Given his age and comorbidities would plan to go forward with trans-carotid artery revascularization. Patient may be discharged home, follow- up with me in the office next week on Thursday. Hopefully plan for surgery. Shortly after, surgery within the next few weeks. Questions are answered. Multiple family members present
--- NOTE | 2023-04-16 12:51 | P.DS ---
Providers Date of admission: 04/15/23 16:18 Expected date of discharge: 04/16/23 Attending physician: Luis Gaming MD Consults: 04/14/23 14:56 Consult Physician Routine Consulting Provider: Morris Gatica Consult Reason/Comments: Left-sided weakness rule out CVA Do you want consulting provider notified?: Yes Consult Physician Routine Consulting Provider: Morris Gatica Consult Reason/Comments: TIA Do you want consulting provider notified?: Yes 04/14/23 17:40 Consult Physician Routine Consulting Provider: Luann Griffin Consult Reason/Comments: right ica stenosis Do you want consulting provider notified?: Yes Primary care physician: [facility] Course: * 77-year-old gentleman with past medical history significant for CVA, hypertension, hyperlipidemia, anxiety, Parkinson, asthma presented to the emergency department with complains of left numbness that started earlier today * Symptom onset was 2 hours prior to arrival. Patient was sitting in eating breakfast when he started having left-sided numbness, along with left arm and left face numbness. Patient was accompanied with his who assisted with history taking. Per patient did not have slurred speech or facial droop. Patient by the time presented to the emergency department with symptoms have resolved. While in ER, neurology was contacted and CT head CT angina head and neck was completed. Findings were discussed with neurology who recommended aspirin and Plavix. Patient was not considered a candidate for TPA * Vitals in ER showed systolic blood pressure in 1:30, blood work obtained showed WBC 9.6 hemoglobin 15 platelet 225 * Serum chemistry showed sodium 139, potassium 5.1 and carbon dioxide 24 BUN 14 creatinine 1.06 blood glucose 104, troponin negative * 04/15/23: Patient seen and evaluated bedside, left arm weakness has improved, appreciate recommendations from neurology and vascular surgery, MRI brain pending * 04/16/23: Patient seen and evaluated bedside patient ambulated in the room, patient MRI brain completed showed right parietal lobe CVA, HbA1c 5.3, plan discussed with vascular surgery planned for carotid endarterectomy to be scheduled, patient remains moderate distress due to underlying history of Parkinson, hyperlipidemia and hypertension. However benefit of intervention is more than risk at this point. Vascular surgery team to discuss procedure details with patient and family REVIEW OF SYSTEMS: left sided weakness, paresthesia resolved CONSTITUTIONAL: No fever, no malaise, no fatigue. HEENT: No recent visual problems or hearing problems. Denied any sore throat. CARDIOVASCULAR: No chest pain, orthopnea, PND, no palpitations, no syncope. PULMONARY: No shortness of breath, no cough, no hemoptysis. GASTROINTESTINAL: No diarrhea, no nausea, no vomiting, no abdominal pain. NEUROLOGICAL: No headaches, no weakness, no numbness. HEMATOLOGICAL: Denies any bleeding or petechiae. GENITOURINARY: Denies any burning micturition, frequency, or urgency. MUSCULOSKELETAL/RHEUMATOLOGICAL: Denies any joint pain, swelling, or any muscle pain. ENDOCRINE: Denies any polyuria or polydipsia. PHYSICAL EXAMINATION: GENERAL: The patient is alert and oriented x3, not in any acute distress. Well developed, well nourished. HEENT: Pupils are round and equally reacting to light. EOMI. CARDIOVASCULAR: S1 and S2 present. No murmurs, rubs, or gallops. PULMONARY: Chest is clear to auscultation, no wheezing or crackles. ABDOMEN: Soft, nontender, nondistended, normoactive bowel sounds. No palpable organomegaly. MUSCULOSKELETAL: No joint swelling or deformity. EXTREMITIES: No cyanosis, clubbing, or pedal edema. NEUROLOGICAL: Patient alert and oriented 3, motor strength is 5 over 5 bilateral upper and lower extremity Assessment: Assessment and plan * Left-sided weakness with right parietal acute CVA * Right internal carotid artery stenosis approximately 70% * History of Parkinson * Rheumatoid arthritis history * History of hyperlipidemia * History of severe asthma * History of CVA no residual deficit * In regards to left arm weakness and paresthesia, that has resolved patient back at baseline upon admission however MRI brain shows right parietal CVA, neurology consulted. , Echocardiogram ordered as well to be completed prior to discharge * In regards to right internal carotid artery stenosis, continue aspirin, Plavix, Lipitor, vascular surgery consulted * In regards to history of Parkinson continue patient on Sinemet. * In regards to history of rheumatoid arthritis, hold hydroxychloroquine, continue gabapentin at night * In regards to history of asthma continue breathing treatments as ordered * In regards to hypertension continue patient on losartan Patient Condition at Discharge: Stable Plan - Discharge Summary Discharge Rx Participant: No New Discharge Prescriptions: New Atorvastatin [Lipitor] 40 mg PO HS 30 Days #30 tab Clopidogrel [Plavix] 75 mg PO DAILY 30 Days #30 tab Continue Hydroxychloroquine Sulfate [Plaquenil] 200 mg PO BID@0600,1999 Montelukast [Singulair] 10 mg PO HS Levothyroxine Sodium [Euthyrox] 100 mcg PO DAILY@0600 Albuterol Sulfate [Proair Hfa] 2 puff INHALATION RT-QID PRN PRN Reason: Shortness Of Breath Fluticasone Propion/Salmeterol [Advair 500-50 Diskus] 1 puff INHALATION RT- BID@0600,2100 Ondansetron Odt [Zofran ODT] 4 mg PO Q8HR PRN #10 tab PRN Reason: Nausea Ipratropium Nebulized [Atrovent Nebulized 0.2 MG/ML] 0.5 mg INHALATION RT-QID PRN PRN Reason: Shortness Of Breath Losartan [Cozaar] 25 mg PO DAILY@0600 Sertraline [Zoloft] 100 mg PO DAILY@1200 Aspirin EC [Ecotrin Low Dose] 81 mg PO DAILY ALPRAZolam [Xanax] 0.5 mg PO BID@0600,1999 Umeclidinium [place] [Incruse Ellipta] 1 puff INHALATION RT-DAILY@1200 Albuterol Nebulized [Ventolin Nebulized] 2.5 mg INHALATION RT-QID PRN PRN Reason: Shortness Of Breath Carbidopa-Levodopa 25-100 mg [Sinemet 25-100 mg] 1 tab PO TID@0600,1400,2200 Carbidopa-Levodopa 25-100 mg [Sinemet 25-100 mg] 0.5 tab PO DAILY@1800 Gabapentin [Neurontin] 400 mg PO HS Tezepelumab-Ekko [Tezspire] 1 dose SQ Q30D Discontinued Atorvastatin [Lipitor] 20 mg PO DAILY@1200 Discharge Medication List Hydroxychloroquine Sulfate [Plaquenil] 200 mg PO BID@0600,199912/09/18 [History] Montelukast [Singulair] 10 mg PO HS 01/07/19 [History] Levothyroxine Sodium [Euthyrox] 100 mcg PO DAILY@0600 07/04/20 [History] Albuterol Sulfate [Proair Hfa] 2 puff INHALATION RT-QID PRN 07/09/20 [History] ALPRAZolam [Xanax] 0.5 mg PO BID@0600,2000 12/15/20 [History] Fluticasone Propion/Salmeterol [Advair 500-50 Diskus] 1 puff INHALATION RT- BID@0600,2100 12/15/20 [History] Umeclidinium [place] [Incruse Ellipta] 1 puff INHALATION RT-DAILY@1200 12/15/20 [History] Albuterol Nebulized [Ventolin Nebulized] 2.5 mg INHALATION RT-QID PRN 03/19/23 [History] Carbidopa-Levodopa 25-100 mg [Sinemet 25-100 mg] 0.5 tab PO DAILY@1800 03/19/23 [History] Carbidopa-Levodopa 25-100 mg [Sinemet 25-100 mg] 1 tab PO TID@0600,1400,2200 03/19/23 [History] Gabapentin [Neurontin] 400 mg PO HS 03/19/23 [History] Ipratropium Nebulized [Atrovent Nebulized 0.2 MG/ML] 0.5 mg INHALATION RT-QID PRN 03/19/23 [History] Losartan [Cozaar] 25 mg PO DAILY@0600 03/19/23 [History] Ondansetron Odt [Zofran ODT] 4 mg PO Q8HR PRN #10 tab 03/19/23 [Rx] Sertraline [Zoloft] 100 mg PO DAILY@1200 03/19/23 [History] Tezepelumab-Ekko [Tezspire] 1 dose SQ Q30D 03/19/23 [History] Aspirin EC [Ecotrin Low Dose] 81 mg PO DAILY 04/14/23 [History] Atorvastatin [Lipitor] 40 mg PO HS 30 Days #30 tab 04/16/23 [Rx] Clopidogrel [Plavix] 75 mg PO DAILY 30 Days #30 tab 04/16/23 [Rx] Follow up Appointment(s)/Referral(s): Luann Griffin DO [STAFF PHYSICIAN] - 1 Week (Patient to self schedule, as office is closed at time of discharge. Ensure the office is aware this is an appointment following a hospital stay.) Ronald Tamez MD [Primary Care Provider] - 1-2 days (Patient to self schedule, as office is closed at time of discharge. Ensure the office is aware this is an appointment following a hospital stay.) Chaz Corcoran MD [REFERRING] - 1 Week Patient Instructions/Handouts: Carotid Artery Disease (DC), Ischemic Stroke (DC) Discharge Disposition: HOME SELF-CARE
[2023-04-16] MEDS: SERTRALINE 100 MG TAB PO SCH (13:53)
--- NOTE | 2023-04-16 14:06 | CA ---
Transthoracic Echo Report Name: Gary Morales Age: 77 Gender: M : 1945 Exam Date: 04/15/2023 16:21 Exam Location: [facility] Ht (in): 72 Wt (lb): 200 Ordering Physician: Morris Gatica MD Attending/Referring Phys: Mapping Technician Bobbi Liao RDCS Procedure CPT: Indications: stroke Cardiac Hx: Technical Quality: Fair Contrast 1: Total Dose (mL): Contrast 2: Total Dose (mL): MEASUREMENTS (Male / Female) Normal Values 2D ECHO LV Diastolic Diameter PLAX 4.5 cm 4.2 - 5.9 / 3.9 - 5.3 cm LV Systolic Diameter PLAX 3.0 cm IVS Diastolic Thickness 1.2 cm 0.6 - 1.0 / 0.6 - 0.9 cm LVPW Diastolic Thickness 1.3 cm 0.6 - 1.0 / 0.6 - 0.9 cm LV Relative Wall Thickness 0.6 RV Internal Dim ED PLAX 3.0 cm LA Systolic Diameter LX 3.8 cm 3.0 - 4.0 / 2.7 - 3.8 cm LV Diastolic Volume MOD 4C 91.7 cm??? LV Systolic Volume MOD 4C 52.6 cm??? LV Ejection Fraction MOD 4C 42.7 % LV Cardiac Index MOD 4C 1321.4 cm???/min???m??? LV Diastolic Length 4C 8.5 cm LV Systolic Length 4C 7.4 cm LV Diastolic Volume MOD 2C 84.4 cm??? LV Systolic Volume MOD 2C 44.4 cm??? LV Ejection Fraction MOD 2C 47.3 % LV Cardiac Index MOD 2C 1348.8 cm???/min???m??? LV Diastolic Length 2C 9.2 cm LV Systolic Length 2C 8.2 cm LA Volume 38.8 cm??? 18 - 58 / 22 - 52 cm??? LA Volume Index 18.0 cm???/m??? 16 - 28 cm???/m??? M-MODE Aortic Root Diameter MM 3.3 cm MV E Point Septal Separation 0.6 cm AV Cusp Separation MM 2.0 cm DOPPLER AV Peak Velocity 102.5 cm/s AV Peak Gradient 4.2 mmHg MV Area PHT 2.5 cm??? Mitral E Point Velocity 66.3 cm/s Mitral A Point Velocity 95.3 cm/s Mitral E to A Ratio 0.7 MV Deceleration Time 304.9 ms MV E' Velocity 8.1 cm/s Mitral E to MV E' Ratio 8.2 FINDINGS Left Ventricle Left ventricular ejection fraction is estimated at 55-60 %. Left ventricular cavity size normal. Mild concentric left ventricular hypertrophy. Right Ventricle Normal right ventricular size. Unable to estimate the right ventricular systolic pressure. Right Atrium Normal right atrial size. Left Atrium Normal left atrial size. Mitral Valve Structurally normal mitral valve. No mitral stenosis, regurgitation or prolapse. Aortic Valve Trileaflet aortic valve. No aortic valve stenosis or regurgitation. Tricuspid Valve Structurally normal tricuspid valve. No tricuspid stenosis, regurgitation or prolapse. Pulmonic Valve Structurally normal pulmonic valve. No pulmonic regurgitation. Pericardium No pericardial effusion. Aorta Normal size aortic root and proximal ascending aorta. CONCLUSIONS Normal LV systolic function Previewed by: Dr. Edmond Schmidt MD (Electronically Signed) Final Date: 16 April 2023 14:05
== END 2023-04-16 14:11 | disposition home or self-care (01) | DRG 65 ==
LOC: EC 11:29 → 3SCARD 14:57 → OBSVTOIN 04-15 16:18
PROVIDERS: ADMIT Internal Medicine; ATTEND Internal Medicine
DX: I63.9 Cerebral infarction, unspecified (principal); G81.94 Hemiplegia, unspecified affecting left nondominant side; E78.5 Hyperlipidemia, unspecified; F32.A Depression, unspecified; G20.A1 Parkinson's disease without dyskinesia, without mention of fluctuations; I25.10 Atherosclerotic heart disease of native coronary artery without angina pectoris; H91.90 Unspecified hearing loss, unspecified ear; I10 Essential (primary) hypertension; I65.21 Occlusion and stenosis of right carotid artery; J44.89 Other specified chronic obstructive pulmonary disease; M06.9 Rheumatoid arthritis, unspecified; R29.701 NIHSS score 1; Z79.82 Long term (current) use of aspirin; Z79.890 Hormone replacement therapy; Z79.899 Other long term (current) drug therapy; Z86.73 Personal history of transient ischemic attack (TIA), and cerebral infarction without residual deficits; Z82.3 Family history of stroke
CPT/HCPCS: 36415; 70450; 70496; 70498; 70551; 71046; 80053; 80061; 82550; 83036; 84484; 85025; 85610; 85730; 93306; 93880; 94640; 96374; 99291

== ENCOUNTER 2023-04-24 10:14 | Inpatient (IN) | payer MEDICARE ==
[2023-04-23 09:14] VITALS: BMI 27.1
[~2023-04-24 10:14] MED LIST changes: +ALPRAZolam 0.25 MG TAB PO PRN; +DEXMEDETOMIDINE/0.9% NACL(PMX) 400 MCG in EMPTY BAG 1 BAG IV ONE; -IODINE/POTASS IOD (LUGOLS) BOTTLE ONE; +NITROGLYCERIN SL TABS 0.4 MG TAB SUBLINGUAL PRN; +RX INFO: IV CONTRAST WAS GIVEN 1 EACH MISC MISCELLANE PRN
[2023-04-24] MEDS: SODIUM CHLORIDE 0.9% 1,000 ML in EMPTY BAG 1 BAG IV ONE ×2 (10:55→16:01)
[2023-04-24] MEDS ORDERED: MIDAZOLAM 1 MG/ML 5 ML VIAL IV STA (11:20)
[2023-04-24] MEDS ORDERED: ceFAZolin 2 GM in SODIUM CHLORIDE 0.9% 500 ML 500 ML IRRIGATION PRN (11:39)
[2023-04-24] MEDS ORDERED: fentaNYL (PF) 50 MCG/ML 2 ML AMP ONE (12:17)
[2023-04-24] MEDS ORDERED: HEPARIN SODIUM,PORCINE 10,000 UNIT/ML 1 ML VIAL ONE (12:17)
[2023-04-24] MEDS ORDERED: GLYCOPYRROLATE 0.2 MG/ML 2 ML VIAL ONE (12:17)
[2023-04-24] MEDS ORDERED: PROTAMINE SULFATE 10 MG/ML 5 ML VIAL ONE (12:17)
[2023-04-24] MEDS ORDERED: PHENYLEPHRINE-0.9% NACL SYG 1,000 MCG/10 ML SYRINGE ONE (12:17)
[2023-04-24] MEDS ORDERED: WATER FOR INJECTION, STERILE 10 ML VIAL IV ONE (12:17)
[2023-04-24] MEDS ORDERED: NITROGLYCERIN-D5W PMX 50 MG/250 ML BOTTLE IV ONE (12:17)
[2023-04-24] MEDS ORDERED: LIDOCAINE 1% INJ 10MG/ML (20 ML MDV) ONE (12:57)
[2023-04-24] MEDS ORDERED: MAG HYDROX/AL HYDROX/SIMETH 30 ML CUP PO PRN (13:51)
--- NOTE | 2023-04-24 13:51 | P.OP ---
Date of Procedure: 04/24/23 Description of Procedure: Preoperative diagnosis: High-grade right internal carotid artery, symptomatic Postoperative diagnosis: Same Procedure: RightTranscarotid artery revascularization with stenting. Right common femoral vein central venous catheter placement under ultrasound guidance Ultrasound guided left radial artery access with placement of catheter for hemodynamic monitoring Surgeon: Luann Griffin DO Launch Engineer: Daina Anesthesia: Conscious sedation Complications: None Condition: Stable Flow reversal time: 10 minutes Lesion length: 19 mm Indication for procedure: Patient is a 69-year-old male with high-grade symptomatic who presented for intervention. Risks and benefits were discussed. He seemingly understood and was willing to proceed. Operative narrative: In the preoperative bay, after the arm was routinely prepped and draped, an ultrasound was utilized and the left radial artery was identified. It was found to be pulsatile without significant calcific disease. Permanent images stored. A radial arterial sheath and arterial line catheter was placed in standard fashion.the patient was brought to the Imaging Analyst and laid in a supine position. The area of the neck and groins were prepped and draped in usual sterile fashion after appropriate anesthetic was performed per the anesthesiologist. A timeout was performed in normal fashion and antibiotics were administered prior to incision. Utilizing ultrasound the right common carotid artery was located and a transverse incision was created overlying this area after proper anesthetization. Dissection was carried between the sternocleidomastoid musculature down to the carotid sheath. The sheath was then incised and the common carotid artery was located and dissected free in a circumferential manner and controlled with umbilical tape. Once controlled, attention was placed down to the common femoral vein and utilizing ultrasound the vein was cannulated and the 8-[place] sheath was placed in normal fashion. Attention was then placed back to the carotid artery and the patient was administered heparin and followed with ACTs and redosed as needed for ACT above 250. A pursestring suture was then placed at the common carotid artery with 5-0 Prolene and utilizing a micropuncture needle the common carotid artery was accessed and wire was placed followed by a 4-[place] sheath. Carotid angiogram was then obtained demonstrating significant stenosis in the internal carotid artery. Stiff wire was then placed followed by the 8 [place] sheath. Flow reversal was then established with the enroute AUTOMOTIVE DRIVABILITY TECHNICIAN system after patient's blood pressure was increased to above 160, heart rate above 60 and ACT above 250. 014 wire was then placed across the lesion followed by a 5 x 30 mm Perkins balloon and balloon angioplasty was performed followed by an 10 x 40 mm [place] stent. Postdilatation was not performed and final angiogram was obtained demonstrating complete resolution of the stenosis. All guidewires and catheters were removed and the sheath was removed and the arteriotomy was secured with the previously placed pursestring suture. Hemostasis was assured with Gelfoam and thrombin. The area was irrigated and closed. The platysma was closed with 3-0 Vicryl. The skin was closed with running 4-0 Monocryl in subcuticular fashionThe femoral sheath was also removed and pressure was held for hemostasis. The patient all procedure well and was moving all extremities and following commands. The patient was then sent to PACU for recovery.
[2023-04-24] MEDS ORDERED: LACTATED RINGERS 1,000 ML IV ONE ×2 (14:07)
[2023-04-24] MEDS ORDERED: PHENYLEPHRINE-0.9% NACL SYG 1,000 MCG/10 ML SYRINGE IVP ONE (14:20)
--- NOTE | 2023-04-24 14:20 | IR ---
EXAMINATION TYPE: IR stent intravas non coronary DATE OF EXAM: 04/24/2023 COMPARISON: NONE HISTORY: Fluoroscopy time. Fluoroscopy was provided to the referring clinician.
[2023-04-24] MEDS ORDERED: LIDOCAINE 1% INJ 10MG/ML (20 ML MDV) SQ ONE (14:44)
[2023-04-24] MEDS ORDERED: THROMBIN (BOVINE) 5,000 UNIT VIAL TOPICAL ONE (14:45)
[2023-04-24] MEDS ORDERED: GELATIN SPONGE,ABSORB (SMALL) 1 EACH SPONGE TOPICAL ONE (14:46)
[2023-04-24] MEDS ORDERED: ceFAZolin 2 GM in SODIUM CHLORIDE 0.9% 500 ML 500 ML IRRIGATION ONE (14:47)
[2023-04-24] MEDS ORDERED: HEPARIN SODIUM,PORCINE 10,000 UNIT in SODIUM CHLORIDE 0.9% 1,000 ML IRRIGATION ONE (14:48)
[2023-04-24 15:59] LABS: Glucose,Whole Blood 82 mg/dL (70-110)
[2023-04-24] MEDS: SODIUM CHLORIDE 0.9% 1,000 ML IV SCH (16:00)
[2023-04-24] MEDS ORDERED: ALBUTEROL NEBULIZED 2.5 MG/3 ML INHALATION PRN (18:05)
[2023-04-24] MEDS ORDERED: ALBUTEROL HFA INHALER INHALATION PRN (18:05)
[2023-04-24] MEDS ORDERED: IPRATROPIUM 0.5 MG/2.5 ML NEBU INHALATION PRN (18:05)
[2023-04-24] MEDS: ALPRAZolam 0.5 MG TAB PO PRN (18:10)
[2023-04-24] MEDS ORDERED: CARBIDOPA-LEVODOPA 25-100 MG 1 EACH TAB PO SCH (18:11)
[2023-04-24] MEDS: ACETAMINOPHEN TAB 325 MG TAB PO PRN ×2 (18:21→22:51)
[2023-04-24] MEDS ORDERED: ATORVASTATIN 40 MG TAB PO SCH ×2 (21:00)
[2023-04-24] MEDS ORDERED: SYMBICORT 160-4.5 MCG INHALER INHALATION SCH (21:00)
[2023-04-24] MEDS ORDERED: MONTELUKAST 10 MG TAB PO SCH (21:00)
[2023-04-24] MEDS ORDERED: GABAPENTIN 400 MG CAP PO SCH (21:00)
[2023-04-24] MEDS: HYDROXYCHLOROQUINE SULFATE 200 MG TAB PO SCH (22:42)
[2023-04-24] MEDS: CARBIDOPA-LEVODOPA 25-100 MG 1 EACH TAB PO SCH (22:43)
[2023-04-25 05:55] LABS: Basophils % (A) 0 %; Eosinophils # (A) 0.1 k/uL (0-0.7); Eosinophils % (A) 1 %; HCT 39.7 % (39.0-53.0); HGB 13.5 gm/dL (13.0-17.5); Lymphocytes # (A) 0.8 k/uL (1.0-4.8); Lymphocytes % (A) 10 %; MCH 32.6 pg (25.0-35.0); MCHC 33.9 g/dL (31.0-37.0); Mean Platelet Volume 7.4; Monocytes # (A) 0.5 k/uL (0-1.0); Monocytes % (A) 6 %; Neutrophils # (A) 6.4 k/uL (1.3-7.7); Neutrophils % (A) 80 %; Platelet Count 172 k/uL (150-450); RBC 4.14 m/uL (4.30-5.90); RDW 12.7 % (11.5-15.5)
[2023-04-25] MEDS ORDERED: LEVOTHYROXINE 100 MCG TAB PO SCH (06:00)
[2023-04-25 06:15] LABS: African American GFR (CKD) 90 (>60 ml/min/1.73 sqM); Anion Gap 8 mmol/L; Blood Urea Nitrogen 13 mg/dL (9-20); Calcium 8.6 mg/dL (8.4-10.2); Carbon Dioxide 21 mmol/L (22-30); Chloride 108 mmol/L (98-107); Glucose 93 mg/dL (74-99); Non-African American GFR(CKD) 78 (>60 ml/min/1.73 sqM); Potassium 4.3 mmol/L (3.5-5.1); Sodium 137 mmol/L (137-145)
[2023-04-25] MEDS: CARBIDOPA-LEVODOPA 25-100 MG 1 EACH TAB PO SCH (06:19)
[2023-04-25] MEDS: HYDROXYCHLOROQUINE SULFATE 200 MG TAB PO SCH (06:19)
[2023-04-25] MEDS: SODIUM CHLORIDE 0.9% 1,000 ML IV SCH (07:03)
[2023-04-25] MEDS ORDERED: SYMBICORT 160-4.5 MCG INHALER INHALATION SCH (08:00)
[2023-04-25] MEDS ORDERED: IPRATROPIUM 0.5 MG/2.5 ML NEBU INHALATION SCH (08:00)
[2023-04-25 08:12] VITALS: TEMP 97.8
[2023-04-25] MEDS: ALPRAZolam 0.5 MG TAB PO PRN (08:15)
[2023-04-25] MEDS ORDERED: ASPIRIN 81 MG PO SCH (09:00)
[2023-04-25] MEDS ORDERED: CLOPIDOGREL 75 MG TAB PO SCH (09:00)
[2023-04-25 10:54] VITALS: PULSE 75
--- NOTE | 2023-04-25 11:12 | P.DS ---
Providers Date of admission: 04/24/23 10:14 Attending physician: Luann Griffin DO Consults: 04/24/23 13:51 Consult Physician Routine Consulting Provider: Luis Gaming Consult Reason/Comments: post carotid stent, med mgmnt Do you want consulting provider notified?: Yes Primary care physician: [facility] Course: Patient is a 77-year-old male who underwent a right trans-carotid artery revascularization with stenting. He has been doing well in the recovery phase in ICU with monitored blood pressures. He has not required any of his home blood pressure medications. He has stable vitals and was found to be in stable condition to be discharged home. Discharged and given to the patient as well as his daughter. He has urinated, he is eating. The arterial line is about to be removed. The incision is clean and dry without any evidence of significant swelling. He is motor sensory intact Patient Condition at Discharge: Good Plan - Discharge Summary Discharge Rx Participant: Yes New Discharge Prescriptions: No Action Hydroxychloroquine Sulfate [Plaquenil] 200 mg PO BID@0600,2000 Montelukast [Singulair] 10 mg PO HS Levothyroxine Sodium [Euthyrox] 100 mcg PO DAILY@0600 Albuterol Sulfate [Proair Hfa] 2 puff INHALATION RT-QID PRN PRN Reason: Shortness Of Breath Fluticasone Propion/Salmeterol [Advair 500-50 Diskus] 1 puff INHALATION RT- BID@0600,2100 Ondansetron Odt [Zofran ODT] 4 mg PO Q8HR PRN #10 tab PRN Reason: Nausea Ipratropium Nebulized [Atrovent Nebulized 0.2 MG/ML] 0.5 mg INHALATION RT-QID PRN PRN Reason: Shortness Of Breath Losartan [Cozaar] 25 mg PO DAILY@0600 Sertraline [Zoloft] 100 mg PO DAILY@1200 Aspirin EC [Ecotrin Low Dose] 81 mg PO DAILY Atorvastatin [Lipitor] 40 mg PO HS 30 Days #30 tab ALPRAZolam [Xanax] 0.5 mg PO BID@0600,2000 Umeclidinium [place] [Incruse Ellipta] 1 puff INHALATION RT-DAILY@1200 Albuterol Nebulized [Ventolin Nebulized] 2.5 mg INHALATION RT-QID PRN PRN Reason: Shortness Of Breath Carbidopa-Levodopa 25-100 mg [Sinemet 25-100 mg] 1 tab PO TID@0600,1400,2200 Carbidopa-Levodopa 25-100 mg [Sinemet 25-100 mg] 0.5 tab PO DAILY@1800 Gabapentin [Neurontin] 400 mg PO HS Tezepelumab-Ekko [Tezspire] 1 dose SQ Q30D Clopidogrel [Plavix] 75 mg PO DAILY 30 Days #30 tab Discharge Medication List Hydroxychloroquine Sulfate [Plaquenil] 200 mg PO BID@06,199912/09/18 [History] Montelukast [Singulair] 10 mg PO HS 01/07/19 [History] Levothyroxine Sodium [Euthyrox] 100 mcg PO DAILY@0600 07/04/20 [History] Albuterol Sulfate [Proair Hfa] 2 puff INHALATION RT-QID PRN 07/09/20 [History] ALPRAZolam [Xanax] 0.5 mg PO BID@0600,199912/15/20 [History] Fluticasone Propion/Salmeterol [Advair 500-50 Diskus] 1 puff INHALATION RT- BID@0600,209912/15/20 [History] Umeclidinium [place] [Incruse Ellipta] 1 puff INHALATION RT-DAILY@1200 12/15/20 [History] Albuterol Nebulized [Ventolin Nebulized] 2.5 mg INHALATION RT-QID PRN 03/19/23 [History] Carbidopa-Levodopa 25-100 mg [Sinemet 25-100 mg] 0.5 tab PO DAILY@1800 03/19/23 [History] Carbidopa-Levodopa 25-100 mg [Sinemet 25-100 mg] 1 tab PO TID@0600,1400,0 03/19/23 [History] Gabapentin [Neurontin] 400 mg PO HS 03/19/23 [History] Ipratropium Nebulized [Atrovent Nebulized 0.2 MG/ML] 0.5 mg INHALATION RT-QID PRN 03/19/23 [History] Losartan [Cozaar] 25 mg PO DAILY@0600 03/19/23 [History] Ondansetron Odt [Zofran ODT] 4 mg PO Q8HR PRN #10 tab 03/19/23 [Rx] Sertraline [Zoloft] 100 mg PO DAILY@1200 03/19/23 [History] Tezepelumab-Ekko [Tezspire] 1 dose SQ Q30D 03/19/23 [History] Aspirin EC [Ecotrin Low Dose] 81 mg PO DAILY 04/14/23 [History] Atorvastatin [Lipitor] 40 mg PO HS 30 Days #30 tab 04/16/23 [Rx] Clopidogrel [Plavix] 75 mg PO DAILY 30 Days #30 tab 04/16/23 [Rx] Follow up Appointment(s)/Referral(s): Luann Griffin DO [STAFF PHYSICIAN] - 2 Weeks Activity/Diet/Wound Care/Special Instructions: May shower starting tomorrow. No soaking, tubs or swimming. May remove dressings prior to showering. May cover if desired. No heavy lifting. No driving until seen in the office. Discharge Disposition: HOME SELF-CARE
--- NOTE | 2023-04-25 11:51 | P.CONS ---
History of Present Illness - Reason for Consult Consult date: 04/25/23 - Chief Complaint s/p Endarterectomy - History of Present Illness * 77 yo with Past Medical History of Parkinson, CVA Recent right parietal lobe CVA, Parkinson disease, asthma, anxiety, hyperlipidemia, high-grade right internal carotid artery stenosis was admitted for elective right class carotid artery revascularization with stenting. * Patient is seen on postoperative day one, follow-up blood work obtained including CBC which were WBC of 8 hemoglobin 13.5 platelet count of 172 * Serum sodium obtained 137, potassium 4.3, dissected 108 be and 13 creatinine 0.94 calcium of 9.6 * Postprocedure versus surgery recommend to maintain blood pressure between 120- 180 systolic, with recommendation to use Kuldeep-Synephrine. * Patient home medications were reviewed and reconciled, no essential medications were initiated REVIEW OF SYSTEMS: CONSTITUTIONAL: No fever, no malaise, no fatigue. HEENT: No recent visual problems or hearing problems. Denied any sore throat. CARDIOVASCULAR: No chest pain, orthopnea, PND, no palpitations, no syncope. PULMONARY: No shortness of breath, no cough, no hemoptysis. GASTROINTESTINAL: No diarrhea, no nausea, no vomiting, no abdominal pain. NEUROLOGICAL: No headaches, no weakness, no numbness. HEMATOLOGICAL: Denies any bleeding or petechiae. GENITOURINARY: Denies any burning micturition, frequency, or urgency. MUSCULOSKELETAL/RHEUMATOLOGICAL: Denies any joint pain, swelling, or any muscle pain. ENDOCRINE: Denies any polyuria or polydipsia. PHYSICAL EXAMINATION: GENERAL: The patient is alert and oriented x3, not in any acute distress. Well developed, well nourished. HEENT: Pupils are round and equally reacting to light. EOMI. No scleral icterus CARDIOVASCULAR: S1 and S2 present. No murmurs, rubs, or gallops. Right neck i ncision bandage PULMONARY: Chest is clear to auscultation, no wheezing or crackles. ABDOMEN: Soft, nontender, nondistended, normoactive bowel sounds. No palpable organomegaly. MUSCULOSKELETAL: No joint swelling or deformity. EXTREMITIES: No cyanosis, clubbing, or pedal edema. NEUROLOGICAL: Gross neurological examination did not reveal any focal deficits. SKIN: No rashes. Past Medical History Past Medical History: Asthma, CVA/TIA, Hearing Disorder / Deafness, Hyperlipidemia, Hypertension, Prostate Disorder Additional Past Medical History / Comment(s): Hx. "urination is slow" Hx. of bronchitis, TIA in april 2020. arthritis back, parkinsons, Stroke last week. Difficulty swallowing. History of Any Multi-Drug Resistant Organisms: None Reported Past Surgical History: Cholecystectomy, Orthopedic Surgery Additional Past Surgical History / Comment(s): Hx. Left knee arthroscopic, urethral surgery. Past Anesthesia/Blood Transfusion Reactions: No Reported Reaction Smoking Status: Never smoker - Past Family History Father History Unknown: Yes Family Medical History: CVA/TIA Medications and Allergies Home Medications Medication Instructions Recorded Confirmed Type Hydroxychloroquine Sulfate 200 mg PO BID@0600,199912/09/18 04/24/23 History [Plaquenil] Montelukast [Singulair] 10 mg PO HS 01/07/19 04/24/23 History Levothyroxine Sodium [Euthyrox] 100 mcg PO DAILY@0600 07/04/20 04/24/23 History Albuterol Sulfate [Proair Hfa] 2 puff INHALATION RT-QID PRN 07/09/20 04/24/23 History ALPRAZolam [Xanax] 0.5 mg PO BID@0600,199912/15/20 04/24/23 History Fluticasone Propion/Salmeterol 1 puff INHALATION RT-BID@0600,209912/15/20 04/24/23 History [Advair 500-50 Diskus] Umeclidinium Center [Incruse 1 puff INHALATION RT-DAILY@1200 12/15/20 04/24/23 History Ellipta] Albuterol Nebulized [Ventolin 2.5 mg INHALATION RT-QID PRN 03/19/23 04/24/23 History Nebulized] Carbidopa-Levodopa 25-100 mg 0.5 tab PO DAILY@1800 03/19/23 04/24/23 History [Sinemet 25-100 mg] Carbidopa-Levodopa 25-100 mg 1 tab PO TID@0600,1400,2200 03/19/23 04/24/23 History [Sinemet 25-100 mg] Gabapentin [Neurontin] 400 mg PO HS 03/19/23 04/24/23 History Ipratropium Nebulized [Atrovent 0.5 mg INHALATION RT-QID PRN 03/19/23 04/24/23 History Nebulized 0.2 MG/ML] Losartan [Cozaar] 25 mg PO DAILY@0600 03/19/23 04/24/23 History Ondansetron Odt [Zofran ODT] 4 mg PO Q8HR PRN #10 tab 03/19/23 04/24/23 Rx Sertraline [Zoloft] 100 mg PO DAILY@1200 03/19/23 04/24/23 History Tezepelumab-Ekko [Tezspire] 1 dose SQ Q30D 03/19/23 04/24/23 History Aspirin EC [Ecotrin Low Dose] 81 mg PO DAILY 04/14/23 04/24/23 History Atorvastatin [Lipitor] 40 mg PO HS 30 Days #30 tab 04/16/23 04/24/23 Rx Clopidogrel [Plavix] 75 mg PO DAILY 30 Days #30 tab 04/16/23 04/24/23 Rx Allergies Allergy/AdvReac Type Severity Reaction Status Date / Time steriods AdvReac Tachycardia Uncoded 04/24/23 10:33 Physical Exam Vitals: Vital Signs Temp Pulse Pulse Pulse Resp BP BP 04/25/23 04:00 98.2 F 73 18 126/74 04/25/23 03:45 72 15 04/25/23 03:30 72 12 04/25/23 03:15 73 18 04/25/23 03:00 73 18 142/89 04/25/23 02:45 73 17 04/25/23 02:30 86 20 142/89 04/25/23 02:15 80 10 L 142/89 04/25/23 02:00 76 21 139/80 04/25/23 01:45 76 15 139/80 04/25/23 01:30 77 15 139/80 04/25/23 01:15 78 16 139/80 04/25/23 01:00 78 16 131/78 04/25/23 00:45 80 19 131/78 04/25/23 00:30 76 15 131/78 04/25/23 00:16 78 15 131/78 04/25/23 00:15 77 18 131/78 04/25/23 00:00 79 17 130/86 04/24/23 23:45 77 17 130/86 04/24/23 23:30 76 14 130/86 04/24/23 23:15 84 36 H 130/86 04/24/23 23:00 77 26 H 143/88 04/24/23 22:45 80 12 143/88 04/24/23 22:30 79 13 143/88 04/24/23 22:15 76 13 143/88 04/24/23 22:00 76 15 154/93 04/24/23 21:45 75 16 154/93 04/24/23 21:30 75 16 154/93 04/24/23 21:15 73 14 154/93 04/24/23 21:00 76 12 04/24/23 20:45 77 15 04/24/23 20:30 80 14 04/24/23 20:15 79 18 04/24/23 20:00 98.6 F 80 19 147/86 04/24/23 19:45 80 17 147/86 04/24/23 19:30 82 28 H 147/86 04/24/23 19:15 75 12 147/86 04/24/23 19:00 83 14 132/76 04/24/23 18:45 84 132/76 04/24/23 18:30 82 132/76 04/24/23 18:15 86 17 132/76 04/24/23 18:00 85 04/24/23 17:45 84 04/24/23 17:30 85 13 04/24/23 17:15 86 12 04/24/23 17:00 87 13 04/24/23 16:45 85 20 04/24/23 16:30 82 04/24/23 16:15 96.8 F L 82 18 118/75 04/24/23 16:00 86 16 04/24/23 15:33 85 16 04/24/23 15:18 83 16 04/24/23 15:03 83 16 04/24/23 14:48 84 16 04/24/23 14:33 84 16 04/24/23 14:18 84 16 04/24/23 14:03 98 F 86 14 04/24/23 10:53 98.7 F 84 18 157/92 BP BP BP Pulse Ox 04/25/23 04:00 92 L 04/25/23 03:45 93 L 04/25/23 03:30 90 L 04/25/23 03:15 92 L 04/25/23 03:00 92 L 04/25/23 02:45 94 L 04/25/23 02:30 94 L 04/25/23 02:15 92 L 04/25/23 02:00 94 L 04/25/23 01:45 93 L 04/25/23 01:30 93 L 04/25/23 01:15 93 L 04/25/23 01:00 94 L 04/25/23 00:45 92 L 04/25/23 00:30 92 L 04/25/23 00:16 92 L 04/25/23 00:15 92 L 04/25/23 00:00 92 L 04/24/23 23:45 92 L 04/24/23 23:30 92 L 04/24/23 23:15 93 L 04/24/23 23:00 93 L 04/24/23 22:45 94 L 04/24/23 22:30 93 L 04/24/23 22:15 92 L 04/24/23 22:00 92 L 04/24/23 21:45 93 L 04/24/23 21:30 92 L 04/24/23 21:15 93 L 04/24/23 21:00 94 L 04/24/23 20:45 93 L 04/24/23 20:30 94 L 04/24/23 20:15 93 L 04/24/23 20:00 95 04/24/23 19:45 95 04/24/23 19:30 95 04/24/23 19:15 95 04/24/23 19:00 95 04/24/23 18:45 95 04/24/23 18:30 94 L 04/24/23 18:15 94 L 04/24/23 18:00 96 04/24/23 17:45 93 L 04/24/23 17:30 93 L 04/24/23 17:15 92 L 04/24/23 17:00 94 L 04/24/23 16:45 92 L 04/24/23 16:30 93 L 04/24/23 16:15 94 L 04/24/23 16:00 95 04/24/23 15:33 142/67 119/76 97 04/24/23 15:18 130/63 116/69 97 04/24/23 15:03 132/60 114/72 98 04/24/23 14:48 128/61 110/71 97 04/24/23 14:33 135/591 108/69 97 04/24/23 14:18 112/65 109/63 97 04/24/23 14:03 127/59 94 L 04/24/23 10:53 157/75 98 Intake and Output 04/24/23 04/24/23 04/25/23 14:59 22:59 06:59 Intake Total 252 1300 450 Output Total 400 0 Balance 252 900 450 Intake: IV 252 800 450 Sodium Chloride 0.9% 1, 450 450 000 ml @ 75 mls/hr IV . [id number] MISAEL Rx#:[id number] Oral 500 Output: Urine 400 0 Other: Voiding Method Bedside Commode Urinal # Voids 1 # Bowel Movements 1 Weight 88.9 kg 92.9 kg ABP, PAP, CO, CI - Last 8 Hours Arterial Blood Pressure 124/50 Arterial Blood Pressure 122/54 Arterial Blood Pressure 123/50 Arterial Blood Pressure 120/46 Arterial Blood Pressure 125/58 Arterial Blood Pressure 124/53 Arterial Blood Pressure 150/74 Arterial Blood Pressure 131/59 Arterial Blood Pressure 147/60 Arterial Blood Pressure 137/55 Arterial Blood Pressure 139/55 Arterial Blood Pressure 136/54 Arterial Blood Pressure 140/55 Arterial Blood Pressure 131/53 Arterial Blood Pressure 125/52 Arterial Blood Pressure 124/53 Arterial Blood Pressure 122/50 Arterial Blood Pressure 135/57 Arterial Blood Pressure 121/49 Arterial Blood Pressure 122/50 Arterial Blood Pressure 130/52 Arterial Blood Pressure 132/62 Arterial Blood Pressure 145/63 Arterial Blood Pressure 155/61 Arterial Blood Pressure 150/62 Arterial Blood Pressure 135/61 Results CBC & Chem 7: 04/25/23 05:11 04/25/23 05:11 Assessment and Plan Assessment: Assessment and plan High-grade right internal carotid artery stenosis, status post stenting History of right parietal lobe CVA History of Parkinson's disease History of hypertension Hyperlipidemia * In regards to status post internal carotid artery stenosis, stenting continue patient on antiplatelet, continue Lipitor, vascular surgery team primary and following * In regards to history of CVA continue patient on aspirin, Plavix, Lipitor * In regards to Parkinson's disease continue patient on Sinemet, * In regards to hyperlipidemia continue Lipitor * To be discharged home with holding suctions for blood pressure medication * CODE STATUS is full code Time with Patient: Greater than 30
[2023-04-25 11:59] VITALS: BP 127/72; RESP 19
[2023-04-25] MEDS ORDERED: SERTRALINE 100 MG TAB PO SCH (12:00)
[2023-04-25] MEDS ORDERED: CARBIDOPA-LEVODOPA 25-100 MG 1 EACH TAB PO SCH (18:00)
== END 2023-04-25 12:25 | disposition home or self-care (01) | DRG 983 ==
LOC: 2ORMAIN 10:14 → 2SICU 15:19
PROVIDERS: ADMIT Surgery; ATTEND Surgery
PROC: 06HY33Z Insertion of Infusion Device into Lower Vein, Percutaneous Approach (ICD-10-PCS; principal; 2023-04-24 12:10)
PROC: 03HK3DZ Insertion of Intraluminal Device into Right Internal Carotid Artery, Percutaneous Approach (ICD-10-PCS; principal; 2023-04-24 12:10)
DX: I65.21 Occlusion and stenosis of right carotid artery (principal); G20.A1 Parkinson's disease without dyskinesia, without mention of fluctuations; I10 Essential (primary) hypertension; E78.5 Hyperlipidemia, unspecified; J45.909 Unspecified asthma, uncomplicated; Z79.02 Long term (current) use of antithrombotics/antiplatelets; Z79.82 Long term (current) use of aspirin; Z79.890 Hormone replacement therapy; Z79.899 Other long term (current) drug therapy; Z86.73 Personal history of transient ischemic attack (TIA), and cerebral infarction without residual deficits
CPT/HCPCS: 37215; 80048; 85025; 94640

== ENCOUNTER → 2023-06-01 | Outpatient (CLI) | payer MEDICARE ==
--- NOTE | 2023-06-01 12:05 | FL ---
EXAMINATION TYPE: FL barium swallow w video DATE OF EXAM: 06/01/2023 CLINICAL HISTORY: 77-year-old male R49.0, dysphonia. Parkinson's disease and trouble swallowing with food sticking. TECHNIQUE: Deglutition study is performed utilizing thin liquid barium, barium thick applesauce, and barium coated cracker. COMPARISON: None. Total fluoroscopy time 57 seconds. Total images: None. Real-time fluoroscopy support was provided to speech pathology. Total dose: 10 mGycm2. FINDINGS: There is transient penetration intermittently with thin liquids. This improves with chin tuck maneuve r. Mild residuals are noted along the posterior tongue base. No other penetration or aspiration is se en. IMPRESSION: Transient penetration with thin liquids which improves after chin tuck maneuver. Mild residuals along the posterior tongue base. No other penetration or aspiration. Please refer to speech therapist notes for further details if necessary.
== END | disposition home or self-care (01) ==
LOC: RADFLMAIN 10:52
PROVIDERS: ATTEND Otolaryngology
DX: R49.0 Dysphonia (principal); G20.A1 Parkinson's disease without dyskinesia, without mention of fluctuations
CPT/HCPCS: 74230

== ENCOUNTER → 2023-06-03 | Outpatient (CLI) | payer MEDICARE ==
--- NOTE | 2023-06-03 15:15 | FL ---
EXAMINATION TYPE: FL barium swallow DATE OF EXAM: 06/03/2023 COMPARISON: HISTORY: Dysphasia transient intermittent penetration with thin liquids TECHNIQUE: Double air contrast technique utilized to evaluate the esophagus. FINDINGS: No aspiration or penetration was evident during this exam. No filling defects are identifie d. Swallowing appears unremarkable. There is complete stripping of esophageal post horizontal drinkin g position. Mild esophagus is present. No reflux was evident. IMPRESSION: 1. No acute changes esophagus. 2. Mild presbyesophagus
== END | disposition home or self-care (01) ==
LOC: RADUSWWP 09:52
PROVIDERS: ATTEND Otolaryngology
DX: K22.89 Other specified disease of esophagus (principal)
CPT/HCPCS: 74220

== ENCOUNTER 2023-07-22 07:27 | Day surgery (SDC) | payer MEDICARE, OTHER ==
[2023-07-20 16:11] VITALS: BMI 27.1
[~2023-07-22 07:27] MED LIST changes: -ALPRAZolam 0.25 MG TAB PO PRN; -DEXMEDETOMIDINE/0.9% NACL(PMX) 400 MCG in EMPTY BAG 1 BAG IV ONE; -NITROGLYCERIN SL TABS 0.4 MG TAB SUBLINGUAL PRN; -RX INFO: IV CONTRAST WAS GIVEN 1 EACH MISC MISCELLANE PRN; +TETRACAINE 0.5% OPHTH (PF) DROPS 4 ML BTL OP PRN
[2023-07-22] MEDS: CYCLOPENTOLATE 1% OPHTH SOLN 2 ML BTL OP PRN (08:25)
[2023-07-22] MEDS: PHENYLEPHRINE 2.5% OPHTH DRP 2ML OP PRN (08:28)
[2023-07-22] MEDS: LACTATED RINGERS 1,000 ML IV SCH (08:29)
[2023-07-22 08:47] VITALS: RESP 16; TEMP 97.2
[2023-07-22] MEDS ORDERED: fentaNYL (PF) 50 MCG/ML 2 ML AMP ONE (09:40)
[2023-07-22] MEDS ORDERED: MIDAZOLAM 2 MG/2 ML VIAL ONE (09:40)
[2023-07-22] MEDS: EPINEPHrine (PF) 0.3 ML in BALANCED SALT IRRIG SOLN COMB2 500 ML IRRIGATION ONE (09:58)
[2023-07-22] MEDS: BALANCED SALT IRRIG SOLN COMB2 15 ML IRRIG.SOLN INTRAOCULA ONE (10:00)
[2023-07-22] MEDS: MOXIFLOXACIN HCL 0.5% DROPS 3 ML BTL OP PRN (10:01)
[2023-07-22] MEDS: LIDOCAINE 1% (PF) 10MG/ML VIAL MISCELLANE ONE ×2 (10:01)
[2023-07-22] MEDS: DUOVISC KIT (GREEN BOX) INTRAOCULA ONE (10:01)
[2023-07-22] MEDS: TIMOLOL 0.5% OPHTH DROPS 5 ML BTL OP PRN (10:01)
[2023-07-22] MEDS: LIDOCAINE 1% (PF) 10MG/ML VIAL INTRAARTIC ONE (10:01)
[2023-07-22] MEDS: EPINEPHrine (PF) 1 MG/ML AMP MISCELLANE ONE (10:02)
--- NOTE | 2023-07-22 10:41 | P.OP ---
Date of Procedure: 07/22/23 Preoperative Diagnosis: NS & CS & PSC Postoperative Diagnosis: same Procedure(s) Performed: PIOL, OD & IOL exchange Implants: [id number] 22.00 Anesthesia: MAC Surgeon: Rui Lobato Pathology: none sent Condition: stable Disposition: same day Indications for Procedure: blurry vision Operative Findings: no complications, cracked IOL.
[2023-07-22] MEDS ORDERED: methylPREDNISolone SOD SUCCI 125 MG/2 ML VIAL IV ONE (10:45)
[2023-07-22 11:35] VITALS: BP 146/86; PULSE 77
--- NOTE | 2023-07-22 13:37 | OP ---
OPERATIVE REPORT DATE OF SERVICE : 07/22/2023 PROCEDURE: Phacoemulsification of cataract and intraocular lens implant of the right eye. PREOPERATIVE DIAGNOSES: Nuclear sclerosis, cortical sclerosis, and posterior subcapsular cataract with regular astigmatism. POSTOPERATIVE DIAGNOSES: Nuclear sclerosis, cortical sclerosis, and posterior subcapsular cataract with regular astigmatism with damaged intraocular lens. ANESTHESIA: Topical. ESTIMATED BLOOD LOSS: None. SPECIMEN TAKEN: None. NARRATIVE: After obtaining the appropriate consent, the patient was brought to the operating room. He was placed under cardiac monitoring, and prepped and draped in the usual sterile manner. He was approached from his right temporal side, and using previously acquired corneal topography information, the axis of 180 degrees was identified and marked with a [employer] [place] Marker. At the 11 o'clock position, a 20-gauge MVR blade was used to create a paracentesis port. Through this opening, 1% Xylocaine MPF mixed with epinephrine 1:1000 MPF and balanced salt solution in a ratio of was injected into the anterior chamber. This was followed by stabilization of the anterior chamber with Viscoat. At the 9 o'clock position, a 2.5 mm keratome was used to create a self- sealing corneal flap incision in a Langerman fashion. A cystotome was introduced into the eye to begin a continuous tear capsulorrhexis, which was then completed using the Utrata forceps. Hydrodissection and hydrodelineation of the lens were accomplished with balanced salt solution. Phacoemulsification of the lens utilizing a phaco chop was accomplished in 28.07 seconds at 18.5% power. Additional medication mixture was instilled into the anterior chamber. This was followed by removal of the remaining cortical material under irrigation and aspiration as well as careful polishing of the posterior capsule in the capsule vacuum mode. Provisc was then used to stabilize the capsular bag and a [employer] model TFAT30, 22.0 diopter posterior chamber intraocular lens was inserted into the capsular bag without difficulty. However, during final placement, the lens was identified that there was a through the visual axis, and subsequently, the lens was elevated from the capsular bag to the iris plane and was removed using a [employer] Lens Removal System. Additional Provisc was then used to stabilize the capsular bag. Additionally, the patient received 125 mg of Solu- Medrol through his IV and a new TFAT30, 22.0 diopter was again placed in the capsular bag without difficulty. All remaining viscoelastic was removed from in and around the intraocular lens. The lens was rotated to its proper orientation and it was tamponade against the posterior capsule to ensure reduced rotation after surgery. The eye was then brought to normal intraocular pressure through the paracentesis port and to ensure watertight integrity, Tisseel was used to maintain that watertight integrity during the first hours post surgery. He then received 2 drops of 0.5% timolol, followed by 2 drops of 0.5% moxifloxacin. He was then lightly patched and shielded in the usual manner. There were no complications from the procedure. He tolerated the procedure well and was returned to outpatient recovery in good condition. PO / RAMINN: [id number] /
== END 2023-07-22 11:53 | disposition home or self-care (01) ==
LOC: OR 07:27
PROVIDERS: ATTEND Ophthalmology
DX: H25.11 Age-related nuclear cataract, right eye (principal); H25.011 Cortical age-related cataract, right eye; H52.221 Regular astigmatism, right eye; I10 Essential (primary) hypertension; E78.5 Hyperlipidemia, unspecified; J45.909 Unspecified asthma, uncomplicated; N40.0 Benign prostatic hyperplasia without lower urinary tract symptoms; M06.9 Rheumatoid arthritis, unspecified; Z86.73 Personal history of transient ischemic attack (TIA), and cerebral infarction without residual deficits; Z79.51 Long term (current) use of inhaled steroids; Z79.899 Other long term (current) drug therapy
CPT/HCPCS: 66984; V2632; J2250; J0171; J3010; J2001

== ENCOUNTER 2023-08-05 06:57 | Day surgery (SDC) | payer MEDICARE, OTHER ==
[2023-07-30 16:19] VITALS: BMI 26.4
[~2023-08-05 06:57] MED LIST changes: +LIDOCAINE 1% (10MG/ML) FOR IV START INTRADERMA PRN; -TETRACAINE 0.5% OPHTH (PF) DROPS 4 ML BTL OP PRN
[2023-08-05] MEDS: LACTATED RINGERS 1,000 ML IV SCH (07:21)
[2023-08-05] MEDS: CYCLOPENTOLATE 1% OPHTH SOLN 2 ML BTL OP PRN (07:34)
[2023-08-05] MEDS: TETRACAINE 0.5% OPHTH (PF) DROPS 4 ML BTL OP PRN (07:37)
[2023-08-05] MEDS: PHENYLEPHRINE 2.5% OPHTH DRP 2ML OP PRN (07:45)
[2023-08-05 08:11] VITALS: TEMP 97.7
[2023-08-05] MEDS ORDERED: MIDAZOLAM 2 MG/2 ML VIAL ONE (08:17)
[2023-08-05] MEDS ORDERED: fentaNYL (PF) 50 MCG/ML 2 ML AMP ONE (08:17)
[2023-08-05] MEDS: TIMOLOL 0.5% OPHTH DROPS 5 ML BTL OP PRN (08:41)
[2023-08-05] MEDS: MOXIFLOXACIN HCL 0.5% DROPS 3 ML BTL OP PRN (08:41)
[2023-08-05] MEDS: DUOVISC KIT (GREEN BOX) INTRAOCULA ONE (08:42)
[2023-08-05] MEDS: LIDOCAINE 1% (PF) 10MG/ML VIAL MISCELLANE ONE (08:42)
[2023-08-05] MEDS: BALANCED SALT IRRIG SOLN COMB2 15 ML IRRIG.SOLN INTRAOCULA ONE (08:42)
[2023-08-05] MEDS: EPINEPHrine (PF) 1 MG/ML AMP MISCELLANE ONE (08:43)
[2023-08-05] MEDS: EPINEPHrine (PF) 0.3 ML in BALANCED SALT IRRIG SOLN COMB2 500 ML IRRIGATION ONE (08:44)
--- NOTE | 2023-08-05 09:09 | P.OP ---
Date of Procedure: 08/05/23 Preoperative Diagnosis: NS & CS & PSC & reg astig Postoperative Diagnosis: same Procedure(s) Performed: PIOL, OS Implants: [id number] 21.00 Anesthesia: MAC Surgeon: Rui Lobato Pathology: none sent Condition: stable Disposition: same day Indications for Procedure: blurry vision Operative Findings: no complications
[2023-08-05 10:00] VITALS: BP 143/73; PULSE 78; RESP 16
--- NOTE | 2023-08-05 12:22 | OP ---
OPERATIVE REPORT DATE OF SERVICE : 08/05/2023 PROCEDURE PERFORMED: Phacoemulsification of cataract and intraocular lens implant of the left eye. PREOPERATIVE DIAGNOSES: Nuclear sclerosis, cortical sclerosis, posterior subcapsular cataract and regular astigmatism. POSTOPERATIVE DIAGNOSES: Nuclear sclerosis, cortical sclerosis, posterior subcapsular cataract and regular astigmatism. ANESTHESIA: Topical. ESTIMATED BLOOD LOSS: None. SPECIMEN TAKEN: None. NARRATIVE: After obtaining the appropriate consent, the patient was brought to the operating room. There he was placed under cardiac monitoring, prepped and draped in usual sterile manner. Using previously acquired corneal topography information and the index garduno previously placed on the patient's eye in the preop area. An axis of 178 degrees was identified and marked with a [employer] axis marker. At the 5 o'clock position, a paracentesis port was created using an MVR blade. This was followed by installation of 1% lidocaine, 1:1000 epinephrine MPF and balanced salt solution in a ratio of 1:2:1 was injected into the anterior chamber. This was followed by stabilization of the anterior chamber with Duovisc. At the 3 o'clock position, a 2.5-mm keratome was used to create a self-sealing corneal flap incision. Through this opening, a cystotome was introduced to begin a continuous tear capsulorrhexis which was then completed using the Utrata forceps. Hydrodissection and hydrodelineation of the lens were accomplished with balanced salt solution. Phacoemulsification lens utilizing phaco chop was accomplished and a 36.99 seconds at 21.5% power. Additional Xylocaine MPF was instilled into the anterior chamber. This was followed by removal of the remaining cortical material under irrigation and aspiration as well as careful polishing of the posterior capsule in the capsule vacuum mode. There was a small piece of tenacious capsular material still within the patient's eye and using both Adams and Pepose capsule polishers, the material was finally released from the anterior capsular leaflet. The intraocular lens was then introduced into the anterior chamber and the remaining viscoelastic was removed from in and around the intraocular lens as well as the anterior chamber itself. Using the previously placed axis garduno at 178 degrees, the lens garduno were aligned. The eye was then brought to normal intraocular pressure through the paracentesis port, watertight integrity was ensured using Tisseel. He then received 2 drops of 0.5% timolol followed by 2 drops of 0.5% moxifloxacin, was then lightly patched and shielded in the usual manner. There were no complications from the procedure. He tolerated the procedure well and was returned to outpatient recovery in good condition. PO / RAMINN: [id number] /
== END 2023-08-05 09:54 | disposition home or self-care (01) ==
LOC: OR 06:57
PROVIDERS: ATTEND Ophthalmology
DX: H25.12 Age-related nuclear cataract, left eye (principal); H25.012 Cortical age-related cataract, left eye; I10 Essential (primary) hypertension; E78.5 Hyperlipidemia, unspecified; J45.909 Unspecified asthma, uncomplicated; M06.9 Rheumatoid arthritis, unspecified; F32.A Depression, unspecified; Z86.73 Personal history of transient ischemic attack (TIA), and cerebral infarction without residual deficits; Z79.02 Long term (current) use of antithrombotics/antiplatelets; Z79.51 Long term (current) use of inhaled steroids; Z79.899 Other long term (current) drug therapy
CPT/HCPCS: 66984; V2632; J2250; J0171; J3010; J2001

== ENCOUNTER 2023-09-24 14:16 | Emergency (ER) | payer MEDICARE ==
[2023-09-24] MEDS: IPRATROPIUM-ALBUTEROL 3 ML NEB INHALATION STA (15:01)
[2023-09-24] MEDS: SODIUM CHLORIDE 0.9% 1,000 ML IV STA (15:07)
--- NOTE | 2023-09-24 15:32 | XR ---
EXAMINATION TYPE: XR chest 2V DATE OF EXAM: 09/24/2023 COMPARISON: 04/14/2023 INDICATION: Difficulty breathing TECHNIQUE: Frontal and lateral views of the chest are obtained. FINDINGS: The heart size is normal. The pulmonary vasculature is normal. The lungs are clear. Chronic elevation of the right diaphragm IMPRESSION: 1. No acute pulmonary process.
--- NOTE | 2023-09-24 15:36 | ED ---
Weakness HPI - General Chief complaint: Shortness of Breath Stated complaint: SOB,Weakness Time Seen by Provider: 09/24/23 14:34 Source: patient, family, RN notes reviewed, old records reviewed Mode of arrival: ambulatory Limitations: no limitations - History of Present Illness Initial comments: This is a 78-year-old male with a complicated medical history coming in for weakness nausea vomiting abdominal pain severe shortness of breath generalized bodyaches and pains abdominal swelling. Patient has no recent fever or travel history no other complaints MD Complaint: generalized weakness Location: generalized Severity: moderate Severity scale (1-10): 6 Consistency: constant Improves with: none Worsens with: none Associated Symptoms: confusion, loss of appetite, nausea/vomiting, shortness of breath - Related Data Home Medications Medication Instructions Recorded Confirmed Hydroxychloroquine Sulfate 200 mg PO BID@0600,199912/09/18 09/24/23 [Plaquenil] Montelukast [Singulair] 10 mg PO HS 01/07/19 09/24/23 Levothyroxine Sodium [Euthyrox] 100 mcg PO DAILY@0600 07/04/20 09/24/23 Albuterol Sulfate [Proair Hfa] 2 puff INHALATION RT-QID PRN 07/09/20 09/24/23 ALPRAZolam [Xanax] 0.5 mg PO BID@0600,199912/15/20 09/24/23 Fluticasone Propion/Salmeterol 1 puff INHALATION RT-BID@0600,2100 12/15/20 0 09/24/23 [Advair 500-50 Diskus] Umeclidinium [place] [Incruse 1 puff INHALATION RT-DAILY@1200 12/15/20 09/24/23 Ellipta] Albuterol Nebulized [Ventolin 2.5 mg INHALATION RT-QID PRN 03/19/23 09/24/23 Nebulized] Carbidopa-Levodopa 25-100 mg 0.5 tab PO DAILY@1800 03/19/23 09/24/23 [Sinemet 25-100 mg] Carbidopa-Levodopa 25-100 mg 1 tab PO TID@0600,1400,2200 03/19/23 09/24/23 [Sinemet 25-100 mg] Ipratropium Nebulized [Atrovent 0.5 mg INHALATION RT-QID PRN 03/19/23 09/24/23 Nebulized 0.2 MG/ML] Sertraline [Zoloft] 100 mg PO DAILY@1200 03/19/23 09/24/23 Tezepelumab-Ekko [Tezspire] 1 dose SQ Q30D 03/19/23 09/24/23 Aspirin EC [Ecotrin Low Dose] 81 mg PO DAILY 04/14/23 09/24/23 amLODIPine [Norvasc] 5 mg PO HS 07/20/23 09/24/23 Previous Rx's Medication Instructions Recorded Atorvastatin [Lipitor] 40 mg PO HS 30 Days #30 tab 04/16/23 Clopidogrel [Plavix] 75 mg PO DAILY 30 Days #30 tab 04/16/23 Losartan [Cozaar] 25 mg PO DAILY@0600 #0 04/25/23 Allergies Allergy/AdvReac Type Severity Reaction Status Date / Time No Known Allergies Allergy Verified 09/24/23 15:32 Review of Systems ROS Statement: Those systems with pertinent positive or pertinent negative responses have been documented in the HPI. ROS Other: All systems not noted in ROS Statement are negative. Past Medical History Past Medical History: Asthma, CVA/TIA, Hearing Disorder / Deafness, Hyperlipidemia, Hypertension, Prostate Disorder, Rheumatoid Arthritis (RA) Additional Past Medical History / Comment(s): TIA in april 2020. arthritis back, parkinsons, CATARACTS History of Any Multi-Drug Resistant Organisms: None Reported Past Surgical History: Cholecystectomy, Orthopedic Surgery Additional Past Surgical History / Comment(s): Hx. Left knee arthroscopic, urethral surgery, RT CATARACT REMOVED WITH LENS IMPLANT, COLONOSCOPY Past Anesthesia/Blood Transfusion Reactions: No Reported Reaction Past Psychological History: Depression Smoking Status: Never smoker - Past Family History Father History Unknown: Yes Family Medical History: CVA/TIA General Exam Limitations: no limitations General appearance: anxious Head exam: Present: atraumatic, normocephalic, normal inspection Eye exam: Present: normal appearance, PERRL, EOMI. Absent: scleral icterus, conjunctival injection, periorbital swelling ENT exam: Present: normal exam, mucous membranes moist Neck exam: Present: normal inspection. Absent: tenderness, meningismus, lymphadenopathy Respiratory exam: Present: normal lung sounds bilaterally. Absent: respiratory distress, wheezes, rales, rhonchi, stridor Cardiovascular Exam: Present: regular rate, normal rhythm, normal heart sounds. Absent: systolic murmur, diastolic murmur, rubs, gallop, clicks GI/Abdominal exam: Present: soft, normal bowel sounds. Absent: distended, tenderness, guarding, rebound, rigid Extremities exam: Present: normal inspection, full ROM, normal capillary refill. Absent: tenderness, pedal edema, joint swelling, calf tenderness Back exam: Present: normal inspection Neurological exam: Present: alert, oriented X3, CN II-XII intact Psychiatric exam: Present: normal affect, normal mood Skin exam: Present: warm, dry, intact, normal color. Absent: rash Course Vital Signs 09/24/23 09/24/23 09/24/23 14:24 15:02 15:11 Temperature 978 F H Pulse Rate 81 80 Respiratory 18 18 Rate Blood Pressure 139/71 O2 Sat by Pulse Oximetry 09/24/23 09/24/23 09/24/23 15:14 15:20 16:50 Temperature 98.6 F 98.2 F Pulse Rate 84 80 81 Respiratory 20 20 Rate Blood Pressure 165/87 O2 Sat by Pulse 96 99 Oximetry 09/24/23 18:13 Temperature 98.3 F Pulse Rate 83 Respiratory 17 Rate Blood Pressure 171/98 O2 Sat by Pulse 97 Oximetry - Reevaluation(s) Reevaluation #1: Medical records reviewed Reevaluation #2: Patient symptoms improved Reevaluation #3: Patient informed of results and questions were answered Reevaluation #4: Was pt. sent in by a medical professional or institution (, PA, SYSTEM SUPPORT DEVELOPER, urgent care, hospital, or fdc...) When possible be specific @ -no Did you speak to anyone other than the patient for history (EMS, parent, family, police, friend...)? What history was obtained from this source @ -no Did you review nursing and triage notes (agree or disagree)? Why? @ -agree Are old charts reviewed (outside hosp., previous admission, EMS record, old EKG, old radiological studies, urgent care reports/EKG's, fdc records)? Report findings @ -yes Differential Diagnosis (chest pain, altered mental status, abdominal pain women, abdominal pain men, vaginal bleeding, weakness, fever, dyspnea, syncope, headache, dizziness, GI bleed, back pain, seizure, CVA, palpatations, mental health, musculoskeletal)? @ -prior EKG interpreted by me (3pts min.). @ -yes X-rays interpreted by me (1pt min.). @ -yes negative for acute disease CT interpreted by me (1pt min.). @ -Yes negative for acute disease U/S interpreted by me (1pt. min.). @ -no What testing was considered but not performed or refused? (CT, X-rays, U/S, labs)? Why? @ -none What meds were considered but not given or refused? Why? @ -none Did you discuss the management of the patient with other professionals (professionals i.e. DrYulia, PA, SYSTEM SUPPORT DEVELOPER, lab, RT, psych nurse, secondary social studies teacher, vp marketing services and skin, teacher, ambulance officer, comp field case manager)? Give summary @ -no Was smoking cessation discussed for >3mins.? @ -no Was critical care preformed (if so, how long)? @ -no Were there social determinants of health that impacted care today? How? (Homelessness, low income, unemployed, alcoholism, drug addiction, transportatio n, low edu. Level, literacy, decrease access to med. care, half-way, rehab)? @ -none Was there de-escalation of care discussed even if they declined (Discuss DNR or withdrawal of care, Hospice)? DNR status @ -no What co-morbidities impacted this encounter? (DM, HTN, Smoking, COPD, CAD, Cancer, CVA, ARF, Chemo, Hep., AIDS, mental health diagnosis, sleep apnea, morbid obesity)? @ -none Was patient admitted / discharged? Hospital course, mention meds given and route, prescriptions, significant lab abnormalities, going to OR and other pertinent info. @ - 78 male to the ER for evaluation of weakness abdominal pain nausea with no acute findings here in the ER occasional shortness of breath although resolved. Patient feels well can be discharged home Discharge Undiagnosed new problem with uncertain prognosis? @ -no Drug Therapy requiring intensive monitoring for toxicity (Heparin, Nitro, Insu alicia, Cardizem)? @ -no Were any procedures done? @ -no Diagnosis/symptom? @ -Weakness and dyspnea with abdominal pain nausea vomiting Acute, or Chronic, or Acute on Chronic? @ -Acute Uncomplicated (without systemic symptoms) or Complicated (systemic symptoms)? @ -Complicated Side effects of treatment? @ -no Exacerbation, Progression, or Severe Exacerbation? @ -exacerbation Poses a threat to life or bodily function? How? (Chest pain, USA, MT, pneumonia, PE, COPD, DKA, ARF, appy, cholecystitis, CVA, Diverticulitis, Homicidal, Suicidal, threat to staff... and all critical care pts) @ -yes with extremes of age Reevaluation #5: Differential Weakness: Hypoglycemia, shock, sepsis, hyponatremia, anemia, infection, MT, ETOH, adverse medicine reaction, overdose, stroke, this is not meant to be an all-inclusive list. EKG Findings - EKG Comments: EKG Findings:: EKG is sinus 78 [place] 222 QRS 86 QTc 427 - EKG Results: EKG: interpreted by JOSHUA Medical Decision Making - Medical Decision Making 78 male to the ER for evaluation of weakness abdominal pain nausea with no acute findings here in the ER occasional shortness of breath although resolved. Patient feels well can be discharged home - Lab Data Result diagrams: 09/24/23 15:05 09/24/23 15:05 Lab Results 09/24/23 09/24/23 09/24/23 Range/Units 15:05 15:05 15:05 WBC 10.3 (3.8-10.6) k/uL RBC 3.85 L (4.30-5.90) m/uL Hgb 12.6 L (13.0-17.5) gm/dL Hct 36.1 L (39.0-53.0) % MCV 94.0 (80.0-100.0) fL MCH 32.9 (25.0-35.0) pg MCHC 35.0 (31.0-37.0) g/dL RDW 13.0 (11.5-15.5) % Plt Count 179 (150-450) k/uL MPV 8.0 Neutrophils % 83 % Lymphocytes % 9 % Monocytes % 6 % Eosinophils % 1 % Basophils % 0 % Neutrophils # 8.5 H (1.3-7.7) k/uL Lymphocytes # 0.9 L (1.0-4.8) k/uL Monocytes # 0.6 (0-1.0) k/uL Eosinophils # 0.1 (0-0.7) k/uL Basophils # 0.0 (0-0.2) k/uL PT 9.8 L (10.0-12.5) sec INR 0.9 (<1.2) APTT 23.0 (22.0-30.0) sec D-Dimer 0.91 H (<0.60) mg/L FEU Sodium 137 (137-145) mmol/L Potassium 4.2 (3.5-5.1) mmol/L Chloride 107 (98-107) mmol/L Carbon Dioxide 23 (22-30) mmol/L Anion Gap 7 mmol/L BUN 14 (9-20) mg/dL Creatinine 1.12 (0.66-1.25) mg/dL Est GFR (CKD-EPI)AfAm 73 (>60 ml/min/1.73 sqM) Est GFR (CKD-EPI)NonAf 63 (>60 ml/min/1.73 sqM) Glucose 104 H (74-99) mg/dL Plasma Lactic Acid Siva (0.7-2.0) mmol/L Calcium 9.1 (8.4-10.2) mg/dL Magnesium 2.1 (1.6-2.3) mg/dL Total Bilirubin 0.5 (0.2-1.3) mg/dL AST 25 (17-59) U/L ALT 9 (4-49) U/L Alkaline Phosphatase 76 (38-126) U/L Troponin I (0.000-0.034) ng/mL NT-Pro-B Natriuret Pep 366 pg/mL Total Protein 5.3 L (6.3-8.2) g/dL Albumin 3.1 L (3.5-5.0) g/dL 09/24/23 09/24/23 Range/Units 15:05 15:05 WBC (3.8-10.6) k/uL RBC (4.30-5.90) m/uL Hgb (13.0-17.5) gm/dL Hct (39.0-53.0) % MCV (80.0-100.0) fL MCH (25.0-35.0) pg MCHC (31.0-37.0) g/dL RDW (11.5-15.5) % Plt Count (150-450) k/uL MPV Neutrophils % % Lymphocytes % % Monocytes % % Eosinophils % % Basophils % % Neutrophils # (1.3-7.7) k/uL Lymphocytes # (1.0-4.8) k/uL Monocytes # (0-1.0) k/uL Eosinophils # (0-0.7) k/uL Basophils # (0-0.2) k/uL PT (10.0-12.5) sec INR (<1.2) APTT (22.0-30.0) sec D-Dimer (<0.60) mg/L FEU Sodium (137-145) mmol/L Potassium (3.5-5.1) mmol/L Chloride (98-107) mmol/L Carbon Dioxide (22-30) mmol/L Anion Gap mmol/L BUN (9-20) mg/dL Creatinine (0.66-1.25) mg/dL Est GFR (CKD-EPI)AfAm (>60 ml/min/1.73 sqM) Est GFR (CKD-EPI)NonAf (>60 ml/min/1.73 sqM) Glucose (74-99) mg/dL Plasma Lactic Acid Siva 1.2 (0.7-2.0) mmol/L Calcium (8.4-10.2) mg/dL Magnesium (1.6-2.3) mg/dL Total Bilirubin (0.2-1.3) mg/dL AST (17-59) U/L ALT (4-49) U/L Alkaline Phosphatase (38-126) U/L Troponin I <0.012 (0.000-0.034) ng/mL NT-Pro-B Natriuret Pep pg/mL Total Protein (6.3-8.2) g/dL Albumin (3.5-5.0) g/dL - EKG Data -: EKG Interpreted by Nm - Radiology Data Radiology results: report reviewed (Chest x-ray CT brain CT chest abdomen pelvis negative for acute disease), image reviewed Disposition Clinical Impression: Weakness, Abdominal pain, Dyspnea Disposition: HOME SELF-CARE Instructions (If sedation given, give patient instructions): Weakness (ED), Abdominal Pain (ED), Dyspnea (ED) Is patient prescribed a controlled substance at d/c from ED?: No Referrals: Ronald Tamez MD [Primary Care Provider] - 1-2 days Time of Disposition: 18:45
[2023-09-24 15:44] LABS: INR 0.9 (<1.2); Prothrombin Time 9.8 sec (10.0-12.5)
[2023-09-24 15:55] LABS: Basophils % (A) 0 %; Eosinophils # (A) 0.1 k/uL (0-0.7); Eosinophils % (A) 1 %; HCT 36.1 % (39.0-53.0); HGB 12.6 gm/dL (13.0-17.5); Lymphocytes # (A) 0.9 k/uL (1.0-4.8); Lymphocytes % (A) 9 %; MCH 32.9 pg (25.0-35.0); Monocytes # (A) 0.6 k/uL (0-1.0); Monocytes % (A) 6 %; Neutrophils # (A) 8.5 k/uL (1.3-7.7); Neutrophils % (A) 83 %; Platelet Count 179 k/uL (150-450); RBC 3.85 m/uL (4.30-5.90); WBC 10.3 k/uL (3.8-10.6)
[2023-09-24 16:11] LABS: ALT 9 U/L (4-49); AST 25 U/L (17-59); African American GFR (CKD) 73 (>60 ml/min/1.73 sqM); Albumin 3.1 g/dL (3.5-5.0); Alkaline Phosphatase 76 U/L (38-126); Anion Gap 7 mmol/L; Blood Urea Nitrogen 14 mg/dL (9-20); Calcium 9.1 mg/dL (8.4-10.2); Carbon Dioxide 23 mmol/L (22-30); Chloride 107 mmol/L (98-107); Glucose 104 mg/dL (74-99); Magnesium 2.1 mg/dL (1.6-2.3); Non-African American GFR(CKD) 63 (>60 ml/min/1.73 sqM); Potassium 4.2 mmol/L (3.5-5.1); Sodium 137 mmol/L (137-145); Total Bilirubin 0.5 mg/dL (0.2-1.3); Total Protein 5.3 g/dL (6.3-8.2)
[2023-09-24 16:16] LABS: NT-Pro-B-Type Natriuretic Pept 366 pg/mL
[2023-09-24] MEDS: MORPHINE SULFATE 4 MG/ML SYRINGE IVP STA (16:53)
--- NOTE | 2023-09-24 16:53 | CT ---
EXAMINATION TYPE: CT brain wo con DATE OF EXAM: 09/24/2023 COMPARISON: 04/14/2023 HISTORY: weakness, fall and hx of recent stroke. CT DLP: 1133.4 mGycm Automated exposure control for dose reduction was used. FINDINGS: Ventricles, basal cisterns and sulci of the convexities are within normal limits for the patient's ag e and there is no mass effect or shift of midline structures. No abnormal density is seen throughout the brain parenchyma. There is no acute intra or extra-axial hemorrhage Posterior fossa including the brainstem, fourth ventricle and cerebellopontine angles reveals normal. The intraorbital contents are normal and symmetric. Visualized paranasal sinuses and mastoid air cells are well aerated. IMPRESSION: Mild age appropriate senescent changes with no acute bleed or mass effect. No interval change from p revious
[2023-09-24] MEDS: ONDANSETRON 4 MG/2 ML VIAL IVP STA (16:55)
[2023-09-24 18:34] VITALS: BP 171/98; PULSE 83; RESP 17; TEMP 98.3
--- NOTE | 2023-09-24 18:34 | CT ---
EXAMINATION TYPE: CT abdomen pelvis w con DATE OF EXAM: 09/24/2023 COMPARISON: 12/16/2020 HISTORY: abdominal pain CT DLP: 1247.5 mGycm Automated exposure control for dose reduction was used. TECHNIQUE: Helical acquisition of images was performed from the lung bases through the pelvis. CONTRAST: Performed without Oral Contrast and with IV Contrast, patient injected with 100 ml mL of Isovue 300. FINDINGS: The lung bases are clear. There is surgical absence of the gallbladder. There is no biliary ductal dilatation. There is no focal mass or organomegaly involving the liver, pancreas, spleen or adrenal glands. There is no solid renal mass or hydronephrosis and there is homogeneous contrast enhancement of the r enal parenchyma. There is mild stable aneurysmal dilatation of the infrarenal abdominal aorta which measures 3.4 cm in AP dimension. There is mild to moderate mural thrombus within it. The bowel loops are normal in caliber and there is no evidence of dilatation or obstruction. There ar e mild inflammatory changes in the pericolic fat within the proximal to mid sigmoid colon consistent with mild acute diverticulitis. There is no discrete abscess or free intraperitoneal air or fluid. There is no pelvic adenopathy. There is mild prostatic hypertrophy. The osseous structures are intact . The osseous structures and soft tissues are intact. IMPRESSION: 1. Findings consistent with mild acute diverticulitis of the sigmoid colon. 2. 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 Cholecystectomy.
--- NOTE | 2023-09-24 18:40 | CT ---
EXAMINATION TYPE: CT angio chest DATE OF EXAM: 09/24/2023 6:28 PM COMPARISON: 01/04/2021 HISTORY: weakness, SOB CT DLP: 414 mGycm Automated exposure control for dose reduction was used. CONTRAST: CTA scan of the thorax is performed with IV Contrast, patient injected with 100 ml mL of Isovue 370, pulmonary embolism protocol. 3-D postprocessing was performed.. FINDINGS: LUNGS: The lungs are grossly clear, there is no concerning parenchymal mass or nodule identified. T here is no pleural effusion or pneumothorax seen. The tracheobronchial tree is patent. MEDIASTINUM: There is satisfactory enhancement of the pulmonary artery and its branches, there is no CT evidence for pulmonary embolism. There are no greater than 1 cm hilar or mediastinal lymph nodes. No pericardial effusion is seen. The osseous structures are intact. Limited scanning through the abdomen reveals cholecystectomy. IMPRESSION: 1. NO EVIDENCE OF PULMONARY EMBOLISM. 2. NO ACUTE CARDIOPULMONARY DISEASE.
== END 2023-09-24 18:58 | disposition home or self-care (01) ==
LOC: EC 14:16
DX: I71.43 Infrarenal abdominal aortic aneurysm, without rupture (principal); R06.00 Dyspnea, unspecified; R53.1 Weakness; K57.32 Diverticulitis of large intestine without perforation or abscess without bleeding
CPT/HCPCS: 36415; 94640; 93005; 85379; 83880; 80053; 83605; 83735; 84484; 85025; 85610; 85730; 71046; 70450; 71275; 74177; 99285; 96374; 96375; 96361; J2270; J2405; Q9967